=== PATIENT | male | born 1950 | race Caucasian/White ===

== ENCOUNTER → 2016-09-14 | Outpatient (CLI) | payer OTHER ==
[2016-09-14 13:30] LABS: BASO % 0.8 %; BASO ABS # 0.03 K/uL (0-0.2); COMPLETE YES; EOS % 10.6 %; HEMATOCRIT 34.4 % (42-52); IG% 0.3 %; LYMPH % 34.8 %; LYMPH ABS # 1.38 K/uL (1.2-3.4); MEAN CELL VOLUME 93.2 fL (80-100); MEAN CORPUSCULAR HEMOGLOBIN 32.2 pg (25-34); MEAN CORPUSCULAR HGB CONC 34.6 g/dl (32-36); MEAN PLATELET VOLUME 9.1 fL (7.4-10.4); MONO % 15.7 %; NEUT % 37.8 %; PLATELET COUNT 236 K/uL (130-400); RED BLOOD COUNT 3.69 M/uL (4.7-6.1); WHITE BLOOD COUNT 3.96 K/uL (4.8-10.8)
[2016-09-14 13:47] LABS: ALT/SGPT 28 U/L (12-78); BLOOD UREA NITROGEN 17 mg/dl (7-18); CALCIUM 8.8 mg/dl (8.5-10.1); CARBON DIOXIDE 24 mmol/L (21-32); CHLORIDE 101 mmol/L (98-107); CHOLESTEROL 180 mg/dl (0-200); GLUCOSE 89 mg/dl (70-99); SODIUM 133 mmol/L (136-145); TRIGLYCERIDES 67 mg/dl (0-150); VERY LOW DENSITY LIPOPROT CALC 13 mg/dl
[2016-09-14 13:50] LABS: ALKALINE PHOSPHATASE 64 U/L (45-117); AST/SGOT 28 U/L (15-37); CHOLESTEROL/HDL RATIO 1.7; FERRITIN 103.9 ng/ml (8.0-388.0); HDL CHOLESTEROL 108 mg/dl; LDL CHOLESTEROL CALCULATED 59 mg/dl; TOTAL IRON BINDING CAPACITY 326 mcg/dl (250-450)
[2016-09-15 15:06] LABS: ALBUMIN 4.3 G/DL (3.8-4.8); GAMMA GLOBULIN 1.4 G/DL (0.8-1.7); TOTAL PROTEIN 7.4 G/DL (6.2-8.3)
--- NOTE | 2016-10-13 12:32 | CODING QUERY MEDICAL NECESSITY ---
SUPPORTING DIAGNOSIS NEEDED A supporting diagnosis is required for the test/procedure performed on this patient in order for us to be reimbursed by the patient's insurance. Please provide a supporting diagnosis for the following test/procedure listed below next to the test name along with your signature. *If there is no additional diagnosis for this patient that would support the following test/procedure please document that below next to the test/procedure. Test(s)/Procedure(s) that require a supporting diagnosis: DOS 09/14 * Vitamin B12 DIAGNOSIS: * Iron DIAGNOSIS: * Lipids DIAGNOSIS: Provider Signature: Date: Thank you Fatimah Bashir Health Information Management Once completed, please kindly fax back to [phone] For questions please call [phone]
== END | disposition home or self-care (01) ==
LOC: C.LABPBG 07:52
PROVIDERS: ATTEND Internal Medicine
DX: J45.909 Unspecified asthma, uncomplicated (principal); D64.9 Anemia, unspecified; E78.5 Hyperlipidemia, unspecified

== ENCOUNTER → 2017-03-31 | Outpatient (CLI) | payer OTHER ==
[2017-03-31 12:52] LABS: BASO % 1.1 %; BASO ABS # 0.04 K/uL (0-0.2); COMPLETE YES; EOS % 17.9 %; IG% 0.3 %; LYMPH % 31.3 %; LYMPH ABS # 1.12 K/uL (1.2-3.4); MEAN CORPUSCULAR HEMOGLOBIN 31.5 pg (25-34); MEAN CORPUSCULAR HGB CONC 32.8 g/dl (32-36); MEAN PLATELET VOLUME 9.2 fL (7.4-10.4); MONO % 15.9 %; NEUT % 33.5 %; PLATELET COUNT 234 K/uL (130-400); RED BLOOD COUNT 3.75 M/uL (4.7-6.1); WHITE BLOOD COUNT 3.58 K/uL (4.8-10.8)
[2017-03-31 13:35] LABS: ALT/SGPT 33 U/L (12-78); BLOOD UREA NITROGEN 13 mg/dl (7-18); CALCIUM 9.1 mg/dl (8.5-10.1); CARBON DIOXIDE 25 mmol/L (21-32); CHLORIDE 104 mmol/L (98-107); CHOLESTEROL 176 mg/dl (0-200); GLUCOSE 88 mg/dl (70-99); SODIUM 135 mmol/L (136-145)
[2017-03-31 13:45] LABS: ALB/GLOB RATIO 0.9 (0.9-2); ALKALINE PHOSPHATASE 72 U/L (45-117); AST/SGOT 32 U/L (15-37); CHOLESTEROL/HDL RATIO 1.6; HDL CHOLESTEROL 108 mg/dl; LDL CHOLESTEROL CALCULATED 58 mg/dl; TRIGLYCERIDES 50 mg/dl (0-150); VERY LOW DENSITY LIPOPROT CALC 10 mg/dl
== END | disposition home or self-care (01) ==
LOC: C.LABPBG 07:32
PROVIDERS: ATTEND Internal Medicine
DX: Z12.5 Encounter for screening for malignant neoplasm of prostate (principal); Z11.59 Encounter for screening for other viral diseases; Z87.2 Personal history of diseases of the skin and subcutaneous tissue

== ENCOUNTER → 2017-09-29 | Outpatient (CLI) | payer OTHER ==
[~2017-09-29] MED LIST: ATOR-22 PO; LISI-725 PO; MRLP17X PO; NRV5 PO
--- NOTE | 2017-09-29 14:30 | DIAGNOSTIC IMAGING REPORT ---
PA CHEST RADIOGRAPH AND UPRIGHT AND SUPINE AP RADIOGRAPHS OF THE ABDOMEN CLINICAL HISTORY: Abdominal pain. COMPARISON STUDY: CT of the abdomen and pelvis August 25, 2013. FINDINGS: Lung volumes are normal. No consolidation is identified. There is no pneumothorax or pleural effusion. Apparent mild reticulonodular interstitial thickening is likely due to pulmonary vessels. Cardiac size is normal. Mediastinal contours are normal. Bowel gas pattern is normal. No urinary calculi are identified. Pelvic calcifications likely reflect phleboliths. IMPRESSION: 1. No free air or evidence of bowel obstruction. 2. No acute cardiopulmonary findings. Electronically signed by: Ko Chacon M.D. 09/29/2017 2:29 PM Dictated Date/Time: 09/29/2017 2:26 PM
[2017-09-29 14:59] LABS: BASO % 0.6 %; BASO ABS # 0.03 K/uL (0-0.2); EOS % 7.1 %; EOS ABS # 0.36 K/uL (0-0.5); HEMATOCRIT 31.1 % (42-52); HEMOGLOBIN 10.6 g/dL (14.0-18.0); IG# 0.01 K/uL (0.00-0.02); LYMPH % 20.1 %; LYMPH ABS # 1.02 K/uL (1.2-3.4); MEAN CELL VOLUME 95.7 fL (80-100); MEAN CORPUSCULAR HEMOGLOBIN 32.6 pg (25-34); MEAN CORPUSCULAR HGB CONC 34.1 g/dl (32-36); MEAN PLATELET VOLUME 8.7 fL (7.4-10.4); MONO % 10.8 %; MONO ABS # 0.55 K/uL (0.11-0.59); NEUT % 61.2 %; NEUT ABS # 3.11 K/uL (1.4-6.5); PLATELET COUNT 254 K/uL (130-400); RED CELL DISTRIBUTION WIDTH CV 12.7 % (11.5-14.5); RED CELL DISTRIBUTION WIDTH SD 44.6 fL (36.4-46.3); WHITE BLOOD COUNT 5.08 K/uL (4.8-10.8)
[2017-09-29 15:20] LABS: ALBUMIN 3.8 gm/dl (3.4-5.0); ALT/SGPT 73 U/L (12-78); AST/SGOT 61 U/L (15-37); BLOOD UREA NITROGEN 47 mg/dl (7-18); CALCIUM 9.5 mg/dl (8.5-10.1); CARBON DIOXIDE 18 mmol/L (21-32); CREATININE 2.42 mg/dl (0.60-1.40); GLUCOSE 91 mg/dl (70-99); LIPASE 1014 U/L (73-393); POTASSIUM 5.5 mmol/L (3.5-5.1); SODIUM 135 mmol/L (136-145)
[2017-09-29 15:24] LABS: ALKALINE PHOSPHATASE 348 U/L (45-117); TOTAL PROTEIN 8.4 gm/dl (6.4-8.2)
== END | disposition home or self-care (01) ==
LOC: C.RAD1850 14:05
PROVIDERS: ATTEND Internal Medicine
DX: R10.9 Unspecified abdominal pain (principal)

== ENCOUNTER → 2017-09-30 | Outpatient (CLI) | payer OTHER | END | disposition home or self-care (01) | LOC: C.LABSPEC 08:20 | PROVIDERS: ATTEND Internal Medicine | DX: R10.9 Unspecified abdominal pain (principal) ==

== ENCOUNTER 2017-10-01 23:33 | Inpatient (IN) | payer OTHER ==
[~2017-10-01] VITALS: Ht 175.3 cm; Wt 93.4 kg
[2017-10-02] MEDS ORDERED: LISI-725 PO (00:09)
[2017-10-02] MEDS ORDERED: ATOR-22 PO (00:10)
[2017-10-02 00:13] LABS: HEMATOCRIT 28.3 % (42-52); HEMOGLOBIN 9.7 g/dL (14.0-18.0); MEAN CELL VOLUME 95.6 fL (80-100); MEAN CORPUSCULAR HEMOGLOBIN 32.8 pg (25-34); MEAN CORPUSCULAR HGB CONC 34.3 g/dl (32-36); MEAN PLATELET VOLUME 8.5 fL (7.4-10.4); PLATELET COUNT 217 K/uL (130-400); RED CELL DISTRIBUTION WIDTH CV 12.9 % (11.5-14.5); WHITE BLOOD COUNT 5.67 K/uL (4.8-10.8)
[2017-10-02 00:31] LABS: ALBUMIN 3.3 gm/dl (3.4-5.0); CALCIUM 8.6 mg/dl (8.5-10.1); CREATININE 3.01 mg/dl (0.60-1.40); POTASSIUM 5.1 mmol/L (3.5-5.1)
[2017-10-02 00:34] LABS: TOTAL PROTEIN 7.6 gm/dl (6.4-8.2)
--- NOTE | 2017-10-02 00:39 | EMERGENCY ROOM VISIT NOTE ---
History Report prepared by Kinsey: Chucho Rosales Under the Supervision of: Dr. Corina Walter D.O. First contact with patient: 23:40 Chief Complaint: ABDOMINAL PAIN Stated Complaint: ABDOMINAL PAIN History of Present Illness The patient is a 67 year old male who presents to the Emergency Room with complaints of intermittent abdominal pain/bloating that began a month and a half ago. Patient describes the pain as "uncomfortable". Patient states that he is "99% pain free" right now. He has associated symptoms of bloating and nausea. He denies vomiting. Patient states that he sees Dr. Ty. He states that Dr. Ty believes he might have pancreatitis. He states that he had X- Rays, a stool sample, and urine test done during his visit with Dr. Ty. He adds that the lab test showed he had "elevated enzymes". Patient states that he stopped drinking alcohol 3 days ago which has slightly relieved his symptoms. He states that he used to drink "10 beers a day". Patient denies any alcohol withdrawal symptoms. Patient adds that Dr. Ty states he has a hernia. Patient denies any recent changes in weight. He denies any pain with eating. Patient states that he lives with his girlfriend. He states that he takes a blood pressure medication. 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 Source of History: patient Onset: Month and a half ago Position: abdomen Timing: intermittent Associated Symptoms: + nausea, No vomiting Note: Patient has bloating. Review of Systems See HPI for pertinent positives & negatives. A total of 10 systems reviewed and were otherwise negative. Past Medical & Surgical No pertinent past medical & surgical history. Family History FH: cancer FH: gallbladder disease FH: heart disease Hypertension Kidney disease Kidney stones Social History Smoking Status: Never Smoker Alcohol Use: heavy Marital Status: Housing Status: lives with significant other Occupation Status: retired Current/Historical Medications Scheduled Atorvastatin (Lipitor), 20 MG PO DAILY Lisinopril (Zestril), 20 MG PO DAILY Allergies Coded Allergies: No Known Allergies (Unverified , 10/02/17) Physical Exam Vital Signs Date Time Temp Pulse Resp B/P (MAP) Pulse Ox O2 Delivery O2 Flow Rate FiO2 10/02/17 03:05 71 12 98 10/02/17 03:00 142/100 10/02/17 02:00 149/90 10/02/17 01:58 63 97 10/02/17 01:38 70 15 98 Room Air 10/02/17 01:30 150/94 10/02/17 01:23 64 98 10/02/17 01:08 65 16 98 10/02/17 01:00 160/93 10/02/17 00:53 63 15 98 10/02/17 00:39 65 10/02/17 00:38 68 22 98 10/02/17 00:30 172/106 10/02/17 00:08 65 98 10/02/17 00:03 72 21 92 10/02/17 00:01 152/78 10/01/17 23:58 66 15 97 10/01/17 23:53 73 18 97 Room Air 10/01/17 23:50 154/88 10/01/17 23:37 36.7 77 18 145/99 98 Room Air Physical Exam HEENT: Head - normocephalic and atraumatic Pupils are equal, round, and reactive to light. Extraocular eye muscles are intact, and sclera are anicteric. Nose - moist nasal mucosa without discharge. Mouth - moist buccal mucosa. Oropharynx is nonerythematous and there is no tonsillar exudate or edema noted. Neck: Supple; no JVD, nuchal rigidity, cervical lymphadenopathy. Heart: Regular rate and rhythm. There is a normal S1 and S2 with no murmurs, clicks, or gallops appreciated. Lungs: Clear to auscultation bilaterally with no wheezes, rales, or rhonchi. Abdomen: Soft, completely nontender, mildly distended, with good bowel sounds. There are no palpable pulsatile masses or hepatosplenomegaly. There is no guarding, rigidity, or rebound noted. Extremities: No evidence of cyanosis, clubbing, or edema. There are easily palpable peripheral pulses. Skin: warm and dry with good turgor and no rashes. Medical Decision & Procedures ER Provider Diagnostic Interpretation: Radiology results as stated below per my review and the radiologist's interpretation: CT ABDOMEN & PELVIS Without Contrast: Impression. Lower thorax demonstrates multiple pulmonary nodules, the largest within the right lower lobe measuring up to 6-7 mm. Trace bilateral pleural effusions. Moderate stranding noted about both kidneys and ureters. No obstructing lesions identified. Findings may represent an inflammatory or infectious process and less likely passed ureteral calculus. Additional findings: Cirrhotic appearing liver. Thickening of the gallbladder wall with adjacent stranding, which may be related to underlying cirrhosis. Thickening of the adrenal glands. Noninflamed colonic diverticulosis. Appendix is unremarkable. Mild ascites. Pancreas is unremarkable. Evaluation for acute pancreatitis is limited secondary to ascites. Vascular calcifications. No acute osseous abnormality. Radiologist: Alexx Carlos MD US RUQ: Liver measures up to 14 cm. Coarsened echotexture suggesting cirrhosis. Small amount of sludge within the gallbladder. No gallstones. Moderate gallbladder wall thickening which may be secondary to cirrhosis. Negative sonographic Shea's sign. Evaluation for pericholecystic fluid is limited secondary to ascites within the upper abdomen. The right kidney is prominent at 13.2 cm. Question duplicated collecting system. Right-sided pleural effusion Radiologist: Alexx Carlos MD Laboratory Results 10/01/17 23:55 Red Blood Count 2.96, Mean Corpuscular Volume 95.6, Mean Corpuscular Hemoglobin 32.8, Mean Corpuscular Hemoglobin Concent 34.3, Mean Platelet Volume 8.5 10/01/17 23:55 Test 10/01/17 23:55 10/02/17 01:45 White Blood Count 5.67 K/uL (4.8-10.8) Red Blood Count 2.96 M/uL (4.7-6.1) Hemoglobin 9.7 g/dL (14.0-18.0) Hematocrit 28.3 % (42-52) Mean Corpuscular Volume 95.6 fL (80-100) Mean Corpuscular Hemoglobin 32.8 pg (25-34) Mean Corpuscular Hemoglobin Concent 34.3 g/dl (32-36) Platelet Count 217 K/uL (130-400) Mean Platelet Volume 8.5 fL (7.4-10.4) RDW Standard Deviation 45.0 fL (36.4-46.3) RDW Coefficient of Variation 12.9 % (11.5-14.5) Neutrophils % (Manual) 65.2 % Lymphocytes % (Manual) 15.7 % Monocytes % (Manual) 14.8 % Eosinophils % (Manual) 4.3 % Neutrophils # (Manual) 3.70 K/uL (1.4-6.5) Total Absolute Neutrophils 3.70 K/uL (1.4-6.5) Lymphocytes # (Manual) 0.89 K/uL (1.2-3.4) Total Absolute Lymphocytes 0.89 K/uL (1.2-3.4) Monocytes # (Manual) 0.84 K/uL (0.11-0.59) Eosinophils # (Manual) 0.24 K/uL (0-0.5) Anion Gap 7.0 mmol/L (3-11) Est Creatinine Clear Calc Drug Dose 27.5 ml/min Estimated GFR () 23.9 Estimated GFR (Non- 20.6 BUN/Creatinine Ratio 15.5 (10-20) Calcium Level 8.6 mg/dl (8.5-10.1) Total Bilirubin 0.5 mg/dl (0.2-1) Direct Bilirubin 0.2 mg/dl (0-0.2) Aspartate Amino Transf (AST/SGOT) 93 U/L (15-37) Alanine Aminotransferase (ALT/SGPT) 85 U/L (12-78) Alkaline Phosphatase 339 U/L (45-117) Total Protein 7.6 gm/dl (6.4-8.2) Albumin 3.3 gm/dl (3.4-5.0) Amylase Level 366 U/L (25-115) Lipase 1409 U/L (73-393) Urine Color YELLOW Urine Appearance CLEAR (CLEAR) Urine pH 5.0 (4.5-7.5) Urine Specific Bedias 1.015 (1.000-1.030) Urine Protein 2+ (NEG) Urine Glucose (UA) NEG (NEG) Urine Ketones NEG (NEG) Urine Occult Blood NEG (NEG) Urine Nitrite NEG (NEG) Urine Bilirubin NEG (NEG) Urine Urobilinogen NEG (NEG) Urine Leukocyte Esterase NEG (NEG) Urine WBC (Auto) 1-5 /hpf (0-5) Urine RBC (Auto) 0-4 /hpf (0-4) Urine Hyaline Casts (Auto) 5-10 /lpf (0-5) Urine Epithelial Cells (Auto) 10-20 /lpf (0-5) Urine Bacteria (Auto) NEG (NEG) Laboratory results per my review. Medications Administered Procedure Famotidine 20mg IV ED Course 2340: Past medical records reviewed. The patient was evaluated in room B2. A complete history and physical exam was performed. IV lock was established and labs were drawn as above. 2348: I reviewed the patient's labs from 09/29/2017. They showed: lipase = 1014, amylase = 293, and creatinine = 2.4. 0116: I reassessed the patient who is resting comfortably. I went over the patient's results. He states that he takes ibuprofen everyday for arthritis and maybe this is the cause of his renal failure. The patient went for CT scan of the abdomen to further evaluate the pancreas. Please see results as above. 0307: The patient was complaining of some epigastric discomfort and was given famotidine 20mg IV. The patient went for an ultrasound of the gallbladder as described above. 0310: Upon reevaluation, I discussed findings and results with him. He verbalized agreement of the treatment plan. I spoke with Dr. Ann of the [facility]. The patient will be evaluated for further management and care. Medical Decision The patient is a 67 year old male who presents to the ED with abdominal pain. Differential diagnosis includes pancreatitis, renal failure, pancreatic mass, alcohol abuse, and cholecystitis. Lab results show normal white blood count, hemoglobin = 9.7, creatinine = 3.0, lipase = 1409, amylase = 366, glucose = 101, AST = 93, ALT = 85, and alcohol phos = 339. Medication Reconcilliation Current Medication List: was personally reviewed by me Blood Pressure Screening Patient's blood pressure: Elevated blood pressure Addressed as an inpatient. Impression Primary Impression: Acute kidney injury Additional Impression: Cirrhosis of liver Scribe Attestation The scribe's documentation has been prepared under my direction and personally reviewed by me in its entirety. I confirm that the note above accurately reflects all work, treatment, procedures, and medical decision making performed by me. Departure Information Dispostion Being Evaluated By Hospitalist Referrals Segundo Feldman M.D. (PCP) Forms Call Back Authorization, HOME CARE DOCUMENTATION FORM, IMPORTANT VISIT INFORMATION Patient Instructions My [facility] Health Problem Qualifiers Additional Impression: Cirrhosis of liver Hepatic cirrhosis type: alcoholic cirrhosis Ascites presence: with ascites Qualified Codes: K70.31 - Alcoholic cirrhosis of liver with ascites
[2017-10-02] MEDS ORDERED: ACETAMINOPHEN 325 MG TAB PO PRN (03:00)
[2017-10-02] MEDS ORDERED: MAGNESIUM HYDROXIDE SUSP 30 ML UDC PO PRN (03:00)
[2017-10-02] MEDS ORDERED: ONDANSETRON INJ 2 MG/ML 2 ML VIAL IV PRN (03:00)
[2017-10-02] MEDS ORDERED: FAMOTIDINE 20MG/5ML IV PUSH IV STA (03:07)
[2017-10-02] MEDS ORDERED: POLYETHYLENE (MIRALAX) 17 GM PACK PO PRN (03:30)
--- NOTE | 2017-10-02 04:24 | History and Physical ---
History & Physical Date & Time of Service: Oct 02, 2017 at 03:54 Chief Complaint: Abdominal Pain Primary Care Physician: Segundo Feldman M.D. History of Present Illness Source: patient 67 y/o M Hx HTN, HPL, alcohol abuse. C/O abdominal, mid and epigastric pain which has been present intermittently for 1 mo. He had visited his primary MD on the . Labs including LFTs, CBC, BMP were obtained. He was called back 10/01 evening as multiple abnormalities were present, and directed to attend the hospital for further evaluation. Labs were redrawn in the ER and are notable for ARF, transaminitis, elevated lipase and anemia - confirming previous findings. A CT abdomen was obtained showing BL perinephric stranding, cirrhosis and multiple subcentimeter pulmonary nodules. The pt is relatively pain-free on admission. The pt does not have a known history of cirrhosis or kidney disease. He has not had fevers or dysuria. He denies vomiting or diarrhea, admits to occasional nausea. At the time of admission he has not had an alcoholic beverage for 3 days and denies any withdrawal symptoms. 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 - regularly drinks 10 lite beers daily Smoking Status: Never Smoker Marital Status: Occupational Status: retired Multi-Drug Resistant Organisms History of MDRO: No Allergies Coded Allergies: No Known Allergies (Unverified , 10/02/17) Home Medications Scheduled Atorvastatin (Lipitor), 20 MG PO DAILY Lisinopril (Zestril), 20 MG PO DAILY Review of Systems Constitutional: No fever, No chills, No sweats Eyes: No worsening of vision ENT: No hearing loss, No unusual epistaxis, No nasal symptoms Respiratory: No cough, No sputum, No wheezing Cardiovascular: No chest pain, No orthopnea, No PND Abdomen: + pain, + nausea, No vomiting, No diarrhea, No constipation Musculoskeletal: No joint pain Genitourinary - Male: No hematuria, No dysuria Neurologic: No memory loss, No paralysis, No weakness Psychiatric: No depression symptoms Endocrine: No fatigue Hematologic / Lymphatic: No abnormal bleeding/bruising Integumentary: No rash Physical Exam Vital Signs Date Time Temp Pulse Resp B/P (MAP) Pulse Ox O2 Delivery O2 Flow Rate FiO2 10/02/17 03:00 142/100 10/02/17 02:00 149/90 10/02/17 01:58 63 97 10/02/17 01:38 70 15 98 Room Air 10/02/17 01:30 150/94 10/02/17 01:23 64 98 10/02/17 01:08 65 16 98 10/02/17 01:00 160/93 10/02/17 00:53 63 15 98 10/02/17 00:39 65 10/02/17 00:38 68 22 98 10/02/17 00:30 172/106 10/02/17 00:08 65 98 10/02/17 00:03 72 21 92 10/02/17 00:01 152/78 10/01/17 23:58 66 15 97 10/01/17 23:53 73 18 97 Room Air 10/01/17 23:50 154/88 10/01/17 23:37 36.7 77 18 145/99 98 Room Air General Appearance: WD/WN, no apparent distress, + pertinent finding (Pleasant middle-aged male in no distress) Head: normocephalic Eyes: normal inspection ENT: normal ENT inspection, pharynx normal Neck: supple, no JVD Respiratory/Chest: chest non-tender, lungs clear, normal breath sounds Cardiovascular: regular rate, rhythm, no edema, no gallop Abdomen/GI: normal bowel sounds, non tender, + pertinent finding (Mild epigastric tenderness to palpation) Back: normal inspection, no CVA tenderness Extremities/Musculoskelatal: normal inspection, no calf tenderness 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, no motor/sensory deficits, alert Skin: normal color Diagnostics Laboratory Results Results Past 24 Hours Test 10/01/17 23:55 10/02/17 01:45 Range/Units White Blood Count 5.67 4.8-10.8 K/uL Red Blood Count 2.96 4.7-6.1 M/uL Hemoglobin 9.7 14.0-18.0 g/dL Hematocrit 28.3 42-52 % Mean Corpuscular Volume 95.6 80-100 fL Mean Corpuscular Hemoglobin 32.8 25-34 pg Mean Corpuscular Hemoglobin Concent 34.3 32-36 g/dl Platelet Count 217 130-400 K/uL Mean Platelet Volume 8.5 7.4-10.4 fL RDW Standard Deviation 45.0 36.4-46.3 fL RDW Coefficient of Variation 12.9 11.5-14.5 % Neutrophils % (Manual) 65.2 % Lymphocytes % (Manual) 15.7 % Monocytes % (Manual) 14.8 % Eosinophils % (Manual) 4.3 % Neutrophils # (Manual) 3.70 1.4-6.5 K/uL Total Absolute Neutrophils 3.70 1.4-6.5 K/uL Lymphocytes # (Manual) 0.89 1.2-3.4 K/uL Total Absolute Lymphocytes 0.89 1.2-3.4 K/uL Monocytes # (Manual) 0.84 0.11-0.59 K/uL Eosinophils # (Manual) 0.24 0-0.5 K/uL Sodium Level 139 136-145 mmol/L Potassium Level 5.1 3.5-5.1 mmol/L Chloride Level 112 98-107 mmol/L Carbon Dioxide Level 20 21-32 mmol/L Anion Gap 7.0 3-11 mmol/L Blood Urea Nitrogen 47 7-18 mg/dl Creatinine 3.01 0.60-1.40 mg/dl Est Creatinine Clear Calc Drug Dose 27.5 ml/min Estimated GFR () 23.9 Estimated GFR (Non- 20.6 BUN/Creatinine Ratio 15.5 10-20 Random Glucose 101 70-99 mg/dl Calcium Level 8.6 8.5-10.1 mg/dl Total Bilirubin 0.5 0.2-1 mg/dl Direct Bilirubin 0.2 0-0.2 mg/dl Aspartate Amino Transf (AST/SGOT) 93 15-37 U/L Alanine Aminotransferase (ALT/SGPT) 85 12-78 U/L Alkaline Phosphatase 339 45-117 U/L Total Protein 7.6 6.4-8.2 gm/dl Albumin 3.3 3.4-5.0 gm/dl Amylase Level 366 25-115 U/L Lipase 1409 73-393 U/L Urine Color YELLOW Urine Appearance CLEAR CLEAR Urine pH 5.0 4.5-7.5 Urine Specific Stewart 1.015 1.000-1.030 Urine Protein 2+ NEG Urine Glucose (UA) NEG NEG Urine Ketones NEG NEG Urine Occult Blood NEG NEG Urine Nitrite NEG NEG Urine Bilirubin NEG NEG Urine Urobilinogen NEG NEG Urine Leukocyte Esterase NEG NEG Urine WBC (Auto) 1-5 0-5 /hpf Urine RBC (Auto) 0-4 0-4 /hpf Urine Hyaline Casts (Auto) 5-10 0-5 /lpf Urine Epithelial Cells (Auto) 10-20 0-5 /lpf Urine Bacteria (Auto) NEG NEG Diagnostic Radiology CT abdomen: Multiple subcentimeter pulmonary nodules Cirrhosis - ascites BL perinephric stranding Thickened gallbladder Impression Assessment and Plan 67 y/o M Hx HTN, HPL, alcohol abuse. C/O abdominal, mid and epigastric pain which has been present intermittently for 1 mo. He had visited his primary MD on the . Labs including LFTs, CBC, BMP were obtained. He was called back 10/01 evening as multiple abnormalities were present, and directed to attend the hospital for further evaluation. Labs were redrawn in the ER and are notable for ARF, transaminitis, elevated lipase and anemia - confirming previous findings. A CT abdomen was obtained showing BL perinephric stranding, cirrhosis and multiple subcentimeter pulmonary nodules. The pt is relatively pain-free on admission. The pt does not have a known history of cirrhosis or kidney disease. He has not had fevers or dysuria. He denies vomiting or diarrhea, admits to occasional nausea. At the time of admission he has not had an alcoholic beverage for 3 days and denies any withdrawal symptoms. 1) Abdominal pain - differential would include PUD and pancreatitis. His pancreas is unremarkable on CT. There is mild lipase elevation. There is no tenderness to palpation of the RUQ to indicate gallbladder etiology. 2) Cirrhosis - some ascites is present - he does not have hyperbilirubinemia or thrombocytopenia. GI has been consulted and the pt has been cautioned regarding resuming alcohol intake. 3) ARF - renal function was normal 03/31. He does not exhibit hypotension, or display sequelae of advanced cirrhosis to indicate that this is hepatorenal. There is perinephric stranding on imaging without any evidence of infection. We have requested urine lytes and a nephrology consult. Aggressive hydration is provided and BMP will be repeated AM. 4) Anemia - denies any overt bleeding - fecal occult blood and iron studies are pending. PPi will be provided. It is noted that a degree of anemia was present 03/31. The anemia is notably normocytic and may be partially related to his renal function, however, in 03/31 his renal function was normal and anemia was apparent. Cirrhosis may also be a culprit, although his platelet count seems unaffected. 5) ETOH abuse - he drinks mostly lite bear and indicates he can forgo additional intake - we will provide Ativan if needed, daily thiamine and Folate. 6) Pulmonary nodules - multiple subcentimeter nodules on CT may ultimately need further evaluation. Full code - SCDs due to possible GI blood loss Level of Care Med/Surg Resuscitation Status FULL RESUSCITATION VTE Prophylaxis VTE Risk Assessment Done? Y/N: Yes Risk Level: Low Given or contraindicated: SCD's
[2017-10-02 04:36] VITALS: BP 169/104; PULSE 61; TEMP 36.6; O2SAT 99; Ht 175.3 cm; Wt 93.4 kg
[2017-10-02] MEDS ORDERED: SODIUM CHLORIDE 0.9% 1000ML 1,000 ML IV SCH (04:45)
[2017-10-02 05:06] VITALS: BP 159/91
[2017-10-02 06:43] VITALS: BP 154/92
[2017-10-02 06:58] VITALS: BP 169/97; PULSE 58; TEMP 36.8; O2SAT 97
--- NOTE | 2017-10-02 08:14 | DIAGNOSTIC IMAGING REPORT ---
CT OF THE ABDOMEN AND PELVIS WITHOUT CONTRAST CLINICAL HISTORY: Abdominal pain. Evaluate for pancreatitis. COMPARISON STUDY: CT of the abdomen and pelvis August 25, 2013 and abdominal series September 29, 2017. TECHNIQUE: Axial images of the abdomen and pelvis were obtained without IV contrast. Images were reviewed in the axial, sagittal, and coronal planes. A dose lowering technique was utilized adhering to the principles of ALARA. FINDINGS: Visualized portions of the lower chest demonstrate trace bilateral pleural effusions, right larger than left. There are numerous small pulmonary nodules which are new since CT of August 25, 2013. The largest is a 7 mm right lower lobe nodule. There may be mild pleural nodularity as well. Evaluation of the abdomen and pelvis is suboptimal on this unenhanced exam. There is slight nodularity of the liver surface. No hepatic lesions are identified although sensitivity is diminished on this unenhanced exam. Size of the spleen is normal. Unenhanced images of the adrenal glands and pancreas are unremarkable. There is moderate bilateral perinephric infiltration. There is no hydronephrosis. No ureteral calculi present. There is extensive vascular calcification. A small amount of ascites is noted. There is no bowel obstruction. No pathologically enlarged lymph nodes are present. There is colonic diverticulosis evidence for acute diverticulitis. The appendix is mildly dilated and contains hyperdense material. However, there is no definite periappendiceal infiltration. There are no suspicious osseous lesions. IMPRESSION: 1. Numerous small nodules within visualized portions of the lungs which are new since CT of August 25, 2013. While nonspecific, metastatic disease is within the differential and correlation with history of known malignancy is recommended. A follow-up chest CT could be obtained. Trace bilateral pleural effusions with possible pleural nodularity. Discussed with Dr. Linder at time of dictation. 2. Moderate bilateral perinephric infiltration, a nonspecific finding. Mild prominence of both collecting systems without melva hydronephrosis. No ureteral calculi. 3. Small amount of ascites. 4. Suspected cirrhosis. 5. Extensive atherosclerotic plaque. Electronically signed by: Ko Chacon M.D. 10/02/2017 8:13 AM Dictated Date/Time: 10/02/2017 7:46 AM
[2017-10-02] MEDS: PANTOprazole INJ 40 MG in SYRINGE 0 ML IV SCH ×2 (08:48→21:32)
[2017-10-02] MEDS ORDERED: FoLIC ACID INJ 1 MG in SYRINGE 9.8 ML IV SCH (09:00)
[2017-10-02] MEDS ORDERED: THIAMINE HCL INJ 100 MG in SYRINGE 9 ML IV SCH (09:00)
[2017-10-02] MEDS ORDERED: LISINOPRIL 20 MG TAB PO SCH (09:00)
[2017-10-02] MEDS ORDERED: ATORVASTATIN 20 MG TAB PO SCH (09:00)
--- NOTE | 2017-10-02 09:33 | DIAGNOSTIC IMAGING REPORT ---
ABDOMINAL ULTRASOUND, RIGHT UPPER QUADRANT HISTORY: Abdominal pain. Possible pancreatitis. COMPARISON: CT of the abdomen and pelvis performed earlier today. FINDINGS: Pancreas is obscured by overlying bowel gas. There is slight coarsening of hepatic echotexture. There is a small amount of perihepatic ascites. There is no biliary ductal dilatation. There is mild gallbladder wall thickening. No gallstones are identified. There may be sludge within the gallbladder. There is no right hydronephrosis. There is trace right perinephric fluid. There is mild right collecting system dilatation without melva hydronephrosis. A small right pleural effusion is noted. IMPRESSION: 1. No gallstones or biliary ductal dilatation. Possible small amount of sludge within the gallbladder. 2. Mild gallbladder wall thickening, a nonspecific finding. 3. Coarsening of hepatic echotexture which raises the possibility of cirrhosis. 4. Obscured pancreas due to overlying bowel gas. 5. Mild right collecting system dilatation without melva hydronephrosis. Electronically signed by: Ko Chacon M.D. 10/02/2017 9:32 AM Dictated Date/Time: 10/02/2017 9:30 AM
--- NOTE | 2017-10-02 09:47 | Family Medicine Progress Note ---
Progress Note Date of Service Oct 02, 2017. Subjective Spoke at length with Mr. Phillips while he sat up in his bed. As noted by night team, he reiterated a recent 2 month history of "gnawing" intermittent abdominal pain and loose brown stools that disturbed his sleep. Reports that he has no known history of abdominal issues including diverticulitis. He does report 2 episodes of dark stools after [place], but that has since resolved. He also reports use of Ibuprofen 2000mg /day for at least 5 years for his arthritis, denies tylenol use. Reports drinking 10 beers throughout the day every day for at least 20 years. Has not had a drink for 3 days. Today currently feeling bloated and uncomfortable in his abdomen, points to the mid epigastrum. Denies symptoms of alcohol withdrawal including tremor or cravings. Denies unintended weight loss, or food allergies. Denies emesis. Denies chest pain, SOB, headaches, syncope, swelling in lower ext or pain in lower ext. Denies smoking or illicit drugs. ROS See HPI for pertinent positives and negatives. Medications Current Inpatient Medications Medications (Trade) Dose Ordered Sig/Margarito Route Start Time Stop Time Status Last Admin Dose Admin Al Hydrox/Mg Hydrox/Simethicone (Maalox Max Susp) 15 ml Q4H PRN PO 10/02/17 03:00 11/01/17 02:59 Magnesium Hydroxide (Milk Of Magnesia Susp) 30 ml Q6H PRN PO 10/02/17 03:00 11/01/17 02:59 Polyethylene (Miralax Powder Packet) 17 gm DAILY PRN PO 10/02/17 03:30 11/01/17 03:29 Zolpidem Tartrate (Ambien Tab) 5 mg HSZ PRN PO 10/02/17 03:00 11/01/17 02:59 Ondansetron HCl (Zofran Inj) 4 mg Q6H PRN IV 10/02/17 03:00 11/01/17 02:59 Sodium Chloride 1,000 ml @ 125 mls/hr Q8H IV 10/02/17 04:45 10/02/17 20:44 10/02/17 05:08 125 MLS/HR Hydralazine HCl (HydrALAZINE INJ) 5 mg Q6H PRN IV. 10/02/17 04:00 11/01/17 03:59 Thiamine HCl 100 mg/Syringe 10 ml @ 2 mls/min QAM IV 10/02/17 09:00 11/01/17 08:59 10/02/17 08:48 2 MLS/MIN Folic Acid 1 mg/ Syringe 10 ml @ 5 mls/min QAM IV 10/02/17 09:00 11/01/17 08:59 10/02/17 08:48 5 MLS/MIN Pantoprazole Sodium 40 mg/ Syringe 10 ml @ 5 mls/min DAILY@ IV 10/02/17 09:00 10/05/17 21:01 10/02/17 08:48 5 MLS/MIN Objective Vital Signs Date Time Temp Pulse Resp B/P (MAP) Pulse Ox O2 Delivery O2 Flow Rate FiO2 10/02/17 06:58 36.8 58 16 169/97 (121) 97 Room Air 10/02/17 06:43 154/92 (112) 10/02/17 05:06 159/91 (113) 10/02/17 04:36 36.6 61 16 169/104 99 Room Air 10/02/17 04:01 141/90 10/02/17 03:55 63 98 10/02/17 03:50 67 18 97 Room Air 10/02/17 03:35 73 18 99 10/02/17 03:31 176/97 10/02/17 03:20 65 17 98 10/02/17 03:05 71 12 98 10/02/17 03:00 142/100 10/02/17 02:00 149/90 10/02/17 01:58 63 97 10/02/17 01:38 70 15 98 Room Air 10/02/17 01:30 150/94 10/02/17 01:23 64 98 10/02/17 01:08 65 16 98 10/02/17 01:00 160/93 10/02/17 00:53 63 15 98 10/02/17 00:39 65 10/02/17 00:38 68 22 98 10/02/17 00:30 172/106 10/02/17 00:08 65 98 10/02/17 00:03 72 21 92 10/02/17 00:01 152/78 10/01/17 23:58 66 15 97 10/01/17 23:53 73 18 97 Room Air 10/01/17 23:50 154/88 10/01/17 23:37 36.7 77 18 145/99 98 Room Air Physical Exam Notes: GENERAL: Awake, alert, well-appearing, in no distress HENT: Normocephalic, atraumatic. EYES: Normal conjunctiva. Sclera non-icteric. NECK: Supple. FROM. No JVD. RESPIRATORY: Clear to auscultation. CARDIAC: Regular rate, normal rhythm. Extremities warm and well perfused. Pulses equal. ABDOMEN: Soft, non-distended. No tenderness to palpation. No rebound or guarding. No masses. RECTAL: Deferred. LOWER EXTREMITIES: Calves are equal size bilaterally and non-tender. No edema. No discoloration. NEURO: Normal sensorium. No sensory or motor deficits noted. No tremor. SKIN: No rash or jaundice noted. Laboratory Results 10/01/17 23:55 Red Blood Count 2.96, Mean Corpuscular Volume 95.6, Mean Corpuscular Hemoglobin 32.8, Mean Corpuscular Hemoglobin Concent 34.3, Mean Platelet Volume 8.5 10/01/17 23:55 Test 10/01/17 23:55 10/02/17 01:45 10/02/17 05:57 10/02/17 07:40 White Blood Count 5.67 K/uL (4.8-10.8) Red Blood Count 2.96 M/uL (4.7-6.1) Hemoglobin 9.7 g/dL (14.0-18.0) Hematocrit 28.3 % (42-52) Mean Corpuscular Volume 95.6 fL (80-100) Mean Corpuscular Hemoglobin 32.8 pg (25-34) Mean Corpuscular Hemoglobin Concent 34.3 g/dl (32-36) Platelet Count 217 K/uL (130-400) Mean Platelet Volume 8.5 fL (7.4-10.4) RDW Standard Deviation 45.0 fL (36.4-46.3) RDW Coefficient of Variation 12.9 % (11.5-14.5) Neutrophils % (Manual) 65.2 % Lymphocytes % (Manual) 15.7 % Monocytes % (Manual) 14.8 % Eosinophils % (Manual) 4.3 % Neutrophils # (Manual) 3.70 K/uL (1.4-6.5) Total Absolute Neutrophils 3.70 K/uL (1.4-6.5) Lymphocytes # (Manual) 0.89 K/uL (1.2-3.4) Total Absolute Lymphocytes 0.89 K/uL (1.2-3.4) Monocytes # (Manual) 0.84 K/uL (0.11-0.59) Eosinophils # (Manual) 0.24 K/uL (0-0.5) Anion Gap 7.0 mmol/L (3-11) Est Creatinine Clear Calc Drug Dose 27.5 ml/min Estimated GFR () 23.9 Estimated GFR (Non- 20.6 BUN/Creatinine Ratio 15.5 (10-20) Calcium Level 8.6 mg/dl (8.5-10.1) Total Bilirubin 0.5 mg/dl (0.2-1) Direct Bilirubin 0.2 mg/dl (0-0.2) Aspartate Amino Transf (AST/SGOT) 93 U/L (15-37) Alanine Aminotransferase (ALT/SGPT) 85 U/L (12-78) Alkaline Phosphatase 339 U/L (45-117) Total Protein 7.6 gm/dl (6.4-8.2) Albumin 3.3 gm/dl (3.4-5.0) Amylase Level 366 U/L (25-115) Lipase 1409 U/L (73-393) Urine Color YELLOW Urine Appearance CLEAR (CLEAR) Urine pH 5.0 (4.5-7.5) Urine Specific [place] 1.015 (1.000-1.030) Urine Protein 2+ (NEG) Urine Glucose (UA) NEG (NEG) Urine Ketones NEG (NEG) Urine Occult Blood NEG (NEG) Urine Nitrite NEG (NEG) Urine Bilirubin NEG (NEG) Urine Urobilinogen NEG (NEG) Urine Leukocyte Esterase NEG (NEG) Urine WBC (Auto) 1-5 /hpf (0-5) Urine RBC (Auto) 0-4 /hpf (0-4) Urine Hyaline Casts (Auto) 5-10 /lpf (0-5) Urine Epithelial Cells (Auto) 10-20 /lpf (0-5) Urine Bacteria (Auto) NEG (NEG) Iron Level 38 mcg/dl (35-175) Total Iron Binding Capacity 250 mcg/dl (250-450) Vitamin B12 Level 517 pg/mL (211-911) Folate 6.76 ng/mL (>5.38) Urine Random Creatinine 166.0 mg/dl Assessment and Plan 67 yo M with h/o HTN, HLD, Etoh abuse. Sent to ED by PCP d/t abnormal labs including ARF, transaminitis, elev lipase and anemia with background 2 month h/ o intermittent "gnawing" abdominal pain. CT abdomen shows b/l perinephric stranding, cirrhosis, and multiple subcentimeter pulmonary nodules. Procedures ABDOMINAL ULTRASOUND, RIGHT UPPER QUADRANT shows a small amount of perihepatic ascites. Normal biliary. no right hydronephrosis. trace right perinephric fluid. There is mild right collecting system dilatation without melva hydronephrosis. A small right pleural effusion is noted. possibility of cirrhosis. CT OF THE ABDOMEN AND PELVIS WITHOUT CONTRAST shows: slight nodularity of the liver surface. No hepatic lesions are identified although sensitivity is diminished on this unenhanced exam. Size of the spleen is normal. Unenhanced images of the adrenal glands and pancreas are unremarkable. There is moderate bilateral perinephric infiltration. There is no hydronephrosis. No ureteral calculi present. There is colonic diverticulosis evidence for acute diverticulitis. CT OF THE CHEST WITHOUT IV CONTRAST shows innumerable small noncalcified nodules throughout the lungs concerning for metastatic disease. MRI ABDOMEN WITH OUT CONTRAST SHOWS: pending Abdominal pain - ?pancreatitis/cirrhosis/PUD? - reports 2 episodes of dark stool 2 months ago, since resolved. - Pancreas unremarkable on CT. - NPO excepts meds, chips and sips. - GI has been consulted, appreciate recs liquid diet OK rec contrasted CT with pancreatic protocol vs MRI to r/o pancreatic complications or masses/tumors Supportive care. Scope not necessary at this time Continue strict alcohol cessation ARF - renal function was normal as of 03/31. - perinephric stranding on imaging - Nephrology consulted, appreciate recs. IVF .45% saline + 75mEq HCO3 @ 150ml/hr. DC lisinopril, adding CCB. Avoid studies with contrast for at least 4 weeks. Avoid NSAIDs. Hepatorenal syndrome is lower on list of differential given clinical presentation. - aggressive hydration as above Anemia - normocytic - monitor H&H, follow ETOH abuse - on alcohol withdrawal protocol - last drink 3 days ago as of 10/02 - no seizures as of yet. Supplementing with vitamins in Banana bag. Pulmonary nodules - innumerable on chest CT as above. - concerning for metastasis. Ordered tumor markers CA 19-9, CA125, AFP, CEA, PSA. - given that contrast contraindicated in light of ARF, ordered MRI w/o contrast to look for possible tumor source. Pending. DVT ppx: SCDs d/t suspicion for GI blood loss Code FULL Dispo med/surg Continued [facility] stay due to: multiple IV medications needed Discharge planning: home Resident Tracking Resident Involvement: Resident Care Provided Care Provided: Adult Hospital Medicine
--- NOTE | 2017-10-02 10:50 | DIAGNOSTIC IMAGING REPORT ---
CT OF THE CHEST WITHOUT IV CONTRAST CLINICAL HISTORY: Pulmonary nodules. COMPARISON STUDY: No previous studies for comparison. CT DOSE: 537.90 mGy.cm TECHNIQUE: Axial images of the chest were obtained without IV contrast. Images were reviewed in the axial, sagittal, and coronal planes. IV contrast was not administered for this examination. A dose lowering technique was utilized adhering to the principles of ALARA. FINDINGS: There are innumerable small noncalcified nodules throughout the lungs. An index 8 mm right lower lobe nodule is noted on image 214. There is a 6 mm left upper lobe nodule shown image 105 that may have minimal cavitation. No noncalcified nodules were shown within the lower lungs on abdominal CT of August 25, 2013. Calcified granuloma within the lingula is noted. Small bilateral pleural effusions with possible pleural nodularity. No pneumothorax is present. The size the heart is normal. There is no pericardial effusion. There is extensive coronary artery calcification. Note is made of a mildly enlarged right lower paratracheal lymph node that measures 1.3 cm. There is no hilar or axillary lymphadenopathy. No suspicious osseous lesions are present. Visualized portions of the upper abdomen demonstrate slight nodularity of the liver contour. There is moderate bilateral perinephric infiltration. IMPRESSION: 1. Innumerable small pulmonary nodules. These are nonspecific however raise the possibility of metastatic disease. Correlation with history of malignancy is recommended. An atypical infectious process or granulomatous process could appear similar although is considered less likely. 2. Small bilateral pleural effusions. 3. Mildly enlarged right paratracheal lymph node. 4. Suspected cirrhosis. Small amount of perihepatic ascites. 5. Moderate bilateral perinephric infiltration. Electronically signed by: Ko Chacon M.D. 10/02/2017 10:49 AM Dictated Date/Time: 10/02/2017 10:38 AM
--- NOTE | 2017-10-02 10:52 | Gastrointestinal Consultation ---
Gastrointestinal Consultation Date of Consultation: Oct 02, 2017 History of Present Illness Patient is a 67 year old male whom I was consulted for covering with Dr. Chacko for suspected pancreatitis in the setting of clinical cirrhosis. He is a 67-year-old gentleman who is quite functional but notes that he has had a gnawing epigastric pain described as colicky and crampy in nature in his epigastrium that radiates to his back at least since [place]. The pain seems to be worsened at night impeding his sleep, there was nothing particularly worse about the pain yesterday but after seeing his PCP this week he had blood work obtained that was abnormal and prompting him to present to the ER. His pain is very mild in nature but it is located in the epigastrium and radiates to his back. He has really no nausea or vomiting associated with this. He has no diarrhea. Denies any weight loss. Noncontrasted CT scan revealed some scattered pulmonary nodules, the unenhanced pancreas appeared normal without inflammation, did have a very prominent right renal collecting system. Lipase as well as amylase were dramatically elevated as they were as an outpatient suggesting pancreatitis giving his history. He also appears to have some imaging changes that would be worrisome for cirrhosis, he denies any decompensating features including GI bleeding, ascites , or peripheral edema. He does drink on the order of 6-10 beers daily. His transaminases are also noted to be mildly elevated with a mildly elevated alkaline phosphatase, right upper quadrant ultrasound as well as CT scan does not show any evidence or concern of biliary ductal obstruction. He denies any bad abdominal pain right now and says he feels pretty well. He does have new onset acute renal failure the nephrology will see him for. Past Medical/Surgical History Medical Problems: (1) Acute kidney injury Status: Acute (2) Cirrhosis of liver Status: Acute (3) Pancreatitis Status: Acute Family History FH: cancer FH: gallbladder disease FH: heart disease Hypertension Kidney disease Kidney stones Social History Smoking Status: Never Smoker Alcohol Use: heavy Marital Status: Housing Status: lives with significant other Occupation Status: retired Allergies Coded Allergies: No Known Allergies (Unverified , 10/02/17) Current Medications Home Meds and Scripts Medications Dose Route/Sig Max Daily Dose Days Date Category Lipitor (Atorvastatin Calcium) 20 Mg Tab 20 Mg PO DAILY 10/02/17 Reported Zestril (Lisinopril) 20 Mg Tab 20 Mg PO DAILY 10/02/17 Reported Review of Systems Constitutional: No see HPI, No fever, No chills, No sweats, No weight loss, No weakness, No fatigue, No problem reported Eyes: No see HPI, No worsening of vision, No eye pain, No redness, No discharge , No diplopia, No problem reported ENT: No see HPI, No hearing loss, No unusual epistaxis, No nasal symptoms, No sore throat, No tinnitus, No dental problems, No trouble swallowing, No pain on swallowing, No problem reported Respiratory: No see HPI, No cough, No sputum, No wheezing, No shortness of breath, No dyspnea on exertion, No dyspnea at rest, No hemoptysis, No problem reported Abdomen: + see HPI Musculoskeletal: No see HPI, No joint pain, No muscle pain, No swelling, No calf pain, No problem reported Male : + see HPI Physical Exam Date Time Temp Pulse Resp B/P (MAP) Pulse Ox O2 Delivery O2 Flow Rate FiO2 10/02/17 06:58 36.8 58 16 169/97 (121) 97 Room Air 10/02/17 06:43 154/92 (112) 10/02/17 05:06 159/91 (113) 10/02/17 04:36 36.6 61 16 169/104 99 Room Air 10/02/17 04:01 141/90 10/02/17 03:55 63 98 10/02/17 03:50 67 18 97 Room Air 10/02/17 03:35 73 18 99 10/02/17 03:31 176/97 10/02/17 03:20 65 17 98 10/02/17 03:05 71 12 98 10/02/17 03:00 142/100 10/02/17 02:00 149/90 10/02/17 01:58 63 97 10/02/17 01:38 70 15 98 Room Air 10/02/17 01:30 150/94 10/02/17 01:23 64 98 10/02/17 01:08 65 16 98 10/02/17 01:00 160/93 10/02/17 00:53 63 15 98 10/02/17 00:39 65 10/02/17 00:38 68 22 98 10/02/17 00:30 172/106 10/02/17 00:08 65 98 10/02/17 00:03 72 21 92 10/02/17 00:01 152/78 10/01/17 23:58 66 15 97 10/01/17 23:53 73 18 97 Room Air 10/01/17 23:50 154/88 10/01/17 23:37 36.7 77 18 145/99 98 Room Air General Appearance: WD/WN, no apparent distress Eyes: normal inspection ENT: normal ENT inspection Neck: supple, no adenopathy Respiratory/Chest: chest non-tender, lungs clear, normal breath sounds Cardiovascular: regular rate, rhythm, no edema, no gallop, no JVD Abdomen: normal bowel sounds, non tender, soft Extremities: normal range of motion, non-tender, normal inspection Neurologic/Psych: nursing home administrator II-XII nml as tested Laboratory Results Last 24 Hours Test 10/01/17 23:55 10/02/17 01:45 10/02/17 05:57 10/02/17 07:40 White Blood Count 5.67 K/uL Red Blood Count 2.96 M/uL Hemoglobin 9.7 g/dL 9.3 g/dL Hematocrit 28.3 % Mean Corpuscular Volume 95.6 fL Mean Corpuscular Hemoglobin 32.8 pg Mean Corpuscular Hemoglobin Concent 34.3 g/dl Platelet Count 217 K/uL Mean Platelet Volume 8.5 fL RDW Standard Deviation 45.0 fL RDW Coefficient of Variation 12.9 % Neutrophils % (Manual) 65.2 % Lymphocytes % (Manual) 15.7 % Monocytes % (Manual) 14.8 % Eosinophils % (Manual) 4.3 % Neutrophils # (Manual) 3.70 K/uL Total Absolute Neutrophils 3.70 K/uL Lymphocytes # (Manual) 0.89 K/uL Total Absolute Lymphocytes 0.89 K/uL Monocytes # (Manual) 0.84 K/uL Eosinophils # (Manual) 0.24 K/uL Sodium Level 139 mmol/L Potassium Level 5.1 mmol/L Chloride Level 112 mmol/L Carbon Dioxide Level 20 mmol/L Anion Gap 7.0 mmol/L Blood Urea Nitrogen 47 mg/dl Creatinine 3.01 mg/dl Est Creatinine Clear Calc Drug Dose 27.5 ml/min Estimated GFR () 23.9 Estimated GFR (Non- 20.6 BUN/Creatinine Ratio 15.5 Random Glucose 101 mg/dl Calcium Level 8.6 mg/dl Total Bilirubin 0.5 mg/dl Direct Bilirubin 0.2 mg/dl Aspartate Amino Transf (AST/SGOT) 93 U/L Alanine Aminotransferase (ALT/SGPT) 85 U/L Alkaline Phosphatase 339 U/L Total Protein 7.6 gm/dl Albumin 3.3 gm/dl Amylase Level 366 U/L Lipase 1409 U/L Urine Color YELLOW Urine Appearance CLEAR Urine pH 5.0 Urine Specific [place] 1.015 Urine Protein 2+ Urine Glucose (UA) NEG Urine Ketones NEG Urine Occult Blood NEG Urine Nitrite NEG Urine Bilirubin NEG Urine Urobilinogen NEG Urine Leukocyte Esterase NEG Urine WBC (Auto) 1-5 /hpf Urine RBC (Auto) 0-4 /hpf Urine Hyaline Casts (Auto) 5-10 /lpf Urine Epithelial Cells (Auto) 10-20 /lpf Urine Bacteria (Auto) NEG Iron Level 38 mcg/dl Total Iron Binding Capacity 250 mcg/dl Vitamin B12 Level 517 pg/mL Folate 6.76 ng/mL Urine Osmolality 416 mOms/kg Urine Random Creatinine 166.0 mg/dl Impression Patient is a 67 year old male presenting with pancreatitis potentially complicated by acute renal failure, in the setting of alcohol abuse and possible early non-decompensated cirrhosis. Plan Clinically he appears well, this may be pancreatitis that presented in July with resultant renal dysfunction that has lingered. He does not have any gross abnormalities of his pancreas including pancreatic fluid collections or necrosis on the unenhanced CT scan, but those things could be missed given the lack of contrast. He does not appear to have any obvious biliary etiologies or complications of this pancreatitis and its likely alcohol induced. Fortunately his pain is minimal at this time. Recommendation 1. N.p.o. until seen by nephrology, okay with a liquid diet given his very mild pain once evaluated. I would ask them to manage his fluids given his acute renal failure but should have likely aggressive volume resuscitation. 2. Follow his kidney function but prior to discharge should have a good quality contrasted CT scan with pancreatic protocol versus MRI to rule out both pancreatic complications as well as masses or tumors that could be complicating his presentation. 3. Continue supportive care but at this time no role or reason for endoscopic intervention. 4. Spent a great deal of time today discussing his possible alcohol cirrhosis and the need for strict alcohol cessation. 5. Dr. Chacko and his team will return tomorrow for further recommendations.
[2017-10-02 10:53] LABS: CALCIUM 8.8 mg/dl (8.5-10.1); CREATININE 2.83 mg/dl (0.60-1.40); POTASSIUM 5.4 mmol/L (3.5-5.1)
[2017-10-02] MEDS ORDERED: LORAZEPAM 1 MG TAB PO PRN ×2 (12:30)
[2017-10-02] MEDS ORDERED: AMLODIPINE BESYLATE 5 MG TAB PO ONE (12:30)
--- NOTE | 2017-10-02 12:32 | Nephrology Consultation ---
Nephrology Consultation Date & Providers Date of Consultation: Oct 02, 2017. Primary Care Provider: Segundo Feldman M.D. Referring Provider: Reason for Consultation CHAD History of Present Illness Mr. Watson Phillips is a 67 year-old male who was seen and evaluated this afternoon for evaluation of acute kidney injury. 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 His son is at the bedside. The plan of care was discussed with Dr. Dunbar. Medical records including those from the patient's PCP were reviewed in detail. Baseline creatinine was documented at 1.1 mg/dL in March 2017. The patient is non-oliguric. Watson was admitted to [facility] yesterday with pancreatitis. Watson presented to the outpatient acute care clinic with gnawing abdominal pain radiating to his back. He has not had similar symptoms in the past. Symptoms are improving with bowel rest and supportive care. He denies fevers or chills. He consumes several beers every day but his last alcoholic drink was 3 days ago[address] contrast [address] scan wasreviewed. Kidneys are normal in appearance. Innumerable small pulmonary nodules are noted as well as an enlarged right paratracheal lymph node. Liver is cirrhotic appearing. Watson uses NSAIDS regularly for osteoarthritis. He describes chronic pain in the small joints of his hands and in his knees. He has been taking several tablets of ibuprofen daily on a regular basis. He denies any urinary complaints or concerns. Past Medical/Surgical History Medical: -- Hypertension -- Hyperlipidemia -- Alcohol abuse -- History of iron deficiency anemia -- Osteoarthritis Surgical: Carpal tunnel, hernia repair Allergies Coded Allergies: No Known Allergies (Unverified , 10/02/17) Inpatient Medications Current Inpatient Medications Medications (Trade) Dose Ordered Sig/Margarito Route Start Time Stop Time Status Last Admin Dose Admin Al Hydrox/Mg Hydrox/Simethicone (Maalox Max Susp) 15 ml Q4H PRN PO 10/02/17 03:00 11/01/17 02:59 Magnesium Hydroxide (Milk Of Magnesia Susp) 30 ml Q6H PRN PO 10/02/17 03:00 11/01/17 02:59 Polyethylene (Miralax Powder Packet) 17 gm DAILY PRN PO 10/02/17 03:30 11/01/17 03:29 Zolpidem Tartrate (Ambien Tab) 5 mg HSZ PRN PO 10/02/17 03:00 11/01/17 02:59 Ondansetron HCl (Zofran Inj) 4 mg Q6H PRN IV 10/02/17 03:00 11/01/17 02:59 Hydralazine HCl (HydrALAZINE INJ) 5 mg Q6H PRN IV. 10/02/17 04:00 11/01/17 03:59 Thiamine HCl 100 mg/Syringe 10 ml @ 2 mls/min QAM IV 10/02/17 09:00 11/01/17 08:59 10/02/17 08:48 2 MLS/MIN Folic Acid 1 mg/ Syringe 10 ml @ 5 mls/min QAM IV 10/02/17 09:00 11/01/17 08:59 10/02/17 08:48 5 MLS/MIN Pantoprazole Sodium 40 mg/ Syringe 10 ml @ 5 mls/min DAILY@ IV 10/02/17 09:00 10/05/17 21:01 10/02/17 08:48 5 MLS/MIN Sodium Bicarbonate 75 meq/Sodium Chloride 1,075 ml @ 150 mls/hr Q7H10M IV 10/02/17 11:30 11/01/17 11:29 UNV Family History FH: cancer FH: gallbladder disease FH: heart disease Hypertension Kidney disease Kidney stones Social History Smoking Status: Never Smoker Marital Status: Occupation: retired Review of Systems A complete review of systems was performed. Pertinent positives are noted above. All other systems are negative. Physical Exam Date Time Temp Pulse Resp B/P (MAP) Pulse Ox O2 Delivery O2 Flow Rate FiO2 10/02/17 06:58 36.8 58 16 169/97 (121) 97 Room Air 10/02/17 06:43 154/92 (112) 10/02/17 05:06 159/91 (113) 10/02/17 04:36 36.6 61 16 169/104 99 Room Air 10/02/17 04:01 141/90 10/02/17 03:55 63 98 10/02/17 03:50 67 18 97 Room Air 10/02/17 03:35 73 18 99 10/02/17 03:31 176/97 10/02/17 03:20 65 17 98 10/02/17 03:05 71 12 98 10/02/17 03:00 142/100 10/02/17 02:00 149/90 10/02/17 01:58 63 97 10/02/17 01:38 70 15 98 Room Air 10/02/17 01:30 150/94 10/02/17 01:23 64 98 10/02/17 01:08 65 16 98 10/02/17 01:00 160/93 10/02/17 00:53 63 15 98 10/02/17 00:39 65 10/02/17 00:38 68 22 98 10/02/17 00:30 172/106 10/02/17 00:08 65 98 10/02/17 00:03 72 21 92 10/02/17 00:01 152/78 10/01/17 23:58 66 15 97 10/01/17 23:53 73 18 97 Room Air 10/01/17 23:50 154/88 10/01/17 23:37 36.7 77 18 145/99 98 Room Air General Appearance: WD/WN, no apparent distress Head: normocephalic, atraumatic Eyes: normal inspection, sclerae normal ENT: normal ENT inspection, pharynx normal Neck: supple, no JVD Respiratory/Chest: lungs clear, no respiratory distress Cardiovascular: regular rate, rhythm, no gallop, no murmur Abdomen/GI: soft, + tenderness, + pertinent finding (no guarding or rebound) Back: normal inspection, no CVA tenderness Neurologic/Psych: alert, normal mood/affect Skin: normal color Laboratory Results Last 24 Hours Test 10/01/17 23:55 10/02/17 01:45 10/02/17 05:57 10/02/17 07:40 White Blood Count 5.67 K/uL Red Blood Count 2.96 M/uL Hemoglobin 9.7 g/dL 9.3 g/dL Hematocrit 28.3 % Mean Corpuscular Volume 95.6 fL Mean Corpuscular Hemoglobin 32.8 pg Mean Corpuscular Hemoglobin Concent 34.3 g/dl Platelet Count 217 K/uL Mean Platelet Volume 8.5 fL RDW Standard Deviation 45.0 fL RDW Coefficient of Variation 12.9 % Neutrophils % (Manual) 65.2 % Lymphocytes % (Manual) 15.7 % Monocytes % (Manual) 14.8 % Eosinophils % (Manual) 4.3 % Neutrophils # (Manual) 3.70 K/uL Total Absolute Neutrophils 3.70 K/uL Lymphocytes # (Manual) 0.89 K/uL Total Absolute Lymphocytes 0.89 K/uL Monocytes # (Manual) 0.84 K/uL Eosinophils # (Manual) 0.24 K/uL Sodium Level 139 mmol/L Potassium Level 5.1 mmol/L Chloride Level 112 mmol/L Carbon Dioxide Level 20 mmol/L Anion Gap 7.0 mmol/L Blood Urea Nitrogen 47 mg/dl Creatinine 3.01 mg/dl Est Creatinine Clear Calc Drug Dose 27.5 ml/min Estimated GFR () 23.9 Estimated GFR (Non- 20.6 BUN/Creatinine Ratio 15.5 Random Glucose 101 mg/dl Calcium Level 8.6 mg/dl Total Bilirubin 0.5 mg/dl Direct Bilirubin 0.2 mg/dl Aspartate Amino Transf (AST/SGOT) 93 U/L Alanine Aminotransferase (ALT/SGPT) 85 U/L Alkaline Phosphatase 339 U/L Total Protein 7.6 gm/dl Albumin 3.3 gm/dl Amylase Level 366 U/L Lipase 1409 U/L Urine Color YELLOW Urine Appearance CLEAR Urine pH 5.0 Urine Specific Goodell 1.015 Urine Protein 2+ Urine Glucose (UA) NEG Urine Ketones NEG Urine Occult Blood NEG Urine Nitrite NEG Urine Bilirubin NEG Urine Urobilinogen NEG Urine Leukocyte Esterase NEG Urine WBC (Auto) 1-5 /hpf Urine RBC (Auto) 0-4 /hpf Urine Hyaline Casts (Auto) 5-10 /lpf Urine Epithelial Cells (Auto) 10-20 /lpf Urine Bacteria (Auto) NEG Iron Level 38 mcg/dl Total Iron Binding Capacity 250 mcg/dl Vitamin B12 Level 517 pg/mL Folate 6.76 ng/mL Urine Osmolality 416 mOms/kg Urine Random Creatinine 166.0 mg/dl Test 10/02/17 10:15 10/02/17 11:40 Sodium Level 140 mmol/L Potassium Level 5.4 mmol/L Chloride Level 114 mmol/L Carbon Dioxide Level 18 mmol/L Anion Gap 8.0 mmol/L Blood Urea Nitrogen 44 mg/dl Creatinine 2.83 mg/dl Est Creatinine Clear Calc Drug Dose 29.0 ml/min Estimated GFR () 25.7 Estimated GFR (Non- 22.2 BUN/Creatinine Ratio 15.4 Random Glucose 93 mg/dl Calcium Level 8.8 mg/dl Prostate Specific Antigen 0.832 ng/ml Impression (1) Acute kidney injury (2) Hypertension (3) Pancreatitis (4) Cirrhosis of liver (5) Anemia Mr. Phillips is a 67-year-old male with hypertension, hyperlipidemia, osteoarthritis, history of iron deficiency anemia and chronic alcohol abuse. He was admitted with abdominal pain attributed to pancreatitis as well as acute kidney injury. Laboratory studies are also notable for anemia. Watson has a mild anemia and NAGMA associated with CHAD. He is non-oliguric. CHAD is consistent with prerenal azotemia and multifactorial ATN in the setting of TAWNY and NSAID use. Volume status is appropriate. BP is slightly elevated. Lisinopril has been held. CT documented normal appearing kidneys. UA is bland with acellular microscopy. Evaluation is concerning for multiple pulmonary nodules and enlarged lymph nodes. Additionally, there is a cirrhotic appearance to the liver. Recommendations CHAD: -- 0.45% saline + 75 mEq HCO3 @ 150 ml/hr -- Document I/O's -- Maintain positive fluid balance -- Repeat metabolic profile this afternoon -- Hold TAWNY and avoid NSAIDS -- Medications are currently appropriate for renal function Hypertension: -- Consider a long acting CCB as alternative to lisinopril -- OK to allow some permissive HTN during CHAD Pancreatitis: -- GI consult reviewed -- Diet per primary service -- Electrolytes monitored including calcium and replaced as needed Acute and chronic liver disease: -- Clinical presentation less consistent with HRS Pulmonary nodules: -- Discussed with Dr. Dunbar -- Avoid imaging with contrast at this time pending resolution of CHAD
[2017-10-02] MEDS: SODIUM BICARBONATE 8.4% INJ 75 MEQ in SODIUM CHLORIDE 0.45% 1000ML 1,000 ML IV SCH (13:13)
[2017-10-02 15:23] LABS: CALCIUM 8.8 mg/dl (8.5-10.1); CREATININE 2.87 mg/dl (0.60-1.40); POTASSIUM 5.3 mmol/L (3.5-5.1)
--- NOTE | 2017-10-02 15:26 | DIAGNOSTIC IMAGING REPORT ---
MRI OF THE ABDOMEN WITHOUT CONTRAST CLINICAL HISTORY: Numerous pulmonary nodules which may reflect metastatic disease. Evaluate for primary tumor. TECHNIQUE: Utilizing a 1.5 Surekha magnet and dedicated coil, multiplanar, multi echo imaging of the abdomen was performed without intravenous contrast due to patient's relative renal insufficiency. COMPARISON STUDY: CT of the abdomen and pelvis and right upper quadrant ultrasound performed earlier today. FINDINGS: This exam is compromised by lack of postcontrast imaging. Small bilateral pleural effusions are noted. There is a small amount of perihepatic ascites. Gallbladder wall thickening is noted. There is moderate bilateral perinephric infiltration. There is mild bilateral collecting system dilatation, slightly greater on the left. Multifocal scarring of the left kidney is noted. There are several T2 hyperintense left renal lesions which are suboptimally assessed on this unenhanced exam but likely reflect cysts. A small amount of pelvic ascites is noted. There is moderate bilateral perinephric infiltration/fluid. No hepatic, adrenal or pancreatic lesions are identified on this examination. There is no biliary or pancreatic ductal dilatation. No abdominal lymphadenopathy is noted. IMPRESSION: 1. Sensitivity for detection of primary malignancy diminished given the lack of postcontrast imaging. However, no definitive primary malignancy within the abdomen. 2. 3.2 cm focus of suspected marrow replacement within the T12 vertebral body. This likely corresponds to a subtle sclerotic focus by CT. This is worrisome for a neoplastic process such as metastatic disease or lymphoma. Metastatic prostate carcinoma is one consideration. 3. Small bilateral pleural effusions and a small amount of abdominal and pelvic ascites. 4. Moderate bilateral perinephric infiltration/fluid. 5. Mild gallbladder wall thickening. 6. No biliary or pancreatic ductal dilatation. Electronically signed by: Ko Chacon M.D. 10/02/2017 3:25 PM Dictated Date/Time: 10/02/2017 2:30 PM
[2017-10-02 15:30] VITALS: BP 164/86; PULSE 64; TEMP 37; O2SAT 96
[2017-10-02] MEDS: MULTI-VITAMIN INFUSION INJ 10 ML, THIAMINE HCL INJ 100 MG, FoLIC ACID INJ 1 MG in SODIU... IV SCH (16:12)
[2017-10-02 17:42] VITALS: O2SAT 96
[2017-10-02] MEDS: ALUMINUM/MAGNESIUM/SIMETH (MAALOX MAX) 30 ML UDC PO PRN (18:44)
[2017-10-02] MEDS: ZOLPIDEM TARTRATE 5 MG TAB PO PRN ×2 (20:11→22:22)
[2017-10-02] MEDS ORDERED: NURSING VERBAL MED ORDER ONE (21:45)
--- NOTE | 2017-10-02 22:44 | DIAGNOSTIC IMAGING REPORT ---
RENAL ULTRASOUND HISTORY: Acute kidney injury. COMPARISON: Abdominal MRI 10/02/2017. Abdominal ultrasound 10/02/2017. FINDINGS: Right kidney: 14.1 cm. No hydronephrosis. Normal corticomedullary differentiation and cortical thickness. Left kidney: 12.8 cm. No hydronephrosis. Normal corticomedullary differentiation and cortical thickness. There are 2 small cysts with the largest measuring 1.3 cm. Bladder: No bladder wall thickening. IMPRESSION: No hydronephrosis. Electronically signed by: Johan Stokes M.D. 10/02/2017 10:43 PM Dictated Date/Time: 10/02/2017 10:41 PM
[2017-10-03 00:01] VITALS: BP 165/94; PULSE 61; TEMP 37.1; O2SAT 95
[2017-10-03] MEDS: HydrALAZINE HCL 20 MG/ML VIAL IV. PRN (00:13)
[2017-10-03] MEDS: SODIUM BICARBONATE 8.4% INJ 75 MEQ in SODIUM CHLORIDE 0.45% 1000ML 1,000 ML IV SCH ×3 (01:21→14:34)
[2017-10-03 01:23] VITALS: BP 158/88
[2017-10-03 04:16] VITALS: BP 150/73; PULSE 60; TEMP 36.8; O2SAT 95
[2017-10-03 07:23] LABS: HEMATOCRIT 27.1 % (42-52); HEMOGLOBIN 8.9 g/dL (14.0-18.0); MEAN CELL VOLUME 97.5 fL (80-100); MEAN CORPUSCULAR HGB CONC 32.8 g/dl (32-36); MEAN PLATELET VOLUME 8.7 fL (7.4-10.4); PLATELET COUNT 209 K/uL (130-400); RED CELL DISTRIBUTION WIDTH CV 12.7 % (11.5-14.5); RED CELL DISTRIBUTION WIDTH SD 45.4 fL (36.4-46.3); WHITE BLOOD COUNT 5.08 K/uL (4.8-10.8)
[2017-10-03 07:50] LABS: BASO % 0.4 %; BASO ABS # 0.02 K/uL (0-0.2); EOS % 8.9 %; EOS ABS # 0.45 K/uL (0-0.5); IG# 0.01 K/uL (0.00-0.02); LYMPH % 17.5 %; LYMPH ABS # 0.89 K/uL (1.2-3.4); MONO % 11.8 %; NEUT % 61.2 %; NEUT ABS # 3.11 K/uL (1.4-6.5)
[2017-10-03] MEDS: AMLODIPINE BESYLATE 5 MG TAB PO SCH (07:52)
[2017-10-03] MEDS: PANTOprazole INJ 40 MG in SYRINGE 0 ML IV SCH ×2 (07:52→20:58)
[2017-10-03 07:57] LABS: ALBUMIN 2.7 gm/dl (3.4-5.0); CALCIUM 8.5 mg/dl (8.5-10.1); CREATININE 2.77 mg/dl (0.60-1.40); PHOSPHORUS 4.3 mg/dl (2.5-4.9); POTASSIUM 5.1 mmol/L (3.5-5.1)
--- NOTE | 2017-10-03 09:16 | Gastroenterology Progress Note ---
Progress Note Date of Service: Oct 03, 2017 Subjective Pt evaluation today including: conversation w/ patient, physical exam, lab review, review of studies Patient is a 67 yo male with abdominal pain and questionable pancreatitis. Imaging studies, though limited by lack of contrast, have indicated an unremarkable pancreas. Lipase was elevated >1000 on 10/02. The patient's LFT have been minimally elevated. Imaging has suggested that the only GI abnormality noted is a thickened gallbladder wall. An MRI was performed yesterday that suggested the possibility of bone mets. A CT of the chest suggested innumerable lung abnormalities concerning for mets as well. The patient is anemic. He reports it has been this way for nearly 10 years. He report that his prostate has been evaluated recently and was unremarkable. He reports a colonoscopy 2 years ago that he reports was unremarkable. Review of Systems Constitutional: No fever, No chills Eyes: No eye pain Respiratory: No cough, No shortness of breath Cardiac: No chest pain Abdomen: No pain, No nausea, No vomiting, No diarrhea Musculoskeletal: No joint pain Neuro: No problem reported Psych: No problem reported Heme: No problem reported Endo: No problem reported Skin: No problem reported Medications Current Inpatient Medications Medications (Trade) Dose Ordered Sig/Margarito Route Start Time Stop Time Status Last Admin Dose Admin Al Hydrox/Mg Hydrox/Simethicone (Maalox Max Susp) 15 ml Q4H PRN PO 10/02/17 03:00 11/01/17 02:59 10/02/17 18:44 15 ML Magnesium Hydroxide (Milk Of Magnesia Susp) 30 ml Q6H PRN PO 10/02/17 03:00 11/01/17 02:59 Polyethylene (Miralax Powder Packet) 17 gm DAILY PRN PO 10/02/17 03:30 11/01/17 03:29 Zolpidem Tartrate (Ambien Tab) 5 mg HSZ PRN PO 10/02/17 03:00 11/01/17 02:59 10/02/17 22:22 5 MG Ondansetron HCl (Zofran Inj) 4 mg Q6H PRN IV 10/02/17 03:00 11/01/17 02:59 Hydralazine HCl (HydrALAZINE INJ) 5 mg Q6H PRN IV. 10/02/17 04:00 11/01/17 03:59 10/03/17 00:13 5 MG Pantoprazole Sodium 40 mg/ Syringe 10 ml @ 5 mls/min DAILY@ IV 10/02/17 09:00 10/05/17 21:01 10/03/17 07:52 5 MLS/MIN Sodium Bicarbonate 75 meq/Sodium Chloride 1,075 ml @ 150 mls/hr Q7H10M IV 10/02/17 13:00 11/01/17 12:59 10/03/17 07:51 150 MLS/HR Amlodipine Besylate (Norvasc Tab) 5 mg QAM PO 10/03/17 09:00 11/02/17 08:59 10/03/17 07:52 5 MG Multivitamins 10 ml/Thiamine HCl 100 mg/Folic Acid 1 mg/Sodium Chloride 1,011.2 ml @ 500 mls/ hr Q24H IV 10/02/17 16:00 10/04/17 18:02 10/02/17 16:12 500 MLS/HR Lorazepam (Ativan Tab) 1 mg ONE PRN PO 10/02/17 12:30 Objective Vital Signs Date Time Temp Pulse Resp B/P (MAP) Pulse Ox O2 Delivery O2 Flow Rate FiO2 10/03/17 08:01 Room Air 10/03/17 04:16 36.8 60 14 150/73 (98) 95 Room Air 10/03/17 01:23 158/88 (111) 10/03/17 00:01 37.1 61 14 165/94 (117) 95 Room Air 10/02/17 23:55 Room Air 10/02/17 17:42 96 Room Air 10/02/17 15:30 37.0 64 18 164/86 (112) 96 Room Air Physical Exam General Appearance: WD/WN, no apparent distress Eyes: normal inspection, PERRL ENT: hearing grossly normal Respiratory/Chest: lungs clear, normal breath sounds Cardiovascular: regular rate, rhythm Abdomen: normal bowel sounds, non tender, soft Extremities: non-tender Neurologic/Psych: alert, oriented x 3 Skin: normal color Laboratory Results Last 24 Hours Test 10/02/17 10:15 10/02/17 14:34 10/03/17 07:01 10/03/17 07:49 Sodium Level 140 mmol/L 138 mmol/L 142 mmol/L Potassium Level 5.4 mmol/L 5.3 mmol/L 5.1 mmol/L Chloride Level 114 mmol/L 111 mmol/L 114 mmol/L Carbon Dioxide Level 18 mmol/L 18 mmol/L 18 mmol/L Anion Gap 8.0 mmol/L 9.0 mmol/L 11.0 mmol/L Blood Urea Nitrogen 44 mg/dl 44 mg/dl 40 mg/dl Creatinine 2.83 mg/dl 2.87 mg/dl 2.77 mg/dl Est Creatinine Clear Calc Drug Dose 29.0 ml/min 28.6 ml/min 29.6 ml/min Estimated GFR () 25.7 25.3 26.4 Estimated GFR (Non- 22.2 21.8 22.8 BUN/Creatinine Ratio 15.4 15.4 14.4 Random Glucose 93 mg/dl 90 mg/dl 83 mg/dl Calcium Level 8.8 mg/dl 8.8 mg/dl 8.5 mg/dl Prostate Specific Antigen 0.832 ng/ml Carcinoembryonic Antigen 5.6 ng/ml White Blood Count 5.08 K/uL Red Blood Count 2.78 M/uL Hemoglobin 8.9 g/dL Hematocrit 27.1 % Mean Corpuscular Volume 97.5 fL Mean Corpuscular Hemoglobin 32.0 pg Mean Corpuscular Hemoglobin Concent 32.8 g/dl Platelet Count 209 K/uL Mean Platelet Volume 8.7 fL Neutrophils (%) (Auto) 61.2 % Lymphocytes (%) (Auto) 17.5 % Monocytes (%) (Auto) 11.8 % Eosinophils (%) (Auto) 8.9 % Basophils (%) (Auto) 0.4 % Neutrophils # (Auto) 3.11 K/uL Lymphocytes # (Auto) 0.89 K/uL Monocytes # (Auto) 0.60 K/uL Eosinophils # (Auto) 0.45 K/uL Basophils # (Auto) 0.02 K/uL RDW Standard Deviation 45.4 fL RDW Coefficient of Variation 12.7 % Immature Granulocyte % (Auto) 0.2 % Immature Granulocyte # (Auto) 0.01 K/uL Red Blood Cell Morphology Unremarkable Phosphorus Level 4.3 mg/dl Magnesium Level 2.5 mg/dl Albumin 2.7 gm/dl Stool Occult Blood NEGATIVE Assessment and Plan Patient is a 67 yo male with abdominal pain and possible pancreatitis. Imaging studies of the pancreas have been unremarkable. He has no remaining pain in the RUQ. 1) Given persistence of gallbladder thickening on imaging studies, can order HIDA scan for further evaluation. 2) If HIDA is unremarkable, can advance diet to liquids as he is pain-free. 3) Further work-up and evaluation of possible lung & bone mets to be addressed per primary team. Thank you for allowing us to participate in the care of this patient. If you should have any further questions or concerns, do not hesitate to contact us. Agree with EVAN Mcdonnell as above Abd: Soft, NT, ND, +BS HIDA scan for further evaluation Continue supportive care
--- NOTE | 2017-10-03 10:26 | Nephrology Progress Note ---
Nephrology Progress Note Date of Service Oct 03, 2017. Chief Complaint CHAD Subjective No acute events overnight. Watson was seen and evaluated with his girlfriend and daughter at the bedside. Abdominal pain improving. No fevers or chills. No urinary complaints. Remains NPO. HIDA scheduled. No diarrhea. Efe hopes that he can advance his diet soon. No signs of symptoms of ETOH withdrawal. >4 days since last drink Review of Systems A complete review of systems was performed. Pertinent positives are noted above. All other systems are negative. Vital Signs Last 8 Hrs Date Time Temp Pulse Resp B/P (MAP) Pulse Ox O2 Delivery O2 Flow Rate FiO2 10/03/17 08:01 Room Air 10/03/17 04:16 36.8 60 14 150/73 (98) 95 Room Air Last Recorded Weight Weight (Kilograms): 93.400 Physical Exam General Appearance: WD/WN, no apparent distress Head: normocephalic, atraumatic Eyes: normal inspection, sclerae normal ENT: normal ENT inspection, pharynx normal Neck: supple, no JVD Respiratory/Chest: lungs clear, no respiratory distress, no accessory muscle use Cardiovascular: regular rate, rhythm, no gallop, no murmur Abdomen/GI: soft, + tenderness (mild) Extremities/Musculoskelatal: normal inspection, no pedal edema Neurologic/Psych: alert, normal mood/affect Family History FH: cancer FH: gallbladder disease FH: heart disease Hypertension Kidney disease Kidney stones Social History Smoking Status: Never smoker Marital Status: Occupation: retired Laboratory Results Past 24 Hours 10/03/17 07:01 Red Blood Count 2.78, Mean Corpuscular Volume 97.5, Mean Corpuscular Hemoglobin 32.0, Mean Corpuscular Hemoglobin Concent 32.8, Mean Platelet Volume 8.7, Neutrophils (%) (Auto) 61.2, Lymphocytes (%) (Auto) 17.5, Monocytes (%) (Auto) 11.8, Eosinophils (%) (Auto) 8.9, Basophils (%) (Auto) 0.4, Neutrophils # (Auto ) 3.11, Lymphocytes # (Auto) 0.89, Monocytes # (Auto) 0.60, Eosinophils # (Auto ) 0.45, Basophils # (Auto) 0.02 10/02/17 14:34 10/03/17 07:01 Test 10/02/17 14:34 10/03/17 07:01 10/03/17 07:49 Anion Gap 9.0 mmol/L (3-11) 11.0 mmol/L (3-11) Est Creatinine Clear Calc Drug Dose 28.6 ml/min 29.6 ml/min Estimated GFR () 25.3 26.4 Estimated GFR (Non- 21.8 22.8 BUN/Creatinine Ratio 15.4 (10-20) 14.4 (10-20) Calcium Level 8.8 mg/dl (8.5-10.1) 8.5 mg/dl (8.5-10.1) Carcinoembryonic Antigen 5.6 ng/ml (0-2.5) White Blood Count 5.08 K/uL (4.8-10.8) Red Blood Count 2.78 M/uL (4.7-6.1) Hemoglobin 8.9 g/dL (14.0-18.0) Hematocrit 27.1 % (42-52) Mean Corpuscular Volume 97.5 fL (80-100) Mean Corpuscular Hemoglobin 32.0 pg (25-34) Mean Corpuscular Hemoglobin Concent 32.8 g/dl (32-36) Platelet Count 209 K/uL (130-400) Mean Platelet Volume 8.7 fL (7.4-10.4) Neutrophils (%) (Auto) 61.2 % Lymphocytes (%) (Auto) 17.5 % Monocytes (%) (Auto) 11.8 % Eosinophils (%) (Auto) 8.9 % Basophils (%) (Auto) 0.4 % Neutrophils # (Auto) 3.11 K/uL (1.4-6.5) Lymphocytes # (Auto) 0.89 K/uL (1.2-3.4) Monocytes # (Auto) 0.60 K/uL (0.11-0.59) Eosinophils # (Auto) 0.45 K/uL (0-0.5) Basophils # (Auto) 0.02 K/uL (0-0.2) RDW Standard Deviation 45.4 fL (36.4-46.3) RDW Coefficient of Variation 12.7 % (11.5-14.5) Immature Granulocyte % (Auto) 0.2 % Immature Granulocyte # (Auto) 0.01 K/uL (0.00-0.02) Red Blood Cell Morphology Unremarkable Phosphorus Level 4.3 mg/dl (2.5-4.9) Magnesium Level 2.5 mg/dl (1.8-2.4) Albumin 2.7 gm/dl (3.4-5.0) Stool Occult Blood NEGATIVE (NEGATIVE) Allergies Coded Allergies: No Known Allergies (Unverified , 10/02/17) Medications Current Inpatient Medications Medications (Trade) Dose Ordered Sig/Margarito Route Start Time Stop Time Status Last Admin Dose Admin Al Hydrox/Mg Hydrox/Simethicone (Maalox Max Susp) 15 ml Q4H PRN PO 10/02/17 03:00 11/01/17 02:59 10/02/17 18:44 15 ML Magnesium Hydroxide (Milk Of Magnesia Susp) 30 ml Q6H PRN PO 10/02/17 03:00 11/01/17 02:59 Polyethylene (Miralax Powder Packet) 17 gm DAILY PRN PO 10/02/17 03:30 11/01/17 03:29 Zolpidem Tartrate (Ambien Tab) 5 mg HSZ PRN PO 10/02/17 03:00 11/01/17 02:59 10/02/17 22:22 5 MG Ondansetron HCl (Zofran Inj) 4 mg Q6H PRN IV 10/02/17 03:00 11/01/17 02:59 Hydralazine HCl (HydrALAZINE INJ) 5 mg Q6H PRN IV. 10/02/17 04:00 11/01/17 03:59 10/03/17 00:13 5 MG Pantoprazole Sodium 40 mg/ Syringe 10 ml @ 5 mls/min DAILY@ IV 10/02/17 09:00 10/05/17 21:01 10/03/17 07:52 5 MLS/MIN Sodium Bicarbonate 75 meq/Sodium Chloride 1,075 ml @ 150 mls/hr Q7H10M IV 10/02/17 13:00 11/01/17 12:59 10/03/17 07:51 150 MLS/HR Amlodipine Besylate (Norvasc Tab) 5 mg QAM PO 10/03/17 09:00 11/02/17 08:59 10/03/17 07:52 5 MG Multivitamins 10 ml/Thiamine HCl 100 mg/Folic Acid 1 mg/Sodium Chloride 1,011.2 ml @ 500 mls/ hr Q24H IV 10/02/17 16:00 10/04/17 18:02 10/02/17 16:12 500 MLS/HR Lorazepam (Ativan Tab) 1 mg ONE PRN PO 10/02/17 12:30 Impression (1) Acute kidney injury (2) Hypertension (3) Pancreatitis (4) Cirrhosis of liver (5) Anemia Mr. Phillips is a 67-year-old male with hypertension, hyperlipidemia, osteoarthritis, history of iron deficiency anemia and chronic alcohol abuse. He was admitted withpancreatitis as well as acute kidney injury. Laboratory studies are also notable for anemia. Watson has a mild anemia and NAGMA associated with CHAD. He is non-oliguric. CHAD is consistent with prerenal azotemia and multifactorial ATN in the setting of TAWNY and NSAID use. Volume status is appropriate. BP is slightly elevated. Lisinopril has been held. CT documented normal appearing kidneys. UA is bland with acellular microscopy. Evaluation is concerning for multiple pulmonary nodules and enlarged lymph nodes. Additionally, there is a cirrhotic appearance to the liver. Abdominal MRI was reviewed this morning. Small lesion on spine noted - nonspecific. PSA was normal. Recommendations CHAD: -- 0.45% saline + 75 mEq HCO3 @ 150 ml/hr -- Document I/O's -- Maintain positive fluid balance -- Repeat metabolic profile this afternoon -- Hold TAWNY and avoid NSAIDS -- Medications are currently appropriate for renal function Hypertension: -- Increase amlodipine to 10 mg daily -- OK to allow some permissive HTN during CHAD Pancreatitis: -- GI consult following --- HIDA scheduled -- Diet per primary service -- Electrolytes monitored including calcium and replaced as needed Acute and chronic liver disease: -- Clinical presentation not consistent with HRS
--- NOTE | 2017-10-03 12:02 | Hospitalist Progress Note ---
Hospitalist Progress Note Date of Service Oct 03, 2017. Subjective Pt evaluation today including: conversation w/ patient, conversation w/ family , physical exam, lab review, review of studies, review of inpatient medication list Voiding: no voiding problems Patient sitting in bedside chair. Abdominal discomfort resolved. Currently NPO for HIDA scan today- if unremarkable/pain-free advance to liquid diet as per GI. Discussed pulmonary nodules/t12 lesion. All questions/concerns, and how proceeding forward answered. No s/s of alcohol withdrawal. Per family, patient's daily alcohol intake has significantly decreased since around Kamila time due to abdominal pain. Drinks roughly 10 beers per day. Patient denies any fever, chills, sweats, lightheadedness, dizziness, vision changes, CP, palpitations, edema, SOB, wheezing, cough, abdominal pain, nausea, vomiting, diarrhea, urinary symptoms, melena, numbness/tingling, weakness, muscle/joint pain, anxiety/depression, active bleeding, or new skin discoloration/changes. Medications Current Inpatient Medications Medications (Trade) Dose Ordered Sig/Margarito Route Start Time Stop Time Status Last Admin Dose Admin Al Hydrox/Mg Hydrox/Simethicone (Maalox Max Susp) 15 ml Q4H PRN PO 10/02/17 03:00 11/01/17 02:59 10/02/17 18:44 15 ML Magnesium Hydroxide (Milk Of Magnesia Susp) 30 ml Q6H PRN PO 10/02/17 03:00 11/01/17 02:59 Polyethylene (Miralax Powder Packet) 17 gm DAILY PRN PO 10/02/17 03:30 11/01/17 03:29 Zolpidem Tartrate (Ambien Tab) 5 mg HSZ PRN PO 10/02/17 03:00 11/01/17 02:59 10/02/17 22:22 5 MG Ondansetron HCl (Zofran Inj) 4 mg Q6H PRN IV 10/02/17 03:00 11/01/17 02:59 Hydralazine HCl (HydrALAZINE INJ) 5 mg Q6H PRN IV. 10/02/17 04:00 11/01/17 03:59 10/03/17 00:13 5 MG Pantoprazole Sodium 40 mg/ Syringe 10 ml @ 5 mls/min DAILY@ IV 10/02/17 09:00 10/05/17 21:01 10/03/17 07:52 5 MLS/MIN Sodium Bicarbonate 75 meq/Sodium Chloride 1,075 ml @ 150 mls/hr Q7H10M IV 10/02/17 13:00 11/01/17 12:59 10/03/17 07:51 150 MLS/HR Amlodipine Besylate (Norvasc Tab) 5 mg QAM PO 10/03/17 09:00 11/02/17 08:59 10/03/17 07:52 5 MG Multivitamins 10 ml/Thiamine HCl 100 mg/Folic Acid 1 mg/Sodium Chloride 1,011.2 ml @ 500 mls/ hr Q24H IV 10/02/17 16:00 10/04/17 18:02 10/02/17 16:12 500 MLS/HR Lorazepam (Ativan Tab) 1 mg ONE PRN PO 10/02/17 12:30 Objective Vital Signs Date Time Temp Pulse Resp B/P (MAP) Pulse Ox O2 Delivery O2 Flow Rate FiO2 10/03/17 08:01 Room Air 10/03/17 04:16 36.8 60 14 150/73 (98) 95 Room Air 10/03/17 01:23 158/88 (111) 10/03/17 00:01 37.1 61 14 165/94 (117) 95 Room Air 10/02/17 23:55 Room Air 10/02/17 17:42 96 Room Air 10/02/17 15:30 37.0 64 18 164/86 (112) 96 Room Air Physical Exam General Appearance: no apparent distress, + obese Eyes: normal inspection, PERRL ENT: hearing grossly normal Neck: supple Respiratory/Chest: lungs clear, no respiratory distress, no accessory muscle use Cardiovascular: regular rate, rhythm Abdomen: normal bowel sounds, non tender, soft Extremities: no pedal edema, no calf tenderness Neurologic/Psychiatric: alert, normal mood/affect, oriented x 3 Skin: normal color, warm/dry, no rash Laboratory Results Last 24 Hours Test 10/02/17 14:34 10/03/17 07:01 10/03/17 07:49 Sodium Level 138 mmol/L 142 mmol/L Potassium Level 5.3 mmol/L 5.1 mmol/L Chloride Level 111 mmol/L 114 mmol/L Carbon Dioxide Level 18 mmol/L 18 mmol/L Anion Gap 9.0 mmol/L 11.0 mmol/L Blood Urea Nitrogen 44 mg/dl 40 mg/dl Creatinine 2.87 mg/dl 2.77 mg/dl Est Creatinine Clear Calc Drug Dose 28.6 ml/min 29.6 ml/min Estimated GFR () 25.3 26.4 Estimated GFR (Non- 21.8 22.8 BUN/Creatinine Ratio 15.4 14.4 Random Glucose 90 mg/dl 83 mg/dl Calcium Level 8.8 mg/dl 8.5 mg/dl Carcinoembryonic Antigen 5.6 ng/ml White Blood Count 5.08 K/uL Red Blood Count 2.78 M/uL Hemoglobin 8.9 g/dL Hematocrit 27.1 % Mean Corpuscular Volume 97.5 fL Mean Corpuscular Hemoglobin 32.0 pg Mean Corpuscular Hemoglobin Concent 32.8 g/dl Platelet Count 209 K/uL Mean Platelet Volume 8.7 fL Neutrophils (%) (Auto) 61.2 % Lymphocytes (%) (Auto) 17.5 % Monocytes (%) (Auto) 11.8 % Eosinophils (%) (Auto) 8.9 % Basophils (%) (Auto) 0.4 % Neutrophils # (Auto) 3.11 K/uL Lymphocytes # (Auto) 0.89 K/uL Monocytes # (Auto) 0.60 K/uL Eosinophils # (Auto) 0.45 K/uL Basophils # (Auto) 0.02 K/uL RDW Standard Deviation 45.4 fL RDW Coefficient of Variation 12.7 % Immature Granulocyte % (Auto) 0.2 % Immature Granulocyte # (Auto) 0.01 K/uL Red Blood Cell Morphology Unremarkable Phosphorus Level 4.3 mg/dl Magnesium Level 2.5 mg/dl Albumin 2.7 gm/dl Stool Occult Blood NEGATIVE Assessment and Plan 67 y/o M Hx HTN, HPL, alcohol abuse. C/O abdominal, mid and epigastric pain which has been present intermittently for 1 mo. He had visited his primary MD on the . Labs including LFTs, CBC, BMP were obtained. He was called back 10/01 evening as multiple abnormalities were present, and directed to attend the hospital for further evaluation. Labs were redrawn in the ER and are notable for ARF, transaminitis, elevated lipase and anemia - confirming previous findings. A CT abdomen was obtained showing BL perinephric stranding, cirrhosis and multiple subcentimeter pulmonary nodules. The pt is relatively pain-free on admission. The pt does not have a known history of cirrhosis or kidney disease. He has not had fevers or dysuria. He denies vomiting or diarrhea, admits to occasional nausea. At the time of admission he has not had an alcoholic beverage for 3 days and denies any withdrawal symptoms. 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 2.77 today Chronic anemia- baseline hgb 11.0- STABLE: - Fecal occult blood negative - b12/folate, iron study- WNL - Follow H&H HTN: - Lisinopril stopped due to CHAD - Started Norvasc 5 mg daily - IV Hydralazine PRN HLD: Lipitor held due to NPO ETOH abuse, no s/s of withdrawal- last drink on 09/28, cirrhosis on imaging: - IV Ativan PRN - IV Thiamine 100 mg + IV Folate 1 gm x1 dose - IV Banana bag daily - Counselling on alcohol cessation - GI following Pulmonary nodules, 3.2 focal lesion on T12 vertebrae: - PSA 0.832; CEA 0.56 - CA 19-9, CA125, AFP pending GI prophylaxis: Protonix IV BID DVT prophylaxis: TEDs/SCDs, ambulation Code status: LEVEL I, FULL Dispo: Discharge to home once medically stable
[2017-10-03] MEDS: MULTI-VITAMIN INFUSION INJ 10 ML, THIAMINE HCL INJ 100 MG, FoLIC ACID INJ 1 MG in SODIU... IV SCH (15:39)
[2017-10-03 15:45] VITALS: BP 165/86; PULSE 58; TEMP 37.1; O2SAT 98
[2017-10-03 16:16] LABS: ALBUMIN 2.9 gm/dl (3.4-5.0); CALCIUM 8.8 mg/dl (8.5-10.1); CREATININE 2.75 mg/dl (0.60-1.40); POTASSIUM 5.1 mmol/L (3.5-5.1)
[2017-10-03 16:19] LABS: TOTAL PROTEIN 6.7 gm/dl (6.4-8.2)
[2017-10-03 22:50] VITALS: BP 132/68; PULSE 63; TEMP 36.8; O2SAT 95
[2017-10-03] MEDS: ZOLPIDEM TARTRATE 5 MG TAB PO PRN (23:17)
[2017-10-03] MEDS: D5W AND 1/2NSS 1,000 ML IV SCH (23:17)
[2017-10-04] VITALS (7 sets, daily range): BP systolic 145–191; BP diastolic 86–97; PULSE 60–71; TEMP 36.7–36.9; O2SAT 96–99
[2017-10-04] MEDS: D5W AND 1/2NSS 1,000 ML IV SCH ×2 (08:30→18:23)
[2017-10-04 08:31] LABS: HEMATOCRIT 25.6 % (42-52); HEMOGLOBIN 8.7 g/dL (14.0-18.0); MEAN CELL VOLUME 95.9 fL (80-100); MEAN CORPUSCULAR HEMOGLOBIN 32.6 pg (25-34); MEAN PLATELET VOLUME 8.5 fL (7.4-10.4); PLATELET COUNT 204 K/uL (130-400); RED CELL DISTRIBUTION WIDTH CV 12.8 % (11.5-14.5); RED CELL DISTRIBUTION WIDTH SD 44.6 fL (36.4-46.3); WHITE BLOOD COUNT 5.28 K/uL (4.8-10.8)
[2017-10-04 08:57] LABS: ALBUMIN 2.7 gm/dl (3.4-5.0); CALCIUM 8.4 mg/dl (8.5-10.1); CREATININE 2.72 mg/dl (0.60-1.40); POTASSIUM 4.7 mmol/L (3.5-5.1)
[2017-10-04] MEDS ORDERED: SINCALIDE INJ 1.9 MCG in SODIUM CHLORIDE 0.9% 100ML 100 ML IV SCH (09:00)
[2017-10-04 09:01] LABS: PHOSPHORUS 3.7 mg/dl (2.5-4.9)
--- NOTE | 2017-10-04 10:27 | DIAGNOSTIC IMAGING REPORT ---
NUCLEAR MEDICINE HEPATOBILIARY SCAN WITH EJECTION FRACTION ANALYSIS CLINICAL HISTORY: Gallbladder wall thickening COMPARISON STUDY: Gallbladder ultrasound dated 10/02/2017 FINDINGS: The patient was injected with 5.5 mCi of technetium 99m Choletec. Anterior imaging was performed. The gallbladder was first visualized on the 5 minute image. At 1 hour, the patient was administered 1.9 mcg of sincalide utilizing a 30 minute infusion. The gallbladder ejection fraction was normal measuring 97%. There was normal passage of activity into small bowel. The patient did describe abdominal discomfort during the sincalide infusion IMPRESSION: 1. No evidence of cystic duct obstruction 2. Normal gallbladder ejection fraction of 97% 3. The patient did describe abdominal discomfort during the sincalide infusion Electronically signed by: Galindo Bush M.D. 10/04/2017 10:25 AM Dictated Date/Time: 10/04/2017 10:23 AM
[2017-10-04] MEDS: PANTOprazole INJ 40 MG in SYRINGE 0 ML IV SCH ×2 (10:51→21:31)
[2017-10-04] MEDS: AMLODIPINE BESYLATE 5 MG TAB PO SCH (10:52)
--- NOTE | 2017-10-04 11:41 | Nephrology Progress Note ---
Nephrology Progress Note Date of Service Oct 04, 2017. Chief Complaint CHAD Subjective No acute events overnight. No complaints this morning. Watson reports continued improvement in abdominal pain. He denies nausea. No fevers or chills. Review of Systems A complete review of systems was performed. Pertinent positives are noted above. All other systems are negative. Vital Signs Last 8 Hrs Date Time Temp Pulse Resp B/P (MAP) Pulse Ox O2 Delivery O2 Flow Rate FiO2 10/04/17 10:52 61 191/97 (128) 99 Room Air 10/04/17 08:04 36.7 63 18 154/92 (112) 96 Room Air 10/04/17 08:00 Room Air Last Recorded Weight Weight (Kilograms): 93.400 Physical Exam General Appearance: WD/WN, no apparent distress Head: normocephalic, atraumatic Eyes: normal inspection, sclerae normal ENT: normal ENT inspection, pharynx normal Neck: supple, no JVD Respiratory/Chest: lungs clear, no respiratory distress, no accessory muscle use Cardiovascular: regular rate, rhythm, no gallop Abdomen/GI: non tender, soft Extremities/Musculoskelatal: normal inspection, no pedal edema Neurologic/Psych: alert, normal mood/affect Family History FH: cancer FH: gallbladder disease FH: heart disease Hypertension Kidney disease Kidney stones Social History Smoking Status: Never smoker Marital Status: Occupation: retired Laboratory Results Past 24 Hours 10/04/17 08:10 10/03/17 15:40 10/04/17 08:10 Test 10/03/17 15:40 10/04/17 08:10 Anion Gap 10.0 mmol/L (3-11) 8.0 mmol/L (3-11) Est Creatinine Clear Calc Drug Dose 29.8 ml/min 30.2 ml/min Estimated GFR () 26.6 27.0 Estimated GFR (Non- 23.0 23.3 BUN/Creatinine Ratio 15.1 (10-20) 13.5 (10-20) Calcium Level 8.8 mg/dl (8.5-10.1) 8.4 mg/dl (8.5-10.1) Total Bilirubin 0.8 mg/dl (0.2-1) Aspartate Amino Transf (AST/SGOT) 41 U/L (15-37) Alanine Aminotransferase (ALT/SGPT) 52 U/L (12-78) Alkaline Phosphatase 265 U/L (45-117) Total Protein 6.7 gm/dl (6.4-8.2) Albumin 2.9 gm/dl (3.4-5.0) 2.7 gm/dl (3.4-5.0) Globulin 3.8 gm/dl (2.5-4.0) Albumin/Globulin Ratio 0.8 (0.9-2) Lipase 581 U/L (73-393) Red Blood Count 2.67 M/uL (4.7-6.1) Mean Corpuscular Volume 95.9 fL (80-100) Mean Corpuscular Hemoglobin 32.6 pg (25-34) Mean Corpuscular Hemoglobin Concent 34.0 g/dl (32-36) RDW Standard Deviation 44.6 fL (36.4-46.3) RDW Coefficient of Variation 12.8 % (11.5-14.5) Mean Platelet Volume 8.5 fL (7.4-10.4) Phosphorus Level 3.7 mg/dl (2.5-4.9) Allergies Coded Allergies: No Known Allergies (Unverified , 10/02/17) Medications Current Inpatient Medications Medications (Trade) Dose Ordered Sig/Margarito Route Start Time Stop Time Status Last Admin Dose Admin Al Hydrox/Mg Hydrox/Simethicone (Maalox Max Susp) 15 ml Q4H PRN PO 10/02/17 03:00 11/01/17 02:59 10/02/17 18:44 15 ML Magnesium Hydroxide (Milk Of Magnesia Susp) 30 ml Q6H PRN PO 10/02/17 03:00 11/01/17 02:59 Polyethylene (Miralax Powder Packet) 17 gm DAILY PRN PO 10/02/17 03:30 11/01/17 03:29 Zolpidem Tartrate (Ambien Tab) 5 mg HSZ PRN PO 10/02/17 03:00 11/01/17 02:59 10/03/17 23:17 5 MG Ondansetron HCl (Zofran Inj) 4 mg Q6H PRN IV 10/02/17 03:00 11/01/17 02:59 Hydralazine HCl (HydrALAZINE INJ) 5 mg Q6H PRN IV. 10/02/17 04:00 11/01/17 03:59 10/03/17 00:13 5 MG Pantoprazole Sodium 40 mg/ Syringe 10 ml @ 5 mls/min DAILY@ IV 10/02/17 09:00 10/05/17 21:01 10/04/17 10:51 5 MLS/MIN Amlodipine Besylate (Norvasc Tab) 5 mg QAM PO 10/03/17 09:00 11/02/17 08:59 10/04/17 10:52 5 MG Multivitamins 10 ml/Thiamine HCl 100 mg/Folic Acid 1 mg/Sodium Chloride 1,011.2 ml @ 500 mls/ hr Q24H IV 10/02/17 16:00 10/04/17 18:02 10/03/17 15:39 500 MLS/HR Lorazepam (Ativan Tab) 1 mg ONE PRN PO 10/02/17 12:30 Dextrose/Sodium Chloride 1,000 ml @ 100 mls/hr Q10H IV 10/03/17 22:30 11/02/17 22:29 10/04/17 08:30 100 MLS/HR Sincalide 1.9 mcg/ Sodium Chloride 101.9 ml @ 200 mls/hr TODAY@0900 IV 10/04/17 09:00 10/04/17 12:00 Impression (1) Acute kidney injury (2) Hypertension (3) Pancreatitis (4) Cirrhosis of liver (5) Anemia Mr. Phillips is a 67-year-old male with hypertension, hyperlipidemia, osteoarthritis, history of iron deficiency anemia and chronic alcohol abuse. He was admitted with pancreatitis as well as acute kidney injury. Laboratory studies are also notable for anemia. Watson has a mild anemia and NAGMA associated with CHAD. He is non-oliguric. CHAD is consistent with prerenal azotemia and multifactorial ATN in the setting of TAWNY and NSAID use. Volume status is appropriate. BP is slightly elevated. Lisinopril has been held. CT documented normal appearing kidneys. UA is bland with acellular microscopy. Evaluation is concerning for multiple pulmonary nodules and enlarged lymph nodes. Additionally, there is a cirrhotic appearance to the liver. Abdominal MRI was reviewed. Small lesion on spine noted - nonspecific. PSA was normal. Recommendations CHAD: -- 0.45% saline + D5 @ 100 ml/hr -- Document I/O's -- Maintain positive fluid balance -- Repeat metabolic profile daily -- Hold TAWNY and avoid NSAIDS -- Medications are currently appropriate for renal function Hypertension: -- Increase amlodipine to 10 mg daily -- OK to allow some permissive HTN during CHAD Pancreatitis: -- GI consult following --- HIDA results pending -- Diet per primary service -- Electrolytes monitored including calcium and replaced as needed Acute and chronic liver disease: -- Clinical presentation not consistent with HRS
[2017-10-04] MEDS: HydrALAZINE HCL 20 MG/ML VIAL IV. PRN (12:15)
--- NOTE | 2017-10-04 12:33 | Hospitalist Progress Note ---
Hospitalist Progress Note Date of Service Oct 04, 2017. Subjective Pt evaluation today including: conversation w/ patient, conversation w/ family , physical exam, lab review, review of studies, conversation w/ strategy planning consultant (Dr. Chacko), review of inpatient medication list Voiding: no voiding problems Patient resting in bed. Just came back from HIDA scan. Tolerated well. No pain. NPO pending HIDA scan. Unremarkable, GI OK w/ advancing as tolerated Patient denies any fever, chills, sweats, lightheadedness, dizziness, vision changes, CP, palpitations, edema, SOB, wheezing, cough, abdominal pain, nausea, vomiting, diarrhea, urinary symptoms, melena, numbness/tingling, weakness, muscle/joint pain, anxiety/depression, active bleeding, or new skin discoloration/changes. Medications Current Inpatient Medications Medications (Trade) Dose Ordered Sig/Margarito Route Start Time Stop Time Status Last Admin Dose Admin Al Hydrox/Mg Hydrox/Simethicone (Maalox Max Susp) 15 ml Q4H PRN PO 10/02/17 03:00 11/01/17 02:59 10/02/17 18:44 15 ML Magnesium Hydroxide (Milk Of Magnesia Susp) 30 ml Q6H PRN PO 10/02/17 03:00 11/01/17 02:59 Polyethylene (Miralax Powder Packet) 17 gm DAILY PRN PO 10/02/17 03:30 11/01/17 03:29 Zolpidem Tartrate (Ambien Tab) 5 mg HSZ PRN PO 10/02/17 03:00 11/01/17 02:59 10/03/17 23:17 5 MG Ondansetron HCl (Zofran Inj) 4 mg Q6H PRN IV 10/02/17 03:00 11/01/17 02:59 Hydralazine HCl (HydrALAZINE INJ) 5 mg Q6H PRN IV. 10/02/17 04:00 11/01/17 03:59 10/03/17 00:13 5 MG Pantoprazole Sodium 40 mg/ Syringe 10 ml @ 5 mls/min DAILY@ IV 10/02/17 09:00 10/05/17 21:01 10/04/17 10:51 5 MLS/MIN Amlodipine Besylate (Norvasc Tab) 5 mg QAM PO 10/03/17 09:00 11/02/17 08:59 10/04/17 10:52 5 MG Multivitamins 10 ml/Thiamine HCl 100 mg/Folic Acid 1 mg/Sodium Chloride 1,011.2 ml @ 500 mls/ hr Q24H IV 10/02/17 16:00 10/04/17 18:02 10/03/17 15:39 500 MLS/HR Lorazepam (Ativan Tab) 1 mg ONE PRN PO 10/02/17 12:30 Dextrose/Sodium Chloride 1,000 ml @ 100 mls/hr Q10H IV 10/03/17 22:30 11/02/17 22:29 10/04/17 08:30 100 MLS/HR Objective Vital Signs Date Time Temp Pulse Resp B/P (MAP) Pulse Ox O2 Delivery O2 Flow Rate FiO2 10/04/17 11:59 60 160/90 (113) 10/04/17 10:52 61 191/97 (128) 99 Room Air 10/04/17 08:04 36.7 63 18 154/92 (112) 96 Room Air 10/04/17 08:00 Room Air 10/03/17 23:15 Room Air 10/03/17 22:50 36.8 63 16 132/68 (89) 95 Room Air 10/03/17 15:45 37.1 58 20 165/86 (112) 98 Room Air 10/03/17 15:26 Room Air Physical Exam General Appearance: no apparent distress, + obese Eyes: normal inspection, PERRL ENT: hearing grossly normal Neck: supple Respiratory/Chest: lungs clear, no respiratory distress, no accessory muscle use Cardiovascular: regular rate, rhythm Abdomen: normal bowel sounds, non tender, soft Extremities: no pedal edema, no calf tenderness Neurologic/Psychiatric: alert, normal mood/affect, oriented x 3 Skin: normal color, warm/dry, no rash Laboratory Results Last 24 Hours Test 10/03/17 15:40 10/04/17 08:10 Sodium Level 143 mmol/L 141 mmol/L Potassium Level 5.1 mmol/L 4.7 mmol/L Chloride Level 112 mmol/L 112 mmol/L Carbon Dioxide Level 21 mmol/L 21 mmol/L Anion Gap 10.0 mmol/L 8.0 mmol/L Blood Urea Nitrogen 41 mg/dl 37 mg/dl Creatinine 2.75 mg/dl 2.72 mg/dl Est Creatinine Clear Calc Drug Dose 29.8 ml/min 30.2 ml/min Estimated GFR () 26.6 27.0 Estimated GFR (Non- 23.0 23.3 BUN/Creatinine Ratio 15.1 13.5 Random Glucose 83 mg/dl 113 mg/dl Calcium Level 8.8 mg/dl 8.4 mg/dl Total Bilirubin 0.8 mg/dl Aspartate Amino Transf (AST/SGOT) 41 U/L Alanine Aminotransferase (ALT/SGPT) 52 U/L Alkaline Phosphatase 265 U/L Total Protein 6.7 gm/dl Albumin 2.9 gm/dl 2.7 gm/dl Globulin 3.8 gm/dl Albumin/Globulin Ratio 0.8 Lipase 581 U/L White Blood Count 5.28 K/uL Red Blood Count 2.67 M/uL Hemoglobin 8.7 g/dL Hematocrit 25.6 % Mean Corpuscular Volume 95.9 fL Mean Corpuscular Hemoglobin 32.6 pg Mean Corpuscular Hemoglobin Concent 34.0 g/dl RDW Standard Deviation 44.6 fL RDW Coefficient of Variation 12.8 % Platelet Count 204 K/uL Mean Platelet Volume 8.5 fL Phosphorus Level 3.7 mg/dl Assessment and Plan 67 y/o M Hx HTN, HPL, alcohol abuse. C/O abdominal, mid and epigastric pain which has been present intermittently for 1 mo. He had visited his primary MD on the . Labs including LFTs, CBC, BMP were obtained. He was called back 10/01 evening as multiple abnormalities were present, and directed to attend the hospital for further evaluation. Labs were redrawn in the ER and are notable for ARF, transaminitis, elevated lipase and anemia - confirming previous findings. A CT abdomen was obtained showing BL perinephric stranding, cirrhosis and multiple subcentimeter pulmonary nodules. The pt is relatively pain-free on admission. The pt does not have a known history of cirrhosis or kidney disease. He has not had fevers or dysuria. He denies vomiting or diarrhea, admits to occasional nausea. At the time of admission he has not had an alcoholic beverage for 3 days and denies any withdrawal symptoms. Abdominal pain, ?pancreatitis: - Admitted to med/surg - IVF - Pancreas unremarkable on CT/MRI of abdomen - HIDA scan- unremarkable, EF 97% - NPO- spoke w/ Dr. 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: - Nephrology consulted, appreciate recommendations - IVF .45% saline + 75mEq HCO3 @ 150ml/hr- changed to d5w + 1/2 NSS @ 100 ml/hr per nephrology - Avoid nephrotoxic agents and renally does medications as appropriate - Follow PRP- lead pressman 2.72 today from 2.75 yesterday Chronic anemia- baseline hgb 11.0- STABLE: - Fecal occult blood negative - b12/folate, iron study- WNL - Follow H&H HTN: - Lisinopril stopped due to CHAD - Started Norvasc 5 mg daily- increase to 10 mg daily - IV Hydralazine PRN HLD: Lipitor held due to NPO ETOH abuse, no s/s of withdrawal- last drink on 09/28, cirrhosis on imaging: - IV Ativan PRN - IV Thiamine 100 mg + IV Folate 1 gm x1 dose - IV Banana bag daily x3 - Counselling on alcohol cessation - GI following Pulmonary nodules, 3.2 focal lesion on T12 vertebrae: - PSA 0.832; CEA 0.56 - CA 19-9, CA125, AFP pending - Continue workup outpatient GI prophylaxis: Protonix IV BID DVT prophylaxis: TEDs/SCDs, ambulation Code status: LEVEL I, FULL Dispo: Discharge to home once medically stable
--- NOTE | 2017-10-04 13:13 | GASTROENTEROLOGY PROGRESS NOTE ---
DATE: 10/04/2017 AGE: 67 SEX: Male. RACE: . SUBJECTIVE: I had the pleasure of seeing Watson Phillips at his bedside today. He denied any abdominal pain, fevers, chills, nausea, vomiting, hematemesis, melena or hematochezia. He states that he was hungry and was asking to eat. He denies any further complaints. His review of systems was negative for the above noted symptoms. It was also negative for headaches, blurred vision, loss of consciousness, chest pain, palpitations, shortness of breath, cough, dysuria, hematuria, arthralgias, myalgias, numbness or tingling in his extremities, skin rash or weight loss. PHYSICAL EXAMINATION: Today includes: VITAL SIGNS: Temp 36.7, pulse 60, respirations 18, blood pressure 160/90, pulse ox 99% on room air. GENERAL: He is awake, cooperative. No acute distress. CHEST: Clear to auscultation bilaterally. CARDIOVASCULAR SYSTEM: Regular rate and rhythm. ABDOMEN: Soft, nontender, nondistended. Positive bowel sounds. EXTREMITIES: No clubbing, cyanosis, or edema. LABORATORY STUDIES: Hemoglobin 8.7, hematocrit 25.6. His HIDA scan today was normal for a gallbladder ejection fraction and showed no evidence of cystic duct obstruction. IMPRESSION: A 67-year-old male who presented with abdominal pain and possible pancreatitis and has an MRI consistent with lung nodules and bony metastasis of unknown etiology. PLAN: HIDA scan was negative today. I would recommend advancing his diet as tolerated. I would continue supportive care and would recommend proceeding with a workup as per the primary team. Once again, thanks for allowing me to participate in the care of this patient. If you have any further questions, please do not hesitate in contacting me.
[2017-10-04] MEDS: MULTI-VITAMIN INFUSION INJ 10 ML, THIAMINE HCL INJ 100 MG, FoLIC ACID INJ 1 MG in SODIU... IV SCH (16:00)
[2017-10-04] MEDS: ALUMINUM/MAGNESIUM/SIMETH (MAALOX MAX) 30 ML UDC PO PRN ×2 (18:25→23:33)
[2017-10-04] MEDS: ZOLPIDEM TARTRATE 5 MG TAB PO PRN (23:33)
[2017-10-05] VITALS (7 sets, daily range): BP systolic 124–176; BP diastolic 74–98; PULSE 60–70; TEMP 36.8–37.2; O2SAT 94–97
[2017-10-05] MEDS: D5W AND 1/2NSS 1,000 ML IV SCH (00:02)
[2017-10-05 08:52] LABS: HEMATOCRIT 28.8 % (42-52); HEMOGLOBIN 9.5 g/dL (14.0-18.0); MEAN PLATELET VOLUME 8.3 fL (7.4-10.4); PLATELET COUNT 183 K/uL (130-400); RED CELL DISTRIBUTION WIDTH CV 12.7 % (11.5-14.5); RED CELL DISTRIBUTION WIDTH SD 45.2 fL (36.4-46.3); WHITE BLOOD COUNT 5.43 K/uL (4.8-10.8)
[2017-10-05] MEDS: PANTOprazole INJ 40 MG in SYRINGE 0 ML IV SCH ×2 (09:11→21:13)
[2017-10-05] MEDS: AMLODIPINE BESYLATE 5 MG TAB PO SCH (09:11)
[2017-10-05 09:12] LABS: ALBUMIN 3.1 gm/dl (3.4-5.0); CALCIUM 8.3 mg/dl (8.5-10.1); CREATININE 3.04 mg/dl (0.60-1.40); PHOSPHORUS 3.6 mg/dl (2.5-4.9); POTASSIUM 4.5 mmol/L (3.5-5.1)
--- NOTE | 2017-10-05 10:35 | Nephrology Progress Note ---
Nephrology Progress Note Date of Service Oct 05, 2017. Chief Complaint CHAD Subjective No acute events overnight. Watson reports some abdominal bloating and constipation. Two large loose stool yesterday. Abdominal pain improving. No blood in stool. No fevers or chills. No urinary complaints. Appetite is good. Watson is asking to be discharged home. Review of Systems A complete review of systems was performed. Pertinent positives are noted above. All other systems are negative. Vital Signs Last 8 Hrs Date Time Temp Pulse Resp B/P (MAP) Pulse Ox O2 Delivery O2 Flow Rate FiO2 10/05/17 08:02 97 Room Air 10/05/17 07:43 36.8 66 14 176/98 (124) 97 Room Air Last Recorded Weight Weight (Kilograms): 93.400 Physical Exam General Appearance: WD/WN, no apparent distress Head: normocephalic, atraumatic Eyes: normal inspection, sclerae normal ENT: normal ENT inspection, pharynx normal Neck: supple, no JVD Respiratory/Chest: lungs clear, no respiratory distress, no accessory muscle use Cardiovascular: regular rate, rhythm, no murmur Abdomen/GI: non tender, soft Extremities/Musculoskelatal: normal inspection, no pedal edema Neurologic/Psych: alert, normal mood/affect Family History FH: cancer FH: gallbladder disease FH: heart disease Hypertension Kidney disease Kidney stones Social History Smoking Status: Never smoker Marital Status: Occupation: retired Laboratory Results Past 24 Hours 10/05/17 08:41 10/05/17 08:41 Test 10/05/17 08:41 Red Blood Count 2.97 M/uL (4.7-6.1) Mean Corpuscular Volume 97.0 fL (80-100) Mean Corpuscular Hemoglobin 32.0 pg (25-34) Mean Corpuscular Hemoglobin Concent 33.0 g/dl (32-36) RDW Standard Deviation 45.2 fL (36.4-46.3) RDW Coefficient of Variation 12.7 % (11.5-14.5) Mean Platelet Volume 8.3 fL (7.4-10.4) Anion Gap 7.0 mmol/L (3-11) Est Creatinine Clear Calc Drug Dose 27.0 ml/min Estimated GFR () 23.6 Estimated GFR (Non- 20.4 BUN/Creatinine Ratio 11.5 (10-20) Calcium Level 8.3 mg/dl (8.5-10.1) Phosphorus Level 3.6 mg/dl (2.5-4.9) Albumin 3.1 gm/dl (3.4-5.0) Allergies Coded Allergies: No Known Allergies (Unverified , 10/02/17) Medications Current Inpatient Medications Medications (Trade) Dose Ordered Sig/Margarito Route Start Time Stop Time Status Last Admin Dose Admin Al Hydrox/Mg Hydrox/Simethicone (Maalox Max Susp) 15 ml Q4H PRN PO 10/02/17 03:00 11/01/17 02:59 10/04/17 23:33 15 ML Magnesium Hydroxide (Milk Of Magnesia Susp) 30 ml Q6H PRN PO 10/02/17 03:00 11/01/17 02:59 Polyethylene (Miralax Powder Packet) 17 gm DAILY PRN PO 10/02/17 03:30 11/01/17 03:29 10/05/17 09:21 17 GM Zolpidem Tartrate (Ambien Tab) 5 mg HSZ PRN PO 10/02/17 03:00 11/01/17 02:59 10/04/17 23:33 5 MG Ondansetron HCl (Zofran Inj) 4 mg Q6H PRN IV 10/02/17 03:00 11/01/17 02:59 Hydralazine HCl (HydrALAZINE INJ) 5 mg Q6H PRN IV. 10/02/17 04:00 11/01/17 03:59 10/04/17 12:15 5 MG Pantoprazole Sodium 40 mg/ Syringe 10 ml @ 5 mls/min DAILY@ IV 10/02/17 09:00 10/05/17 21:01 10/05/17 09:11 5 MLS/MIN Lorazepam (Ativan Tab) 1 mg ONE PRN PO 10/02/17 12:30 Dextrose/Sodium Chloride 1,000 ml @ 100 mls/hr Q10H IV 10/03/17 22:30 11/02/17 22:29 10/05/17 00:02 100 MLS/HR Amlodipine Besylate (Norvasc Tab) 10 mg QAM PO 10/05/17 09:00 11/02/17 08:59 10/05/17 09:11 10 MG Impression (1) Acute kidney injury (2) Hypertension (3) Pancreatitis (4) Cirrhosis of liver (5) Anemia Mr. Phillips is a 67-year-old male with hypertension, hyperlipidemia, osteoarthritis, history of iron deficiency anemia and chronic alcohol abuse. He was admitted with pancreatitis as well as acute kidney injury. C CHAD is consistent with prerenal azotemia and multifactorial ATN in the setting of TAWNY and NSAID use. Creatinine had shown improvement but unfortunately, creatinine chiki in the past 24 hours. Volume status is appropriate. BP is slightly elevated. Lisinopril has been held. No significant changes in the past 24 hours aside from stopping IVF, CT documented normal appearing kidneys. UA is bland with acellular microscopy. Evaluation is concerning for multiple pulmonary nodules and enlarged lymph nodes. Additionally, there is a cirrhotic appearance to the liver. Abdominal MRI was reviewed. Small lesion on spine noted - nonspecific. PSA was normal. Recommendations CHAD: -- Hold IVF -- Encourage oral hydration -- Document I/O's -- Maintain positive fluid balance -- Repeat metabolic profile this afternoon -- Hold TAWNY and avoid NSAIDS -- Medications are currently appropriate for renal function Hypertension: -- Continue amlodipine to 10 mg daily Pancreatitis: -- GI consult following --- TERESA reviewed this morning -- Diet per primary service Acute and chronic liver disease: -- Outpatient follow up
--- NOTE | 2017-10-05 13:04 | Hospitalist Progress Note ---
Hospitalist Progress Note Date of Service Oct 05, 2017. Subjective Pt evaluation today including: conversation w/ patient, physical exam, lab review, review of inpatient medication list Voiding: no voiding problems Patient ambulating around room. Feeling well. +abdominal bloating- feels he needs to have a BM. Had 2 BMs yesterday. Eating and drinking OK. Patient denies any fever, chills, sweats, lightheadedness, dizziness, vision changes, CP, palpitations, edema, SOB, wheezing, cough, nausea, vomiting, diarrhea, urinary symptoms, melena, numbness/tingling, weakness, muscle/joint pain, anxiety/depression, active bleeding, or new skin discoloration/changes. Medications Current Inpatient Medications Medications (Trade) Dose Ordered Sig/Margarito Route Start Time Stop Time Status Last Admin Dose Admin Al Hydrox/Mg Hydrox/Simethicone (Maalox Max Susp) 15 ml Q4H PRN PO 10/02/17 03:00 11/01/17 02:59 10/04/17 23:33 15 ML Magnesium Hydroxide (Milk Of Magnesia Susp) 30 ml Q6H PRN PO 10/02/17 03:00 11/01/17 02:59 Polyethylene (Miralax Powder Packet) 17 gm DAILY PRN PO 10/02/17 03:30 11/01/17 03:29 10/05/17 09:21 17 GM Zolpidem Tartrate (Ambien Tab) 5 mg HSZ PRN PO 10/02/17 03:00 11/01/17 02:59 10/04/17 23:33 5 MG Ondansetron HCl (Zofran Inj) 4 mg Q6H PRN IV 10/02/17 03:00 11/01/17 02:59 Hydralazine HCl (HydrALAZINE INJ) 5 mg Q6H PRN IV. 10/02/17 04:00 11/01/17 03:59 10/04/17 12:15 5 MG Pantoprazole Sodium 40 mg/ Syringe 10 ml @ 5 mls/min DAILY@ IV 10/02/17 09:00 10/05/17 21:01 10/05/17 09:11 5 MLS/MIN Lorazepam (Ativan Tab) 1 mg ONE PRN PO 10/02/17 12:30 Dextrose/Sodium Chloride 1,000 ml @ 100 mls/hr Q10H IV 10/03/17 22:30 11/02/17 22:29 10/05/17 00:02 100 MLS/HR Amlodipine Besylate (Norvasc Tab) 10 mg QAM PO 10/05/17 09:00 11/02/17 08:59 10/05/17 09:11 10 MG Objective Vital Signs Date Time Temp Pulse Resp B/P (MAP) Pulse Ox O2 Delivery O2 Flow Rate FiO2 10/05/17 08:02 97 Room Air 10/05/17 08:00 Room Air 10/05/17 07:43 36.8 66 14 176/98 (124) 97 Room Air 10/04/17 23:30 71 14 145/86 (105) 10/04/17 23:30 97 Room Air 10/04/17 22:45 36.9 67 16 161/91 (114) 97 Room Air 10/04/17 16:00 Room Air 10/04/17 15:26 36.8 67 18 152/88 (109) 97 Room Air 10/04/17 13:33 61 147/88 (107) Physical Exam General Appearance: no apparent distress, + obese Eyes: normal inspection, PERRL ENT: hearing grossly normal Neck: supple Respiratory/Chest: lungs clear, no respiratory distress, no accessory muscle use Cardiovascular: regular rate, rhythm Abdomen: normal bowel sounds, non tender, soft Extremities: no pedal edema, no calf tenderness Neurologic/Psychiatric: alert, normal mood/affect, oriented x 3 Skin: normal color, warm/dry, no rash Laboratory Results Last 24 Hours Test 10/05/17 08:41 White Blood Count 5.43 K/uL Red Blood Count 2.97 M/uL Hemoglobin 9.5 g/dL Hematocrit 28.8 % Mean Corpuscular Volume 97.0 fL Mean Corpuscular Hemoglobin 32.0 pg Mean Corpuscular Hemoglobin Concent 33.0 g/dl RDW Standard Deviation 45.2 fL RDW Coefficient of Variation 12.7 % Platelet Count 183 K/uL Mean Platelet Volume 8.3 fL Sodium Level 141 mmol/L Potassium Level 4.5 mmol/L Chloride Level 111 mmol/L Carbon Dioxide Level 22 mmol/L Anion Gap 7.0 mmol/L Blood Urea Nitrogen 35 mg/dl Creatinine 3.04 mg/dl Est Creatinine Clear Calc Drug Dose 27.0 ml/min Estimated GFR () 23.6 Estimated GFR (Non- 20.4 BUN/Creatinine Ratio 11.5 Random Glucose 112 mg/dl Calcium Level 8.3 mg/dl Phosphorus Level 3.6 mg/dl Albumin 3.1 gm/dl Assessment and Plan 67 y/o M Hx HTN, HPL, alcohol abuse. C/O abdominal, mid and epigastric pain which has been present intermittently for 1 mo. He had visited his primary MD on the . Labs including LFTs, CBC, BMP were obtained. He was called back 10/01 evening as multiple abnormalities were present, and directed to attend the hospital for further evaluation. Labs were redrawn in the ER and are notable for ARF, transaminitis, elevated lipase and anemia - confirming previous findings. A CT abdomen was obtained showing BL perinephric stranding, cirrhosis and multiple subcentimeter pulmonary nodules. The pt is relatively pain-free on admission. The pt does not have a known history of cirrhosis or kidney disease. He has not had fevers or dysuria. He denies vomiting or diarrhea, admits to occasional nausea. At the time of admission he has not had an alcoholic beverage for 3 days and denies any withdrawal symptoms. Abdominal pain, ?pancreatitis: - Admitted to med/surg - IVF- tolerating diet, discontinued - Pancreas unremarkable on CT/MRI of abdomen - HIDA scan- unremarkable, EF 97% - NPO- spoke w/ Dr. 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: - Nephrology consulted, appreciate recommendations - IVF .45% saline + 75mEq HCO3 @ 150ml/hr- changed to d5w + 1/2 NSS @ 100 ml/hr per nephrology- discontinued - Avoid nephrotoxic agents and renally does medications as appropriate - Follow PRP- voting machine repairer 3.04 today from 2.72 yesterday Chronic anemia- baseline hgb 11.0- STABLE: - Fecal occult blood negative - b12/folate, iron study- WNL - Follow H&H HTN: - Lisinopril stopped due to CHAD - Norvasc 10 mg daily - IV Hydralazine PRN HLD: Lipitor held due to NPO- resume at discharge ETOH abuse, no s/s of withdrawal- last drink on 09/28, cirrhosis on imaging: - IV Ativan PRN - IV Thiamine 100 mg + IV Folate 1 gm x1 dose - IV Banana bag daily x3 - Counselling on alcohol cessation - GI following Pulmonary nodules, 3.2 focal lesion on T12 vertebrae: - PSA 0.832; CEA 0.56 - CA 19-9, CA125, AFP pending - Continue workup outpatient- Dr. Menezes will be setting up outpatient appointment GI prophylaxis: Protonix IV BID DVT prophylaxis: TEDs/SCDs, ambulation Code status: LEVEL I, FULL Dispo: Discharge to home once medically stable- hopefully tomorrow
[2017-10-05] MEDS ORDERED: BISACODYL 10 MG SUPP PR SCH (13:15)
[2017-10-05 16:29] LABS: CALCIUM 8.6 mg/dl (8.5-10.1); CREATININE 3.02 mg/dl (0.60-1.40); POTASSIUM 4.6 mmol/L (3.5-5.1)
[2017-10-05] MEDS: HydrALAZINE HCL 20 MG/ML VIAL IV. PRN (16:46)
[2017-10-05] MEDS: ZOLPIDEM TARTRATE 5 MG TAB PO PRN (23:54)
[2017-10-06 06:54] LABS: HEMOGLOBIN 8.9 g/dL (14.0-18.0); MEAN CELL VOLUME 94.9 fL (80-100); MEAN CORPUSCULAR HEMOGLOBIN 32.5 pg (25-34); MEAN CORPUSCULAR HGB CONC 34.2 g/dl (32-36); MEAN PLATELET VOLUME 8.6 fL (7.4-10.4); PLATELET COUNT 173 K/uL (130-400); RED CELL DISTRIBUTION WIDTH CV 12.8 % (11.5-14.5); RED CELL DISTRIBUTION WIDTH SD 44.1 fL (36.4-46.3); WHITE BLOOD COUNT 5.96 K/uL (4.8-10.8)
[2017-10-06 07:03] VITALS: BP 162/95; PULSE 85; TEMP 36.8; O2SAT 96
[2017-10-06 07:35] LABS: ALBUMIN 2.8 gm/dl (3.4-5.0); CALCIUM 8.4 mg/dl (8.5-10.1); CREATININE 3.02 mg/dl (0.60-1.40); POTASSIUM 4.8 mmol/L (3.5-5.1)
[2017-10-06 07:40] LABS: PHOSPHORUS 4.6 mg/dl (2.5-4.9)
[2017-10-06 08:55] VITALS: BP 158/55; PULSE 81
[2017-10-06] MEDS: AMLODIPINE BESYLATE 5 MG TAB PO SCH (08:56)
[2017-10-06] MEDS ORDERED: MRLP17X PO (09:48)
[2017-10-06] MEDS ORDERED: NRV5 PO (09:48)
--- NOTE | 2017-10-06 09:57 | Discharge Instructions ---
Discharge Instructions Date of Service Oct 06, 2017. Admission Reason for Admission: Pancreatitis Discharge Discharge Diagnosis / Problem: Alcoholic pancreatitis, Acute renal failure Discharge Goals Goal(s): Improve function, Improve disease control, Diagnostic testing (lab work for kidneys), Specific goals (follow up with Dr. Menezes for pulmonary nodules) Activity Recommendations Activity Limitations: resume your previous activity . Instructions / Follow-Up Instructions / Follow-Up Medications: - NORVASC: blood pressure medication that will replace lisinopril which was stopped due to renal failure - MIRALAX: can purchase over the counter, use as needed for constipation Acute pancreatitis: due to alcohol use, symptoms have resolved, continue to advance diet as tolerated, no dietary restrictions extensive testing of gall bladder failed to show any signs of gall stones no evidence of pancreatic cancer on MRI Acute renal failure, acute tubular necrosis: due to overuse of Ibuprofen Cr is 3.02, still high but stable continue to stay well hydrated follow up for labs on Tuesday 10/[address] Feldman, results will go to Dr. Vargas you will see Dr. Vargas (nephrology) later next week DO NOT take any further NSAIDs (ibuprofen, aleve, mobic etc) holding lisinopril going forward, you may be able to resume in the future but not without being instructed by physician Alcohol abuse with early signs of cirrhosis you need to abstain from alcohol completely to prevent any further damage to your liver also, further drinking could flare up pancreas again causing recurrent pancreatitis you can use Tylenol for pain (sine you cannot use NSAIDs) but would not exceed 2000mg in a day Pulmonary nodules and lesion on thoracic spine unclear what this represents, would need tissue biopsy for diagnosis follow up with Dr. Menezes, thoracic surgery, to plan for biopsy FOLLOW UP - Dr. Feldman on Tuesday 10/10 - Dr. Vargas, later next week - Dr. Menezes in 1-2 weeks to plan for biopsy/surgery Current Hospital Diet Patient's current hospital diet: Low Fiber Diet Discharge Diet Recommended Diet: Renal Diet Pending Studies Studies pending at discharge: no Medical Emergencies . Who to Call and When: Medical Emergencies: If at any time you feel your situation is an emergency, please call 911 immediately. . Non-Emergent Contact Non-Emergency issues call your: Primary Care Provider Call Non-Emergent contact if: you have any medication questions . . "Provider Documentation" section prepared by Andre Rankin. . VTE Core Measure Inpt VTE Proph given/why not?: SCD's [place] Drug Monitoring Program Search Results: no issues identified
--- NOTE | 2017-10-06 10:08 | Nephrology Progress Note ---
Nephrology Progress Note Date of Service Oct 06, 2017. Chief Complaint CHAD Subjective No acute events overnight. No complaints this morning. Watson feels well. He is very insistent that he is ready for discharge. Abdominal symptoms have resolved. He was able to move his bowels yesterday. He denies diarrhea. He denies abdominal pain. No fevers or chills. Appetite is good. He is voiding urine without difficulty. Review of Systems A complete review of systems was performed. Pertinent positives are noted above. All other systems are negative. Vital Signs Last 8 Hrs Date Time Temp Pulse Resp B/P (MAP) Pulse Ox O2 Delivery O2 Flow Rate FiO2 10/06/17 08:55 81 158/55 (89) 10/06/17 07:40 Room Air 10/06/17 07:03 36.8 85 16 162/95 (117) 96 Room Air Last Recorded Weight Weight (Kilograms): 93.400 Physical Exam General Appearance: WD/WN, no apparent distress Head: normocephalic, atraumatic Eyes: normal inspection, sclerae normal ENT: normal ENT inspection, pharynx normal Neck: supple, no JVD Respiratory/Chest: lungs clear, normal breath sounds, no respiratory distress, no accessory muscle use Cardiovascular: regular rate, rhythm, no gallop, no murmur Back: no CVA tenderness Abdomen/GI: non tender, soft Extremities/Musculoskelatal: normal inspection, no pedal edema Neurologic/Psych: alert, normal mood/affect Family History FH: cancer FH: gallbladder disease FH: heart disease Hypertension Kidney disease Kidney stones Social History Smoking Status: Never smoker Marital Status: Occupation: retired Laboratory Results Past 24 Hours 10/06/17 06:39 10/05/17 15:54 10/06/17 06:39 Test 10/05/17 15:54 10/06/17 06:39 Anion Gap 6.0 mmol/L (3-11) 7.0 mmol/L (3-11) Est Creatinine Clear Calc Drug Dose 27.2 ml/min 27.2 ml/min Estimated GFR () 23.8 23.8 Estimated GFR (Non- 20.5 20.5 BUN/Creatinine Ratio 11.4 (10-20) 11.5 (10-20) Calcium Level 8.6 mg/dl (8.5-10.1) 8.4 mg/dl (8.5-10.1) Red Blood Count 2.74 M/uL (4.7-6.1) Mean Corpuscular Volume 94.9 fL (80-100) Mean Corpuscular Hemoglobin 32.5 pg (25-34) Mean Corpuscular Hemoglobin Concent 34.2 g/dl (32-36) RDW Standard Deviation 44.1 fL (36.4-46.3) RDW Coefficient of Variation 12.8 % (11.5-14.5) Mean Platelet Volume 8.6 fL (7.4-10.4) Phosphorus Level 4.6 mg/dl (2.5-4.9) Albumin 2.8 gm/dl (3.4-5.0) Allergies Coded Allergies: No Known Allergies (Unverified , 10/02/17) Medications Current Inpatient Medications Medications (Trade) Dose Ordered Sig/Margarito Route Start Time Stop Time Status Last Admin Dose Admin Al Hydrox/Mg Hydrox/Simethicone (Maalox Max Susp) 15 ml Q4H PRN PO 10/02/17 03:00 11/01/17 02:59 10/04/17 23:33 15 ML Magnesium Hydroxide (Milk Of Magnesia Susp) 30 ml Q6H PRN PO 10/02/17 03:00 11/01/17 02:59 Polyethylene (Miralax Powder Packet) 17 gm DAILY PRN PO 10/02/17 03:30 11/01/17 03:29 10/05/17 09:21 17 GM Zolpidem Tartrate (Ambien Tab) 5 mg HSZ PRN PO 10/02/17 03:00 11/01/17 02:59 10/05/17 23:54 5 MG Ondansetron HCl (Zofran Inj) 4 mg Q6H PRN IV 10/02/17 03:00 11/01/17 02:59 Hydralazine HCl (HydrALAZINE INJ) 5 mg Q6H PRN IV. 10/02/17 04:00 11/01/17 03:59 10/05/17 16:46 5 MG Lorazepam (Ativan Tab) 1 mg ONE PRN PO 10/02/17 12:30 Amlodipine Besylate (Norvasc Tab) 10 mg QAM PO 10/05/17 09:00 11/02/17 08:59 10/06/17 08:56 10 MG Bisacodyl (Dulcolax Supp) [address] 10/05/17 13:15 11/04/17 13:14 10/05/17 14:23 10 MG Impression (1) Acute kidney injury (2) Hypertension (3) Pancreatitis (4) Cirrhosis of liver (5) Anemia Mr. Phillips is a 67-year-old male with hypertension, hyperlipidemia, osteoarthritis, history of iron deficiency anemia and chronic alcohol abuse. He was admitted with pancreatitis as well as acute kidney injury. CHAD is consistent with multifactorial ATN in the setting of TAWNY and NSAID use. Creatinine is stable. Watson is aware of the precarious nature of his renal dysfunction. We reviewed in detail the importance of appropriate hydration, avoiding alcohol, avoiding NSAIDS and close follow up. CT documented normal appearing kidneys. UA is bland with acellular microscopy. Evaluation is concerning for multiple pulmonary nodules and enlarged lymph nodes. Additionally, there is a cirrhotic appearance to the liver. Abdominal MRI was reviewed. Small lesion on spine noted - nonspecific. PSA was normal. Recommendations CHAD: -- Repeat metabolic profile on Tuesday -- Follow up in the nephrology clinic to be arranged within 1-2 weeks of discharge -- Hold TAWNY and avoid NSAIDS -- Medications are currently appropriate for renal function Hypertension: -- Continue amlodipine to 10 mg daily Pancreatitis: -- Clinically improved Acute and chronic liver disease: -- Outpatient follow up
[2017-10-06 10:18] VITALS: BP 158/55; PULSE 81; TEMP 36.8; O2SAT 96
--- NOTE | 2017-10-06 10:25 | Discharge Summary ---
Discharge Summary Date of Service Oct 06, 2017. Discharge Summary Admission Date: Oct 02, 2017 at 03:05 Discharge Date: Oct 06, 2017 Principal Diagnosis: Acute pancreatitis Problems/Secondary Diagnoses: CHAD secondary to ATN in setting of ACEi/NSAID elevated LFTs Chronic anemia HTN HLD ETOH abuse cirrhosis Pulmonary nodules 3.2 focal lesion on T12 vertebrae Constipation Procedures: CT OF THE ABDOMEN AND PELVIS WITHOUT CONTRAST CLINICAL HISTORY: Abdominal pain. Evaluate for pancreatitis. COMPARISON STUDY: CT of the abdomen and pelvis August 25, 2013 and abdominal series September 29, 2017. TECHNIQUE: Axial images of the abdomen and pelvis were obtained without IV contrast. Images were reviewed in the axial, sagittal, and coronal planes. A dose lowering technique was utilized adhering to the principles of ALARA. FINDINGS: Visualized portions of the lower chest demonstrate trace bilateral pleural effusions, right larger than left. There are numerous small pulmonary nodules which are new since CT of August 25, 2013. The largest is a 7 mm right lower lobe nodule. There may be mild pleural nodularity as well. Evaluation of the abdomen and pelvis is suboptimal on this unenhanced exam. There is slight nodularity of the liver surface. No hepatic lesions are identified although sensitivity is diminished on this unenhanced exam. Size of the spleen is normal. Unenhanced images of the adrenal glands and pancreas are unremarkable. There is moderate bilateral perinephric infiltration. There is no hydronephrosis. No ureteral calculi present. There is extensive vascular calcification. A small amount of ascites is noted. There is no bowel obstruction. No pathologically enlarged lymph nodes are present. There is colonic diverticulosis evidence for acute diverticulitis. The appendix is mildly dilated and contains hyperdense material. However, there is no definite periappendiceal infiltration. There are no suspicious osseous lesions. IMPRESSION: 1. Numerous small nodules within visualized portions of the lungs which are new since CT of August 25, 2013. While nonspecific, metastatic disease is within the differential and correlation with history of known malignancy is recommended. A follow-up chest CT could be obtained. Trace bilateral pleural effusions with possible pleural nodularity. Discussed with Dr. Linder at time of dictation. 2. Moderate bilateral perinephric infiltration, a nonspecific finding. Mild prominence of both collecting systems without melva hydronephrosis. No ureteral calculi. 3. Small amount of ascites. 4. Suspected cirrhosis. 5. Extensive atherosclerotic plaque. Electronically signed by: Ko Chacon M.D. 10/02/2017 8:13 AM Dictated Date/Time: 10/02/2017 7:46 AM The status of this report is Signed. Draft = Not yet reviewed or approved by Radiologist. Signed = Reviewed and approved by Radiologist. ABDOMINAL ULTRASOUND, RIGHT UPPER QUADRANT HISTORY: Abdominal pain. Possible pancreatitis. COMPARISON: CT of the abdomen and pelvis performed earlier today. FINDINGS: Pancreas is obscured by overlying bowel gas. There is slight coarsening of hepatic echotexture. There is a small amount of perihepatic ascites. There is no biliary ductal dilatation. There is mild gallbladder wall thickening. No gallstones are identified. There may be sludge within the gallbladder. There is no right hydronephrosis. There is trace right perinephric fluid. There is mild right collecting system dilatation without melva hydronephrosis. A small right pleural effusion is noted. IMPRESSION: 1. No gallstones or biliary ductal dilatation. Possible small amount of sludge within the gallbladder. 2. Mild gallbladder wall thickening, a nonspecific finding. 3. Coarsening of hepatic echotexture which raises the possibility of cirrhosis. 4. Obscured pancreas due to overlying bowel gas. 5. Mild right collecting system dilatation without melva hydronephrosis. Electronically signed by: Ko Chacon M.D. 10/02/2017 9:32 AM Dictated Date/Time: 10/02/2017 9:30 AM The status of this report is Signed. Draft = Not yet reviewed or approved by Radiologist. Signed = Reviewed and approved by Radiologist. CT OF THE CHEST WITHOUT IV CONTRAST CLINICAL HISTORY: Pulmonary nodules. COMPARISON STUDY: No previous studies for comparison. CT DOSE: 537.90 mGy.cm TECHNIQUE: Axial images of the chest were obtained without IV contrast. Images were reviewed in the axial, sagittal, and coronal planes. IV contrast was not administered for this examination. A dose lowering technique was utilized adhering to the principles of ALARA. FINDINGS: There are innumerable small noncalcified nodules throughout the lungs. An index 8 mm right lower lobe nodule is noted on image 214. There is a 6 mm left upper lobe nodule shown image 105 that may have minimal cavitation. No noncalcified nodules were shown within the lower lungs on abdominal CT of August 25, 2013. Calcified granuloma within the lingula is noted. Small bilateral pleural effusions with possible pleural nodularity. No pneumothorax is present. The size the heart is normal. There is no pericardial effusion. There is extensive coronary artery calcification. Note is made of a mildly enlarged right lower paratracheal lymph node that measures 1.3 cm. There is no hilar or axillary lymphadenopathy. No suspicious osseous lesions are present. Visualized portions of the upper abdomen demonstrate slight nodularity of the liver contour. There is moderate bilateral perinephric infiltration. IMPRESSION: 1. Innumerable small pulmonary nodules. These are nonspecific however raise the possibility of metastatic disease. Correlation with history of malignancy is recommended. An atypical infectious process or granulomatous process could appear similar although is considered less likely. 2. Small bilateral pleural effusions. 3. Mildly enlarged right paratracheal lymph node. 4. Suspected cirrhosis. Small amount of perihepatic ascites. 5. Moderate bilateral perinephric infiltration. Electronically signed by: Ko Chacon M.D. 10/02/2017 10:49 AM Dictated Date/Time: 10/02/2017 10:38 AM The status of this report is Signed. Draft = Not yet reviewed or approved by Radiologist. Signed = Reviewed and approved by Radiologist. RENAL ULTRASOUND HISTORY: Acute kidney injury. COMPARISON: Abdominal MRI 10/02/2017. Abdominal ultrasound 10/02/2017. FINDINGS: Right kidney: 14.1 cm. No hydronephrosis. Normal corticomedullary differentiation and cortical thickness. Left kidney: 12.8 cm. No hydronephrosis. Normal corticomedullary differentiation and cortical thickness. There are 2 small cysts with the largest measuring 1.3 cm. Bladder: No bladder wall thickening. IMPRESSION: No hydronephrosis. Electronically signed by: Johan Stokes M.D. 10/02/2017 10:43 PM Dictated Date/Time: 10/02/2017 10:41 PM The status of this report is Signed. Draft = Not yet reviewed or approved by Radiologist. Signed = Reviewed and approved by Radiologist. MRI OF THE ABDOMEN WITHOUT CONTRAST CLINICAL HISTORY: Numerous pulmonary nodules which may reflect metastatic disease. Evaluate for primary tumor. TECHNIQUE: Utilizing a 1.5 Surekha magnet and dedicated coil, multiplanar, multi echo imaging of the abdomen was performed without intravenous contrast due to patient's relative renal insufficiency. COMPARISON STUDY: CT of the abdomen and pelvis and right upper quadrant ultrasound performed earlier today. FINDINGS: This exam is compromised by lack of postcontrast imaging. Small bilateral pleural effusions are noted. There is a small amount of perihepatic ascites. Gallbladder wall thickening is noted. There is moderate bilateral perinephric infiltration. There is mild bilateral collecting system dilatation, slightly greater on the left. Multifocal scarring of the left kidney is noted. There are several T2 hyperintense left renal lesions which are suboptimally assessed on this unenhanced exam but likely reflect cysts. A small amount of pelvic ascites is noted. There is moderate bilateral perinephric infiltration/fluid. No hepatic, adrenal or pancreatic lesions are identified on this examination. There is no biliary or pancreatic ductal dilatation. No abdominal lymphadenopathy is noted. IMPRESSION: 1. Sensitivity for detection of primary malignancy diminished given the lack of postcontrast imaging. However, no definitive primary malignancy within the abdomen. 2. 3.2 cm focus of suspected marrow replacement within the T12 vertebral body. This likely corresponds to a subtle sclerotic focus by CT. This is worrisome for a neoplastic process such as metastatic disease or lymphoma. Metastatic prostate carcinoma is one consideration. 3. Small bilateral pleural effusions and a small amount of abdominal and pelvic ascites. 4. Moderate bilateral perinephric infiltration/fluid. 5. Mild gallbladder wall thickening. 6. No biliary or pancreatic ductal dilatation. Electronically signed by: Ko Chacon M.D. 10/02/2017 3:25 PM Dictated Date/Time: 10/02/2017 2:30 PM The status of this report is Signed. Draft = Not yet reviewed or approved by Radiologist. Signed = Reviewed and approved by Radiologist NUCLEAR MEDICINE HEPATOBILIARY SCAN WITH EJECTION FRACTION ANALYSIS CLINICAL HISTORY: Gallbladder wall thickening COMPARISON STUDY: Gallbladder ultrasound dated 10/02/2017 FINDINGS: The patient was injected with 5.5 mCi of technetium 99m Choletec. Anterior imaging was performed. The gallbladder was first visualized on the 5 minute image. At 1 hour, the patient was administered 1.9 mcg of sincalide utilizing a 30 minute infusion. The gallbladder ejection fraction was normal measuring 97%. There was normal passage of activity into small bowel. The patient did describe abdominal discomfort during the sincalide infusion IMPRESSION: 1. No evidence of cystic duct obstruction 2. Normal gallbladder ejection fraction of 97% 3. The patient did describe abdominal discomfort during the sincalide infusion Electronically signed by: Galindo Bush M.D. 10/04/2017 10:25 AM Dictated Date/Time: 10/04/2017 10:23 AM The status of this report is Signed. Draft = Not yet reviewed or approved by Radiologist. Signed = Reviewed and approved by Radiologist. Consultations: Nephrology- Dr. Vargas GI- Dr. Chacko/Dr. Bowman Medication Reconciliation New Medications: Amlodipine Besylate (Amlodipine Besylate) 5 Mg Tab 10 MG PO QAM, #60 TAB 3 Refills Polyethylene (Miralax) 17 Gm Pow 17 GM PO DAILY PRN for Constipation, #1 BTL 0 Refills Discontinued Medications: Atorvastatin (Lipitor) 20 Mg Tab 20 MG PO DAILY, TAB Lisinopril (Zestril) 20 Mg Tab 20 MG PO DAILY, TAB Discharge Exam Review of Systems: Constitutional: No fever, No chills, No sweats, No weakness, No fatigue Eyes: No worsening of vision ENT: No hearing loss Respiratory: No cough, No shortness of breath, No hemoptysis Cardiovascular: No chest pain, No edema, No palpitations Abdomen: No pain, No nausea, No vomiting, No diarrhea, No constipation Musculoskeletal: No joint pain, No muscle pain, No swelling, No calf pain Genitourinary - Male: No hematuria, No dysuria Neurologic: No memory loss, No weakness, No numbness/tingling Psychiatric: No depression symptoms, No anxiety Endocrine: No fatigue Hematologic / Lymphatic: No abnormal bleeding/bruising Integumentary: No rash, No itch, No new/changing skin lesions Physical Exam: General Appearance: no apparent distress Eyes: normal inspection, PERRL ENT: hearing grossly normal Neck: supple Respiratory/Chest: lungs clear, no respiratory distress, no accessory muscle use Cardiovascular: regular rate, rhythm Abdomen / GI: normal bowel sounds, non tender, soft Extremities: no calf tenderness, no pedal edema Neurologic/Psychiatric: alert, normal mood/affect, oriented x 3 Skin: normal color, warm/dry, no rash Hospital Course 67 y/o M Hx HTN, HPL, alcohol abuse. C/O abdominal, mid and epigastric pain which has been present intermittently for 1 mo. He had visited his primary MD on the . Labs including LFTs, CBC, BMP were obtained. He was called back 10/01 evening as multiple abnormalities were present, and directed to attend the hospital for further evaluation. Labs were redrawn in the ER and are notable for ARF, transaminitis, elevated lipase and anemia - confirming previous findings. A CT abdomen was obtained showing BL perinephric stranding, cirrhosis and multiple subcentimeter pulmonary nodules. The pt is relatively pain-free on admission. The pt does not have a known history of cirrhosis or kidney disease. He has not had fevers or dysuria. He denies vomiting or diarrhea, admits to occasional nausea. At the time of admission he has not had an alcoholic beverage for 3 days and denies any withdrawal symptoms. Abdominal pain, ?pancreatitis: - Admitted to med/surg - IVF- tolerating diet, discontinued - Pancreas unremarkable on CT/MRI of abdomen - HIDA scan- unremarkable, EF 97% - Advanced diet as tolerated- tolerating well - Follow Lipase and LFTs- trending down - GI consulted, appreciate recommendations CHAD secondary to ATN in setting of ACEi/NSAID- baseline manager ccu 1.2: - Nephrology consulted, appreciate recommendations - IVF .45% saline + 75mEq HCO3 @ 150ml/hr- changed to d5w + 1/2 NSS @ 100 ml/hr per nephrology- discontinued - Avoid nephrotoxic agents and renally does medications as appropriate- NO NSAIDS/Lisinopril at discharge - Follow PRP- manager ccu 3.02 today - f/u labs on 10/10 and f/u with Dr. Vargas within 1 week Chronic anemia- baseline hgb 11.0- STABLE: - Fecal occult blood negative - b12/folate, iron study- WNL - Follow H&H HTN: - Lisinopril stopped due to CHAD - Norvasc 10 mg daily - IV Hydralazine PRN HLD: Lipitor held due to NPO/elevated LFTs ETOH abuse, no s/s of withdrawal- last drink on 09/28, cirrhosis on imaging: - IV Ativan PRN - IV Thiamine 100 mg + IV Folate 1 gm x1 dose - IV Banana bag daily x3 - Counselling on alcohol cessation - GI following Pulmonary nodules, 3.2 focal lesion on T12 vertebrae: - PSA 0.832; CEA 0.56 - CA 19-9, CA125, AFP pending - Continue workup outpatient- Dr. Menezes f/u outpatient GI prophylaxis: Protonix IV BID DVT prophylaxis: TEDs/SCDs, ambulation Code status: LEVEL I, FULL Dispo: Discharge to home Total Time Spent: Greater than 30 minutes This includes examination of the patient, discharge planning, medication reconciliation, and communication with other providers. Discharge Instructions Please refer to the electronic Patient Visit Report (Discharge Instructions) for additional information. Follow-Up Follow-up with Dr. Feldman on Tuesday 10/10 Follow-up with Dr. Vargas within 1 week Follow-up with Dr. Menezes within 1-2 weeks Please follow-up/keep all of your subspecialty appointments Additional Copies To Segundo Feldman M.D.
== END 2017-10-06 11:42 | disposition home or self-care (01) | DRG 438 ==
LOC: C.EDB 23:35 → C.MSW 10-02 03:05 → ENRESERV 10-02 03:25
PROVIDERS: ADMIT Internal Medicine; ATTEND Internal Medicine
DX: K85.90 Acute pancreatitis without necrosis or infection, unspecified (principal); N17.0 Acute kidney failure with tubular necrosis; K74.60 Unspecified cirrhosis of liver; I10 Essential (primary) hypertension; E78.5 Hyperlipidemia, unspecified; D50.9 Iron deficiency anemia, unspecified; F10.10 Alcohol abuse, uncomplicated; R91.8 Other nonspecific abnormal finding of lung field; K59.00 Constipation, unspecified; Z79.899 Other long term (current) drug therapy

== ENCOUNTER 2017-10-10 18:55 | Inpatient (IN) | payer OTHER ==
[~2017-10-10] VITALS: Ht 175.3 cm; Wt 92.8 kg
[~2017-10-10 18:55] MED LIST changes: -ALBU18002 INH; -AMLO-110 PO; -POLY335019 PO
--- NOTE | 2017-10-10 21:03 | EMERGENCY ROOM VISIT NOTE ---
History Report prepared by Kinsey: Lisa Gold Under the Supervision of: Dr. Elijah Kelly M.D. First contact with patient: 20:38 Chief Complaint: RESPIRATORY PROBLEMS Stated Complaint: CANT BREATHE,RETAINING FLUID History of Present Illness The patient is a 67 year old male who presents to the Emergency Room with complaints of persistent shortness of breath that worsened one day ago. He reports that his symptom worsens with exertion. He was admitted on 10/02/17- for pancreatitis with associated renal failure. The patient reports a history of heavy drinking, noting that he used to drink about a case of beer per day but has stopped doing so after his admission for pancreatitis. He reports that when he left the hospital, he had gained 15 pounds and his abdomen felt swollen. The patient came to the Emergency Department again on 10/07/17 for the abdominal swelling and weight gain and was treated with dose of Lasix and discharged with outpatient follow up. Today he is feeling short of breath, congested, and has been experiencing chills. At around 1200 today, the patient had blood work done and the laboratory results showed elevated LFT's. He notes that 4 months ago, all of his laboratory results were normal. The patient reports a history of hypertension. He denies taking any blood thinners. Source of History: patient Onset: one day ago Position: other (global) Quality: other (shortness of breath) Timing: other (persistent) Modifying Factors (Worsening): exertion Associated Symptoms: + chills Note: Associated symptoms include: congestion. Review of Systems See HPI for pertinent positives and negatives. A total of ten systems were reviewed and were otherwise negative. Family History FH: cancer FH: gallbladder disease FH: heart disease Hypertension Kidney disease Kidney stones Social History Smoking Status: Never Smoker Alcohol Use: heavy Marital Status: Housing Status: lives with significant other Occupation Status: retired Current/Historical Medications Scheduled Amlodipine (Norvasc), 10 MG PO DAILY Scheduled PRN Albuterol Sulfate (Proair Respiclick), 2 PUFFS INH Q4H PRN for SOB/Wheezing Polyethylene Glycol 3350 (Miralax), 17 GM PO DAILY PRN for Constipation Allergies Coded Allergies: No Known Allergies (Unverified , 10/07/17) Physical Exam Vital Signs Date Time Temp Pulse Resp B/P (MAP) Pulse Ox O2 Delivery O2 Flow Rate FiO2 226/18 23:58 90 20 141/88 94 Room Air 10/10/17 23:15 86 16 174/99 95 10/10/17 21:24 92 10/10/17 21:03 85 16 163/95 94 Room Air 10/10/17 21:03 95 Room Air 10/10/17 20:52 98 Room Air 10/10/17 19:03 36.8 117 20 146/93 94 Room Air Physical Exam GENERAL: Awake, alert, fatigued-appearing, in no acute distress HENT: Normocephalic, atraumatic. Oropharynx with dry mucous membranes and otherwise unremarkable. EYES: Normal conjunctiva. Sclera non-icteric. NECK: Supple. No nuchal rigidity. FROM. No JVD. RESPIRATORY: Diminished breath sounds at bases, otherwise clear. CARDIAC: Regular rate, normal rhythm. Extremities warm and well perfused. Pulses equal. ABDOMEN: Obese abdomen. Not significantly distended. No tenderness to palpation. No rebound or guarding. No masses. RECTAL: Deferred. MUSCULOSKELETAL: Chest examination reveals no tenderness. The back is symmetrical on inspection without obvious abnormality. There is no CVA tenderness to palpation. No joint edema. LOWER EXTREMITIES: 1+ bilateral extremity edema. No discoloration. NEURO: Normal sensorium. No sensory or motor deficits noted. SKIN: No rash or jaundice noted. Medical Decision & Procedures ER Provider Diagnostic Interpretation: Radiology results as stated below per my review and radiologist interpretation: CHEST ONE VIEW PORTABLE HISTORY: Generalized abdominal pain. COMPARISON: Chest and abdominal series 10/07/2017. Chest CT 10/02/2017. FINDINGS: The heart is normal in size. Small bilateral pleural effusions and scattered subcentimeter pulmonary nodules are again noted. No new focal lung consolidations. No pneumothorax. No evidence for pulmonary edema. IMPRESSION: No change in the small bilateral pleural effusions and scattered subcentimeter pulmonary nodules. Electronically signed by: Johan Stokes M.D. 10/10/2017 9:49 PM Dictated Date/Time: 10/10/2017 9:47 PM Laboratory Results 10/10/17 20:47 Red Blood Count 2.95, Mean Corpuscular Volume 93.9, Mean Corpuscular Hemoglobin 31.9, Mean Corpuscular Hemoglobin Concent 33.9, Mean Platelet Volume 8.7, Neutrophils (%) (Auto) 66.6, Lymphocytes (%) (Auto) 12.0, Monocytes (%) (Auto) 13.2, Eosinophils (%) (Auto) 7.7, Basophils (%) (Auto) 0.3, Neutrophils # (Auto ) 3.99, Lymphocytes # (Auto) 0.72, Monocytes # (Auto) 0.79, Eosinophils # (Auto ) 0.46, Basophils # (Auto) 0.02 10/10/17 20:47 Test 10/10/17 20:06 10/10/17 20:47 10/10/17 21:19 Urine Color DK YELLOW Urine Appearance CLEAR (CLEAR) Urine pH 5.0 (4.5-7.5) Urine Specific [place] 1.018 (1.000-1.030) Urine Protein 1+ (NEG) Urine Glucose (UA) NEG (NEG) Urine Ketones TRACE (NEG) Urine Occult Blood 2+ (NEG) Urine Nitrite NEG (NEG) Urine Bilirubin NEG (NEG) Urine Urobilinogen NEG (NEG) Urine Leukocyte Esterase NEG (NEG) Urine WBC (Auto) 1-5 /hpf (0-5) Urine RBC (Auto) 5-10 /hpf (0-4) Urine Hyaline Casts (Auto) 1-5 /lpf (0-5) Urine Epithelial Cells (Auto) 5-10 /lpf (0-5) Urine Bacteria (Auto) NEG (NEG) White Blood Count 5.99 K/uL (4.8-10.8) Red Blood Count 2.95 M/uL (4.7-6.1) Hemoglobin 9.4 g/dL (14.0-18.0) Hematocrit 27.7 % (42-52) Mean Corpuscular Volume 93.9 fL (80-100) Mean Corpuscular Hemoglobin 31.9 pg (25-34) Mean Corpuscular Hemoglobin Concent 33.9 g/dl (32-36) Platelet Count 242 K/uL (130-400) Mean Platelet Volume 8.7 fL (7.4-10.4) Neutrophils (%) (Auto) 66.6 % Lymphocytes (%) (Auto) 12.0 % Monocytes (%) (Auto) 13.2 % Eosinophils (%) (Auto) 7.7 % Basophils (%) (Auto) 0.3 % Neutrophils # (Auto) 3.99 K/uL (1.4-6.5) Lymphocytes # (Auto) 0.72 K/uL (1.2-3.4) Monocytes # (Auto) 0.79 K/uL (0.11-0.59) Eosinophils # (Auto) 0.46 K/uL (0-0.5) Basophils # (Auto) 0.02 K/uL (0-0.2) RDW Standard Deviation 43.0 fL (36.4-46.3) RDW Coefficient of Variation 12.5 % (11.5-14.5) Immature Granulocyte % (Auto) 0.2 % Immature Granulocyte # (Auto) 0.01 K/uL (0.00-0.02) Anisocytosis PRESENT Prothrombin Time 10.2 SECONDS (9.0-12.0) Prothromb Time International Ratio 1.0 (0.9-1.1) Anion Gap 10.0 mmol/L (3-11) Est Creatinine Clear Calc Drug Dose 24.7 ml/min Estimated GFR () 20.4 Estimated GFR (Non- 17.6 BUN/Creatinine Ratio 11.9 (10-20) Calcium Level 8.8 mg/dl (8.5-10.1) Phosphorus Level 4.2 mg/dl (2.5-4.9) Magnesium Level 2.4 mg/dl (1.8-2.4) Total Bilirubin 1.4 mg/dl (0.2-1) Direct Bilirubin 0.7 mg/dl (0-0.2) Aspartate Amino Transf (AST/SGOT) 99 U/L (15-37) Alanine Aminotransferase (ALT/SGPT) 116 U/L (12-78) Alkaline Phosphatase 495 U/L (45-117) Troponin I < 0.015 ng/ml (0-0.045) Pro-B-Type Natriuretic Peptide 606 pg/ml (0-900) Total Protein 7.8 gm/dl (6.4-8.2) Albumin 3.3 gm/dl (3.4-5.0) Lipase 550 U/L (73-393) Venous Blood pH 7.42 (7.36-7.41) Venous Blood Partial Pressure CO2 33 mmHg (38.0-50.0) Venous Blood Partial Pressure O2 52 mmHg Venous Blood HCO3 21 mmol/L Venous Blood Oxygen Saturation 84.1 % Venous Blood Base Excess -3.0 mEq/L Laboratory results reviewed by me ECG Per My Interpretation Indication: SOB/dyspnea Rate (beats per minute): 81 Rhythm: sinus rhythm Findings: 1st degree AV block, no acute ischemic change, other (left anterior fasicular block) Comparison ECG Date: similar to 10/07/17 ED Course 2042: The patient was evaluated in room B5. A complete history and physical exam was performed. 2226: Discussed the patient's case with Dr. Ann's ([facility]) resident Dr. Goodwin. 2240: Dr. Davidson Ann [facility] was notified of the patient's case. He will evaluate the patient for further treatment. 2250: I reevaluated the patient and updated him on test findings. He verbalized complete understanding. I discussed the treatment plan and he verbalized complete agreement. Medical Decision I reviewed the patient's past medical history, medications, and the nursing notes as described above. The patient's presentation and history were concerning for cirrhosis, CHF, acute on chronic renal failure, pneumonia, bronchitis, ACS, PE, among others. The patient is a 67-year-old gentleman with a past medical history of prior alcohol abuse, cirrhosis, recent admission for pancreatitis with associated renal failure related to ATN now presents emergency Department for a second time after being seen in the ED 3 days [facility]PORATE SPECIALIST for similar symptoms of dyspnea on exertion and persistent lower extremity edema and abdominal distention per hpi. The patient was seen by his PCP earlier today who was waiting to start him on torsemide for diuresis however his outpatient labs demonstrated a slight worsening of his creatinine to 3.4 as well as slight worsening of his LFTs and was thus referred to the ED for evaluation. Labs this evening or consistent with the patient's earlier lab tests. Although, while bicarb similar at 20, VBG does not demonstrate acidemia. Chest x-ray demonstrates stable small bilateral pleural effusions which are additionally confirmed on bedside ultrasound. Otherwise a bedside ultrasound demonstrated a small amount of ascites with largest pocket measuring 2 cm in depth. Given no infectious symptoms at this time or concerns for SBP will defer paracentesis given no appreciable safe pocket. While the patient does appear fluid overloaded in the setting of his recent admission for pancreatitis, is reasonable that the patient will require further diuresis. However, given the patient's recent ED visit with dose of Lasix with discharge and now worsening renal function will defer further diuresis to admitting team and likely nephrology consultation given the risk of nephrotoxicity. Case was discussed with SHEILA Castillo hospitalist, who will admit the patient for further management. Medication Reconcilliation Current Medication List: was personally reviewed by me Blood Pressure Screening Patient's blood pressure: Elevated blood pressure Blood pressure disposition: Elevated BP felt to be situational Consults Time Called: 2226 Consulting Physician: Dr. Ann's ([facility]) resident Dr. Goodwin Returned Call: 2226 Discussed the patient's case with Dr. Ann's ([facility]) resident Dr. Goodwin. Additional Consults: Time Called: 2240 Consulted Physician: SHEILA Adler Returned Call: 2240 Additional Comments: SHEILA Adler was notified of the patient's case. He will evaluate the patient for further treatment. Impression Primary Impression: Acute on chronic renal failure Additional Impressions: Pleural effusion Ascites Scribe Attestation The scribe's documentation has been prepared under my direction and personally reviewed by me in its entirety. I confirm that the note above accurately reflects all work, treatment, procedures, and medical decision making performed by me. Departure Information Dispostion Being Evaluated By Hospitalist Segundo Matta M.D. (PCP) Forms HOME CARE DOCUMENTATION FORM, IMPORTANT VISIT INFORMATION, WORK / SCHOOL INSTRUCTIONS Patient Instructions My [facility] Problem Qualifiers
[2017-10-10 21:04] LABS: HEMATOCRIT 27.7 % (42-52); HEMOGLOBIN 9.4 g/dL (14.0-18.0); MEAN CELL VOLUME 93.9 fL (80-100); MEAN CORPUSCULAR HEMOGLOBIN 31.9 pg (25-34); MEAN CORPUSCULAR HGB CONC 33.9 g/dl (32-36); MEAN PLATELET VOLUME 8.7 fL (7.4-10.4); PLATELET COUNT 242 K/uL (130-400); RED CELL DISTRIBUTION WIDTH CV 12.5 % (11.5-14.5); WHITE BLOOD COUNT 5.99 K/uL (4.8-10.8)
[2017-10-10] MEDS ORDERED: AMLO-110 PO (21:08)
[2017-10-10] MEDS ORDERED: POLY335019 PO (21:09)
[2017-10-10] MEDS ORDERED: ALBU18002 INH (21:11)
[2017-10-10 21:19] LABS: ALBUMIN 3.3 gm/dl (3.4-5.0); ALT/SGPT 116 U/L (12-78); BLOOD UREA NITROGEN 41 mg/dl (7-18); CALCIUM 8.8 mg/dl (8.5-10.1); CARBON DIOXIDE 20 mmol/L (21-32); CREATININE 3.43 mg/dl (0.60-1.40); GLUCOSE 103 mg/dl (70-99); LIPASE 550 U/L (73-393); POTASSIUM 4.8 mmol/L (3.5-5.1); SODIUM 136 mmol/L (136-145)
[2017-10-10 21:22] LABS: ALKALINE PHOSPHATASE 495 U/L (45-117); AST/SGOT 99 U/L (15-37); PHOSPHORUS 4.2 mg/dl (2.5-4.9); TOTAL PROTEIN 7.8 gm/dl (6.4-8.2)
[2017-10-10 21:31] LABS: BASO % 0.3 %; BASO ABS # 0.02 K/uL (0-0.2); EOS % 7.7 %; EOS ABS # 0.46 K/uL (0-0.5); IG# 0.01 K/uL (0.00-0.02); LYMPH ABS # 0.72 K/uL (1.2-3.4); MONO % 13.2 %; MONO ABS # 0.79 K/uL (0.11-0.59); NEUT % 66.6 %; NEUT ABS # 3.99 K/uL (1.4-6.5)
--- NOTE | 2017-10-10 21:50 | DIAGNOSTIC IMAGING REPORT ---
CHEST ONE VIEW PORTABLE HISTORY: Generalized abdominal pain. COMPARISON: Chest and abdominal series 10/07/2017. Chest CT 10/02/2017. FINDINGS: The heart is normal in size. Small bilateral pleural effusions and scattered subcentimeter pulmonary nodules are again noted. No new focal lung consolidations. No pneumothorax. No evidence for pulmonary edema. IMPRESSION: No change in the small bilateral pleural effusions and scattered subcentimeter pulmonary nodules. Electronically signed by: Johan Stokes M.D. 10/10/2017 9:49 PM Dictated Date/Time: 10/10/2017 9:47 PM
[2017-10-10] MEDS ORDERED: NON-FORMULARY MEDICATION (Albuterol Sulfate (Proair Respiclick) 2 PUFFS) INH PRN (23:30)
--- NOTE | 2017-10-10 23:57 | History and Physical ---
History & Physical Date & Time of Service: Oct 10, 2017 at 23:12 Chief Complaint: Cant Breathe,Retaining Fluid Primary Care Physician: Segundo Feldman M.D. History of Present Illness Source: patient 67 y/o M Hx ETOH cirrhosis, CKD III-IV, HTN, HPL, chronic anemia, pulmonary nodules. Presented to the ER 10/02 from his primary MDs office due to abnormal labs. He had been c/o abdominal pain at the time. Transaminitis and ARF were diagnosed leading to a diagnosis of cirrhosis while in the hospital. He was treated primarily with IVF as his ARF was thought to be due to ATN, NSAID and TAWNY use. His renal function did not improve despite hydration and he was subsequently DCd with a creatinine of approximately 3.0. He states that he had gained 15lbs during his hospital stay and in the week after. The pt presented to the ER 10/07 c/o exertional dyspnea and weight gain. No acute abnormalities were found on labs or imaging. He was provided a dose of IV Lasix and DCd from the ER. He returns to the ER today c/o worsening weight gain, worsening LE edema and exertional dyspnea. He is unable to lye flat and states that he felt very anxious the prior evening as he was markedly dyspneic when trying to sleep. Initial imaging shows stable, small pleural effusions. Initial labs are notable for worsening renal function as his creatinine has increased form 3 to 3.4 since receiving a single dose of Lasix. Past Medical/Surgical History 1) CHAD - possibly secondary to ATN in setting of TAWNY/NSAID use - etiology is not confirmed - renal impairment persists 2) Chronic anemia 3) HTN 4) HLD 5) ETOH abuse - quit 09/01 6) ETOH cirrhosis 7) Multiple pulmonary nodules - etiology not yet determined 8) 3.2 focal lesion on T12 vertebrae - etiology not yet determined 9) Chronic lipase and LFT elevations Family History FH: cancer FH: gallbladder disease FH: heart disease Hypertension Kidney disease Kidney stones Social History The pt quit smoking 1 moth ago and denies any withdrawal symptoms Smoking Status: Never Smoker Marital Status: Occupational Status: retired Multi-Drug Resistant Organisms History of MDRO: No Allergies Coded Allergies: No Known Allergies (Unverified , 10/07/17) Home Medications Scheduled Amlodipine (Norvasc), 10 MG PO DAILY Scheduled PRN Albuterol Sulfate (Proair Respiclick), 2 PUFFS INH Q4H PRN for SOB/Wheezing Polyethylene Glycol 3350 (Miralax), 17 GM PO DAILY PRN for Constipation Review of Systems Constitutional: No fever, No chills, No sweats Eyes: No worsening of vision ENT: No hearing loss, No unusual epistaxis, No nasal symptoms Respiratory: + shortness of breath, + dyspnea on exertion, + dyspnea at rest, No cough, No sputum, No wheezing Cardiovascular: + orthopnea, + PND, + edema, No chest pain Abdomen: + constipation, + problem reported (distention), No pain, No nausea, No vomiting Genitourinary - Male: No hematuria, No dysuria Neurologic: No memory loss, No paralysis, No weakness Psychiatric: No depression symptoms Endocrine: No fatigue Hematologic / Lymphatic: No abnormal bleeding/bruising Integumentary: No rash Allergic / Immunologic: No environmental allergies Physical Exam Vital Signs Date Time Temp Pulse Resp B/P (MAP) Pulse Ox O2 Delivery O2 Flow Rate FiO2 10/10/17 21:24 92 10/10/17 21:03 85 16 163/95 94 Room Air 10/10/17 21:03 95 Room Air 10/10/17 20:52 98 Room Air 10/10/17 19:03 36.8 117 20 146/93 94 Room Air General Appearance: WD/WN, no apparent distress Head: normocephalic Eyes: normal inspection ENT: normal ENT inspection, pharynx normal Neck: supple, + JVD Respiratory/Chest: chest non-tender, + pertinent finding (No air entry at the bases BL) Cardiovascular: regular rate, rhythm, no edema, no gallop Abdomen/GI: normal bowel sounds, non tender, + distended Back: normal inspection, no CVA tenderness Extremities/Musculoskelatal: + pedal edema Neurologic/Psych: station tender II-XII nml as tested, no motor/sensory deficits, alert, oriented x 3 Skin: normal color Diagnostics Laboratory Results Results Past 24 Hours Test 10/10/17 20:06 10/10/17 20:47 10/10/17 21:19 Range/Units Urine Color DK YELLOW Urine Appearance CLEAR CLEAR Urine pH 5.0 4.5-7.5 Urine Specific [place] 1.018 1.000-1.030 Urine Protein 1+ NEG Urine Glucose (UA) NEG NEG Urine Ketones TRACE NEG Urine Occult Blood 2+ NEG Urine Nitrite NEG NEG Urine Bilirubin NEG NEG Urine Urobilinogen NEG NEG Urine Leukocyte Esterase NEG NEG Urine WBC (Auto) 1-5 0-5 /hpf Urine RBC (Auto) 5-10 0-4 /hpf Urine Hyaline Casts (Auto) 1-5 0-5 /lpf Urine Epithelial Cells (Auto) 5-10 0-5 /lpf Urine Bacteria (Auto) NEG NEG White Blood Count 5.99 4.8-10.8 K/uL Red Blood Count 2.95 4.7-6.1 M/uL Hemoglobin 9.4 14.0-18.0 g/dL Hematocrit 27.7 42-52 % Mean Corpuscular Volume 93.9 80-100 fL Mean Corpuscular Hemoglobin 31.9 25-34 pg Mean Corpuscular Hemoglobin Concent 33.9 32-36 g/dl Platelet Count 242 130-400 K/uL Mean Platelet Volume 8.7 7.4-10.4 fL Neutrophils (%) (Auto) 66.6 % Lymphocytes (%) (Auto) 12.0 % Monocytes (%) (Auto) 13.2 % Eosinophils (%) (Auto) 7.7 % Basophils (%) (Auto) 0.3 % Neutrophils # (Auto) 3.99 1.4-6.5 K/uL Lymphocytes # (Auto) 0.72 1.2-3.4 K/uL Monocytes # (Auto) 0.79 0.11-0.59 K/uL Eosinophils # (Auto) 0.46 0-0.5 K/uL Basophils # (Auto) 0.02 0-0.2 K/uL RDW Standard Deviation 43.0 36.4-46.3 fL RDW Coefficient of Variation 12.5 11.5-14.5 % Immature Granulocyte % (Auto) 0.2 % Immature Granulocyte # (Auto) 0.01 0.00-0.02 K/uL Anisocytosis PRESENT Prothrombin Time 10.2 9.0-12.0 SECONDS Prothromb Time International Ratio 1.0 0.9-1.1 Sodium Level 136 136-145 mmol/L Potassium Level 4.8 3.5-5.1 mmol/L Chloride Level 106 98-107 mmol/L Carbon Dioxide Level 20 21-32 mmol/L Anion Gap 10.0 3-11 mmol/L Blood Urea Nitrogen 41 7-18 mg/dl Creatinine 3.43 0.60-1.40 mg/dl Est Creatinine Clear Calc Drug Dose 24.7 ml/min Estimated GFR () 20.4 Estimated GFR (Non- 17.6 BUN/Creatinine Ratio 11.9 10-20 Random Glucose 103 70-99 mg/dl Calcium Level 8.8 8.5-10.1 mg/dl Phosphorus Level 4.2 2.5-4.9 mg/dl Magnesium Level 2.4 1.8-2.4 mg/dl Total Bilirubin 1.4 0.2-1 mg/dl Direct Bilirubin 0.7 0-0.2 mg/dl Aspartate Amino Transf (AST/SGOT) 99 15-37 U/L Alanine Aminotransferase (ALT/SGPT) 116 12-78 U/L Alkaline Phosphatase 495 45-117 U/L Troponin I < 0.015 0-0.045 ng/ml Pro-B-Type Natriuretic Peptide 606 0-900 pg/ml Total Protein 7.8 6.4-8.2 gm/dl Albumin 3.3 3.4-5.0 gm/dl Lipase 550 73-393 U/L Venous Blood pH 7.42 7.36-7.41 Venous Blood Partial Pressure CO2 33 38.0-50.0 mmHg Venous Blood Partial Pressure O2 52 mmHg Venous Blood HCO3 21 mmol/L Venous Blood Oxygen Saturation 84.1 % Venous Blood Base Excess -3.0 mEq/L Diagnostic Radiology CXR: No change in the small bilateral pleural effusions and scattered subcentimeter pulmonary nodules. Impression Assessment and Plan 67 y/o M HTN, HPL, anemia, pulmonary nodules - recent Dx of ETOH cirrhosis, CKD III-IV during hospitalization 10/02-. ARF was thought to be due to ATN, NSAID and TAWNY use and was initially treated with IVF. Renal function did not improve despite hydration and he was subsequently DCd with a creatinine of approximately 3.0. He states that he had gained 15lbs during his hospital stay and in the week after. Presented to the ER 10/07 c/o exertional dyspnea and weight gain. No acute abnormalities were found on labs or imaging. He was provided a dose of IV Lasix and DCd from the ER. He returns to the ER today c/ o worsening weight gain, worsening LE edema and exertional dyspnea. Initial imaging shows stable, small pleural effusions. Initial labs are notable for worsening renal function as his creatinine has increased form 3 to 3.4 since receiving Lasix. 1) Volume overload and dyspnea - following discussion with nephrology, we will initiate additional diuresis. We will employ Torsemide followig a dose of IV Lasix and trend the pt's creatinine overnight. It may be, if his renal function worsens despite an increased need for diuresis, dialysis will need to commence. 2) CKD - etiology unclear - as above, function appears to be worsening - a nephrology consult is obtained - UA, urine Na, urine creat will be repeated. 3) HTN - cont Norvasc with parameters 4) Anemia - related to cirrhosis and possibly CKD - Hb is stable. 5) HPL - not currently treated due to cirrhosis. 6) Pulmonary nodules - the pt is due for a thoracic surgery appt Tuesday. Full code - Heparin prophylaxis Total time for this admit including review of labs, meds, imaging, records, discussion with pt, nephrology, ER attending - 40 min Level of Care Med/Surg Resuscitation Status FULL RESUSCITATION VTE Prophylaxis Given or contraindicated: Unfractionated heparin SQ
[2017-10-11] MEDS ORDERED: ONDANSETRON INJ 2 MG/ML 2 ML VIAL IV PRN
[2017-10-11 01:52] VITALS: BP 175/95; PULSE 108; TEMP 36.8; O2SAT 95
[2017-10-11 02:00] VITALS: BMI 31.1
[2017-10-11] MEDS ORDERED: FUROSEMIDE INJ 40 MG in SYRINGE 0 ML IV ONE (02:15)
[2017-10-11] MEDS ORDERED: ALBUTEROL HFA 8 GM INHALER INH PRN (02:15)
[2017-10-11] MEDS: HEPARIN SOD 5000 UNIT/0.5 ML CARP SQ SCH ×3 (06:11→21:43)
[2017-10-11 06:16] VITALS: BP 154/97; PULSE 60
[2017-10-11 07:56] LABS: HEMATOCRIT 25.6 % (42-52); HEMOGLOBIN 8.9 g/dL (14.0-18.0); MEAN CELL VOLUME 93.8 fL (80-100); MEAN CORPUSCULAR HEMOGLOBIN 32.6 pg (25-34); MEAN CORPUSCULAR HGB CONC 34.8 g/dl (32-36); PLATELET COUNT 248 K/uL (130-400); RED CELL DISTRIBUTION WIDTH CV 12.7 % (11.5-14.5); RED CELL DISTRIBUTION WIDTH SD 43.1 fL (36.4-46.3); WHITE BLOOD COUNT 6.55 K/uL (4.8-10.8)
[2017-10-11 08:00] VITALS: BP 172/85; PULSE 84; TEMP 36.8; O2SAT 93
[2017-10-11] MEDS ORDERED: TORSEMIDE 20 MG TAB PO SCH (08:00)
[2017-10-11 08:28] LABS: CALCIUM 8.6 mg/dl (8.5-10.1); CREATININE 3.5 mg/dl (0.60-1.40); POTASSIUM 4.7 mmol/L (3.5-5.1)
[2017-10-11 09:04] LABS: ALBUMIN 3.1 gm/dl (3.4-5.0); TOTAL PROTEIN 7.2 gm/dl (6.4-8.2)
[2017-10-11] MEDS: AMLODIPINE BESYLATE 5 MG TAB PO SCH (09:09)
--- NOTE | 2017-10-11 09:40 | Nephrology Consultation ---
Nephrology Consultation Date & Providers Date of Consultation: Oct 11, 2017. Primary Care Provider: Segundo Feldman M.D. Referring Provider: Reason for Consultation CHAD History of Present Illness Mr. Phillips is a 67 year old white male who is seen at the request of Dr. Ann for evaluation of CHAD. Medical records in the EMR were reviewed this morning and are summarized as follows: Mr. Phillips has previously enjoyed good health. His PCP is Dr. Feldman. His medical history is significant for HTN, hyperlipidemia, iron deficiency anemia, osteoarthritis and alcohol abuse. He has no previous history of kidney disease. His baseline creatinine had been 1.1 in 03/31. Mr. Phillips was hospitalized 10/02 - 10/06 for evaluation and management of acute pancreatitis. HIDA scan revealed 97% emptying. No obstruction. Abdominal CT revealed a cirrhotic liver and abdominal lymph node enlargment. Multiple pulmonary nodules were also noted. Abdominal MRI revealed bone marrow replacement at T12 concerning for metastatic disease, possibly prostate. Mr. Phillips presented w/ CHAD. His creatinine was 3.0. Evaluation revealed a bland urine sediment. Renal US was negative for obstruction. FeNa was 0.4%. It was noted that Mr. Phillips had been on Lisinopril for blood pressure management and had been taking Ibuprofen for management of arthritis. These medications were held and patient was aggressively hydrated. On 10/06/17 Mr. Phillips was net 8 L positive but lipase & liver function studies were improved. Kidney function was stable. He was tolerating a regular diet and alcohol abstinence was stressed. Mr. Phillips was discharged to home with outpatient follow up appointments. Since discharge from the hospital Mr. Phillips indicates that he has experienced progressive abdominal distention and progressive LE swelling. He notes that his weight has increased 16 lbs. He developed exertional dyspnea and orthopnea last night and then presented to the ED for evaluation. In the ED he received Furosemide 40 mg IV x 1. He diuresed 500 cc and feels subjectively improved. He is now able to lie flat without dyspnea. He has taken off his oxygen and reports that he is now breathing comfortably on room air. Serum creatinine has risen further to 3.5. Past Medical/Surgical History Medical: -- Hypertension -- Hyperlipidemia -- Alcohol abuse -- History of iron deficiency anemia -- Osteoarthritis Surgical: -- Carpal tunnel -- Hernia repair Allergies Coded Allergies: No Known Allergies (Unverified , 10/07/17) Inpatient Medications Current Inpatient Medications Medications (Trade) Dose Ordered Sig/Margarito Route Start Time Stop Time Status Last Admin Dose Admin Amlodipine Besylate (Norvasc Tab) 10 mg DAILY PO 10/11/17 08:00 11/10/17 08:59 10/11/17 09:09 10 MG Polyethylene (Miralax Powder Packet) 17 gm DAILY PRN PO 10/10/17 23:30 11/09/17 23:29 Torsemide (Demadex Tab) 20 mg QAM PO 10/11/17 08:00 11/10/17 08:59 Future Hold Heparin Sodium (Porcine) (Heparin Sq 5000 Unit/0.5ml) 5,000 unit Q8H SQ 10/11/17 06:00 11/10/17 05:59 10/11/17 06:11 5,000 UNIT Zolpidem Tartrate (Ambien Tab) 5 mg HSZ PRN PO 10/11/17 00:00 11/10/17 00:00 Ondansetron HCl (Zofran Inj) 4 mg Q6H PRN IV 10/11/17 00:00 11/10/17 00:00 Albuterol (Ventolin Hfa Inhaler) 2 puffs Q4H PRN INH 10/11/17 02:15 11/10/17 02:14 Family History FH: cancer FH: gallbladder disease FH: heart disease Hypertension Kidney disease Kidney stones Father had ESRD requiring HD related to "heart failure" Social History Smoking Status: Never Smoker Marital Status: Occupation: retired . Two children in good health. 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 Never a smoker. History of heavy alcohol abuse (stopped following recent hospitalization 10/02) Review of Systems Constitutional: No fever Respiratory: + dyspnea on exertion, No cough, No sputum Cardiovascular: No chest pain Abdomen: No pain, No nausea, No vomiting A complete review of systems was performed. Pertinent positives are noted above. All other systems are negative. Physical Exam Date Time Temp Pulse Resp B/P (MAP) Pulse Ox O2 Delivery O2 Flow Rate FiO2 10/11/17 08:00 36.8 84 22 172/85 (114) 93 Room Air 10/11/17 06:16 60 154/97 (116) 10/11/17 02:00 Nasal Cannula 2.0 10/11/17 01:52 36.8 108 20 175/95 (121) 95 Room Air 10/11/17 01:34 Nasal Cannula 2.0 10/11/17 01:18 88 20 163/97 94 Room Air 10/10/17 23:58 90 20 141/88 94 Room Air 10/10/17 23:15 86 16 174/99 95 10/10/17 21:24 92 10/10/17 21:03 85 16 163/95 94 Room Air 10/10/17 21:03 95 Room Air 10/10/17 20:52 98 Room Air 10/10/17 19:03 36.8 117 20 146/93 94 Room Air General Appearance: no apparent distress Head: normocephalic, atraumatic Eyes: PERRL, EOMI Neck: supple, no adenopathy, no JVD Respiratory/Chest: lungs clear, no respiratory distress Cardiovascular: no murmur, + tachycardia Abdomen/GI: normal bowel sounds, non tender, soft, + distended Extremities/Musculoskelatal: no calf tenderness, no pedal edema Neurologic/Psych: alert, oriented x 3 Skin: warm/dry Laboratory Results CXR 10/10/17: No pulmonary edema. Small bilateral pleural effusion Last 24 Hours Test 10/10/17 20:06 10/10/17 20:47 10/10/17 21:19 10/11/17 07:28 Urine Color DK YELLOW Urine Appearance CLEAR Urine pH 5.0 Urine Specific [place] 1.018 Urine Protein 1+ Urine Glucose (UA) NEG Urine Ketones TRACE Urine Occult Blood 2+ Urine Nitrite NEG Urine Bilirubin NEG Urine Urobilinogen NEG Urine Leukocyte Esterase NEG Urine WBC (Auto) 1-5 /hpf Urine RBC (Auto) 5-10 /hpf Urine Hyaline Casts (Auto) 1-5 /lpf Urine Epithelial Cells (Auto) 5-10 /lpf Urine Bacteria (Auto) NEG White Blood Count 5.99 K/uL 6.55 K/uL Red Blood Count 2.95 M/uL 2.73 M/uL Hemoglobin 9.4 g/dL 8.9 g/dL Hematocrit 27.7 % 25.6 % Mean Corpuscular Volume 93.9 fL 93.8 fL Mean Corpuscular Hemoglobin 31.9 pg 32.6 pg Mean Corpuscular Hemoglobin Concent 33.9 g/dl 34.8 g/dl Platelet Count 242 K/uL 248 K/uL Mean Platelet Volume 8.7 fL 9.0 fL Neutrophils (%) (Auto) 66.6 % Lymphocytes (%) (Auto) 12.0 % Monocytes (%) (Auto) 13.2 % Eosinophils (%) (Auto) 7.7 % Basophils (%) (Auto) 0.3 % Neutrophils # (Auto) 3.99 K/uL Lymphocytes # (Auto) 0.72 K/uL Monocytes # (Auto) 0.79 K/uL Eosinophils # (Auto) 0.46 K/uL Basophils # (Auto) 0.02 K/uL RDW Standard Deviation 43.0 fL 43.1 fL RDW Coefficient of Variation 12.5 % 12.7 % Immature Granulocyte % (Auto) 0.2 % Immature Granulocyte # (Auto) 0.01 K/uL Anisocytosis PRESENT Prothrombin Time 10.2 SECONDS Prothromb Time International Ratio 1.0 Sodium Level 136 mmol/L 136 mmol/L Potassium Level 4.8 mmol/L 4.7 mmol/L Chloride Level 106 mmol/L 107 mmol/L Carbon Dioxide Level 20 mmol/L 20 mmol/L Anion Gap 10.0 mmol/L 10.0 mmol/L Blood Urea Nitrogen 41 mg/dl 44 mg/dl Creatinine 3.43 mg/dl 3.50 mg/dl Est Creatinine Clear Calc Drug Dose 24.7 ml/min 23.7 ml/min Estimated GFR () 20.4 19.9 Estimated GFR (Non- 17.6 17.2 BUN/Creatinine Ratio 11.9 12.6 Random Glucose 103 mg/dl 95 mg/dl Calcium Level 8.8 mg/dl 8.6 mg/dl Phosphorus Level 4.2 mg/dl Magnesium Level 2.4 mg/dl 2.5 mg/dl Total Bilirubin 1.4 mg/dl 1.4 mg/dl Direct Bilirubin 0.7 mg/dl 0.6 mg/dl Aspartate Amino Transf (AST/SGOT) 99 U/L 74 U/L Alanine Aminotransferase (ALT/SGPT) 116 U/L 98 U/L Alkaline Phosphatase 495 U/L 452 U/L Troponin I < 0.015 ng/ml Pro-B-Type Natriuretic Peptide 606 pg/ml Total Protein 7.8 gm/dl 7.2 gm/dl Albumin 3.3 gm/dl 3.1 gm/dl Lipase 550 U/L 416 U/L Venous Blood pH 7.42 Venous Blood Partial Pressure CO2 33 mmHg Venous Blood Partial Pressure O2 52 mmHg Venous Blood HCO3 21 mmol/L Venous Blood Oxygen Saturation 84.1 % Venous Blood Base Excess -3.0 mEq/L Impression (1) Cirrhosis (2) Lung nodules (3) Lesion of vertebra (4) Acute kidney injury (5) Hypertension Recommendations ACUTE KIDNEY INJURY: -- CHAD is continuation from recent hospitalization earlier this month -- Urinalysis w/ protein and blood. Microscopy reveals only 5 - 10 rbc / hpf. Need UPCR. Will order -- Renal US from last admission reviewed. No obstruction or mass -- Clinically suspect ATN. Continue to hold Lisinopril and Ibuprofen. Recommend holding IVF. Patient is 16 lbs above his "dry weight". Expect that he will begin to diurese on his own -- Monitor serial PRP HYPERTENSION: -- Hold Lisinopril -- Continue po Amlodipine -- Use IV Hydralazine PRN SBP > 180 mm HG GI: -- LFT & lipase are trending down. Continue supportive care and monitor OTHER: -- PSA last hospitalization was < 4 -- Consider biopsy of T 12 lesion and pulmonary evaluation of lung nodules
[2017-10-11 10:19] VITALS: O2SAT 93
[2017-10-11 15:40] VITALS: BP 157/90; PULSE 93; TEMP 37; O2SAT 95
[2017-10-11] MEDS ORDERED: DOCUSATE SODIUM/SENNA 50/8.6MG TAB PO ONE (17:30)
[2017-10-11] MEDS: DOCUSATE SODIUM/SENNA 50/8.6MG TAB PO SCH (17:47)
[2017-10-11] MEDS: LORAZEPAM 0.5 MG TAB PO PRN (21:46)
[2017-10-12] VITALS: BP 149/88; PULSE 81; TEMP 37.2; O2SAT 97
[2017-10-12] MEDS: HEPARIN SOD 5000 UNIT/0.5 ML CARP SQ SCH ×3 (06:41→21:56)
--- NOTE | 2017-10-12 07:21 | Hospitalist Progress Note ---
Hospitalist Progress Note Date of Service Oct 11, 2017. Subjective Pt evaluation today including: conversation w/ patient, conversation w/ peoplesoft hcm consultant (Nephrology) Patient still complains of some abdominal distention, shortness of breath is completely gone. Creatinine has increased a bit. Discussed the case with nephrology. All Other Systems: Reviewed and Negative Objective Vital Signs Date Time Temp Pulse Resp B/P (MAP) Pulse Ox O2 Delivery O2 Flow Rate FiO2 10/11/17 16:00 Room Air 10/11/17 15:40 37.0 93 18 157/90 (112) 95 Room Air 10/11/17 10:19 93 Room Air 10/11/17 08:00 36.8 84 22 172/85 (114) 93 Room Air 10/11/17 06:16 60 154/97 (116) 10/11/17 02:00 Nasal Cannula 2.0 10/11/17 01:52 36.8 108 20 175/95 (121) 95 Room Air 10/11/17 01:34 Nasal Cannula 2.0 10/11/17 01:18 88 20 163/97 94 Room Air 10/10/17 23:58 90 20 141/88 94 Room Air 10/10/17 23:15 86 16 174/99 95 10/10/17 21:24 92 10/10/17 21:03 85 16 163/95 94 Room Air 10/10/17 21:03 95 Room Air Physical Exam General Appearance: WD/WN, no apparent distress (Lying flat on his back when I saw him) Eyes: normal inspection, EOMI, sclerae normal ENT: pharynx normal Neck: trachea midline Respiratory/Chest: no respiratory distress, no accessory muscle use, + decreased breath sounds (Diminished throughout) Cardiovascular: regular rate, rhythm, no edema, no murmur Abdomen: normal bowel sounds, non tender, soft (Mildly distended, no fluid wave ) Extremities: normal inspection, no pedal edema, no calf tenderness Neurologic/Psychiatric: alert, normal mood/affect, oriented x 3 Skin: normal color, warm/dry, no rash Laboratory Results Last 24 Hours Test 10/10/17 21:19 10/11/17 07:28 10/11/17 11:30 Venous Blood pH 7.42 Venous Blood Partial Pressure CO2 33 mmHg Venous Blood Partial Pressure O2 52 mmHg Venous Blood HCO3 21 mmol/L Venous Blood Oxygen Saturation 84.1 % Venous Blood Base Excess -3.0 mEq/L White Blood Count 6.55 K/uL Red Blood Count 2.73 M/uL Hemoglobin 8.9 g/dL Hematocrit 25.6 % Mean Corpuscular Volume 93.8 fL Mean Corpuscular Hemoglobin 32.6 pg Mean Corpuscular Hemoglobin Concent 34.8 g/dl RDW Standard Deviation 43.1 fL RDW Coefficient of Variation 12.7 % Platelet Count 248 K/uL Mean Platelet Volume 9.0 fL Sodium Level 136 mmol/L Potassium Level 4.7 mmol/L Chloride Level 107 mmol/L Carbon Dioxide Level 20 mmol/L Anion Gap 10.0 mmol/L Blood Urea Nitrogen 44 mg/dl Creatinine 3.50 mg/dl Est Creatinine Clear Calc Drug Dose 23.7 ml/min Estimated GFR () 19.9 Estimated GFR (Non- 17.2 BUN/Creatinine Ratio 12.6 Random Glucose 95 mg/dl Calcium Level 8.6 mg/dl Magnesium Level 2.5 mg/dl Total Bilirubin 1.4 mg/dl Direct Bilirubin 0.6 mg/dl Aspartate Amino Transf (AST/SGOT) 74 U/L Alanine Aminotransferase (ALT/SGPT) 98 U/L Alkaline Phosphatase 452 U/L Total Protein 7.2 gm/dl Albumin 3.1 gm/dl Lipase 416 U/L Urine Color YELLOW Urine Appearance CLEAR Urine pH 5.0 Urine Specific [place] 1.010 Urine Protein NEG Urine Glucose (UA) NEG Urine Ketones NEG Urine Occult Blood NEG Urine Nitrite NEG Urine Bilirubin NEG Urine Urobilinogen NEG Urine Leukocyte Esterase NEG Urine Random Creatinine 86.0 mg/dl Urine Random Total Protein 14.2 mg/dl Urine Random Sodium 92 mEq/L Urine Protein/Creatinine Ratio 0.2 Assessment and Plan Patient is a 67 y/o M HTN, HPL, anemia, pulmonary nodules - 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 CHAD was thought to be due to ATN, NSAID and TAWNY use in the setting of an acute pancreatitis episode and was initially treated with IVF. Renal function only minimally improved despite hydration and he was subsequently DCd with a creatinine of approximately 3.0. He states that he had gained 15lbs during his hospital stay and in the week after. Presented to the ER 10/07 c/o exertional dyspnea and weight gain. No acute abnormalities were found on labs or imaging. He was provided a dose of IV Lasix and DCd from the ER. He returns to the ER today c/o worsening weight gain, worsening LE edema and exertional dyspnea. Initial imaging shows stable, small pleural effusions. Initial labs are notable for worsening renal function as his creatinine has increased form 3 to 3.4 since receiving Lasix. Acute kidney injury with volume overload and dyspnea -received a dose of IV Lasix in the ER but creatinine has increased again today to 3.5. Bicarbonate mildly low at 20. Not hypoxic. Renal ultrasound normal on last admission last week. CT abdomen/pelvis showed moderate perinephric stranding possibly consistent with chronic kidney disease. No stones or obstruction. He is making urine. -Appreciate nephrology consultation -No IV fluids at this time, hold off on any further diuretics -Check urine spot protein to creatinine ratio -Follow PRP and electrolytes -Follow I's and O's Alcoholic cirrhosis/elevated LFTs-alkaline phosphatase almost 500 consistently and this may not all be from the liver, possibly from bone as well given the T12 lesion. INR and platelets are normal, no evidence of portal hypertension on imaging previously. Liver does appear cirrhotic on previous imaging. He has compensated at this point -Seen by gastroenterology last admission and will need follow-up as an outpatient -He has already quit all alcohol use -Follow LFTs HTN - cont Norvasc with parameters Anemia - related to cirrhosis and possibly CKD - Hb is stable. to slightly lower at 8.9. Fe studies in 08/2016 normal HPL - not currently treated due to cirrhosis. Pulmonary nodules -numerous, seen on CT last admission. Also with T12 marrow replacement lesion not amenable to biopsy in this facility as per my discussion with radiology today. Could be granulomatous disease versus malignancy. He is a lifetime non-smoker The pt is due for a thoracic surgery appt Tuesday with Dr. Menezes, however will discuss the case with him to see if he wants to see him here -Consult Pulm here as well Full code - Heparin prophylaxis
[2017-10-12 07:50] VITALS: BP 160/96; PULSE 80; TEMP 36.8; O2SAT 91
[2017-10-12 08:20] VITALS: O2SAT 91
--- NOTE | 2017-10-12 08:21 | Clinical Documentation Query ---
MEGHNA Bean : CLINICAL DOCUMENTATION QUERY Patient is a 67 year old male admitted twice since 10/02 for SOB, weight gain, transaminitis, and ARF thought to be due to ATN. Labs on this admission demonstrate worsening renal function in the setting of concomitant worsening hepatic function per serum chemistries. Treatment includes nephrologic consultation, serial labs/chemistries, holding of NSAID's/Lisinopril. Holding of NSAID's/Lisinopril and IVF on prior admission did not improve renal function. In your clinical opinion is this patient being managed for: ( ) Hepatorenal syndrome ( ) Not Agree (x ) Other explanation of clinical findings (Please Explain)-acute kidney injury in the setting of recent acute pancreatitis and elevated transaminases with clinically compensated cirrhosis of the liver ( ) Unable to determine (Please Define) ( ) Need to Discuss The medical record reflects the following clinical findings, treatment, and risk factors. Clinical Indicators: Cirrhosis, abdominal distention, weight gain, acute on chronic liver disease, low GFR, absence of shock/infection, absence of GI or renal fluid losses, no sustained improvement in renal function following prior diuretic/NSAID/Lisinopril withdrawal. Treatment: Radiologic, hematologic, chemistry studies, nephrology consultation, GI consultation prior admission, holding IVF and diuretics Risk Factors: Alcoholic cirrhosis Please clarify and document your clinical opinion in the progress notes and discharge summary. Terms such as "probable", "suspected", "likely", "questionable", "possible", or "still to be ruled out" are acceptable. IF IN AGREEMENT, YOU MUST DOCUMENT ABOVE DIAGNOSTIC STATEMENT IN DAILY PROGRESS NOTES AND DISCHARGE SUMMARY. This document is not part of the patient's record. Thank You, Vladimir Griffin, RN [phone]
[2017-10-12 08:52] LABS: CALCIUM 8.6 mg/dl (8.5-10.1); CREATININE 3.67 mg/dl (0.60-1.40); POTASSIUM 4.4 mmol/L (3.5-5.1)
[2017-10-12] MEDS: AMLODIPINE BESYLATE 5 MG TAB PO SCH (10:21)
[2017-10-12] MEDS: POLYETHYLENE (MIRALAX) 17 GM PACK PO PRN (10:21)
--- NOTE | 2017-10-12 11:18 | PULMONARY CONSULTATION ---
DATE OF CONSULTATION: 10/12/2017 TIME: 09:50 a.m. REPORT OF CONSULTATION: The patient was seen in room #461, bed 2. Pulmonary consultation is requested regarding the finding of multiple small pulmonary nodules. The patient's history is that he was admitted to the hospital from October 02 to October 06 with acute pancreatitis and renal failure. His complaints at that time were midepigastric pain. He was evaluated by nephrology for the renal insufficiency. His creatinines were approximately 3. He had never had any kidney function abnormalities in the past. The patient returned to the Emergency Room on October 07 complaining of abdominal swelling. He was given some Lasix and discharged to home. The patient returned to the ER on October 10. At that time he was complaining of shortness of breath that began a day earlier. He felt that he had gained about 15 pounds. He was convinced that his abdomen was swollen and this was bothering his breathing. Since admission he has improved a lot. His breathing is much better. I was not able to determine that he has had a dramatic diuresis, however. The patient's oxygen saturations on room air have been good. His respiratory rates have been only slightly elevated early on. The patient has had some cough. He states he expectorates some clear phlegm. He is not having chest pains. He states he had some chills when he was first admitted on the , but that has resolved. His weight has decreased by 3.4 kilograms since he was admitted. This would correlate with a greater diuresis than what is showing. The patient's only prior pulmonary history is that he states he had asthma as a child. Previously, he denies having any respiratory issues at all as an adult, yet he has a rescue inhaler that he uses periodically. He states that he is exposed to some dust or other things. It seems to help his breathing. At the time of his initial hospital stay on October 02, he had a CAT scan of the chest done. This showed evidence of innumerable small noncalcified nodules. The largest measured 8 mm in the right lower lobe. There was also a 6-mm nodule in the left upper lobe. There was a calcified granuloma seen in the lingula. Small pleural effusions were noted. There was a mildly enlarged right paratracheal lymph node, measuring up to 13 mm. The CAT scan suggested slight nodularity of the liver compatible with cirrhosis. The patient also had a CAT scan of the abdomen done during that stay. The CAT scan of the abdomen reported a 3.2-cm focus of suspected marrow replacement within the T12 vertebral body. This would be worrisome for a neoplastic process. PAST SURGICAL HISTORY: 1. Left carpal tunnel surgery. 2. Left inguinal hernia repair as a child. PAST MEDICAL HISTORY: 1. Hypertension. 2. Hyperlipidemia. 3. Iron deficiency anemia. 4. Degenerative joint disease. 5. Alcohol abuse. SOCIAL HISTORY: Tobacco never. ETOH -- the patient was a heavy beer drinker. He admits to drinking about 15 beers per day, but he states his family thinks he drinks a case per day. He apparently did not drink any alcohol since his prior hospital stay. 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 He did not have any significant dust fume or chemical exposure. FAMILY HISTORY: Mother with coronary artery disease and breast cancer. Father , had end-stage renal disease. ALLERGIES: No known allergies. REVIEW OF SYSTEMS: The patient's energy level has decreased some. It usually is very high. The patient does snore. There has been no observed apneas. He has been waking up from sleep recently with abdominal pains, but usually his sleep is good. He has had some loose stools. The remainder of the review of systems is otherwise negative. Ten systems reviewed. PHYSICAL EXAMINATION: GENERAL: The patient is a 67-year-old male who was cooperative, alert and oriented. VITAL SIGNS: His temperature at midnight last night was 37.2. That is the highest temperature elevation during this hospital stay. HEENT: Pupils were reactive to light. Nares were clear. Mouth exam did reveal some prominence to the uvula with some crowding in the posterior pharynx. He would be a Mallampati grade 2. NECK: Palpation of the neck reveals no lymph nodes or masses. CHEST: Normal expansion and development. HEART: Heart rate was 80 per minute. The rhythm was regular. Blood pressure 160/96. LUNGS: Lung montero were clear bilaterally. No wheezes, rales, or rhonchi were heard. Oxygen saturation was last reported at 91%, but prior to that was 97%. The respiratory rate is 16 breaths per minute and not labored. ABDOMEN: Somewhat obese. It was not significantly tight in my opinion. Bowel sounds were normal. There was no focal tenderness to palpation. EXTREMITIES: Showed no cyanosis, clubbing or edema. LABORATORY DATA: White blood cell count is 6.55. Hemoglobin is 8.9. MCV, MCH, and MCHC are normal. INR is 1. Urinalysis was negative. Venous blood gas showed a pH of 7.42, pCO2 of 33, and pO2 of 52. Electrolytes show sodium 135, potassium 4.4, chloride 105, and bicarb 21. The BUN is 43 with a creatinine of 3.67. These are worse than when he was discharged from the other hospital stay. The patient's liver functions show AST 74, ALT 98, and alkaline phosphatase 452. Serum lipase on the was 416. ProBNP was 606. Serum calcium was 8.8. Phosphorus was 4.2. Magnesium was 2.4. IMPRESSIONS: 1. Multiple lung nodules of undetermined origin. 2. Small right and left pleural effusions. 3. Renal failure. 4. Cirrhosis. 5. Recent pancreatitis. 6. Abnormal T12 vertebrae. COMMENTS: The etiology of the lung nodules are not clear. Obviously, metastatic disease could not be excluded. There was no prior CAT scan of the chest for comparison. He had a CAT scan of the abdomen on 08/25/2013 that did not mention any pulmonary nodules. The patient does have an elevated CEA level done during the initial hospital stay and this was elevated at 5.6. Curiously, the CA-125 antigen was quite elevated at 143. There was one mildly enlarged mediastinal lymph node as noted. Considering everything, I do not believe that bronchoscopy would be likely to make a definitive diagnosis. Considering his underlying cirrhosis and renal failure, I would not recommend doing a thoracic surgical biopsy at present. I think it makes the most reasonable approach would be to do a followup chest CAT scan in 2-3 months and see if the nodules are enlarging or increasing in number. Obviously, this does not answer any questions now as to whether he has malignancy or not. I would defer to the hospitalist team as to whether it would be appropriate to obtain a biopsy of the T12 vertebrae. As discussed with Dr. Linder, perhaps an MRI would be helpful. An ortho consult could be considered. The patient has many metabolic issues going on right now that would substantially increase morbidity if he were to have a thoracic surgery procedure at present. Dr. Menezes is scheduled to see the patient as an outpatient next week. He has reviewed the x-rays and he concurs with this assessment. Thank you for asking me to assist in his care. TIP
--- NOTE | 2017-10-12 11:34 | Hospitalist Progress Note ---
Hospitalist Progress Note Date of Service Oct 12, 2017. Subjective Pt evaluation today including: conversation w/ patient, conversation w/ technical marketing consultant (Pulmonology) Voiding: no voiding problems Patient has complaint of constipation. He denies shortness of breath and does not feel like there is any fluid in his lungs anymore. He walked 25 laps around the halls yesterday and had no shortness of breath but did feel a little tired. Unfortunately his renal function worsened today. He denies cough or sputum production, he is afebrile. I discussed the case with pulmonology and thoracic surgery this morning. They will not be performing a bronchoscopy as the nodules are too small at this point. Constitutional: No fever Respiratory: No cough, No sputum Cardiovascular: No chest pain Abdomen: + constipation, No pain, No nausea All Other Systems: Reviewed and Negative Objective Vital Signs Date Time Temp Pulse Resp B/P (MAP) Pulse Ox O2 Delivery O2 Flow Rate FiO2 10/12/17 07:50 36.8 80 16 160/96 (117) 91 10/12/17 00:00 37.2 81 20 149/88 (108) 97 Room Air 10/12/17 00:00 Room Air 10/11/17 16:00 Room Air 10/11/17 15:40 37.0 93 18 157/90 (112) 95 Room Air Physical Exam General Appearance: WD/WN, no apparent distress Eyes: normal inspection, sclerae normal ENT: hearing grossly normal, pharynx normal Neck: trachea midline Respiratory/Chest: no respiratory distress, no accessory muscle use, + decreased breath sounds (at bases but otherwise clear) Cardiovascular: regular rate, rhythm, no edema, no gallop, no murmur Abdomen: normal bowel sounds, non tender, soft, no organomegaly Extremities: non-tender, normal inspection, no pedal edema, no calf tenderness Neurologic/Psychiatric: no motor/sensory deficits, alert, normal mood/affect, oriented x 3 Skin: normal color, warm/dry, no rash Laboratory Results Last 24 Hours Test 10/11/17 11:30 10/12/17 07:12 10/12/17 11:03 Urine Color YELLOW Urine Appearance CLEAR Urine pH 5.0 Urine Specific [place] 1.010 Urine Protein NEG Urine Glucose (UA) NEG Urine Ketones NEG Urine Occult Blood NEG Urine Nitrite NEG Urine Bilirubin NEG Urine Urobilinogen NEG Urine Leukocyte Esterase NEG Urine Random Creatinine 86.0 mg/dl Urine Random Total Protein 14.2 mg/dl Urine Random Sodium 92 mEq/L Urine Protein/Creatinine Ratio 0.2 Sodium Level 135 mmol/L Potassium Level 4.4 mmol/L Chloride Level 105 mmol/L Carbon Dioxide Level 21 mmol/L Anion Gap 10.0 mmol/L Blood Urea Nitrogen 43 mg/dl Creatinine 3.67 mg/dl Est Creatinine Clear Calc Drug Dose 22.5 ml/min Estimated GFR () 18.8 Estimated GFR (Non- 16.2 BUN/Creatinine Ratio 11.6 Random Glucose 86 mg/dl Calcium Level 8.6 mg/dl Assessment and Plan Patient is a 67 y/o M HTN, HPL, anemia, pulmonary nodules - 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 CHAD was thought to be due to ATN, NSAID and TAWNY use in the setting of an acute pancreatitis episode and was initially treated with IVF. Renal function only minimally improved despite hydration and he was subsequently DCd with a creatinine of approximately 3.0. He states that he had gained 15lbs during his hospital stay and in the week after. Presented to the ER 10/07 c/o exertional dyspnea and weight gain. No acute abnormalities were found on labs or imaging. He was provided a dose of IV Lasix and DCd from the ER. He returned to the ER a few days later with c/o worsening weight gain, worsening LE edema and exertional dyspnea. Initial imaging shows stable, small pleural effusions. Initial labs are notable for worsening renal function as his creatinine has increased from 3 to 3.4. Acute kidney injury with volume overload and dyspnea -received a dose of IV Lasix in the ER initially but creatinine continues to rise again today to 3.67. Bicarbonate mildly low at 21. Not hypoxic. Renal ultrasound normal on last admission last week. CT abdomen/pelvis showed moderate perinephric stranding possibly consistent with chronic kidney disease. No stones or obstruction. He is making urine and diuresing with some weight loss since admission. Clinically this would be ATN. Urine spot protein/creatinine ratio is normal at 0.2, repeat UA is normal -Appreciate nephrology consultation -No IV fluids at this time, hold off on any further diuretics -Follow PRP and electrolytes, hoping for recovery with time -Follow I's and O's Avoid nephrotoxins, continue to hold previous home lisinopril, NSAIDs Alcoholic cirrhosis/elevated LFTs-alkaline phosphatase almost 500 consistently and this may not all be from the liver, possibly from bone as well given the T12 lesion. INR and platelets are normal, no evidence of portal hypertension on imaging previously. Liver does appear cirrhotic on previous imaging. He is compensated at this point from a cirrhosis standpoint. Hepatitis C antibody was negative in March of this past year. No other bony lesions noted on other imaging studies. -Seen by gastroenterology last admission and will need follow-up as an outpatient for HCC surveillance -He has already quit all alcohol use -Follow LFTs -Check alkaline phosphatase isoenzyme panel -Checking MRI of the thoracic spine to further evaluate T12 lesion HTN -BP is uncontrolled -cont Norvasc -Add IV hydralazine as needed Anemia -normocytic, related to cirrhosis and possibly CKD - Hb is stable. to slightly lower at 8.9. Fe studies normal in 08/2016 and partially done in 09/2017 with normal serum iron and normal TIBC normal. Hemoccult stool was negative in September 2017. B12 and folate were normal recently. -Follow CBC in the morning -He had colonoscopy 2 and half years ago that was normal as per patient-request records from [facility] - not currently treated with statin due to cirrhosis. Pulmonary nodules -numerous, seen on CT last admission. Also with T12 marrow replacement lesion not amenable to biopsy in this facility as per my discussion with radiology. Could be granulomatous disease versus malignancy versus atypical infection. He is a lifetime non-smoker. He has no signs or symptoms of infection. Pulmonary and thoracic surgery discussed the case with me today and decided no bronchoscopy at this time as the nodules are too small-there is nothing to biopsy -check TAWNY level for sarcoidosis -Pulmonary recommends follow-up CT chest in 2-3 months -Could consider PET scan as an outpatient if can get approved which is likely due to his T12 lesion as well as numerous pulmonary nodules -Checking MRI of the thoracic spine as above and consulting orthopedic spine surgery for further evaluation Constipation-had a small bowel movement yesterday -Continue prune juice, docusate/senna -Add on more aggressive bowel regimen if needed Full code - Heparin prophylaxis Disposition-remain in the hospital until renal function is improving
--- NOTE | 2017-10-12 12:48 | DIAGNOSTIC IMAGING REPORT ---
THORACIC SPINE WITHOUT CLINICAL HISTORY: 67 years-old Male presenting with T12 lesion, lung nodules, acute onset renal failure. TECHNIQUE: Multisequence, multiplanar MR imaging of the thoracic spine was performed without the use of intravenous contrast. IV contrast: None. COMPARISON: Chest CT from 10/02/2017. FINDINGS: Localizer images: Moderate right and small left pleural effusions. Normal thoracic kyphosis. Vertebral bodies demonstrate normal height and alignment. Focal T2 hyperintense, T1 hypointense lesion occupying the majority of the bone marrow in the T12 vertebral body anteriorly. No evidence of extracortical extension of disease. Minimal bone marrow edema at the T9-10 level without fluid in the intervertebral disc space or T1 hypointensity, most likely degenerative in etiology. Degenerative changes noted at the lower cervical spine with a disc osteophyte complex and reactive bone marrow changes at the C7-T1 level. No significant spinal canal stenosis at this level. Trace disc osteophyte complex at T9-10 without effacement of the thecal sac. Mild neural foraminal narrowing noted at T9-10 bilaterally. There is also neural foraminal narrowing on the left at T8-9. Nonspecific subcutaneous edema in the lumbar region. Bilateral adrenal nodules may be present. IMPRESSION: 1. Suspicious lesion at the T12 level, which is highly concerning for a site of metastatic disease. No convincing evidence of an additional osseous lesion in the thoracic spine. 2. Mild degenerative changes of the thoracic spine including neural foraminal narrowing on the left at T8-9 and bilaterally at T9-10. 3. Partially visualized degenerative changes in the lower cervical spine. The report will be called/faxed according to standard departmental protocol. Electronically signed by: Segundo Reyna M.D. 10/12/2017 12:47 PM Dictated Date/Time: 10/12/2017 12:40 PM
--- NOTE | 2017-10-12 14:44 | Orthopedic Consultation ---
Orthopedic Consultation Date of Consultation: Oct 12, 2017. Attending Physician: Fernanda Linder MD Reason for Consultation: Lesion T12 vertebral body. History of Present Illness This is a 67-year-old male admitted to the hospital with multiple medical issues. Upon evaluation workup an MRI of the thoracic spine was obtained. Demonstrates evidence of a possible metastatic lesion involving the T12 vertebral body. His no evidence of any canal compromise. At this time the patient denies any thoracal lumbar back pain. He's been ambulating throughout the day without difficulty. Past Medical/Surgical History Medical Problems: (1) Acute kidney injury Status: Acute (2) Acute on chronic renal failure Status: Acute (3) Ascites Status: Acute (4) Cirrhosis of liver Status: Acute (5) Pancreatitis Status: Acute (6) Pleural effusion Status: Acute Family History FH: cancer FH: gallbladder disease FH: heart disease Hypertension Kidney disease Kidney stones Social History Smoking Status: Never Smoker Marital Status: Housing Status: lives with significant other Occupation Status: retired Allergies Coded Allergies: No Known Allergies (Unverified , 10/07/17) Home Medications Scheduled Amlodipine (Norvasc), 10 MG PO DAILY Scheduled PRN Albuterol Sulfate (Proair Respiclick), 2 PUFFS INH Q4H PRN for SOB/Wheezing Polyethylene Glycol 3350 (Miralax), 17 GM PO DAILY PRN for Constipation Current Inpatient Medications Current Inpatient Medications Medications (Trade) Dose Ordered Sig/Margarito Route Start Time Stop Time Status Last Admin Dose Admin Amlodipine Besylate (Norvasc Tab) 10 mg DAILY PO 10/11/17 08:00 11/10/17 08:59 10/12/17 10:21 10 MG Polyethylene (Miralax Powder Packet) 17 gm DAILY PRN PO 10/10/17 23:30 11/09/17 23:29 10/12/17 10:21 17 GM Heparin Sodium (Porcine) (Heparin Sq 5000 Unit/0.5ml) 5,000 unit Q8H SQ 10/11/17 06:00 11/10/17 05:59 10/12/17 13:57 5,000 UNIT Zolpidem Tartrate (Ambien Tab) 5 mg HSZ PRN PO 10/11/17 00:00 11/10/17 00:00 Ondansetron HCl (Zofran Inj) 4 mg Q6H PRN IV 10/11/17 00:00 11/10/17 00:00 Albuterol (Ventolin Hfa Inhaler) 2 puffs Q4H PRN INH 10/11/17 02:15 11/10/17 02:14 Senna/Docusate Sodium (Senokot S Tab) 1 tab QAM PO 10/12/17 08:00 11/11/17 07:59 10/11/17 17:47 1 TAB Lorazepam (Ativan Tab) 0.5 mg HS PRN PO 10/11/17 21:00 11/10/17 20:59 10/11/17 21:46 0.5 MG Hydralazine HCl (HydrALAZINE INJ) 10 mg Q8H PRN IV. 10/12/17 11:30 11/11/17 11:29 Physical Exam Date Time Temp Pulse Resp B/P (MAP) Pulse Ox O2 Delivery O2 Flow Rate FiO2 10/12/17 08:20 91 Room Air 10/12/17 07:50 36.8 80 16 160/96 (117) 91 10/12/17 00:00 37.2 81 20 149/88 (108) 97 Room Air 10/12/17 00:00 Room Air 10/11/17 16:00 Room Air 10/11/17 15:40 37.0 93 18 157/90 (112) 95 Room Air On physical exam the patient demonstrates plus femoral to 5 plantar flexion dorsiflexion quadriceps bilateral lower extremities. He demonstrates no discomfort when sitting forward for throughout his exam. Palpation of percussion of the thoracal lumbar spine demonstrates no evidence of discomfort. Laboratory Results Last 24 Hours Test 10/12/17 07:12 10/12/17 11:03 Sodium Level 135 mmol/L Potassium Level 4.4 mmol/L Chloride Level 105 mmol/L Carbon Dioxide Level 21 mmol/L Anion Gap 10.0 mmol/L Blood Urea Nitrogen 43 mg/dl Creatinine 3.67 mg/dl Est Creatinine Clear Calc Drug Dose 22.5 ml/min Estimated GFR () 18.8 Estimated GFR (Non- 16.2 BUN/Creatinine Ratio 11.6 Random Glucose 86 mg/dl Calcium Level 8.6 mg/dl Assessment & Plan Assessment T12 vertebral body lesion. Plan at this time we're considering possible biopsy of the vertebral body. At this institution do not have interventional radiology to assist us in this matter. We are also awaiting an oncologic consultation. Ultimately I may perform a biopsy of the T12 vertebral body if and when he is medically cleared and posterior necessary. I did supplement his MRI imaging with a CAT scan to look for any evidence of bony destruction.
--- NOTE | 2017-10-12 15:06 | DIAGNOSTIC IMAGING REPORT ---
THORACIC SPINE WITHOUT HISTORY: 67 years-old Male back pain acute back pain. Suspicious lesion of the anterior T12 vertebral body noted on comparison study COMPARISON: Thoracic spine MRI of same day, MRI abdomen 10/02/2017, CT chest 10/02/2017 TECHNIQUE: Multiple axial CT images of the thoracic spine were obtained without contrast. Coronal and sagittal reformatted images were obtained from the axial data set and submitted for review. A dose lowering technique was used consistent with the principals of ALARA. FINDINGS: Moderate to severe intervertebral disc space narrowing at C7-T1, T8-T9 and T9-T10. Multilevel endplate spurring and facet arthropathy. Degree of central canal and foraminal narrowing is better assessed by comparison MRI of same day. Imaged ribs appear to be intact. There is minimally increased sclerosis within the anterior portion of the T12 vertebral body as seen on image 44 of the sagittal series. No additional suspicious lytic or blastic bony lesions identified. The imaged ribs appear to be intact. No compression deformity. No acute malalignment. Mildly prominent 9 mm right paratracheal lymph node is seen. Moderate bilateral pleural effusions. There are multiple bilateral pulmonary nodules measuring up to 5 mm. IMPRESSION: 1. Minimally increased sclerosis with ill-defined margins involves the anterior portion of the T12 vertebral body which may correlate with the focal area of marrow replacement seen on comparison MRI studies. Again, this is suspicious for metastatic disease. 2. No additional suspicious lytic or blastic bony lesions of the spine identified. 3. Discogenic degenerative changes, facet arthropathy and endplate spurring as above. 4. Moderate bilateral pleural effusions with multifocal bilateral pulmonary nodules, better evaluated on CT chest 10/02/2017. The above report was generated using voice recognition software. It may contain grammatical, syntax or spelling errors. Electronically signed by: Ronan Campos M.D. 10/12/2017 3:05 PM Dictated Date/Time: 10/12/2017 2:56 PM
[2017-10-12 16:10] VITALS: O2SAT 91
[2017-10-12 16:26] VITALS: BP 162/106; PULSE 83; TEMP 36.8; O2SAT 90
--- NOTE | 2017-10-12 16:51 | Nephrology Progress Note ---
Nephrology Progress Note Date of Service Oct 12, 2017. Chief Complaint CHAD Subjective Mr. Phillips was seen & examined in his hospital room this morning. He denies abdominal or back discomfort. His abdominal swelling and leg edema is mildly improved. Mr. Phillips reports brisk urine output. Review of Systems Constitutional: No fever Cardiovascular: No chest pain Respiratory: No dyspnea at rest Abdomen: + problem reported (distention), No pain, No nausea, No vomiting Genitourinary - Male: No urinary hesitancy Extremities: + leg edema A complete review of systems was performed. Pertinent positives are noted above. All other systems are negative. Vital Signs Last 8 Hrs Date Time Temp Pulse Resp B/P (MAP) Pulse Ox O2 Delivery O2 Flow Rate FiO2 10/12/17 16:26 36.8 83 16 162/106 (124) 90 Room Air I & O 24-Hour Column 10/13/17 08:00 Intake Total 200 ml Balance 200 ml Last Recorded Weight Weight (Kilograms): 94.600 Physical Exam General Appearance: no apparent distress Head: normocephalic, atraumatic Eyes: PERRL, EOMI Neck: no adenopathy Respiratory/Chest: lungs clear, no respiratory distress Cardiovascular: regular rate, rhythm Abdomen/GI: non tender, soft, + distended Extremities/Musculoskelatal: + pertinent finding (trace pretibial pitting edema ) Neurologic/Psych: alert, oriented x 3 Family History FH: cancer FH: gallbladder disease FH: heart disease Hypertension Kidney disease Kidney stones Father had ESRD requiring HD related to "heart failure Social History Smoking Status: Never smoker Marital Status: Occupation: retired . Two children in good health. 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 Never a smoker. History of heavy alcohol abuse (stopped following recent hospitalization 10/02) Laboratory Results Past 24 Hours 10/12/17 07:12 Test 10/12/17 07:12 10/12/17 11:03 Anion Gap 10.0 mmol/L (3-11) Est Creatinine Clear Calc Drug Dose 22.5 ml/min Estimated GFR () 18.8 Estimated GFR (Non- 16.2 BUN/Creatinine Ratio 11.6 (10-20) Calcium Level 8.6 mg/dl (8.5-10.1) Allergies Coded Allergies: No Known Allergies (Unverified , 10/07/17) Medications Current Inpatient Medications Medications (Trade) Dose Ordered Sig/Margarito Route Start Time Stop Time Status Last Admin Dose Admin Amlodipine Besylate (Norvasc Tab) 10 mg DAILY PO 10/11/17 08:00 11/10/17 08:59 10/12/17 10:21 10 MG Polyethylene (Miralax Powder Packet) 17 gm DAILY PRN PO 10/10/17 23:30 11/09/17 23:29 10/12/17 10:21 17 GM Heparin Sodium (Porcine) (Heparin Sq 5000 Unit/0.5ml) 5,000 unit Q8H SQ 10/11/17 06:00 11/10/17 05:59 10/12/17 13:57 5,000 UNIT Zolpidem Tartrate (Ambien Tab) 5 mg HSZ PRN PO 10/11/17 00:00 11/10/17 00:00 Ondansetron HCl (Zofran Inj) 4 mg Q6H PRN IV 10/11/17 00:00 11/10/17 00:00 Albuterol (Ventolin Hfa Inhaler) 2 puffs Q4H PRN INH 10/11/17 02:15 11/10/17 02:14 Senna/Docusate Sodium (Senokot S Tab) 1 tab QAM PO 10/12/17 08:00 11/11/17 07:59 10/11/17 17:47 1 TAB Lorazepam (Ativan Tab) 0.5 mg HS PRN PO 10/11/17 21:00 11/10/17 20:59 10/11/17 21:46 0.5 MG Hydralazine HCl (HydrALAZINE INJ) 10 mg Q8H PRN IV. 10/12/17 11:30 11/11/17 11:29 Impression (1) Cirrhosis (2) Lung nodules (3) Lesion of vertebra (4) Acute kidney injury (5) Hypertension Recommendations ACUTE KIDNEY INJURY: -- CHAD is continuation from recent hospitalization earlier this month. Patient has not yet entered the recovery phase -- Clinically suspect ATN. Continue to hold Lisinopril and Ibuprofen. Recommend holding IVF. Patient is 16 lbs above his "dry weight". Expect that he will begin to diurese on his own -- Urinalysis negative for protein or blood. Urine microscopy negative for casts -- Renal US from last admission reviewed. No obstruction or mass -- Monitor serial PRP HYPERTENSION: -- Hold Lisinopril -- Continue Amlodipine -- Use IV Hydralazine PRN SBP > 180 mm HG GI: -- LFT & lipase are trending down. Continue supportive care and monitor OTHER: -- PSA last hospitalization was < 4 -- Consider biopsy of T 12 lesion and pulmonary evaluation of lung nodules
[2017-10-12] MEDS ORDERED: BISACODYL 5 MG TABEC PO ONE (18:15)
[2017-10-12] MEDS ORDERED: BISACODYL 10 MG SUPP PR PRN (18:15)
[2017-10-12] MEDS: LORAZEPAM 0.5 MG TAB PO PRN (21:55)
[2017-10-12] MEDS: ZOLPIDEM TARTRATE 5 MG TAB PO PRN (23:30)
[2017-10-13] VITALS (8 sets, daily range): BP systolic 157–167; BP diastolic 96–115; PULSE 86–92; TEMP 36.7–37.2; O2SAT 84–93
[2017-10-13] MEDS: HydrALAZINE HCL 20 MG/ML VIAL IV. PRN (01:02)
[2017-10-13] MEDS: HEPARIN SOD 5000 UNIT/0.5 ML CARP SQ SCH ×3 (05:49→21:00)
--- NOTE | 2017-10-13 07:06 | DIAGNOSTIC IMAGING REPORT ---
CHEST ONE VIEW PORTABLE HISTORY: 67 years-old Male f/u pleural effusions, SOB follow-up study in a patient with pleural effusions and acute shortness of breath COMPARISON: Chest radiograph 10/10/2017, CT chest 10/02/2017 TECHNIQUE: Portable AP view of the chest FINDINGS: Cardiomediastinal and hilar silhouettes are within normal limits. Atherosclerosis of the aorta. Subcentimeter bilateral pulmonary nodules are unchanged There is no pneumothorax. Mild blunting of the bilateral costophrenic angles with hazy bibasilar opacities, slightly worsened on the right. Lungs are mildly hypoinflated. No overt pulmonary edema. The bones of the chest appear grossly intact. IMPRESSION: 1. Unchanged small bilateral pleural effusions. 2. Subsegmental bibasilar opacities, slightly worsened on the right favor compressive atelectasis. 3. Bilateral pulmonary nodules are better seen on comparison chest CT 10/02/2017. The above report was generated using voice recognition software. It may contain grammatical, syntax or spelling errors. Electronically signed by: Ronan Campos M.D. 10/13/2017 7:04 AM Dictated Date/Time: 10/13/2017 7:02 AM
[2017-10-13] MEDS: DOCUSATE SODIUM/SENNA 50/8.6MG TAB PO SCH (07:44)
[2017-10-13] MEDS: AMLODIPINE BESYLATE 5 MG TAB PO SCH (07:44)
[2017-10-13 07:56] LABS: HEMOGLOBIN 8.3 g/dL (14.0-18.0); MEAN CORPUSCULAR HEMOGLOBIN 31.8 pg (25-34); MEAN CORPUSCULAR HGB CONC 34.6 g/dl (32-36); MEAN PLATELET VOLUME 8.8 fL (7.4-10.4); PLATELET COUNT 275 K/uL (130-400); RED CELL DISTRIBUTION WIDTH CV 12.8 % (11.5-14.5); RED CELL DISTRIBUTION WIDTH SD 43.3 fL (36.4-46.3); WHITE BLOOD COUNT 5.98 K/uL (4.8-10.8)
[2017-10-13 08:21] LABS: BASO % 0.3 %; BASO ABS # 0.02 K/uL (0-0.2); EOS % 7.7 %; EOS ABS # 0.46 K/uL (0-0.5); IG# 0.01 K/uL (0.00-0.02); LYMPH % 12.2 %; LYMPH ABS # 0.73 K/uL (1.2-3.4); MONO % 13.4 %; NEUT % 66.2 %; NEUT ABS # 3.96 K/uL (1.4-6.5)
[2017-10-13 08:35] LABS: CALCIUM 8.5 mg/dl (8.5-10.1); CREATININE 3.85 mg/dl (0.60-1.40); POTASSIUM 4.3 mmol/L (3.5-5.1)
[2017-10-13 08:38] LABS: TOTAL PROTEIN 6.8 gm/dl (6.4-8.2)
--- NOTE | 2017-10-13 13:18 | Hospitalist Progress Note ---
Hospitalist Progress Note Date of Service Oct 13, 2017. Subjective Pt evaluation today including: conversation w/ patient, conversation w/ campaign consultant (Nephrology, pulmonology) Voiding: no voiding problems (Does not think he is urinating a lot, he is not measuring it in the urinal so difficult to tell) Patient had some shortness of breath last night and this morning but is now feeling better. Pulse ox 100%. He just walked 15 laps around the nurses station and did not have any dyspnea. Still not moving his bowels much. Appetite is lower than usual. All Other Systems: Reviewed and Negative Objective Vital Signs Date Time Temp Pulse Resp B/P (MAP) Pulse Ox O2 Delivery O2 Flow Rate FiO2 10/13/17 12:54 160/98 (118) 10/13/17 08:49 166/108 (127) 10/13/17 08:30 Room Air 10/13/17 07:28 36.9 89 18 157/111 (126) 91 Room Air 167/115 (132) 10/13/17 00:37 37.2 86 20 163/109 (127) 84 Room Air 10/13/17 00:00 93 Oxymask 3.0 10/12/17 16:26 36.8 83 16 162/106 (124) 90 Room Air 10/12/17 16:10 91 Room Air Physical Exam General Appearance: WD/WN, no apparent distress Eyes: normal inspection, sclerae normal ENT: hearing grossly normal Neck: trachea midline Respiratory/Chest: no respiratory distress, no accessory muscle use, + decreased breath sounds (At the lower lung montero bilaterally with dullness to percussion about one third of the way up bilaterally) Cardiovascular: regular rate, rhythm, no edema, no murmur Abdomen: normal bowel sounds, non tender, soft (With mild distention) Extremities: non-tender, normal inspection, no pedal edema, no calf tenderness Neurologic/Psychiatric: alert, normal mood/affect, oriented x 3 Skin: normal color, warm/dry, no rash Laboratory Results Last 24 Hours Test 10/13/17 07:10 White Blood Count 5.98 K/uL Red Blood Count 2.61 M/uL Hemoglobin 8.3 g/dL Hematocrit 24.0 % Mean Corpuscular Volume 92.0 fL Mean Corpuscular Hemoglobin 31.8 pg Mean Corpuscular Hemoglobin Concent 34.6 g/dl Platelet Count 275 K/uL Mean Platelet Volume 8.8 fL Neutrophils (%) (Auto) 66.2 % Lymphocytes (%) (Auto) 12.2 % Monocytes (%) (Auto) 13.4 % Eosinophils (%) (Auto) 7.7 % Basophils (%) (Auto) 0.3 % Neutrophils # (Auto) 3.96 K/uL Lymphocytes # (Auto) 0.73 K/uL Monocytes # (Auto) 0.80 K/uL Eosinophils # (Auto) 0.46 K/uL Basophils # (Auto) 0.02 K/uL RDW Standard Deviation 43.3 fL RDW Coefficient of Variation 12.8 % Immature Granulocyte % (Auto) 0.2 % Immature Granulocyte # (Auto) 0.01 K/uL Red Blood Cell Morphology Unremarkable Erythrocyte Sedimentation Rate 39 mm/hr Sodium Level 135 mmol/L Potassium Level 4.3 mmol/L Chloride Level 106 mmol/L Carbon Dioxide Level 20 mmol/L Anion Gap 10.0 mmol/L Blood Urea Nitrogen 46 mg/dl Creatinine 3.85 mg/dl Est Creatinine Clear Calc Drug Dose 21.5 ml/min Estimated GFR () 17.7 Estimated GFR (Non- 15.3 BUN/Creatinine Ratio 11.9 Random Glucose 94 mg/dl Calcium Level 8.5 mg/dl Total Bilirubin 1.4 mg/dl Direct Bilirubin 0.7 mg/dl Aspartate Amino Transf (AST/SGOT) 96 U/L Alanine Aminotransferase (ALT/SGPT) 96 U/L Alkaline Phosphatase 467 U/L C-Reactive Protein 4.39 mg/dl Total Protein 6.8 gm/dl Albumin 3.0 gm/dl Assessment and Plan Patient is a 67 y/o M HTN, HPL, anemia, pulmonary nodules - 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 CHAD was thought to be due to ATN, NSAID and TAWNY use in the setting of an acute pancreatitis episode and was initially treated with IVF. Renal function only minimally improved despite hydration and he was subsequently DCd with a creatinine of approximately 3.0. He states that he had gained 15lbs during his hospital stay and in the week after. Presented to the ER 10/07 c/o exertional dyspnea and weight gain. No acute abnormalities were found on labs or imaging. He was provided a dose of IV Lasix and DCd from the ER. He returned to the ER a few days later with c/o worsening weight gain, worsening LE edema and exertional dyspnea. Initial imaging shows stable, small pleural effusions. Initial labs are notable for worsening renal function as his creatinine has increased from 3 to 3.4. Acute kidney injury with volume overload and dyspnea/bilateral pleural effusions -received a dose of IV Lasix in the ER initially but creatinine continues to rise again today to 3.85. Bicarbonate mildly low at 20. Was hypoxic to 84% briefly last night and was on oxygen. Renal ultrasound normal on last admission last week. CT abdomen/pelvis showed moderate perinephric stranding possibly consistent with chronic kidney disease. No stones or obstruction. He is making urine with some weight loss since yesterday, I's and O's not accurately recorded as he is not using the urinal Clinically this would be ATN. Urine spot protein/creatinine ratio is normal at 0.2, repeat UA is normal No brisk diuresis just yet-encouraged him to use the urinal for accurate measurement -Appreciate nephrology consultation -No IV fluids at this time, hold off on any further diuretics -Follow PRP and electrolytes, hoping for recovery with time -Follow I's and O's Avoid nephrotoxins, continue to hold previous home lisinopril, NSAIDs -Follow chest x-ray and consider thoracentesis for therapeutic and diagnostic purposes if effusions enlarge Alcoholic cirrhosis/elevated LFTs-alkaline phosphatase almost 500 consistently and this may not all be from the liver, possibly from bone as well given the T12 lesion. INR and platelets are normal, no evidence of portal hypertension on imaging previously. Liver does appear cirrhotic on previous imaging. He is compensated at this point from a cirrhosis standpoint. Hepatitis C antibody was negative in March of this past year. No other bony lesions noted on other imaging studies.- MRI of the thoracic spine to further evaluate T12 lesion again shows suspicious for neoplasm, as does CT of the thoracic spine ordered by spine surgery Orthopedic spine surgery could perform biopsy but would require general anesthesia-given his renal failure, he is not a candidate for that right now-we will consider interventional radiology for biopsy after discharge from the hospital -Seen by gastroenterology last admission and will need follow-up as an outpatient for HCC surveillance -He has already quit all alcohol use -Follow LFTs -Check alkaline phosphatase isoenzyme panel-pending HTN -BP is uncontrolled but slightly improved -cont Norvasc -Add IV hydralazine as needed Anemia -normocytic, related to cirrhosis and possibly CKD - Hb is stable. to slightly lower at 8.3. Fe studies normal in 08/2016 and partially done in 09/2017 with normal serum iron and normal TIBC normal. Hemoccult stool was negative in September 2017. B12 and folate were normal recently. -Follow CBC and transfuse as needed but caution with fluid overload -He had colonoscopy 2 and half years ago that was normal as per patient-request records from [facility] - not currently treated with statin due to cirrhosis. Pulmonary nodules -numerous, seen on CT last admission. Also with T12 marrow replacement lesion not amenable to biopsy in this facility as per my discussion with radiology. Could be granulomatous disease versus malignancy versus atypical infection. He is a lifetime non-smoker. He has no signs or symptoms of infection. Pulmonary and thoracic surgery decided no bronchoscopy at this time as the nodules are too small-there is nothing to biopsy -check TAWNY level for sarcoidosis-pending -Pulmonary recommends follow-up CT chest in 2-3 months versus biopsy of the spine instead for tissue -Could consider PET scan as an outpatient if can get approved which is likely due to his T12 lesion as well as numerous pulmonary nodules Constipation-had a small bowel movement yesterday -Continue prune juice, docusate/senna, Dulcolax and Dulcolax suppositories as needed -Add on more aggressive bowel regimen if needed Full code - Heparin prophylaxis Disposition-remain in the hospital until renal function is improving
--- NOTE | 2017-10-13 13:29 | PULMONARY PROGRESS NOTE ---
DATE: 10/13/2017 TIME: 01:05 p.m. SUBJECTIVE: The patient noticed some increasing shortness of breath last evening. He has very little cough. His appetite is poor. He is having trouble having bowel movements. OBJECTIVE: GENERAL: The patient looks to be in no distress. VITAL SIGNS: Current temperature 36.9. Maximum temperature in the past 24 hours 37.2. Heart rate is 89 per minute. Blood pressure elevated at 157/111. EARS, NOSE, AND THROAT: Exam is unchanged from yesterday. LUNGS: Lung montero revealed diminished breath sounds in both lung bases. There is dullness to percussion in both bases. Saturation on room air was 91%. During the nighttime, it went as low as 84%. ABDOMEN: Soft. Good bowel sounds were heard. There was no tenderness. EXTREMITIES: Showed no edema. The patient did have a thoracic MRI done that showed an abnormal lesion at T12. This would be worrisome for malignancy. The patient did have pleural effusions greater on the right than the left that were visualized on the MRI. These have definitively increased compared with his CAT scan done 11 days earlier on October 02. IMPRESSIONS: 1. Multiple lung nodules. 2. Pleural effusions, right greater than left. 3. Abnormal T12 vertebrae suspicious for metastatic disease. 4. Cirrhosis. 5. Renal failure. 6. Recent pancreatitis. COMMENTS AND RECOMMENDATIONS: The case was discussed with Dr. Lnider. As noted yesterday, I do not feel bronchoscopy would provide a diagnosis. The lung nodules would be much too small to think about biopsying through the bronchoscope. The bronchoscopy would be helpful only if he had an atypical lung infection. I think it is more likely these are metastatic nodules in all likelihood. I do not believe an open lung biopsy is a good idea at present with his renal failure and cirrhosis. The patient is getting increasing pleural effusions. If this continues to increase, he might need thoracentesis. Regarding the lung nodules, would only recommend a CT in approximately 2 months if his overall diagnosis has not been made at that time. Dr. Linder is trying to assess if other hospitals might be able to do a biopsy of T12.
--- NOTE | 2017-10-13 16:11 | Nephrology Progress Note ---
Nephrology Progress Note Date of Service Oct 13, 2017. Chief Complaint CHAD Subjective Mr. Phillips was seen & examined in his hospital room this morning. He complains of abdominal distention but notes that he has been constipated. He reports brisk urine output. Review of Systems Constitutional: No fever Cardiovascular: No chest pain Respiratory: No dyspnea at rest Abdomen: + constipation, No nausea, No vomiting Extremities: + leg edema A complete review of systems was performed. Pertinent positives are noted above. All other systems are negative. Vital Signs Last 8 Hrs Date Time Temp Pulse Resp B/P (MAP) Pulse Ox O2 Delivery O2 Flow Rate FiO2 10/13/17 15:25 36.7 87 16 164/97 (119) 92 10/13/17 12:54 160/98 (118) 10/13/17 08:49 166/108 (127) 10/13/17 08:30 Room Air I & O 24-Hour Column 10/14/17 08:00 Intake Total 240 ml Balance 240 ml Last Recorded Weight Weight (Kilograms): 95.300 Physical Exam General Appearance: no apparent distress Head: normocephalic, atraumatic Eyes: PERRL, EOMI Neck: no adenopathy Respiratory/Chest: lungs clear, no respiratory distress Cardiovascular: regular rate, rhythm Abdomen/GI: + distended (hypoactive bowel sounds) Extremities/Musculoskelatal: no pedal edema Neurologic/Psych: alert, oriented x 3 Family History FH: cancer FH: gallbladder disease FH: heart disease Hypertension Kidney disease Kidney stones Father had ESRD requiring HD related to "heart failure Social History Smoking Status: Never smoker Marital Status: Occupation: retired . Two children in good health. 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 Never a smoker. History of heavy alcohol abuse (stopped following recent hospitalization 10/02) Laboratory Results Past 24 Hours 10/13/17 07:10 Red Blood Count 2.61, Mean Corpuscular Volume 92.0, Mean Corpuscular Hemoglobin 31.8, Mean Corpuscular Hemoglobin Concent 34.6, Mean Platelet Volume 8.8, Neutrophils (%) (Auto) 66.2, Lymphocytes (%) (Auto) 12.2, Monocytes (%) (Auto) 13.4, Eosinophils (%) (Auto) 7.7, Basophils (%) (Auto) 0.3, Neutrophils # (Auto ) 3.96, Lymphocytes # (Auto) 0.73, Monocytes # (Auto) 0.80, Eosinophils # (Auto ) 0.46, Basophils # (Auto) 0.02 10/13/17 07:10 Test 10/13/17 07:10 White Blood Count 5.98 K/uL (4.8-10.8) Red Blood Count 2.61 M/uL (4.7-6.1) Hemoglobin 8.3 g/dL (14.0-18.0) Hematocrit 24.0 % (42-52) Mean Corpuscular Volume 92.0 fL (80-100) Mean Corpuscular Hemoglobin 31.8 pg (25-34) Mean Corpuscular Hemoglobin Concent 34.6 g/dl (32-36) Platelet Count 275 K/uL (130-400) Mean Platelet Volume 8.8 fL (7.4-10.4) Neutrophils (%) (Auto) 66.2 % Lymphocytes (%) (Auto) 12.2 % Monocytes (%) (Auto) 13.4 % Eosinophils (%) (Auto) 7.7 % Basophils (%) (Auto) 0.3 % Neutrophils # (Auto) 3.96 K/uL (1.4-6.5) Lymphocytes # (Auto) 0.73 K/uL (1.2-3.4) Monocytes # (Auto) 0.80 K/uL (0.11-0.59) Eosinophils # (Auto) 0.46 K/uL (0-0.5) Basophils # (Auto) 0.02 K/uL (0-0.2) RDW Standard Deviation 43.3 fL (36.4-46.3) RDW Coefficient of Variation 12.8 % (11.5-14.5) Immature Granulocyte % (Auto) 0.2 % Immature Granulocyte # (Auto) 0.01 K/uL (0.00-0.02) Red Blood Cell Morphology Unremarkable Erythrocyte Sedimentation Rate 39 mm/hr (0-14) Anion Gap 10.0 mmol/L (3-11) Est Creatinine Clear Calc Drug Dose 21.5 ml/min Estimated GFR () 17.7 Estimated GFR (Non- 15.3 BUN/Creatinine Ratio 11.9 (10-20) Calcium Level 8.5 mg/dl (8.5-10.1) Total Bilirubin 1.4 mg/dl (0.2-1) Direct Bilirubin 0.7 mg/dl (0-0.2) Aspartate Amino Transf (AST/SGOT) 96 U/L (15-37) Alanine Aminotransferase (ALT/SGPT) 96 U/L (12-78) Alkaline Phosphatase 467 U/L (45-117) C-Reactive Protein 4.39 mg/dl (0-0.29) Total Protein 6.8 gm/dl (6.4-8.2) Albumin 3.0 gm/dl (3.4-5.0) Allergies Coded Allergies: No Known Allergies (Unverified , 10/07/17) Medications Current Inpatient Medications Medications (Trade) Dose Ordered Sig/Margarito Route Start Time Stop Time Status Last Admin Dose Admin Amlodipine Besylate (Norvasc Tab) 10 mg DAILY PO 10/11/17 08:00 11/10/17 08:59 10/13/17 07:44 10 MG Polyethylene (Miralax Powder Packet) 17 gm DAILY PRN PO 10/10/17 23:30 11/09/17 23:29 10/12/17 10:21 17 GM Zolpidem Tartrate (Ambien Tab) 5 mg HSZ PRN PO 10/11/17 00:00 11/10/17 00:00 10/12/17 23:30 5 MG Ondansetron HCl (Zofran Inj) 4 mg Q6H PRN IV 10/11/17 00:00 11/10/17 00:00 Albuterol (Ventolin Hfa Inhaler) 2 puffs Q4H PRN INH 10/11/17 02:15 11/10/17 02:14 Senna/Docusate Sodium (Senokot S Tab) 1 tab QAM PO 10/12/17 08:00 11/11/17 07:59 10/13/17 07:44 1 TAB Lorazepam (Ativan Tab) 0.5 mg HS PRN PO 10/11/17 21:00 11/10/17 20:59 10/12/17 21:55 0.5 MG Hydralazine HCl (HydrALAZINE INJ) 10 mg Q8H PRN IV. 10/12/17 11:30 11/11/17 11:29 10/13/17 01:02 10 MG Bisacodyl (Dulcolax Supp) 10 mg DAILY PRN AK 10/12/17 18:15 11/11/17 18:14 Heparin Sodium (Porcine) (Heparin Sq 5000 Unit/0.5ml) 5,000 unit Q12H SQ 10/13/17 21:00 11/10/17 05:59 Impression (1) Cirrhosis (2) Lung nodules (3) Lesion of vertebra (4) Acute kidney injury (5) Hypertension Recommendations ACUTE KIDNEY INJURY: -- CHAD is continuation from recent hospitalization earlier this month. Patient has not yet entered the recovery phase -- Clinically suspect ATN. Continue to hold Lisinopril and Ibuprofen. Recommend holding IVF. Patient is 16 lbs above his "dry weight". He is now beginning to diurese on his own -- Urinalysis negative for protein or blood. Urine microscopy negative for casts -- Renal US from last admission reviewed. No obstruction or mass -- Monitor serial PRP HYPERTENSION: -- Hold Lisinopril -- Continue Amlodipine -- Use IV Hydralazine PRN SBP > 180 mm HG GI: -- LFT & lipase are trending down. Continue supportive care and monitor OTHER: -- PSA last hospitalization was < 4 -- Consider biopsy of T 12 lesion and pulmonary evaluation of lung nodules
[2017-10-13] MEDS: LORAZEPAM 0.5 MG TAB PO PRN (22:56)
[2017-10-14] MEDS: ZOLPIDEM TARTRATE 5 MG TAB PO PRN ×2 (00:42→22:35)
[2017-10-14 06:51] VITALS: BP 170/79; PULSE 84; TEMP 36.9; O2SAT 92
[2017-10-14 08:38] VITALS: BP 174/99; PULSE 85
[2017-10-14] MEDS: POLYETHYLENE (MIRALAX) 17 GM PACK PO PRN (08:38)
[2017-10-14] MEDS: AMLODIPINE BESYLATE 5 MG TAB PO SCH (08:39)
[2017-10-14] MEDS: DOCUSATE SODIUM/SENNA 50/8.6MG TAB PO SCH (08:40)
[2017-10-14] MEDS: HEPARIN SOD 5000 UNIT/0.5 ML CARP SQ SCH ×2 (08:42→20:46)
[2017-10-14 09:08] LABS: HEMATOCRIT 23.4 % (42-52); HEMOGLOBIN 8.3 g/dL (14.0-18.0); MEAN CELL VOLUME 92.1 fL (80-100); MEAN CORPUSCULAR HEMOGLOBIN 32.7 pg (25-34); MEAN CORPUSCULAR HGB CONC 35.5 g/dl (32-36); MEAN PLATELET VOLUME 8.9 fL (7.4-10.4); PLATELET COUNT 294 K/uL (130-400); WHITE BLOOD COUNT 5.81 K/uL (4.8-10.8)
[2017-10-14 09:33] LABS: CALCIUM 8.5 mg/dl (8.5-10.1); CREATININE 3.88 mg/dl (0.60-1.40); POTASSIUM 4.3 mmol/L (3.5-5.1)
--- NOTE | 2017-10-14 09:45 | PULMONARY PROGRESS NOTE ---
DATE: 10/14/2017 TIME: 9:30 a.m. SUBJECTIVE: The patient's breathing is about the same. He does not feel more short of breath or less short of breath. He complains again of abdominal pain during the night, but not during the day. His appetite is poor. I do believe the patient is anxious over everything that is going on and this would be understandable. OBJECTIVE: GENERAL: The patient appeared in no distress. VITAL SIGNS: Temperature 36.9. Heart rate is 85 per minute. Blood pressure elevated at 174/99. LUNGS: Lung montero revealed decreased breath sounds at the bases. Oxygen saturation is 92% on room air. This was taken by myself. EXTREMITIES: Showed no edema. The abdomen revealed active bowel sounds. Chemistry studies from today are still pending. IMPRESSIONS: 1. Multiple lung nodules -- worrisome for malignancy. 2. Bilateral pleural effusions. 3. Cirrhosis. 4. Recent pancreatitis. 5. Renal failure. 6. Abnormal T12 vertebrae. COMMENTS: Case was discussed with Dr. Cardoso. We did look and could not find presence of a serum protein electrophoresis. He indicated he will order that. From a respiratory perspective would just follow his degree of dyspnea to make sure that the effusions are not enlarging.
--- NOTE | 2017-10-14 10:57 | Nephrology Progress Note ---
Nephrology Progress Note Date of Service Oct 14, 2017. Chief Complaint CHAD Subjective Mr. Phillips was seen & examined in his hospital room this morning. He reports one BM yesterday and notes that his abdominal distention has improved. UO was not recorded yesterday but Mr. Phillips reports brisk diuresis and notes that his leg edema is mildly improved and his weight is down 3 kg since admission. He remains active by ambulating in the hallway. He is tolerating a regular diet without abdominal pain. Review of Systems Constitutional: No fever Cardiovascular: No chest pain Respiratory: No dyspnea at rest Abdomen: No pain Extremities: + leg edema A complete review of systems was performed. Pertinent positives are noted above. All other systems are negative. Vital Signs Last 8 Hrs Date Time Temp Pulse Resp B/P (MAP) Pulse Ox O2 Delivery O2 Flow Rate FiO2 10/14/17 08:38 85 174/99 (124) 10/14/17 06:51 36.9 84 20 170/79 (109) 92 Last Recorded Weight Weight (Kilograms): 94.400 Physical Exam General Appearance: no apparent distress Head: normocephalic, atraumatic Eyes: PERRL, EOMI Neck: no adenopathy Respiratory/Chest: lungs clear Cardiovascular: regular rate, rhythm Abdomen/GI: normal bowel sounds, non tender, + distended Extremities/Musculoskelatal: + swelling (1+ pretibial pitting edema) Neurologic/Psych: alert, oriented x 3 Family History FH: cancer FH: gallbladder disease FH: heart disease Hypertension Kidney disease Kidney stones Father had ESRD requiring HD related to "heart failure Social History Smoking Status: Never smoker Marital Status: Occupation: retired . Two children in good health. 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 Never a smoker. History of heavy alcohol abuse (stopped following recent hospitalization 10/02) Laboratory Results Past 24 Hours 10/14/17 08:45 10/14/17 08:45 Test 10/14/17 00:00 10/14/17 08:45 10/14/17 10:08 Urine Color DK YELLOW Urine Appearance CLEAR (CLEAR) Urine pH 5.0 (4.5-7.5) Urine Specific [place] 1.017 (1.000-1.030) Urine Protein 1+ (NEG) Urine Glucose (UA) NEG (NEG) Urine Ketones NEG (NEG) Urine Occult Blood NEG (NEG) Urine Nitrite NEG (NEG) Urine Bilirubin NEG (NEG) Urine Urobilinogen NEG (NEG) Urine Leukocyte Esterase NEG (NEG) Urine WBC (Auto) 1-5 /hpf (0-5) Urine RBC (Auto) 0-4 /hpf (0-4) Urine Hyaline Casts (Auto) 1-5 /lpf (0-5) Urine Epithelial Cells (Auto) 0-5 /lpf (0-5) Urine Bacteria (Auto) NEG (NEG) Red Blood Count 2.54 M/uL (4.7-6.1) Mean Corpuscular Volume 92.1 fL (80-100) Mean Corpuscular Hemoglobin 32.7 pg (25-34) Mean Corpuscular Hemoglobin Concent 35.5 g/dl (32-36) RDW Standard Deviation 44.0 fL (36.4-46.3) RDW Coefficient of Variation 13.0 % (11.5-14.5) Mean Platelet Volume 8.9 fL (7.4-10.4) Anion Gap 11.0 mmol/L (3-11) Est Creatinine Clear Calc Drug Dose 21.2 ml/min Estimated GFR () 17.6 Estimated GFR (Non- 15.2 BUN/Creatinine Ratio 11.3 (10-20) Calcium Level 8.5 mg/dl (8.5-10.1) Allergies Coded Allergies: No Known Allergies (Unverified , 10/07/17) Medications Current Inpatient Medications Medications (Trade) Dose Ordered Sig/Margarito Route Start Time Stop Time Status Last Admin Dose Admin Amlodipine Besylate (Norvasc Tab) 10 mg DAILY PO 10/11/17 08:00 11/10/17 08:59 10/14/17 08:39 10 MG Polyethylene (Miralax Powder Packet) 17 gm DAILY PRN PO 10/10/17 23:30 11/09/17 23:29 10/14/17 08:38 17 GM Zolpidem Tartrate (Ambien Tab) 5 mg HSZ PRN PO 10/11/17 00:00 11/10/17 00:00 10/14/17 00:42 5 MG Ondansetron HCl (Zofran Inj) 4 mg Q6H PRN IV 10/11/17 00:00 11/10/17 00:00 Albuterol (Ventolin Hfa Inhaler) 2 puffs Q4H PRN INH 10/11/17 02:15 11/10/17 02:14 Senna/Docusate Sodium (Senokot S Tab) 1 tab QAM PO 10/12/17 08:00 11/11/17 07:59 10/14/17 08:40 1 TAB Lorazepam (Ativan Tab) 0.5 mg HS PRN PO 10/11/17 21:00 11/10/17 20:59 10/13/17 22:56 0.5 MG Hydralazine HCl (HydrALAZINE INJ) 10 mg Q8H PRN IV. 10/12/17 11:30 11/11/17 11:29 10/13/17 01:02 10 MG Bisacodyl (Dulcolax Supp) 10 mg DAILY PRN [place] 10/12/17 18:15 11/11/17 18:14 Heparin Sodium (Porcine) (Heparin Sq 5000 Unit/0.5ml) 5,000 unit Q12H SQ 10/13/17 21:00 11/10/17 05:59 10/14/17 08:42 5,000 UNIT Impression (1) Cirrhosis (2) Lung nodules (3) Lesion of vertebra (4) Acute kidney injury (5) Hypertension Recommendations ACUTE KIDNEY INJURY: -- CHAD is continuation from recent hospitalization earlier this month. Clinically suspect ATN. Kidney function was stable overnight. Continue to hold Lisinopril and Ibuprofen. Recommend holding IVF. Patient is now beginning to diurese on his own -- Urinalysis negative for protein or blood. Urine microscopy negative for casts -- SIEP 2016 was negative for monoclonal band. Will recheck SIEP/UIEP and serum free light chains -- Renal US from last admission reviewed. No obstruction or mass -- Monitor serial PRP HYPERTENSION: -- Hold Lisinopril -- Continue Amlodipine -- Use IV Hydralazine PRN SBP > 180 mm HG GI: -- LFT & lipase are trending down. Continue supportive care and monitor OTHER: -- PSA last hospitalization was < 4 -- Consider biopsy of T 12 lesion and pulmonary evaluation of lung nodules
--- NOTE | 2017-10-14 11:40 | Hospitalist Progress Note ---
Hospitalist Progress Note Date of Service Oct 14, 2017. Subjective Pt evaluation today including: conversation w/ patient, conversation w/ family (Spoke with his niece on the phone who is a family medicine physician) Patient reports he is not putting out much urine. He started a 24-hour urine collection today so we shall see. He is eating, he continues to walk laps. He does still feel a little bit short of breath but is not hypoxic. He still has not had much of a bowel movement at all and is willing to try a bisacodyl suppository. All Other Systems: Reviewed and Negative Objective Vital Signs Date Time Temp Pulse Resp B/P (MAP) Pulse Ox O2 Delivery O2 Flow Rate FiO2 10/14/17 08:38 85 174/99 (124) 10/14/17 06:51 36.9 84 20 170/79 (109) 92 10/14/17 00:00 Room Air 10/13/17 22:46 37.0 92 20 159/96 (117) 91 Room Air 10/13/17 16:22 91 Room Air 10/13/17 15:25 36.7 87 16 164/97 (119) 92 10/13/17 12:54 160/98 (118) Physical Exam General Appearance: WD/WN, no apparent distress Eyes: normal inspection, sclerae normal ENT: hearing grossly normal Neck: trachea midline Respiratory/Chest: no respiratory distress, no accessory muscle use, + decreased breath sounds (At the bases bilaterally) Cardiovascular: regular rate, rhythm, no edema, no gallop, no murmur Abdomen: normal bowel sounds, non tender, soft (But mildly distended) Extremities: normal range of motion, non-tender, normal inspection, no pedal edema, no calf tenderness Neurologic/Psychiatric: alert, normal mood/affect, oriented x 3 Skin: normal color, warm/dry, no rash Laboratory Results Last 24 Hours Test 10/14/17 00:00 10/14/17 08:45 10/14/17 10:08 Urine Color DK YELLOW Urine Appearance CLEAR Urine pH 5.0 Urine Specific [place] 1.017 Urine Protein 1+ Urine Glucose (UA) NEG Urine Ketones NEG Urine Occult Blood NEG Urine Nitrite NEG Urine Bilirubin NEG Urine Urobilinogen NEG Urine Leukocyte Esterase NEG Urine WBC (Auto) 1-5 /hpf Urine RBC (Auto) 0-4 /hpf Urine Hyaline Casts (Auto) 1-5 /lpf Urine Epithelial Cells (Auto) 0-5 /lpf Urine Bacteria (Auto) NEG White Blood Count 5.81 K/uL Red Blood Count 2.54 M/uL Hemoglobin 8.3 g/dL Hematocrit 23.4 % Mean Corpuscular Volume 92.1 fL Mean Corpuscular Hemoglobin 32.7 pg Mean Corpuscular Hemoglobin Concent 35.5 g/dl RDW Standard Deviation 44.0 fL RDW Coefficient of Variation 13.0 % Platelet Count 294 K/uL Mean Platelet Volume 8.9 fL Sodium Level 136 mmol/L Potassium Level 4.3 mmol/L Chloride Level 106 mmol/L Carbon Dioxide Level 19 mmol/L Anion Gap 11.0 mmol/L Blood Urea Nitrogen 44 mg/dl Creatinine 3.88 mg/dl Est Creatinine Clear Calc Drug Dose 21.2 ml/min Estimated GFR () 17.6 Estimated GFR (Non- 15.2 BUN/Creatinine Ratio 11.3 Random Glucose 110 mg/dl Calcium Level 8.5 mg/dl Assessment and Plan Patient is a 67 y/o M HTN, HPL, anemia, pulmonary nodules - 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 CHAD was thought to be due to ATN, NSAID and TAWNY use in the setting of an acute pancreatitis episode and was initially treated with IVF. Renal function only minimally improved despite hydration and he was subsequently DCd with a creatinine of approximately 3.0. He states that he had gained 15lbs during his hospital stay and in the week after. Presented to the ER 10/07 c/o exertional dyspnea and weight gain. No acute abnormalities were found on labs or imaging. He was provided a dose of IV Lasix and DCd from the ER. He returned to the ER a few days later with c/o worsening weight gain, worsening LE edema and exertional dyspnea. Initial imaging shows stable, small pleural effusions. Initial labs are notable for worsening renal function as his creatinine has increased from 3 to 3.4. Acute kidney injury with volume overload and dyspnea/bilateral pleural effusions -received a dose of IV Lasix in the ER initially but creatinine has finally stabilized today at 3.88. Bicarbonate mildly low at 19. Was hypoxic at one- point to 84% briefly and was on oxygen, but currently remains on room air. Renal ultrasound normal on previous admission. CT abdomen/pelvis showed moderate perinephric stranding possibly consistent with chronic kidney disease. No stones or obstruction. He is making urine with some continued weight loss, it is still unclear if the i 's and O's are being accurately recorded, however he is now collecting a 24- hour urine for UPEP Clinically this would be ATN. Urine spot protein/creatinine ratio is normal at 0.2, repeat UA now with 1+ protein No brisk diuresis just yet-encouraged him to use the urinal for accurate measurement-hoping this will begin today or tomorrow now the creatinine is stabilized -Appreciate nephrology consultation -No IV fluids at this time, hold off on any further diuretics -Follow PRP and electrolytes -Follow I's and O's Avoid nephrotoxins, continue to hold previous home lisinopril, NSAIDs -Follow chest x-ray and consider thoracentesis for therapeutic and diagnostic purposes if effusions enlarge-we will check chest x-ray again tomorrow Alcoholic cirrhosis/elevated LFTs-alkaline phosphatase persistently in the high 400s and this may not all be from the liver, possibly from bone as well given the T12 lesion. INR and platelets are normal, no evidence of portal hypertension on imaging previously. Liver does appear cirrhotic on previous imaging. He is compensated at this point from a cirrhosis standpoint. Hepatitis C antibody was negative in March of this past year. No other bony lesions noted on other imaging studies.- MRI of the thoracic spine to further evaluate T12 lesion again shows suspicious for neoplasm, as does CT of the thoracic spine ordered by spine surgery Orthopedic spine surgery could perform biopsy but would require general anesthesia-given his renal failure, he is not a candidate for that right now-we will consider interventional radiology for biopsy after discharge from the hospital-possibly at [facility] as suggested by oncology here -Seen by gastroenterology last admission and will need follow-up as an outpatient for HCC surveillance -He has already quit all alcohol use -Follow LFTs -Check alkaline phosphatase isoenzyme panel-pending HTN -BP is uncontrolled but slightly improved, hopefully should improve once renal function improves -cont Norvasc -Add IV hydralazine as needed Anemia -normocytic, related to cirrhosis and possibly CKD - Hb is stable at 8.3. Fe studies normal in 08/2016 and partially done in 09/2017 with normal serum iron and normal TIBC normal. Hemoccult stool was negative in September 2017. B12 and folate were normal recently. -Follow CBC and transfuse as needed but caution with fluid overload -He had colonoscopy 2 and half years ago that was normal as per patient-request records from [facility] - not currently treated with statin due to cirrhosis. Pulmonary nodules -numerous bilateral, seen on CT last admission. Also with T12 marrow replacement lesion not amenable to biopsy in this facility as per my discussion with radiology. Could be granulomatous disease versus malignancy versus atypical infection. He is a lifetime non-smoker. He has no signs or symptoms of infection. Pulmonary and thoracic surgery decided no bronchoscopy at this time as the nodules are too small-there is nothing to biopsy -check TAWNY level for sarcoidosis-pending -Pulmonary recommends follow-up CT chest in 2-3 months versus biopsy of the spine instead for tissue -Could consider PET scan as an outpatient if can get approved which is likely due to his T12 lesion as well as numerous pulmonary nodules Constipation-had a small bowel movement yesterday but still nothing substantial , complains of abdominal distention, I do not think he has ascites -Continue prune juice, docusate/senna, Dulcolax and Dulcolax suppositories as needed-he will have a suppository today -Add on more aggressive bowel regimen if needed Full code - Heparin prophylaxis Disposition-remain in the hospital until renal function is improving Discussed the case in detail with his niece at the patient's request, Dr. Shabnam De Jesus, who is a family medicine physician in [facility]-phone number [phone] -she states that she will be the spokesperson for the family
[2017-10-14 16:07] VITALS: BP 176/115; PULSE 99; TEMP 36.8; O2SAT 93
[2017-10-14] MEDS: HydrALAZINE HCL 20 MG/ML VIAL IV. PRN (16:17)
[2017-10-14 17:10] VITALS: BP_SYST 168; BP_SYST 177; BP_DIAS 104; BP_DIAS 115; PULSE 106
[2017-10-14] MEDS ORDERED: NURSING VERBAL MED ORDER ONE (18:30)
[2017-10-14] MEDS ORDERED: MILK AND MOLASSES ENEMA PR ONE (18:45)
[2017-10-14 21:16] VITALS: BP 167/117; PULSE 90
[2017-10-15 00:20] VITALS: BP 163/96; PULSE 96; TEMP 36.9; O2SAT 93
[2017-10-15] MEDS: AMLODIPINE BESYLATE 5 MG TAB PO SCH (07:31)
[2017-10-15] MEDS: DOCUSATE SODIUM/SENNA 50/8.6MG TAB PO SCH (07:32)
[2017-10-15] MEDS: HEPARIN SOD 5000 UNIT/0.5 ML CARP SQ SCH ×2 (07:34→19:43)
[2017-10-15 07:38] VITALS: BP_SYST 173; BP_SYST 175; BP_DIAS 104; BP_DIAS 111; PULSE 86; PULSE 92; TEMP 36.9; O2SAT 93
[2017-10-15 08:33] LABS: CALCIUM 8.5 mg/dl (8.5-10.1); CREATININE 3.92 mg/dl (0.60-1.40); POTASSIUM 4.5 mmol/L (3.5-5.1)
[2017-10-15] MEDS ORDERED: METOPROLOL TARTRATE 25 MG TAB PO SCH (09:30)
[2017-10-15 10:11] VITALS: BP 163/105; PULSE 85
--- NOTE | 2017-10-15 10:52 | DIAGNOSTIC IMAGING REPORT ---
CHEST 2 VIEWS ROUTINE CLINICAL HISTORY: 67 years-old Male presenting with Follow-up pleural effusions. TECHNIQUE: PA and lateral views of the chest were obtained. COMPARISON: 10/13/2017. FINDINGS: Atherosclerosis of the aortic arch. Cardiac silhouette normal in size. Persistent right basilar opacity and left retrocardiac opacity. Small bilateral pleural effusions. Degenerative changes of the thoracic spine. Upper abdomen normal. IMPRESSION: 1. Unchanged bibasilar opacities, possibly atelectasis. 2. Small bilateral pleural effusions stable to slightly increased in size. Electronically signed by: Segundo Reyna M.D. 10/15/2017 10:50 AM Dictated Date/Time: 10/15/2017 10:49 AM
--- NOTE | 2017-10-15 11:25 | Nephrology Progress Note ---
Nephrology Progress Note Date of Service Oct 15, 2017. Chief Complaint F/U for CHAD Subjective Efe was seen and examined in his room this am. Cr staying around 3.8-3.9. BP running high. Oliguric. Appetite continues to be poor, denies any shortness of breath or chest pain. Review of Systems A complete review of systems was performed. Pertinent positives are noted above. All other systems are negative. Vital Signs Last 8 Hrs Date Time Temp Pulse Resp B/P (MAP) Pulse Ox O2 Delivery O2 Flow Rate FiO2 10/15/17 07:38 36.9 92 18 175/104 (127) 93 Room Air 86 173/111 (131) 10/15/17 03:37 Room Air Last Recorded Weight Weight (Kilograms): 94.200 Physical Exam GENERAL: middle aged male, AAA x 3, pleasant,, not in any distress. NECK: Supple, no JVD. RESPIRATORY: Normal breathing efforts, no accessory muscle use, clear to auscultation bilaterally, no wheezes or rales. CARDIOVASCULAR: S1, S2 normal, rate rhythm regular. EXTREMITY: No lower extremity edema NEURO: speech fluent. PSYCHIATRY: Normal mood and judgment Family History FH: cancer FH: gallbladder disease FH: heart disease Hypertension Kidney disease Kidney stones Father had ESRD requiring HD related to "heart failure Social History Smoking Status: Never smoker Marital Status: Occupation: retired . Two children in good health. 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 Never a smoker. History of heavy alcohol abuse (stopped following recent hospitalization 10/02) Laboratory Results Past 24 Hours 10/15/17 07:38 Test 10/14/17 10:08 10/15/17 07:38 Anion Gap 11.0 mmol/L (3-11) Est Creatinine Clear Calc Drug Dose 21.0 ml/min Estimated GFR () 17.4 Estimated GFR (Non- 15.0 BUN/Creatinine Ratio 11.2 (10-20) Calcium Level 8.5 mg/dl (8.5-10.1) Allergies Coded Allergies: No Known Allergies (Unverified , 10/07/17) Medications Current Inpatient Medications Medications (Trade) Dose Ordered Sig/Margarito Route Start Time Stop Time Status Last Admin Dose Admin Amlodipine Besylate (Norvasc Tab) 10 mg DAILY PO 10/11/17 08:00 11/10/17 08:59 10/15/17 07:31 10 MG Polyethylene (Miralax Powder Packet) 17 gm DAILY PRN PO 10/10/17 23:30 11/09/17 23:29 10/14/17 08:38 17 GM Zolpidem Tartrate (Ambien Tab) 5 mg HSZ PRN PO 10/11/17 00:00 11/10/17 00:00 10/14/17 22:35 5 MG Ondansetron HCl (Zofran Inj) 4 mg Q6H PRN IV 10/11/17 00:00 11/10/17 00:00 Albuterol (Ventolin Hfa Inhaler) 2 puffs Q4H PRN INH 10/11/17 02:15 11/10/17 02:14 Senna/Docusate Sodium (Senokot S Tab) 1 tab QAM PO 10/12/17 08:00 11/11/17 07:59 10/15/17 07:32 1 TAB Lorazepam (Ativan Tab) 0.5 mg HS PRN PO 10/11/17 21:00 11/10/17 20:59 10/13/17 22:56 0.5 MG Hydralazine HCl (HydrALAZINE INJ) 10 mg Q8H PRN IV. 10/12/17 11:30 11/11/17 11:29 10/14/17 16:17 10 MG Bisacodyl (Dulcolax Supp) 10 mg DAILY PRN FL 10/12/17 18:15 11/11/17 18:14 10/14/17 11:40 10 MG Heparin Sodium (Porcine) (Heparin Sq 5000 Unit/0.5ml) 5,000 unit Q12H SQ 10/13/17 21:00 11/10/17 05:59 10/15/17 07:34 5,000 UNIT Metoprolol Tartrate (Lopressor Tab) 25 mg BID PO 10/15/17 09:30 11/14/17 09:29 Impression (1) Cirrhosis (2) Lung nodules (3) Lesion of vertebra (4) Acute kidney injury (5) Hypertension CHAD most likely secondary to ATN, is continuation from recent hospitalization earlier this month. Urinalysis negative for protein or blood. Urine microscopy negative for casts. SIEP 2016 was negative for monoclonal band. Pending repeat SIEP/UIEP and serum free light chains. Renal US from last admission reviewed. No obstruction or mass Recommendations -- creatinine staying around 3.8-3.9, without clear sign of renal recovery. Has electrolyte abnormality as well. Blood pressure running high and urine output seems relatively low. --give Lasix 80 IV x1 dose monitor intake and output -- continue to monitor renal function with daily renal panel -- Hold Lisinopril -- Continue Amlodipine -- Use IV Hydralazine PRN SBP > 180 mm HG --increase metoprolol to 50 milligram twice a day
[2017-10-15] MEDS ORDERED: FUROSEMIDE INJ 80 MG in SYRINGE 0 ML IV ONE (11:38)
[2017-10-15 15:30] VITALS: BP 143/79; PULSE 83; TEMP 36.8; O2SAT 94
--- NOTE | 2017-10-15 16:13 | DIAGNOSTIC IMAGING REPORT ---
DUPLEX PORTAL HEPATIC VEINS CLINICAL HISTORY: 67 years-old Male presenting with new onset ascites, cirrhosis, eval for PVT . TECHNIQUE: Real-time grayscale and limited color Doppler ultrasound imaging of the abdomen limited to the right upper quadrant was performed. COMPARISON: None. FINDINGS: Inferior vena cava: Patent. Normal waveforms. Hepatic veins: Left, right, and middle hepatic veins patent with normal triphasic waveforms. Portal veins: Main portal vein patent with normal antegrade flow and normal velocity of 28 cm/s with gentle on dilating waveforms. Right and left portal veins patent with normal directional flow. Hepatic arteries: Patent with normal velocity of 82 cm/s. Right and left hepatic arteries patent with normal waveforms and velocity. Portal splenic confluence: Patent. Splenic vein: Patent. IMPRESSION: Patent hepatic vasculature. No evidence of portal vein thrombosis. Electronically signed by: Segundo Reyna M.D. 10/15/2017 4:12 PM Dictated Date/Time: 10/15/2017 4:10 PM
--- NOTE | 2017-10-15 16:15 | DIAGNOSTIC IMAGING REPORT ---
ASCITES-ABDOMEN LIMITED CLINICAL HISTORY: 67 years-old Male presenting with abd distension, eval for ascites. TECHNIQUE: Real-time grayscale ultrasound imaging of the the 4 quadrants of the abdomen was performed for a focused evaluation at the site of clinical concern. COMPARISON: None. FINDINGS: Small amount of free fluid in the upper quadrants and left lower quadrant. A slightly larger volume of ascites noted in the right lower quadrant though volume is still small. Bilateral pleural effusions suggested. IMPRESSION: 1. Small volume ascites. 2. Bilateral pleural effusions. Electronically signed by: Segundo Reyna M.D. 10/15/2017 4:13 PM Dictated Date/Time: 10/15/2017 4:12 PM
[2017-10-15 18:27] VITALS: BP 170/92; PULSE 87
[2017-10-15] MEDS: SODIUM BICARBONATE 650 MG TAB PO SCH (19:42)
[2017-10-15] MEDS: METOPROLOL TARTRATE 25 MG TAB PO SCH (19:42)
[2017-10-15 19:46] VITALS: BP 149/78; PULSE 87
[2017-10-15] MEDS ORDERED: SENNA 8.6 MG TAB PO ONE (22:00)
[2017-10-15] MEDS: ZOLPIDEM TARTRATE 5 MG TAB PO PRN (22:03)
[2017-10-16 00:45] VITALS: BP 151/91; PULSE 89; TEMP 36.9; O2SAT 94
--- NOTE | 2017-10-16 06:32 | Progress Note ---
Subjective Date of Service: late entry for visit on Oct 15, 2017. Subjective Pt evaluation today including: conversation w/ patient, physical exam, chart review, lab review, review of studies (u/s abd, etc), review of inpatient medication list Pain: abdominal bloating; no back pain PO Intake: fair pt's main complaint is that of abdominal bloating - quite uncomfortable - as well as dyspnea on exertion latter has not improved while hospitalized some orthopnea no drinking of etoh in quite some time Problem List Medical Problems: (1) Acute kidney injury Status: Acute (2) Acute on chronic renal failure Status: Acute (3) Ascites Status: Acute (4) Cirrhosis of liver Status: Acute (5) Pancreatitis Status: Acute (6) Pleural effusion Status: Acute Review of Systems Constitutional: No fever Cardiac: + orthopnea, + edema, No chest pain Abdomen: + pain, No nausea, No vomiting Male : + slowing stream, No dysuria Objective Vital Signs Date Time Temp Pulse Resp B/P (MAP) Pulse Ox O2 Delivery O2 Flow Rate FiO2 10/16/17 00:45 36.9 89 20 151/91 (111) 94 Room Air 10/16/17 00:00 Room Air 10/15/17 20:00 Room Air 10/15/17 19:46 87 149/78 (101) 10/15/17 18:27 87 170/92 (118) 10/15/17 16:00 Room Air 10/15/17 15:30 36.8 83 18 143/79 (100) 94 Room Air 10/15/17 10:11 85 163/105 (124) 10/15/17 08:00 Room Air 10/15/17 07:38 36.9 92 18 175/104 (127) 93 Room Air 86 173/111 (131) Physical Exam General Appearance: no apparent distress ENT: pharynx normal Neck: no JVD Respiratory/Chest: no respiratory distress, no accessory muscle use, + decreased breath sounds (bases) Cardiovascular: regular rate, rhythm, no gallop, no murmur Abdomen: normal bowel sounds, no organomegaly, + distended (with ascites), + pertinent finding (mild tenderness throughout) Extremities: + pedal edema Neurologic/Psychiatric: alert, oriented x 3, + pertinent finding (no asterixis ) Laboratory Results Last 24 Hours Test 10/15/17 07:38 10/15/17 15:05 3/4/18 04:44 Sodium Level 135 mmol/L Potassium Level 4.5 mmol/L Chloride Level 106 mmol/L Carbon Dioxide Level 19 mmol/L Anion Gap 11.0 mmol/L Blood Urea Nitrogen 44 mg/dl Creatinine 3.92 mg/dl Est Creatinine Clear Calc Drug Dose 21.0 ml/min Estimated GFR () 17.4 Estimated GFR (Non- 15.0 BUN/Creatinine Ratio 11.2 Random Glucose 96 mg/dl Calcium Level 8.5 mg/dl Assessment and Plan 67yo male with: 1. acute kidney injury - suspected to be from ATN - no significant improvement in creatinine. Nephrology consult appreciated. Agree with a dose of diuretic today to assist with volume overload. Renal ultrasound normal on previous admission. CT abdomen/pelvis showed moderate perinephric stranding possibly consistent with chronic kidney disease. No stones or obstruction. Daily BMP. 2. alcoholic cirrhosis - check abdominal u/s today to see if there is a large enough pocket to perform a therapeutic paracentesis. Cont diuretic therapy as tolerated. Check portal vein dopplers, r/o PVT. 3. HTN - uncontrolled; add metoprolol 25 BID. Cont amlodipine. 4. anemia - likely due to #2. Follow with cbc every 2-3 days for stability. 5. elevated alk phos - either 2nd to cirrhosis or bony mets. Follow. 6. pulmonary nodules and T12 metastatic lesion - all concerning for metastatic cancer. Consider bx of the T12 met; pulmonary nodules are too small for bx. TAWNY level for sarcoid pending. 7. DVT proph - heparin q12h. Dr. Shabnam De Jesus, who is a family medicine physician - pt's niece [phone] will update her tomorrow Continued [facility] stay due to: other (ATN) Discharge planning: uncertain
[2017-10-16 07:37] VITALS: BP 135/77; PULSE 90; TEMP 37; O2SAT 91
[2017-10-16 07:56] LABS: CALCIUM 8.5 mg/dl (8.5-10.1); CREATININE 4.01 mg/dl (0.60-1.40); POTASSIUM 4.1 mmol/L (3.5-5.1)
[2017-10-16] MEDS: DOCUSATE SODIUM/SENNA 50/8.6MG TAB PO SCH (08:00)
[2017-10-16] MEDS: POLYETHYLENE (MIRALAX) 17 GM PACK PO PRN (08:00)
[2017-10-16] MEDS: METOPROLOL TARTRATE 25 MG TAB PO SCH ×2 (08:01→19:53)
[2017-10-16] MEDS: SODIUM BICARBONATE 650 MG TAB PO SCH ×2 (08:02→19:53)
[2017-10-16] MEDS: AMLODIPINE BESYLATE 5 MG TAB PO SCH (08:02)
[2017-10-16] MEDS: HEPARIN SOD 5000 UNIT/0.5 ML CARP SQ SCH ×2 (08:05→19:58)
--- NOTE | 2017-10-16 11:56 | Nephrology Progress Note ---
Nephrology Progress Note Date of Service Oct 16, 2017. Chief Complaint F/U for CHAD Subjective Efe was seen and examined in his room this am. Cr continues to trend up slightly, 4.0 today. Urine output improved and has been net negative after 1 dose of Lasix 80 IV yesterday. Blood pressure well controlled. Appetite continues to be poor, denies any shortness of breath or chest pain. Review of Systems A complete review of systems was performed. Pertinent positives are noted above. All other systems are negative. Vital Signs Last 8 Hrs Date Time Temp Pulse Resp B/P (MAP) Pulse Ox O2 Delivery O2 Flow Rate FiO2 10/16/17 07:37 37.0 90 20 135/77 (96) 91 Room Air Last Recorded Weight Weight (Kilograms): 92.700 Physical Exam GENERAL: Middle-aged man, AAA x 3, pleasant, healthy-appearing, not in any distress. NECK: Supple, no JVD. RESPIRATORY: Normal breathing efforts, no accessory muscle use, clear to auscultation bilaterally, no wheezes or rales. CARDIOVASCULAR: S1, S2 normal, rate rhythm regular. EXTREMITY: No lower extremity edema NEURO: speech fluent. PSYCHIATRY: Normal mood and judgment Family History FH: cancer FH: gallbladder disease FH: heart disease Hypertension Kidney disease Kidney stones Father had ESRD requiring HD related to "heart failure Social History Smoking Status: Never smoker Marital Status: Occupation: retired . Two children in good health. 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 Never a smoker. History of heavy alcohol abuse (stopped following recent hospitalization 10/02) Laboratory Results Past 24 Hours 10/16/17 07:12 Test 10/15/17 15:05 10/16/17 07:12 Anion Gap 10.0 mmol/L (3-11) Est Creatinine Clear Calc Drug Dose 20.4 ml/min Estimated GFR () 16.9 Estimated GFR (Non- 14.6 BUN/Creatinine Ratio 11.3 (10-20) Calcium Level 8.5 mg/dl (8.5-10.1) Allergies Coded Allergies: No Known Allergies (Unverified , 10/07/17) Medications Current Inpatient Medications Medications (Trade) Dose Ordered Sig/Margarito Route Start Time Stop Time Status Last Admin Dose Admin Amlodipine Besylate (Norvasc Tab) 10 mg DAILY PO 10/11/17 08:00 11/10/17 08:59 10/16/17 08:02 10 MG Polyethylene (Miralax Powder Packet) 17 gm DAILY PRN PO 10/10/17 23:30 11/09/17 23:29 10/16/17 08:00 17 GM Zolpidem Tartrate (Ambien Tab) 5 mg HSZ PRN PO 10/11/17 00:00 11/10/17 00:00 10/15/17 22:03 5 MG Ondansetron HCl (Zofran Inj) 4 mg Q6H PRN IV 10/11/17 00:00 11/10/17 00:00 Albuterol (Ventolin Hfa Inhaler) 2 puffs Q4H PRN INH 10/11/17 02:15 11/10/17 02:14 10/16/17 07:58 2 PUFFS Senna/Docusate Sodium (Senokot S Tab) 1 tab QAM PO 10/12/17 08:00 11/11/17 07:59 10/15/17 07:32 1 TAB Lorazepam (Ativan Tab) 0.5 mg HS PRN PO 10/11/17 21:00 11/10/17 20:59 10/13/17 22:56 0.5 MG Hydralazine HCl (HydrALAZINE INJ) 10 mg Q8H PRN IV. 10/12/17 11:30 11/11/17 11:29 10/14/17 16:17 10 MG Bisacodyl (Dulcolax Supp) 10 mg DAILY PRN MD 10/12/17 18:15 11/11/17 18:14 10/14/17 11:40 10 MG Heparin Sodium (Porcine) (Heparin Sq 5000 Unit/0.5ml) 5,000 unit Q12H SQ 10/13/17 21:00 11/10/17 05:59 10/16/17 08:05 5,000 UNIT Metoprolol Tartrate (Lopressor Tab) 50 mg BID PO 10/15/17 20:00 11/14/17 09:29 10/16/17 08:01 50 MG Sodium Bicarbonate (Sodium Bicarbonate Tab) 650 mg BID PO 10/15/17 20:00 11/14/17 19:59 10/16/17 08:02 650 MG Impression (1) Cirrhosis (2) Lung nodules (3) Lesion of vertebra (4) Acute kidney injury (5) Hypertension CHAD most likely secondary to ATN, is continuation from recent hospitalization earlier this month. Urinalysis negative for protein or blood. Urine microscopy negative for casts. SIEP 2017 was negative for monoclonal band. Pending repeat SIEP/UIEP and serum free light chains. Renal US from last admission reviewed. No obstruction or mass Recommendations -- creatinine continues to trend up slowly, 4.0 today with some electrolyte abnormality and without clear sign of renal recovery, however, urine output improved with IV Lasix yesterday and blood pressure currently better controlled after metoprolol was increased. --on NaBicarb 650 mg BID -- continue to monitor renal function with daily renal panel -- Hold Lisinopril -- Continue Amlodipine, metoprolol to 50 milligram twice a day and IV Hydralazine PRN SBP > 180 mm HG Will follow
[2017-10-16 15:09] VITALS: BP 166/97; PULSE 75; TEMP 36.7; O2SAT 95
--- NOTE | 2017-10-16 16:28 | DIAGNOSTIC IMAGING REPORT ---
KUB CLINICAL HISTORY: Bloating. Constipation. FINDINGS: 2 AP, portable, supine abdominal radiographs are compared to study dated 10/07/2017. There is a nonobstructed abdominal bowel gas pattern. No evidence of intraperitoneal free air is seen on these supine images. Mild fecal retention is observed. There are no abnormal abdominal calcifications. The skeletal structures are osteopenic. Moderate lumbosacral spondylosis is identified. IMPRESSION: Nonobstructed abdominal bowel gas pattern. Electronically signed by: Cruz Forde M.D. 10/16/2017 4:26 PM Dictated Date/Time: 10/16/2017 4:26 PM
[2017-10-16 19:51] VITALS: BP 166/85; PULSE 86
[2017-10-16] MEDS: LORAZEPAM 0.5 MG TAB PO PRN (20:03)
[2017-10-16] MEDS: ZOLPIDEM TARTRATE 5 MG TAB PO PRN (21:19)
--- NOTE | 2017-10-16 22:33 | Progress Note ---
Subjective Date of Service: Oct 16, 2017. Subjective Pt evaluation today including: conversation w/ patient, conversation w/ family (girlfriend at bedside; niece by phone), physical exam, chart review, lab review Pain: abdominal bloating/discomfort PO Intake: eating - fair patient with numerous questions today main complaint is abdominal bloating/fullness now having what he describes as diarrhea but the stool is modestly formed; not pure liquid had been constipated prior no nausea or emesis no fevers walking the hallways albeit with modest dyspnea Problem List Medical Problems: (1) Acute kidney injury Status: Acute (2) Acute on chronic renal failure Status: Acute (3) Ascites Status: Acute (4) Cirrhosis of liver Status: Acute (5) Pancreatitis Status: Acute (6) Pleural effusion Status: Acute Review of Systems Constitutional: No fever, No chills Respiratory: No cough Cardiac: No chest pain Abdomen: + see HPI, No nausea, No vomiting, No GI bleeding Objective Vital Signs Date Time Temp Pulse Resp B/P (MAP) Pulse Ox O2 Delivery O2 Flow Rate FiO2 10/16/17 19:51 86 166/85 (112) 10/16/17 16:00 Room Air 10/16/17 15:09 36.7 75 20 166/97 (120) 95 Room Air 10/16/17 08:00 Room Air 10/16/17 07:37 37.0 90 20 135/77 (96) 91 Room Air 10/16/17 00:45 36.9 89 20 151/91 (111) 94 Room Air 10/16/17 00:00 Room Air Physical Exam General Appearance: no apparent distress ENT: pharynx normal Neck: no JVD Respiratory/Chest: no respiratory distress, no accessory muscle use, + decreased breath sounds (bases) Cardiovascular: regular rate, rhythm, no gallop, no murmur Abdomen: normal bowel sounds, non tender, no organomegaly, + distended (mild) Extremities: no pedal edema Neurologic/Psychiatric: alert, oriented x 3 Laboratory Results Last 24 Hours Test 10/16/17 07:12 Sodium Level 135 mmol/L Potassium Level 4.1 mmol/L Chloride Level 105 mmol/L Carbon Dioxide Level 20 mmol/L Anion Gap 10.0 mmol/L Blood Urea Nitrogen 46 mg/dl Creatinine 4.01 mg/dl Est Creatinine Clear Calc Drug Dose 20.4 ml/min Estimated GFR () 16.9 Estimated GFR (Non- 14.6 BUN/Creatinine Ratio 11.3 Random Glucose 91 mg/dl Calcium Level 8.5 mg/dl Assessment and Plan 67yo male with: 1. acute kidney injury - suspected to be from ATN - no significant improvement in creatinine. Creatinine minimally worse today but had excellent diuresis yesterday with IV lasix. Nephrology consult appreciated. Renal ultrasound normal on previous admission. CT abdomen/pelvis showed moderate perinephric stranding possibly consistent with chronic kidney disease but clinical picture most c/w CHAD from ATN. No stones or obstruction. Doubt hepatorenal given his elevated urine Na. Daily BMP. 2. alcoholic cirrhosis - no PVT on dopplers. In light of abdominal symptoms will obtain diagnostic paracentesis to r/o SBP. Also send fluid for SAAG and cytologies (especially in light of pulmonary and T12 mets). 3. HTN - uncontrolled; increase metoprolol to 50 BID. Cont amlodipine. 4. anemia - likely due to #2. Repeat cbc in am. 5. elevated alk phos - either 2nd to cirrhosis or bony mets. Repeat LFTs in am. 6. pulmonary nodules and T12 metastatic lesion - all concerning for metastatic cancer. Consider bx of the T12 met; pulmonary nodules are too small for bx. TAWNY level wnl. Check ascites cytology. 7. DVT proph - heparin q12h. Hold heparin in am for diagnostic paracentesis. 8. abdominal fullness - likely due to small amount of ascites; cannot rule out constipation and other issues - check KUB to r/o severe constipation, ileus, etc. Dr. Shabnam De Jesus, who is a family medicine physician - pt's niece -- I updated her today [phone] time spent 35 min today Continued [facility] stay due to: other (ATN) Discharge planning: uncertain
[2017-10-16 23:10] VITALS: BP 156/92; PULSE 80; TEMP 37.6; O2SAT 92
[2017-10-17] VITALS (8 sets, daily range): BP systolic 150–183; BP diastolic 90–116; PULSE 71–85; TEMP 36.7–37.3; O2SAT 94–95
[2017-10-17 07:09] LABS: MEAN CELL VOLUME 91.3 fL (80-100); MEAN CORPUSCULAR HEMOGLOBIN 31.7 pg (25-34); MEAN CORPUSCULAR HGB CONC 34.8 g/dl (32-36); MEAN PLATELET VOLUME 8.5 fL (7.4-10.4); PLATELET COUNT 307 K/uL (130-400); RED CELL DISTRIBUTION WIDTH CV 13.1 % (11.5-14.5); WHITE BLOOD COUNT 6.21 K/uL (4.8-10.8)
[2017-10-17 07:36] LABS: ALBUMIN 2.5 gm/dl (3.4-5.0); CALCIUM 8.2 mg/dl (8.5-10.1); CREATININE 4.29 mg/dl (0.60-1.40); POTASSIUM 4.1 mmol/L (3.5-5.1)
[2017-10-17 07:39] LABS: TOTAL PROTEIN 6.6 gm/dl (6.4-8.2)
[2017-10-17] MEDS: AMLODIPINE BESYLATE 5 MG TAB PO SCH (08:19)
[2017-10-17] MEDS: DOCUSATE SODIUM/SENNA 50/8.6MG TAB PO SCH (08:20)
[2017-10-17] MEDS: METOPROLOL TARTRATE 25 MG TAB PO SCH (08:21)
[2017-10-17] MEDS: SODIUM BICARBONATE 650 MG TAB PO SCH (08:21)
--- NOTE | 2017-10-17 10:15 | Nephrology Progress Note ---
Nephrology Progress Note Date of Service Oct 17, 2017. Chief Complaint F/U for CHAD Subjective Efe was seen and examined in his room this am. Cr continues to trend up, 4.3 today. Urine output improved and has been net negative. Blood pressure remain elevated Appetite continues to be poor, denies any shortness of breath or chest pain. Has been having abdominal discomfort and had low grade fever last night. UA remain unremarkable. Review of Systems A complete review of systems was performed. Pertinent positives are noted above. All other systems are negative. Vital Signs Last 8 Hrs Date Time Temp Pulse Resp B/P (MAP) Pulse Ox O2 Delivery O2 Flow Rate FiO2 10/17/17 08:24 36.8 83 20 150/90 (110) 94 Room Air 10/17/17 08:17 85 161/97 (118) 10/17/17 07:15 Room Air Last Recorded Weight Weight (Kilograms): 93.900 Physical Exam GENERAL: Middle-aged man, AAA x 3, pleasant, healthy-appearing, not in any distress. NECK: Supple, no JVD. RESPIRATORY: Normal breathing efforts, no accessory muscle use, clear to auscultation bilaterally, no wheezes or rales. CARDIOVASCULAR: S1, S2 normal, rate rhythm regular. ABDOMEN: distended but not tense or tender. EXTREMITY: No lower extremity edema NEURO: speech fluent. PSYCHIATRY: Normal mood and judgment Family History FH: cancer FH: gallbladder disease FH: heart disease Hypertension Kidney disease Kidney stones Father had ESRD requiring HD related to "heart failure Social History Smoking Status: Never smoker Marital Status: Occupation: retired . Two children in good health. 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 Never a smoker. History of heavy alcohol abuse (stopped following recent hospitalization 10/02) Laboratory Results Past 24 Hours 10/17/17 06:40 10/17/17 06:40 Test 10/17/17 06:40 Red Blood Count 2.52 M/uL (4.7-6.1) Mean Corpuscular Volume 91.3 fL (80-100) Mean Corpuscular Hemoglobin 31.7 pg (25-34) Mean Corpuscular Hemoglobin Concent 34.8 g/dl (32-36) RDW Standard Deviation 44.0 fL (36.4-46.3) RDW Coefficient of Variation 13.1 % (11.5-14.5) Mean Platelet Volume 8.5 fL (7.4-10.4) Anion Gap 10.0 mmol/L (3-11) Est Creatinine Clear Calc Drug Dose 19.0 ml/min Estimated GFR () 15.6 Estimated GFR (Non- 13.4 BUN/Creatinine Ratio 11.0 (10-20) Calcium Level 8.2 mg/dl (8.5-10.1) Total Bilirubin 2.7 mg/dl (0.2-1) Direct Bilirubin 2.0 mg/dl (0-0.2) Aspartate Amino Transf (AST/SGOT) 135 U/L (15-37) Alanine Aminotransferase (ALT/SGPT) 126 U/L (12-78) Alkaline Phosphatase 609 U/L (45-117) Total Protein 6.6 gm/dl (6.4-8.2) Albumin 2.5 gm/dl (3.4-5.0) Allergies Coded Allergies: No Known Allergies (Unverified , 10/07/17) Medications Current Inpatient Medications Medications (Trade) Dose Ordered Sig/Margarito Route Start Time Stop Time Status Last Admin Dose Admin Amlodipine Besylate (Norvasc Tab) 10 mg DAILY PO 10/11/17 08:00 11/10/17 08:59 10/17/17 08:19 10 MG Polyethylene (Miralax Powder Packet) 17 gm DAILY PRN PO 10/10/17 23:30 11/09/17 23:29 10/16/17 08:00 17 GM Zolpidem Tartrate (Ambien Tab) 5 mg HSZ PRN PO 10/11/17 00:00 11/10/17 00:00 10/16/17 21:19 5 MG Ondansetron HCl (Zofran Inj) 4 mg Q6H PRN IV 10/11/17 00:00 11/10/17 00:00 Albuterol (Ventolin Hfa Inhaler) 2 puffs Q4H PRN INH 10/11/17 02:15 11/10/17 02:14 10/16/17 07:58 2 PUFFS Senna/Docusate Sodium (Senokot S Tab) 1 tab QAM PO 10/12/17 08:00 11/11/17 07:59 10/17/17 08:20 1 TAB Lorazepam (Ativan Tab) 0.5 mg HS PRN PO 10/11/17 21:00 11/10/17 20:59 10/16/17 20:03 0.5 MG Hydralazine HCl (HydrALAZINE INJ) 10 mg Q8H PRN IV. 10/12/17 11:30 11/11/17 11:29 10/14/17 16:17 10 MG Bisacodyl (Dulcolax Supp) 10 mg DAILY PRN [place] 10/12/17 18:15 11/11/17 18:14 10/14/17 11:40 10 MG Heparin Sodium (Porcine) (Heparin Sq 5000 Unit/0.5ml) 5,000 unit Q12H SQ 10/13/17 21:00 11/10/17 05:59 Future Hold 10/16/17 19:58 5,000 UNIT Metoprolol Tartrate (Lopressor Tab) 50 mg BID PO 10/15/17 20:00 11/14/17 09:29 10/17/17 08:21 50 MG Sodium Bicarbonate (Sodium Bicarbonate Tab) 650 mg BID PO 10/15/17 20:00 11/14/17 19:59 10/17/17 08:21 650 MG Impression (1) Cirrhosis (2) Lung nodules (3) Lesion of vertebra (4) Acute kidney injury (5) Hypertension CHAD most likely secondary to ATN, is continuation from recent hospitalization earlier this month. Urinalysis negative for protein or blood. Urine microscopy negative for casts. SIEP 2017 was negative for monoclonal band. Pending repeat SIEP/UIEP and serum free light chains. Renal US from last admission reviewed. No obstruction or mass Recommendations -- creatinine continues to trend up slowly, 4.3. K, Bicarb acceptable. Remain non oliguric. -- continue on NaBicarb 650 mg BID -- Hold Lisinopril -- Continue Amlodipine -- increase metoprolol to 100 milligram twice a day and IV Hydralazine PRN SBP > 180 mm HG -- plan for paracentesis today Will follow
[2017-10-17] MEDS ORDERED: ACETAMINOPHEN 500 MG TAB PO PRN (10:45)
--- NOTE | 2017-10-17 10:48 | Discharge Instructions ---
Discharge Instructions Procedure Procedure Date: Oct 17, 2017. Reason for visit: Acute On Chronic Renal Failure, Edema. Discharge Discharge Date: Oct 17, 2017. Discharge Diagnosis: Ascites Medications Restart Stopped Medication(s): Resume home meds Instructions Activity Recommendations: No limitations Return to School/Work: no limitations Recommended Home Diet: No Limitations Provider Instructions: Successful ultrasound-guided diagnostic paracentesis. Allergies Coded Allergies: No Known Allergies (Unverified , 10/07/17) Cristina Serrano Recommendations: Call your doctor if: * Temperature above 101 degrees * Pain not relieved by pain medicine ordered * There is increased drainage or redness from any incision * You have any unanswered questions or concerns. Your Doctors Instructions noted above were prepared by provider Segundo Reyna. Patient Signature Section: Patient Instructions Signature Page Watson Phillips Patient (or Guardian) Signature/Date: I have read and understand the instructions given to me by my caregivers. Caregiver/RN/Doctor Signature/Date: The above-named patient and/or guardian has received patient instructions on this date. + Original Patient Signature Page (only) stays with chart. Please make copy for patient.
--- NOTE | 2017-10-17 11:12 | DIAGNOSTIC IMAGING REPORT ---
PARACENTESIS ABDOMEN W/IMAGING CLINICAL HISTORY: 67 years-old Male presenting with ascites, new onset cirrhosis. COMPARISON: 10/15/2017. PROCEDURE: The procedure and its risks, benefits and alternatives were discussed with the patient, and written informed consent was obtained. A timeout was performed to confirm patient identity. Limited ultrasound of the abdomen was performed to determine a safe needle entry site. The right lower quadrant was prepped and draped in the usual aseptic fashion. 1% Lidocaine was used for local anesthesia. A 22-gauge spinal needle was inserted into the peritoneal space using ultrasound guidance. A total of 20 cc of clear yellow ascites was aspirated. The needle was removed, and a dressing applied. The patient tolerated the procedure well. No immediate complications. IMPRESSION: Ultrasound-guided diagnostic paracentesis with aspiration of 20 cc of ascites. Electronically signed by: Segundo Reyna M.D. 10/17/2017 11:10 AM Dictated Date/Time: 10/17/2017 11:09 AM
[2017-10-17] MEDS: POLYETHYLENE (MIRALAX) 17 GM PACK PO SCH (15:30)
--- NOTE | 2017-10-17 16:25 | Gastrointestinal Consultation ---
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 Pt was seen and evaluated, chart reviewed. Pt notes his symptoms are identical to previous admission. Since July, he has had upper abdominal pain, constant, epigastric in location. Sharp, burning sensation. This radiates to his back and underneath his breasts. No nausea, vomiting. Unchanged w/ PO intake but notes he has a decreased appetite w/ early satiety. Denies weight loss. He tells me he also has abdominal fullness and pressure. This is generalized and new in September. He tells me he feels like he could burst. Constant full and pressure sensation, unchanged with urination, BM. Has new constipation, used to move his bowels daily. In past two months has been having stools every other day. Very formed, hard to pass with straining. Has had some thinner stools. Stools are brown. No black or bloody stools. He notes dark urine, decreased output. No painful urination, blood in urine. No weight loss, fever, chills, nightsweats, CP, SOB. Paracentesis 10/17/17: 20 cc off. No SBP - PMN 16. SAAG 0.6 w/ total protein 6.6 not suggestive of portal HTN. Lipase 2300, Amylase 600 KUB 10/16/17: Non-obstructed abdominal bowel gas pattern ABD US 10/15/17: Small volume ascites. Bilateral pleural effusions Hepatic Duplex 10/15/17: Patent hepatic vasculature. No evidence of portal vein thrombosis Chest XR 10/15/17: Unchanged bibasilar opacities, possibly atelectasis. Small bilateral pleural effusions stable to slightly increased in size Chest CT 10/12/17: Minimally increased sclerosis with ill-defined margins involves the anterior portion of the T12 vertebral body which may correlate with the focal area of marrow replacement seen on comparison MRI studies. Again , this is suspicious for metastatic disease. No additional suspicious lytic or blastic bony lesions of the spine identified. Discogenic degenerative changes, facet arthropathy and endplate spurring as above. Moderate bilateral pleural effusions with multifocal bilateral pulmonary nodules, better evaluated on CT chest 10/02/2017. Thoracic MRI 10/12/17: Suspicious lesion at the T12 level, which is highly concerning for a site of metastatic disease. No convincing evidence of an additional osseous lesion in the thoracic spine. Mild degenerative changes of the thoracic spine including neural foraminal narrowing on the left at T8-9 and bilaterally at T9-10. Partially visualized degenerative changes in the lower cervical spine CT ABD/Pelvis 10/02/17: Numerous small nodules within visualized portions of the lungs which are new since CT of August 25, 2013. While nonspecific, metastatic disease is within the differential and correlation with history of known malignancy is recommended. A follow-up chest CT could be obtained. Trace bilateral pleural effusions with possible pleural nodularity. Discussed with Dr. Linder at time of dictation. Moderate bilateral perinephric infiltration, a nonspecific finding. Mild prominence of both collecting systems without melva hydronephrosis. No ureteral calculi. Small amount of ascites. Suspected cirrhosis. Extensive atherosclerotic plaque. 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 Family history of GI malignancy: none Family history of liver disease: none Family history of pancreatitis: none Family history of gallbladder disease: mom w/ cholecystitis and gallstones Past Medical/Surgical History Medical Problems: (1) Acute kidney injury Status: Acute (2) Acute on chronic renal failure Status: Acute (3) Ascites Status: Acute (4) Cirrhosis of liver Status: Acute (5) Pancreatitis Status: Acute (6) Pleural effusion Status: Acute Past Medical History: CHAD, anemia, HTN, dyslipidemia, ETOH abuse - sober 09/2017, cirrhosis, pulm. nodules, T12 vertebral lesion Past Surgical History: colonoscopy 2016 hernia repair carpal tunnel Family History FH: cancer FH: gallbladder disease FH: heart disease Hypertension Kidney disease Kidney stones gallstones Social History Smoking Status: Never Smoker Alcohol Use: heavy (history, sober 10/12) Marital Status: Housing Status: lives with significant other Occupation Status: retired Allergies Coded Allergies: No Known Allergies (Unverified , 10/07/17) Current Medications Home Meds and Scripts Medications Dose Route/Sig Max Daily Dose Days Date Category Proair Respiclick (Albuterol Sulfate) 108 Mcg/Act Aer 2 Puffs INH Q4H PRN 10/10/17 Reported Miralax (Polyethylene Glycol 3350) 1 Pow Pow 17 Gm PO DAILY PRN 10/10/17 Reported Norvasc (Amlodipine Besylate) 5 Mg Tab 10 Mg PO DAILY 10/10/17 Reported Review of Systems Constitutional: No fever, No chills, No weight loss, No weakness, No fatigue ENT: No hearing loss, No unusual epistaxis, No nasal symptoms, No sore throat, No tinnitus, No trouble swallowing, No pain on swallowing Respiratory: + shortness of breath, No cough, No sputum, No wheezing, No hemoptysis Cardiac: No chest pain, No orthopnea, No edema, No palpitations Abdomen: + pain, + constipation, + dark urine, No nausea, No vomiting, No diarrhea, No GI bleeding, No dysphagia, No odynophagia, No acolic stools, No jaundice Male : No urinary frequency, No slowing stream, No hematuria Endo: No fatigue, No excessive thirst, No excessive urination Skin: No rash, No itch, No color change, No jaundice Physical Exam Date Time Temp Pulse Resp B/P (MAP) Pulse Ox O2 Delivery O2 Flow Rate FiO2 10/17/17 15:44 36.7 79 20 167/116 (133) 94 10/17/17 12:13 71 16 157/91 (113) 95 Room Air 10/17/17 11:00 36.9 73 18 166/96 (119) 95 Room Air 10/17/17 08:24 36.8 83 20 150/90 (110) 94 Room Air 10/17/17 08:17 85 161/97 (118) 10/17/17 07:15 Room Air 10/16/17 23:10 37.6 80 20 156/92 (113) 92 Room Air 10/16/17 19:51 86 166/85 (112) General Appearance: no apparent distress (pt is sitting OOB in chair on his computer) Eyes: PERRL ENT: hearing grossly normal Neck: supple, thyroid normal, trachea midline Respiratory/Chest: lungs clear, normal breath sounds, no respiratory distress, no accessory muscle use Cardiovascular: regular rate, rhythm, no edema, no gallop, no murmur Abdomen: normal bowel sounds, soft, no organomegaly, no pulsatile mass, + tenderness (epigastric tenderness w/ palpation, generalized tenderness without rebound or guarding) Neurologic/Psych: alert, normal mood/affect, oriented x 3 Skin: normal color, no jaundice, warm/dry, no rash Laboratory Results Last 24 Hours Test 10/17/17 00:00 10/17/17 06:40 10/17/17 09:14 Peritoneal Fluid Color YELLOW Peritoneal Fluid Appearance CLEAR Peritoneal Fluid WBC 544 /uL Peritoneal Fluid RBC < 3000 /uL Peritoneal Fluid Other Cells % Peritoneal Fld Mononuclear WBCs (%) 96.9 % Peritoneal Fld Polynuclear WBCs (%) 3.1 % Peritoneal Fluid Total Protein 3.6 g/dl Peritoneal Fluid Albumin 1.9 g/dl Peritoneal Fluid LDH 103 IU Peritoneal Fluid Glucose 102 mg/dl Peritoneal Fluid Amylase 611 U/L Peritoneal Fluid Lipase 2303 U/L Peritoneal Fluid Triglycerides 69 mg/dl White Blood Count 6.21 K/uL Red Blood Count 2.52 M/uL Hemoglobin 8.0 g/dL Hematocrit 23.0 % Mean Corpuscular Volume 91.3 fL Mean Corpuscular Hemoglobin 31.7 pg Mean Corpuscular Hemoglobin Concent 34.8 g/dl RDW Standard Deviation 44.0 fL RDW Coefficient of Variation 13.1 % Platelet Count 307 K/uL Mean Platelet Volume 8.5 fL Sodium Level 136 mmol/L Potassium Level 4.1 mmol/L Chloride Level 105 mmol/L Carbon Dioxide Level 21 mmol/L Anion Gap 10.0 mmol/L Blood Urea Nitrogen 47 mg/dl Creatinine 4.29 mg/dl Est Creatinine Clear Calc Drug Dose 19.0 ml/min Estimated GFR () 15.6 Estimated GFR (Non- 13.4 BUN/Creatinine Ratio 11.0 Random Glucose 94 mg/dl Calcium Level 8.2 mg/dl Total Bilirubin 2.7 mg/dl Direct Bilirubin 2.0 mg/dl Aspartate Amino Transf (AST/SGOT) 135 U/L Alanine Aminotransferase (ALT/SGPT) 126 U/L Alkaline Phosphatase 609 U/L Total Protein 6.6 gm/dl Albumin 2.5 gm/dl Lipase 947 U/L Prothrombin Time 10.0 SECONDS Prothromb Time International Ratio 1.0 Impression Patient is a 67 year old male with upper abdominal pain w/ radiation to his back and underneath both breast without weight loss, nausea or vomiting since July, who presented to the ED about a month ago for abnormal outpatient labs concerning for pancreatitis, underwent CT imaging without contrast due to CHAD w/o evidence of pancreatitis or mass effect but suggestive of hepatic cirrhosis. He was managed conservatively but notes his symptoms never improved. Was D/C home, noted weight gain of about 10 lbs with abdominal distention and gradual SOB. Now, w/ abdominal ascites s/p diagnostic tap w/ low SAAG but high protein w/ elevated ascitic and serum lipase/amylase. His LFTs are persistently elevated but are worse on this admission. He did not have a pancreatic protocol CT or MRI abd imaging to rule out pancreatic mass. Ascites fluid differential: pancreatitis, malignancy, TB LFTs differential: CBD obstruction, acute hepatitis, CMV, EBV, autoimmune Plan - Suspected recurrent acute pancreatitis, etiology unclear - Follow up CT that was ordered - MRCP - IVF hydration w/ LR 200 mL/hr - clear liquids as tolerated, can advance to low fat as tolerated - Analgesia PRN - Antiemetics PRN - Ascites - Follow up cytology - No signs of SBP - Low SAAG w/ high protein - Elevated LFTs - Serology added - URMILA, AMA, ASMA, acute hepatitis panel, CMV, EBV - MRCP - Cirrhosis Management - ETOH cessation - Less than 2G Tylenol daily - Low NA diet - Completion of full serological evaluation at time of discharge - SPEP, ceruloplasmin, alpha-1, iron panel w/ ferritin, celiac panel - Outpatient EGD for variceal screening - Outpatient Hep A and Hep B immunization if indicated - GI will follow, please call with any questions or concerns Att add: I interviewed and examined pt, reviewed chart and labs. Pt with abd pain, cholestatic LFT's, elevated lipase, ascitic fluid with increased lipase. Unclear etiology of symptoms - presentation suggestive of chronic panc, ductal obstruction. WIll request MRCP, f/u fluid cytology.
[2017-10-17] MEDS: HydrALAZINE HCL 20 MG/ML VIAL IV. PRN (16:32)
--- NOTE | 2017-10-17 18:02 | DIAGNOSTIC IMAGING REPORT ---
CT SCAN OF THE ABDOMEN AND PELVIS WITHOUT IV CONTRAST CLINICAL HISTORY: Ascites. COMPARISON STUDY: Abdominal CT dated 10/02/2017 and 08/25/2013. TECHNIQUE: CT scan of the abdomen and pelvis is performed from the lung bases to the proximal femora. Images are reviewed in the axial, sagittal, and coronal planes. IV contrast was not administered for this examination as per the referring clinician. Note that the examination was performed in suboptimal fashion without IV contrast. Oral contrast was utilized. A dose lowering technique was utilized adhering to the principles of ALARA. CT DOSE: 811.56 mGy.cm FINDINGS: Lung bases: The heart is enlarged and without pericardial effusion. There are moderate pleural effusions with associated atelectasis numerous pulmonary nodules are present at both lung bases. The largest is in the right middle lobe and measures 7 mm. Calcified granulomas are also identified. Liver: The unenhanced liver is normal in size. The liver is subtly heterogeneous in attenuation. Mild nodularity of the surface contour is suspected. There is no intrahepatic biliary ductal dilatation. Gallbladder: There is nonspecific gallbladder wall thickening. Spleen: Normal in size and attenuation. Pancreas: The unenhanced pancreas is moderately atrophic and grossly unremarkable. Adrenal glands: Unremarkable. Kidneys: The unenhanced kidneys appear edematous and heterogeneous. There is fullness of the renal collecting system bilaterally without clear evidence of hydronephrosis. There are no renal calculi identified. Renovascular calcifications are observed. There is no evidence of contour deforming renal mass lesion. Perinephric stranding is noted. Abdominal vasculature: The abdominal aorta is normal in course and caliber noting advanced atherosclerotic calcification. Bowel: There is mild to moderate colonic diverticulosis without CT evidence of acute diverticulitis. No bowel obstruction is seen. The appendix is well-visualized and normal. Peritoneum: There is a small to moderate volume of abdominal ascites. No intraperitoneal free air is seen. There is a fat-containing umbilical hernia. Lymphadenopathy: Prominent mesenteric lymph nodes measure up to 12 mm in short axis. Pelvic viscera: The prostate gland is diminutive and heterogeneous. The bladder is decompressed. The bladder wall appears thickened and trabeculated suggesting chronic outlet obstruction. Pericystic inflammation is observed. Skeletal structures: The skeletal structures are osteopenic. There is a right-sided pars defect at L5. Moderate lumbosacral spondylosis is observed. No lytic or blastic lesions are seen. IMPRESSION: 1. There is a small to moderate volume of abdominal ascites. 2. Question early changes of cirrhosis. 3. Moderate pleural effusions with associated atelectasis. These have significantly increased in size from 10/02/2017. 4. The kidneys appear heterogeneous and edematous. Perinephric stranding is again identified. These findings are nonspecific. Correlation with clinical findings and urinalysis will be required. 5. Although decompressed, the bladder wall appears thickened and pericystic stranding is suggested. Again, correlation with clinical findings and urinalysis will be required. 6. Mild to moderate colonic diverticulosis without evidence of acute diverticulitis. 7. Cardiomegaly. 8. Numerous pulmonary nodules are again seen at the lung bases. These are new from 2014 and although nonspecific, metastatic disease is the diagnosis of exclusion. 9. Mildly enlarged mesenteric lymph nodes are nonspecific and may be on a reactive basis. 10. Additional findings as above. Electronically signed by: Cruz Forde M.D. 10/17/2017 6:01 PM Dictated Date/Time: 10/17/2017 5:50 PM
[2017-10-17] MEDS ORDERED: POLYETHYLENE (MIRALAX) 17 GM PACK ONE (18:12)
[2017-10-17 19:09] LABS: HEP C IGG 13 YRS+OLDER_RFLX NEG (NEG)
--- NOTE | 2017-10-17 23:25 | Progress Note ---
Subjective Date of Service: Oct 17, 2017. Subjective Pt evaluation today including: conversation w/ patient, physical exam, chart review, lab review, review of studies (parecentesis results, CT abd/pelvis), conversation w/ managing consultant (GI), review of inpatient medication list Pain: abdominal pain/bloating PO Intake: tolerating meals; does not worsen his abdominal symptoms no significant change in his abdominal bloating/discomfort had difficulty sleeping last night because of the discomfort denies dyspnea on exertion - walking the hallways frequently no orthopnea no emesis or nausea no melva fever Problem List Medical Problems: (1) Acute kidney injury Status: Acute (2) Acute on chronic renal failure Status: Acute (3) Ascites Status: Acute (4) Cirrhosis of liver Status: Acute (5) Pancreatitis Status: Acute (6) Pleural effusion Status: Acute Review of Systems Constitutional: No fever, No chills Respiratory: No cough, No sputum Abdomen: + pain, + problem reported (does report excess flatulence), No nausea , No vomiting, No diarrhea, No constipation Objective Vital Signs Date Time Temp Pulse Resp B/P (MAP) Pulse Ox O2 Delivery O2 Flow Rate FiO2 10/17/17 17:39 153/93 (113) 10/17/17 16:30 Room Air 10/17/17 16:28 183/96 (125) 10/17/17 15:44 36.7 79 20 167/116 (133) 94 10/17/17 12:13 71 16 157/91 (113) 95 Room Air 10/17/17 11:00 36.9 73 18 166/96 (119) 95 Room Air 10/17/17 08:24 36.8 83 20 150/90 (110) 94 Room Air 10/17/17 08:17 85 161/97 (118) 10/17/17 07:15 Room Air Physical Exam General Appearance: no apparent distress ENT: pharynx normal Neck: no JVD Respiratory/Chest: lungs clear, no respiratory distress, no accessory muscle use, + decreased breath sounds (bases) Cardiovascular: regular rate, rhythm, no gallop, no murmur Abdomen: normal bowel sounds, non tender, no organomegaly, + distended (no change from yesterday's exam) Extremities: no pedal edema Neurologic/Psychiatric: alert, oriented x 3 Skin: no rash Laboratory Results Last 24 Hours Test 10/17/17 00:00 3/5/18 06:40 10/17/17 09:14 10/17/17 17:18 Peritoneal Fluid Color YELLOW Peritoneal Fluid Appearance CLEAR Peritoneal Fluid WBC 544 /uL Peritoneal Fluid RBC < 3000 /uL Peritoneal Fluid Other Cells % Peritoneal Fld Mononuclear WBCs (%) 96.9 % Peritoneal Fld Polynuclear WBCs (%) 3.1 % Peritoneal Fluid Total Protein 3.6 g/dl Peritoneal Fluid Albumin 1.9 g/dl Peritoneal Fluid LDH 103 IU Peritoneal Fluid Glucose 102 mg/dl Peritoneal Fluid Amylase 611 U/L Peritoneal Fluid Lipase 2303 U/L Peritoneal Fluid Triglycerides 69 mg/dl White Blood Count 6.21 K/uL Red Blood Count 2.52 M/uL Hemoglobin 8.0 g/dL Hematocrit 23.0 % Mean Corpuscular Volume 91.3 fL Mean Corpuscular Hemoglobin 31.7 pg Mean Corpuscular Hemoglobin Concent 34.8 g/dl RDW Standard Deviation 44.0 fL RDW Coefficient of Variation 13.1 % Platelet Count 307 K/uL Mean Platelet Volume 8.5 fL Sodium Level 136 mmol/L Potassium Level 4.1 mmol/L Chloride Level 105 mmol/L Carbon Dioxide Level 21 mmol/L Anion Gap 10.0 mmol/L Blood Urea Nitrogen 47 mg/dl Creatinine 4.29 mg/dl Est Creatinine Clear Calc Drug Dose 19.0 ml/min Estimated GFR () 15.6 Estimated GFR (Non- 13.4 BUN/Creatinine Ratio 11.0 Random Glucose 94 mg/dl Calcium Level 8.2 mg/dl Total Bilirubin 2.7 mg/dl Direct Bilirubin 2.0 mg/dl Aspartate Amino Transf (AST/SGOT) 135 U/L Alanine Aminotransferase (ALT/SGPT) 126 U/L Alkaline Phosphatase 609 U/L Total Protein 6.6 gm/dl Albumin 2.5 gm/dl Lipase 947 U/L Prothrombin Time 10.0 SECONDS Prothromb Time International Ratio 1.0 Hepatitis B Surface Antigen NEG Hepatitis C Antibody NEG Assessment and Plan 67yo male with: 1. acute kidney injury - suspected to be from ATN - no significant improvement in creatinine despite supportive care and recent lasix. Creatinine again minimally worse today. Renal ultrasound normal on previous admission. CT abdomen/pelvis showed moderate perinephric stranding possibly consistent with chronic kidney disease but clinical picture most c/w CHAD from ATN. No stones or obstruction. Doubt hepatorenal given his elevated urine Na. Daily BMP. Appreciate Dr. Suárez's consultation. 2. alcoholic cirrhosis - no PVT on dopplers. SAAG on diagnostic paracentesis today is <1.1. This suggests lack of portal HTN and thus the fluid is likely not due to cirrhosis. The ascites fluid showed high levels of lipase/amylase. The patient had acute pancreatitis last month and thus the ascites may be pancreatic in origin. Cytologies are pending. Cell counts NOT c/w SBP. Obtained CT abd/pelvis today to r/o pancreatic pathology - only atrophy noted. GI consultation with [facility] requested and recommendations appreciated. They have recommended MRCP and MRI of the abdomen - these are pending. 3. HTN - uncontrolled; metoprolol increased to 100mg BID. Cont amlodipine. 4. anemia - likely due to #2. Repeat cbc today stable. 5. elevated alk phos - either 2nd to cirrhosis or bony mets. Alk phos rising along with other LFTs. Etiology of elevated LFTs uncertain. Appreciate GI consult. MRCP ordered; acute hepatitis profile ordered. Repeat LFTs in am. Fortunately his platelets and INR are normal. 6. pulmonary nodules and T12 metastatic lesion - all concerning for metastatic cancer. Consider bx of the T12 met; pulmonary nodules are too small for bx. TAWNY level wnl. Check ascites cytology. 7. DVT proph - heparin q12h. Resume tomorrow AM. 8. abdominal fullness - KUB x-ray yesterday w/o ileus, constipation, or obstruction. Small volume of ascites on u/s and CT. I don't think the ascites accounts for all of the bloating/fullness sensation. Await all ascites studies. Await cytologies. Oxycodone [address] prn[address] Shabnam De Jesus, who is a family medicine physician - pt's niece -- updated [phone] Continued [facility] stay due to: other (ATN) Discharge planning: uncertain
[2017-10-18] MEDS: ZOLPIDEM TARTRATE 5 MG TAB PO PRN ×2 (00:34→20:37)
[2017-10-18] MEDS: SODIUM BICARBONATE 650 MG TAB PO SCH ×3 (00:35→20:37)
[2017-10-18] MEDS: METOPROLOL TARTRATE 100 MG TAB PO SCH ×3 (00:35→20:39)
[2017-10-18 07:31] LABS: HEMATOCRIT 23.4 % (42-52); HEMOGLOBIN 8.3 g/dL (14.0-18.0); MEAN CELL VOLUME 91.1 fL (80-100); MEAN CORPUSCULAR HEMOGLOBIN 32.3 pg (25-34); MEAN CORPUSCULAR HGB CONC 35.5 g/dl (32-36); MEAN PLATELET VOLUME 8.9 fL (7.4-10.4); PLATELET COUNT 295 K/uL (130-400); RED CELL DISTRIBUTION WIDTH CV 13.1 % (11.5-14.5); RED CELL DISTRIBUTION WIDTH SD 43.9 fL (36.4-46.3)
[2017-10-18 07:39] VITALS: BP 160/99; PULSE 76; TEMP 37; O2SAT 94
--- NOTE | 2017-10-18 08:02 | DIAGNOSTIC IMAGING REPORT ---
MRCP HISTORY: 67 years-old Male abnormal LFTs, pancreatitis, eval for CBD stone/abnormalities acute pancreatitis with history of metastatic disease of the lung. COMPARISON: MRI of the abdomen 10/02/2017, thoracic spine MRI 10/12/2017, CT abdomen and pelvis 10/17/2017. TECHNIQUE: MRCP without contrast was obtained according to institutional protocol. FINDINGS: Study is limited secondary to patient motion. Layering moderate sized bilateral pleural effusions are again noted along with moderate volume of abdominal ascites. The previously questioned suspected marginal nodularity of the liver is better appreciated on comparison CT. Moderate perinephric stranding is again seen bilaterally. T2 hyperintense lesions about the bilateral kidneys suggest renal cysts, not completely characterized on this study. No aortic aneurysm identified. No dilated loops of bowel are seen. Low signal filling defects are noted in the gallbladder neck for example image 15 series 7 suggesting cholelithiasis. No gallbladder distention. There is mild wall thickening of the gallbladder measuring 4 mm, likely secondary to fluid overload status. No definite filling defects identified within the common bile duct. Common bile duct appears normal measuring up to 3 mm in diameter. No pancreatic ductal dilation. No evidence of pancreatic divisum. The previously discussed lesion of the T12 vertebral body is better characterized on comparison MRI of the thoracic spine. IMPRESSION: 1. Motion degraded exam. 2. Suggested mild cholelithiasis without evidence of choledocholithiasis or common bile duct dilation. 3. Moderate sized bilateral pleural effusions with moderate volume of abdominal ascites redemonstrated. 4. Lesion of the T12 vertebral body better characterized on comparison thoracic spine MRI 10/12/2017. The above report was generated using voice recognition software. It may contain grammatical, syntax or spelling errors. Electronically signed by: Ronan Campos M.D. 10/18/2017 8:01 AM Dictated Date/Time: 10/18/2017 7:33 AM
[2017-10-18 08:12] LABS: ALBUMIN 2.5 gm/dl (3.4-5.0); CALCIUM 8.5 mg/dl (8.5-10.1); CREATININE 4.05 mg/dl (0.60-1.40); POTASSIUM 4.5 mmol/L (3.5-5.1)
[2017-10-18 08:14] LABS: TOTAL PROTEIN 6.7 gm/dl (6.4-8.2)
[2017-10-18] MEDS: POLYETHYLENE (MIRALAX) 17 GM PACK PO SCH (08:32)
[2017-10-18] MEDS: DOCUSATE SODIUM/SENNA 50/8.6MG TAB PO SCH (08:33)
[2017-10-18] MEDS: AMLODIPINE BESYLATE 5 MG TAB PO SCH (08:33)
[2017-10-18] MEDS: HEPARIN SOD 5000 UNIT/0.5 ML CARP SQ SCH ×2 (09:00→20:36)
--- NOTE | 2017-10-18 09:44 | Gastroenterology Progress Note ---
Progress Note Date of Service: Oct 18, 2017 Subjective Pt evaluation today including: conversation w/ patient, conversation w/ family , physical exam, chart review, lab review Pt was seen and evaluated, chart reviewed. Pt significant other is at bedside. GI was asked to evaluate the pt yesterday as his LFTs were elevated, lipase was elevated and he had ascites, low SAAG w/ elevated ascitic lipase and amylase. CT ABD/Pelvis negative. MRCP w/ question of stones, no ductal dilation. Pt notes he feels fine if he does not eat. When he eats or drinks he still gets epigastric pressure w/ radiation to his back and bloating. Making urine, dark. No painful urination, frequency. Moved his bowels yesterday, semi-formed. No black or bloody stools. No fever, chills, CP, SOB. TB 0.8 --> 1.4 --> 3.8 DB 0.7 --> 2.0 --> 2.7 AST 99 --> 135 ALT 96 --> 126 ALKP 495 --> 610 Lipase 416 --> 1017 MRCP 10/17/17: Motion degraded exam. Suggested mild cholelithiasis without evidence of choledocholithiasis or common bile duct dilation. Moderate sized bilateral pleural effusions with moderate volume of abdominal ascites re- demonstrated. Lesion of the T12 vertebral body better characterized on comparison thoracic spine MRI 10/12/2017. CT ABD/Pelvis 10/17/17: There is a small to moderate volume of abdominal ascites. Question early changes of cirrhosis. Moderate pleural effusions with associated atelectasis. These have significantly increased in size from 2017. The kidneys appear heterogeneous and edematous. Perinephric stranding is again identified. These findings are nonspecific. Correlation with clinical findings and urinalysis will be required. Although decompressed, the bladder wall appears thickened and pericystic stranding is suggested. Again, correlation with clinical findings and urinalysis will be required. Mild to moderate colonic diverticulosis without evidence of acute diverticulitis. Cardiomegaly. Numerous pulmonary nodules are again seen at the lung bases. These are new from 2014 and although nonspecific, metastatic disease is the diagnosis of exclusion. Enlarged mesenteric lymph nodes are nonspecific and may be on a reactive basis. Paracentesis 10/17/17: 20 cc off. No SBP - PMN 16. SAAG 0.6 w/ total protein 6.6 not suggestive of portal HTN. Lipase 2300, Amylase 600 KUB 10/16/17: Non-obstructed abdominal bowel gas pattern ABD US 10/15/17: Small volume ascites. Bilateral pleural effusions Hepatic Duplex 10/15/17: Patent hepatic vasculature. No evidence of portal vein thrombosis Chest XR 10/15/17: Unchanged bibasilar opacities, possibly atelectasis. Small bilateral pleural effusions stable to slightly increased in size Chest CT 10/12/17: Minimally increased sclerosis with ill-defined margins involves the anterior portion of the T12 vertebral body which may correlate with the focal area of marrow replacement seen on comparison MRI studies. Again , this is suspicious for metastatic disease. No additional suspicious lytic or blastic bony lesions of the spine identified. Discogenic degenerative changes, facet arthropathy and endplate spurring as above. Moderate bilateral pleural effusions with multifocal bilateral pulmonary nodules, better evaluated on CT chest 10/02/2017. Thoracic MRI 10/12/17: Suspicious lesion at the T12 level, which is highly concerning for a site of metastatic disease. No convincing evidence of an additional osseous lesion in the thoracic spine. Mild degenerative changes of the thoracic spine including neural foraminal narrowing on the left at T8-9 and bilaterally at T9-10. Partially visualized degenerative changes in the lower cervical spine CT ABD/Pelvis 10/02/17: Numerous small nodules within visualized portions of the lungs which are new since CT of August 25, 2013. While nonspecific, metastatic disease is within the differential and correlation with history of known malignancy is recommended. A follow-up chest CT could be obtained. Trace bilateral pleural effusions with possible pleural nodularity. Discussed with Dr. Linder at time of dictation. Moderate bilateral perinephric infiltration, a nonspecific finding. Mild prominence of both collecting systems without melva hydronephrosis. No ureteral calculi. Small amount of ascites. Suspected cirrhosis. Extensive atherosclerotic plaque. 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 Family history of GI malignancy: none Family history of liver disease: none Family history of pancreatitis: none Family history of gallbladder disease: mom w/ cholecystitis and gallstones Review of Systems Constitutional: + weakness, + fatigue, No fever, No chills, No weight loss Respiratory: No cough, No sputum, No shortness of breath Cardiac: No chest pain Abdomen: + pain, No nausea, No vomiting, No diarrhea, No constipation, No GI bleeding Endo: + fatigue Skin: No rash, No itch, No bleeding Medications Current Inpatient Medications Medications (Trade) Dose Ordered Sig/Margarito Route Start Time Stop Time Status Last Admin Dose Admin Amlodipine Besylate (Norvasc Tab) 10 mg DAILY PO 10/11/17 08:00 11/10/17 08:59 10/18/17 08:33 10 MG Zolpidem Tartrate (Ambien Tab) 5 mg HSZ PRN PO 10/11/17 00:00 11/10/17 00:00 10/18/17 00:34 5 MG Ondansetron HCl (Zofran Inj) 4 mg Q6H PRN IV 10/11/17 00:00 11/10/17 00:00 Albuterol (Ventolin Hfa Inhaler) 2 puffs Q4H PRN INH 10/11/17 02:15 11/10/17 02:14 10/16/17 07:58 2 PUFFS Senna/Docusate Sodium (Senokot S Tab) 1 tab QAM PO 10/12/17 08:00 11/11/17 07:59 10/17/17 08:20 1 TAB Lorazepam (Ativan Tab) 0.5 mg HS PRN PO 10/11/17 21:00 11/10/17 20:59 10/16/17 20:03 0.5 MG Hydralazine HCl (HydrALAZINE INJ) 10 mg Q8H PRN IV. 10/12/17 11:30 11/11/17 11:29 10/17/17 16:32 10 MG Bisacodyl (Dulcolax Supp) 10 mg DAILY PRN NM 10/12/17 18:15 11/11/17 18:14 10/14/17 11:40 10 MG Heparin Sodium (Porcine) (Heparin Sq 5000 Unit/0.5ml) 5,000 unit Q12H SQ 10/13/17 21:00 11/10/17 05:59 Future hold 10/18/17 09:00 5,000 UNIT Metoprolol Tartrate (Lopressor Tab) 100 mg BID PO 10/17/17 20:00 11/14/17 09:29 10/18/17 08:32 100 MG Acetaminophen (Tylenol Tab) 1,000 mg Q6H PRN PO 10/17/17 10:45 11/16/17 10:44 Polyethylene (Miralax Powder Packet) 17 gm DAILY PO 10/17/17 15:30 11/09/17 15:29 Oxycodone HCl (Roxicodone Immediate Rel Tab) 5 mg Q6H PRN PO 10/17/17 15:15 10/31/17 15:14 Sodium Bicarbonate (Sodium Bicarbonate Tab) 1,300 mg BID PO 10/18/17 20:00 11/14/17 19:59 Objective Vital Signs Date Time Temp Pulse Resp B/P (MAP) Pulse Ox O2 Delivery O2 Flow Rate FiO2 10/18/17 07:39 37.0 76 18 160/99 (119) 94 Room Air 10/18/17 07:20 Room Air 10/18/17 00:30 Room Air 10/17/17 23:34 37.3 85 20 172/93 (119) 95 Room Air 10/17/17 17:39 153/93 (113) 10/17/17 16:30 Room Air 10/17/17 16:28 183/96 (125) 10/17/17 15:44 36.7 79 20 167/116 (133) 94 10/17/17 12:13 71 16 157/91 (113) 95 Room Air 10/17/17 11:00 36.9 73 18 166/96 (119) 95 Room Air Physical Exam General Appearance: no apparent distress Eyes: PERRL Neck: supple Respiratory/Chest: lungs clear, normal breath sounds, no respiratory distress, no accessory muscle use Cardiovascular: regular rate, rhythm, no edema, no gallop Abdomen: normal bowel sounds, non tender, soft, no organomegaly Neurologic/Psych: alert, normal mood/affect, oriented x 3 Skin: normal color, warm/dry, no rash Laboratory Results Last 24 Hours Test 10/17/17 17:18 10/18/17 07:16 Hepatitis B Surface Antigen NEG Hepatitis C Antibody NEG White Blood Count 6.30 K/uL Red Blood Count 2.57 M/uL Hemoglobin 8.3 g/dL Hematocrit 23.4 % Mean Corpuscular Volume 91.1 fL Mean Corpuscular Hemoglobin 32.3 pg Mean Corpuscular Hemoglobin Concent 35.5 g/dl RDW Standard Deviation 43.9 fL RDW Coefficient of Variation 13.1 % Platelet Count 295 K/uL Mean Platelet Volume 8.9 fL Sodium Level 133 mmol/L Potassium Level 4.5 mmol/L Chloride Level 103 mmol/L Carbon Dioxide Level 19 mmol/L Anion Gap 12.0 mmol/L Blood Urea Nitrogen 52 mg/dl Creatinine 4.05 mg/dl Est Creatinine Clear Calc Drug Dose 20.3 ml/min Estimated GFR () 16.7 Estimated GFR (Non- 14.4 BUN/Creatinine Ratio 12.8 Random Glucose 92 mg/dl Calcium Level 8.5 mg/dl Total Bilirubin 3.8 mg/dl Direct Bilirubin 2.7 mg/dl Aspartate Amino Transf (AST/SGOT) 102 U/L Alanine Aminotransferase (ALT/SGPT) 112 U/L Alkaline Phosphatase 610 U/L Total Protein 6.7 gm/dl Albumin 2.5 gm/dl Lipase 1017 U/L Assessment and Plan Patient is a 67 year old male with upper abdominal pain w/ radiation to his back and underneath both breast without weight loss, nausea or vomiting since July, who presented to the ED about a month ago for abnormal outpatient labs concerning for pancreatitis, underwent CT imaging without contrast due to CHAD w/o evidence of pancreatitis or mass effect but suggestive of hepatic cirrhosis. He was managed conservatively but notes his symptoms never improved. Was D/C home, noted weight gain of about 10 lbs with abdominal distention and gradual SOB. Now, w/ abdominal ascites s/p diagnostic tap w/ low SAAG but high protein w/ elevated ascitic and serum lipase/amylase. His LFTs are persistently elevated but are worse on this admission. He did not have a pancreatic protocol CT or MRI abd imaging to rule out pancreatic mass. Ascites fluid differential: pancreatitis, malignancy, TB, chronic pancreatitis, panc pseudocyst LFTs differential: CBD obstruction, acute hepatitis, CMV, EBV, autoimmune Plan - Suspected recurrent acute pancreatitis, etiology unclear - CT negative - MRCP negative - clear liquids as tolerated, can advance to low fat as tolerated - Analgesia PRN - Antiemetics PRN - Ascites - Follow up cytology - No signs of SBP - Low SAAG w/ high protein - Elevated LFTs - Serology added - URMILA, AMA, ASMA, acute hepatitis panel, CMV, EBV - MRCP negative - Will plan for liver biopsy pending results above - Cirrhosis Management - ETOH cessation - Less than 2G Tylenol daily - Low NA diet - Completion of full serological evaluation at time of discharge - SPEP, ceruloplasmin, alpha-1, iron panel w/ ferritin, celiac panel - Outpatient EGD for variceal screening - Outpatient Hep A and Hep B immunization if indicated GI to follow, please call with any questions or concerns Att add: I reviewed chart and labs. 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 Labs suggest worsening ampullary obstruction, although MRCP does not show this. Possible PD obstruction leading to leak and panc ascites? Would favor EUS and ERCP for further w/u.
--- NOTE | 2017-10-18 11:47 | Nephrology Progress Note ---
Nephrology Progress Note Date of Service Oct 18, 2017. Chief Complaint F/U for CHAD Subjective Mr. Phillips was seen and examined in his room this morning with his the goal friend Daniela at bedside. Creatinine seems to be stabilizing, slightly improved to 4.0 from 4.3 yesterday, electrolyte still somewhat abnormal, bicarb 19. Overall he feels about the same and frustrated. Had diagnostic paracentesis yesterday, not suggestive of SBP. Blood pressure running high. Urine output decent. Denies shortness of breath, chest pain or lower extremity edema. Review of Systems A complete review of systems was performed. Pertinent positives are noted above. All other systems are negative. Vital Signs Last 8 Hrs Date Time Temp Pulse Resp B/P (MAP) Pulse Ox O2 Delivery O2 Flow Rate FiO2 10/18/17 07:39 37.0 76 18 160/99 (119) 94 Room Air 10/18/17 07:20 Room Air Last Recorded Weight Weight (Kilograms): 93.700 Physical Exam GENERAL: Middle-aged man, AAA x 3, pleasant, healthy-appearing, not in any distress. NECK: Supple, no JVD. RESPIRATORY: Normal breathing efforts, no accessory muscle use, clear to auscultation bilaterally, no wheezes or rales. CARDIOVASCULAR: S1, S2 normal, rate rhythm regular. ABDOMEN: distended but not tense or tender. EXTREMITY: No lower extremity edema NEURO: speech fluent. PSYCHIATRY: Normal mood and judgment Family History FH: cancer FH: gallbladder disease FH: heart disease Hypertension Kidney disease Kidney stones Father had ESRD requiring HD related to "heart failure Social History Smoking Status: Never smoker Marital Status: Occupation: retired . Two children in good health. 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 Never a smoker. History of heavy alcohol abuse (stopped following recent hospitalization 10/02) Laboratory Results Past 24 Hours 10/18/17 07:16 10/18/17 07:16 Test 10/17/17 09:14 10/17/17 17:18 10/18/17 07:16 Prothrombin Time 10.0 SECONDS (9.0-12.0) Prothromb Time International Ratio 1.0 (0.9-1.1) Hepatitis B Surface Antigen NEG (NEG) Hepatitis C Antibody NEG (NEG) Red Blood Count 2.57 M/uL (4.7-6.1) Mean Corpuscular Volume 91.1 fL (80-100) Mean Corpuscular Hemoglobin 32.3 pg (25-34) Mean Corpuscular Hemoglobin Concent 35.5 g/dl (32-36) RDW Standard Deviation 43.9 fL (36.4-46.3) RDW Coefficient of Variation 13.1 % (11.5-14.5) Mean Platelet Volume 8.9 fL (7.4-10.4) Anion Gap 12.0 mmol/L (3-11) Est Creatinine Clear Calc Drug Dose 20.3 ml/min Estimated GFR () 16.7 Estimated GFR (Non- 14.4 BUN/Creatinine Ratio 12.8 (10-20) Calcium Level 8.5 mg/dl (8.5-10.1) Total Bilirubin 3.8 mg/dl (0.2-1) Direct Bilirubin 2.7 mg/dl (0-0.2) Aspartate Amino Transf (AST/SGOT) 102 U/L (15-37) Alanine Aminotransferase (ALT/SGPT) 112 U/L (12-78) Alkaline Phosphatase 610 U/L (45-117) Total Protein 6.7 gm/dl (6.4-8.2) Albumin 2.5 gm/dl (3.4-5.0) Lipase 1017 U/L (73-393) Allergies Coded Allergies: No Known Allergies (Unverified , 10/07/17) Medications Current Inpatient Medications Medications (Trade) Dose Ordered Sig/Margarito Route Start Time Stop Time Status Last Admin Dose Admin Amlodipine Besylate (Norvasc Tab) 10 mg DAILY PO 10/11/17 08:00 11/10/17 08:59 10/18/17 08:33 10 MG Zolpidem Tartrate (Ambien Tab) 5 mg HSZ PRN PO 10/11/17 00:00 11/10/17 00:00 10/18/17 00:34 5 MG Ondansetron HCl (Zofran Inj) 4 mg Q6H PRN IV 10/11/17 00:00 11/10/17 00:00 Albuterol (Ventolin Hfa Inhaler) 2 puffs Q4H PRN INH 10/11/17 02:15 11/10/17 02:14 10/16/17 07:58 2 PUFFS Senna/Docusate Sodium (Senokot S Tab) 1 tab QAM PO 10/12/17 08:00 11/11/17 07:59 10/17/17 08:20 1 TAB Lorazepam (Ativan Tab) 0.5 mg HS PRN PO 10/11/17 21:00 11/10/17 20:59 10/16/17 20:03 0.5 MG Hydralazine HCl (HydrALAZINE INJ) 10 mg Q8H PRN IV. 10/12/17 11:30 11/11/17 11:29 10/17/17 16:32 10 MG Bisacodyl (Dulcolax Supp) 10 mg DAILY PRN ND 10/12/17 18:15 11/11/17 18:14 10/14/17 11:40 10 MG Heparin Sodium (Porcine) (Heparin Sq 5000 Unit/0.5ml) 5,000 unit Q12H SQ 10/13/17 21:00 11/10/17 05:59 Future hold 10/16/17 19:58 5,000 UNIT Sodium Bicarbonate (Sodium Bicarbonate Tab) 650 mg BID PO 10/15/17 20:00 11/14/17 19:59 10/18/17 08:34 650 MG Metoprolol Tartrate (Lopressor Tab) 100 mg BID PO 10/17/17 20:00 11/14/17 09:29 10/18/17 08:32 100 MG Acetaminophen (Tylenol Tab) 1,000 mg Q6H PRN PO 10/17/17 10:45 11/16/17 10:44 Polyethylene (Miralax Powder Packet) 17 gm DAILY PO 10/17/17 15:30 11/09/17 15:29 Oxycodone HCl (Roxicodone Immediate Rel Tab) 5 mg Q6H PRN PO 10/17/17 15:15 10/31/17 15:14 Impression (1) Cirrhosis (2) Lung nodules (3) Lesion of vertebra (4) Acute kidney injury (5) Hypertension CHAD most likely secondary to ATN, is continuation from recent hospitalization earlier this month. Urinalysis negative for protein or blood. Urine microscopy negative for casts. SIEP 2017 was negative for monoclonal band. Pending repeat SIEP/UIEP and serum free light chains. Renal US from last admission reviewed. No obstruction or mass Recommendations -- creatinine may be stabilizing and now started to improve, 4.0 this morning. Remain non oliguric. -- increase bicarbonate to 1300 milligram b.i.d. -- Hold Lisinopril -- Continue Amlodipine, metoprolol 100 milligram twice a day and IV Hydralazine PRN SBP > 180 mm HG -- GI following and may need to consider liver biopsy Will follow
[2017-10-18 15:45] VITALS: O2SAT 93
[2017-10-18 15:59] VITALS: BP 167/105; PULSE 82; TEMP 37.1; O2SAT 93
[2017-10-18 20:30] VITALS: BP 157/91; PULSE 81
--- NOTE | 2017-10-18 22:50 | Progress Note ---
Subjective Date of Service: Oct 18, 2017. Subjective Pt evaluation today including: conversation w/ patient, conversation w/ family (niece, significant other), physical exam, chart review, lab review, review of studies, conversation w/ is consultant (GI, pathology, heme/onc), review of inpatient medication list Pain: abdomen - bloating, discomfort PO Intake: no issues multiple visits to see the patient today saw patient initially on AM rounds - his main complaint was that of ongoing abdominal discomfort, although he had a very large BM following the PO contrast for his CT scan also plenty of flatus he is anxious to get more test results had 2nd visit to the patient's room - latter was late afternoon; discussed all test results including ascites cytology showing adenocarcinoma niece/significant other were there - see A/P for details Problem List Medical Problems: (1) Acute kidney injury Status: Acute (2) Acute on chronic renal failure Status: Acute (3) Ascites Status: Acute (4) Cirrhosis of liver Status: Acute (5) Pancreatitis Status: Acute (6) Pleural effusion Status: Acute Review of Systems Constitutional: No fever, No chills Respiratory: + dyspnea on exertion (mild), No cough Cardiac: No chest pain, No orthopnea, No edema Abdomen: + pain, No nausea, No vomiting, No GI bleeding Male : No dysuria Objective Vital Signs Date Time Temp Pulse Resp B/P (MAP) Pulse Ox O2 Delivery O2 Flow Rate FiO2 10/18/17 20:30 81 157/91 (113) 10/18/17 15:59 37.1 82 18 167/105 (125) 93 Room Air 10/18/17 15:45 93 Room Air 10/18/17 07:39 37.0 76 18 160/99 (119) 94 Room Air 10/18/17 07:20 Room Air 10/18/17 00:30 Room Air 10/17/17 23:34 37.3 85 20 172/93 (119) 95 Room Air Physical Exam General Appearance: no apparent distress Eyes: + abnormal sclerae exam (icterus ) ENT: pharynx normal Neck: no JVD Respiratory/Chest: no respiratory distress, no accessory muscle use, + decreased breath sounds (bases) Cardiovascular: regular rate, rhythm, no gallop, no murmur Abdomen: normal bowel sounds, non tender (minimal - central abdomen), no organomegaly, + distended Extremities: no pedal edema Neurologic/Psychiatric: alert, oriented x 3, + pertinent finding (anxious ) Skin: no rash, + pallor Laboratory Results Last 24 Hours Test 10/18/17 07:16 White Blood Count 6.30 K/uL Red Blood Count 2.57 M/uL Hemoglobin 8.3 g/dL Hematocrit 23.4 % Mean Corpuscular Volume 91.1 fL Mean Corpuscular Hemoglobin 32.3 pg Mean Corpuscular Hemoglobin Concent 35.5 g/dl RDW Standard Deviation 43.9 fL RDW Coefficient of Variation 13.1 % Platelet Count 295 K/uL Mean Platelet Volume 8.9 fL Sodium Level 133 mmol/L Potassium Level 4.5 mmol/L Chloride Level 103 mmol/L Carbon Dioxide Level 19 mmol/L Anion Gap 12.0 mmol/L Blood Urea Nitrogen 52 mg/dl Creatinine 4.05 mg/dl Est Creatinine Clear Calc Drug Dose 20.3 ml/min Estimated GFR () 16.7 Estimated GFR (Non- 14.4 BUN/Creatinine Ratio 12.8 Random Glucose 92 mg/dl Calcium Level 8.5 mg/dl Total Bilirubin 3.8 mg/dl Direct Bilirubin 2.7 mg/dl Aspartate Amino Transf (AST/SGOT) 102 U/L Alanine Aminotransferase (ALT/SGPT) 112 U/L Alkaline Phosphatase 610 U/L Total Protein 6.7 gm/dl Albumin 2.5 gm/dl Lipase 1017 U/L Assessment and Plan 67yo male with: 1. acute kidney injury - suspected to be from ATN but no significant improvement in creatinine despite supportive care. Creatinine +/- with scant improvement today. Renal ultrasound normal on previous admission. CT abdomen/pelvis showed moderate perinephric stranding possibly consistent with chronic kidney disease but clinical picture most c/w CHAD from ATN. No stones or obstruction. Doubt hepatorenal given his elevated urine Na. Daily BMP. Appreciate Dr. Suárez's consultation. NO acute indication for dialysis at this time. 2. alcoholic cirrhosis - no PVT on dopplers. SAAG on diagnostic paracentesis was <1.1. This suggests lack of portal HTN and thus the fluid is likely not due to cirrhosis. The ascites fluid showed high levels of lipase/amylase. The patient had acute pancreatitis last month and thus the ascites is likely pancreatic in origin. Cytologies reported today with cancer cells suggestive of adenocarcinoma. Cell counts NOT c/w SBP. Obtained CT abd/pelvis to r/o pancreatic pathology - only atrophy noted. MRCP without evidence of CBD obstruction or mass. [facility]. 3. HTN - uncontrolled; metoprolol increased to 100mg BID. Cont amlodipine. Acute kidney injury likely making HTN worse; anxiety could be playing a role as well. 4. anemia - likely multifactorial - repeat cbc today stable. 5. abnormal LFTs - these have worsened significantly in the last 2-3 days. The worsening bilirubin is concerning for possible obstruction. Spoke with Dr. Harding - he may need ERCP if bili continues to trend up. Infectious hepatitis panel thus far negative. In light of the ascites showing adenocarcinoma, the T12 met/pulmonary nodules, etc - all findings point towards either a biliary tract cancer or pancreatic cancer. Again ERCP will likely be needed +/- EUS. Defer to GI. Heme/onc consult requested with Dr. Leblanc as well. 6. pulmonary nodules and T12 lesion - all concerning for metastatic cancer. 7. DVT proph - heparin q12h. 8. abdominal fullness - 2nd to malignant/pancreatic-associated ascites, +/- constipation. 9. recent acute pancreatitis 09/2017 - lipase has never normalized and continues to be about 900-1000. MRI and CT do not show any obvious pancreatic abnormalities, however. The ongoing elevated lipase is concerning - perhaps it is secondary to a biliary tract malignancy? See discussion above. About a [address] took place today between myself, the patient, his significant other and his niece - Dr. Shabnam De Jesus (family medicine physician , ). Gave all test results including the ascites fluid cytology showing adenocarcinoma cells. Discussed potential plan of care and the complexities of his situation. He has had severe anxiety since coming to the hospital - his niece suggested antidepressant/anti-anxiety med (SSRI) -- I agree; start lexapro 5mg qam tomorrow. 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 Discussed his case with Dr. Leblanc, heme/onc, who will consult tomorrow AM. Discussed his case today with Dr. Harding, GI. Next step - ERCP / EUS ?? Need for transfer to tertiary care? Continued [facility] stay due to: other (ATN, worsening LFTs, fluid cytologies + for adenocarcinoma, etc ) Discharge planning: uncertain
[2017-10-19 00:04] VITALS: BP 154/93; PULSE 82; TEMP 36.7; O2SAT 92
[2017-10-19] MEDS: OXYCODONE HCL IR 5 MG TAB (IMMEDIATE RELEASE) PO PRN ×2 (00:09→20:07)
[2017-10-19 07:30] VITALS: BP 139/80; PULSE 86; TEMP 37.1; O2SAT 93
[2017-10-19 07:34] LABS: INR 0.9 (0.9-1.1)
[2017-10-19 07:42] LABS: ALBUMIN 2.4 gm/dl (3.4-5.0); CALCIUM 8.3 mg/dl (8.5-10.1); CREATININE 4.17 mg/dl (0.60-1.40); POTASSIUM 4.3 mmol/L (3.5-5.1)
[2017-10-19 07:44] LABS: TOTAL PROTEIN 6.9 gm/dl (6.4-8.2)
[2017-10-19] MEDS: DOCUSATE SODIUM/SENNA 50/8.6MG TAB PO SCH (08:00)
[2017-10-19] MEDS: AMLODIPINE BESYLATE 5 MG TAB PO SCH (08:03)
[2017-10-19] MEDS: ESCITALOPRAM OXALATE 10 MG TAB PO SCH (08:03)
[2017-10-19] MEDS: METOPROLOL TARTRATE 100 MG TAB PO SCH ×2 (08:03→20:08)
[2017-10-19] MEDS: SODIUM BICARBONATE 650 MG TAB PO SCH ×2 (08:04→20:08)
[2017-10-19] MEDS: HEPARIN SOD 5000 UNIT/0.5 ML CARP SQ SCH (08:06)
[2017-10-19] MEDS: POLYETHYLENE (MIRALAX) 17 GM PACK PO SCH (08:07)
--- NOTE | 2017-10-19 09:18 | Gastroenterology Progress Note ---
Progress Note Date of Service: Oct 19, 2017 Subjective Pt evaluation today including: conversation w/ patient, physical exam, chart review, lab review Pt was seen and evaluated, chart reviewed. Unfortunately, pathology returned yesterday from ascites suggestive of metastatic adenocarcinoma unknown primary. CT imaging and MRCP were unremarkable for lesion of liver or pancreas. LFTs and lipase continue to remain elevated trend up, this is concerning for PD or ampullary stricture. Pt feels down, understands diagnosis. Today, he feels ok. Denies fever, chills, CP, SOB. Does have abdominal fullness, no nausea, vomiting. Has been having loose stools since CT prep no black or bloody stools. Has not had epigastric pain x 24 hours. TB 0.8 --> 1.4 --> 3.8 --> 4.0 DB 0.7 --> 2.0 --> 2.7 AST 99 --> 135 ALT 96 --> 126 ALKP 495 --> 610 --> 641 Lipase 416 --> 1017 MRCP 10/17/17: Motion degraded exam. Suggested mild cholelithiasis without evidence of choledocholithiasis or common bile duct dilation. Moderate sized bilateral pleural effusions with moderate volume of abdominal ascites re- demonstrated. Lesion of the T12 vertebral body better characterized on comparison thoracic spine MRI 10/12/2017. CT ABD/Pelvis 10/17/17: There is a small to moderate volume of abdominal ascites. Question early changes of cirrhosis. Moderate pleural effusions with associated atelectasis. These have significantly increased in size from 2017. The kidneys appear heterogeneous and edematous. Perinephric stranding is again identified. These findings are nonspecific. Correlation with clinical findings and urinalysis will be required. Although decompressed, the bladder wall appears thickened and pericystic stranding is suggested. Again, correlation with clinical findings and urinalysis will be required. Mild to moderate colonic diverticulosis without evidence of acute diverticulitis. Cardiomegaly. Numerous pulmonary nodules are again seen at the lung bases. These are new from 2014 and although nonspecific, metastatic disease is the diagnosis of exclusion. Enlarged mesenteric lymph nodes are nonspecific and may be on a reactive basis. Paracentesis 10/17/17: 20 cc off. No SBP - PMN 16. SAAG 0.6 w/ total protein 6.6 not suggestive of portal HTN. Lipase 2300, Amylase 600. Malignant metastatic adenocarcinoma KUB 10/16/17: Non-obstructed abdominal bowel gas pattern ABD US 10/15/17: Small volume ascites. Bilateral pleural effusions Hepatic Duplex 10/15/17: Patent hepatic vasculature. No evidence of portal vein thrombosis Chest XR 10/15/17: Unchanged bibasilar opacities, possibly atelectasis. Small bilateral pleural effusions stable to slightly increased in size Chest CT 10/12/17: Minimally increased sclerosis with ill-defined margins involves the anterior portion of the T12 vertebral body which may correlate with the focal area of marrow replacement seen on comparison MRI studies. Again , this is suspicious for metastatic disease. No additional suspicious lytic or blastic bony lesions of the spine identified. Discogenic degenerative changes, facet arthropathy and endplate spurring as above. Moderate bilateral pleural effusions with multifocal bilateral pulmonary nodules, better evaluated on CT chest 10/02/2017. Thoracic MRI 10/12/17: Suspicious lesion at the T12 level, which is highly concerning for a site of metastatic disease. No convincing evidence of an additional osseous lesion in the thoracic spine. Mild degenerative changes of the thoracic spine including neural foraminal narrowing on the left at T8-9 and bilaterally at T9-10. Partially visualized degenerative changes in the lower cervical spine CT ABD/Pelvis 10/02/17: Numerous small nodules within visualized portions of the lungs which are new since CT of August 25, 2013. While nonspecific, metastatic disease is within the differential and correlation with history of known malignancy is recommended. A follow-up chest CT could be obtained. Trace bilateral pleural effusions with possible pleural nodularity. Discussed with Dr. Linder at time of dictation. Moderate bilateral perinephric infiltration, a nonspecific finding. Mild prominence of both collecting systems without melva hydronephrosis. No ureteral calculi. Small amount of ascites. Suspected cirrhosis. Extensive atherosclerotic plaque. 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 Family history of GI malignancy: none Family history of liver disease: none Family history of pancreatitis: none Family history of gallbladder disease: mom w/ cholecystitis and gallstones Review of Systems Constitutional: No fever, No chills, No weakness, No fatigue Respiratory: No cough, No sputum, No wheezing, No shortness of breath Cardiac: No chest pain, No edema Abdomen: + pain, + problem reported (bloating), No nausea, No vomiting, No diarrhea, No constipation, No GI bleeding Male : No dysuria Psych: + anxiety Skin: No rash, No itch, No bleeding, No jaundice Medications Current Inpatient Medications Medications (Trade) Dose Ordered Sig/Margarito Route Start Time Stop Time Status Last Admin Dose Admin Amlodipine Besylate (Norvasc Tab) 10 mg DAILY PO 10/11/17 08:00 11/10/17 08:59 10/19/17 08:03 10 MG Zolpidem Tartrate (Ambien Tab) 5 mg HSZ PRN PO 10/11/17 00:00 11/10/17 00:00 10/18/17 20:37 5 MG Ondansetron HCl (Zofran Inj) 4 mg Q6H PRN IV 10/11/17 00:00 11/10/17 00:00 Albuterol (Ventolin Hfa Inhaler) 2 puffs Q4H PRN INH 10/11/17 02:15 11/10/17 02:14 10/16/17 07:58 2 PUFFS Senna/Docusate Sodium (Senokot S Tab) 1 tab QAM PO 10/12/17 08:00 11/11/17 07:59 10/17/17 08:20 1 TAB Lorazepam (Ativan Tab) 0.5 mg HS PRN PO 10/11/17 21:00 11/10/17 20:59 10/16/17 20:03 0.5 MG Hydralazine HCl (HydrALAZINE INJ) 10 mg Q8H PRN IV. 10/12/17 11:30 11/11/17 11:29 10/17/17 16:32 10 MG Bisacodyl (Dulcolax Supp) 10 mg DAILY PRN AL 10/12/17 18:15 11/11/17 18:14 10/14/17 11:40 10 MG Heparin Sodium (Porcine) (Heparin Sq 5000 Unit/0.5ml) 5,000 unit Q12H SQ 10/13/17 21:00 11/10/17 05:59 Future hold 10/19/17 08:06 5,000 UNIT Metoprolol Tartrate (Lopressor Tab) 100 mg BID PO 10/17/17 20:00 11/14/17 09:29 10/19/17 08:03 100 MG Acetaminophen (Tylenol Tab) 1,000 mg Q6H PRN PO 10/17/17 10:45 11/16/17 10:44 Polyethylene (Miralax Powder Packet) 17 gm DAILY PO 10/17/17 15:30 11/09/17 15:29 10/19/17 08:07 17 GM Oxycodone HCl (Roxicodone Immediate Rel Tab) 5 mg Q6H PRN PO 10/17/17 15:15 10/31/17 15:14 10/19/17 00:09 5 MG Sodium Bicarbonate (Sodium Bicarbonate Tab) 1,300 mg BID PO 10/18/17 20:00 11/14/17 19:59 10/19/17 08:04 1,300 MG Escitalopram Oxalate (Lexapro Tab) 5 mg QAM PO 10/19/17 08:00 11/18/17 07:59 10/19/17 08:03 5 MG Objective Vital Signs Date Time Temp Pulse Resp B/P (MAP) Pulse Ox O2 Delivery O2 Flow Rate FiO2 10/19/17 07:30 37.1 86 20 139/80 (99) 93 Room Air 10/19/17 00:50 Room Air 10/19/17 00:04 36.7 82 18 154/93 (113) 92 Room Air 10/18/17 20:30 81 157/91 (113) 10/18/17 15:59 37.1 82 18 167/105 (125) 93 Room Air 10/18/17 15:45 93 Room Air Physical Exam General Appearance: no apparent distress Eyes: PERRL ENT: hearing grossly normal Neck: supple, trachea midline Respiratory/Chest: lungs clear, normal breath sounds, no accessory muscle use Cardiovascular: regular rate, rhythm, no edema, no JVD Abdomen: normal bowel sounds, soft, no organomegaly, no pulsatile mass, + tenderness (generalized fullness) Neurologic/Psych: alert, normal mood/affect, oriented x 3 Skin: normal color, no rash Laboratory Results Last 24 Hours Test 10/19/17 07:11 Prothrombin Time 9.7 SECONDS Prothromb Time International Ratio 0.9 Sodium Level 133 mmol/L Potassium Level 4.3 mmol/L Chloride Level 104 mmol/L Carbon Dioxide Level 19 mmol/L Anion Gap 10.0 mmol/L Blood Urea Nitrogen 54 mg/dl Creatinine 4.17 mg/dl Est Creatinine Clear Calc Drug Dose 19.7 ml/min Estimated GFR () 16.1 Estimated GFR (Non- 13.9 BUN/Creatinine Ratio 13.0 Random Glucose 97 mg/dl Calcium Level 8.3 mg/dl Magnesium Level 2.7 mg/dl Total Bilirubin 4.0 mg/dl Aspartate Amino Transf (AST/SGOT) 123 U/L Alanine Aminotransferase (ALT/SGPT) 122 U/L Alkaline Phosphatase 641 U/L Total Protein 6.9 gm/dl Albumin 2.4 gm/dl Globulin 4.5 gm/dl Albumin/Globulin Ratio 0.5 Lipase 898 U/L Assessment and Plan Patient is a 67 year old male with upper abdominal pain w/ radiation to his back and underneath both breast without weight loss, nausea or vomiting since July, who presented to the ED about a month ago for abnormal outpatient labs concerning for pancreatitis, underwent CT imaging without contrast due to CHAD w/o evidence of pancreatitis or mass effect but suggestive of hepatic cirrhosis. He was managed conservatively but notes his symptoms never improved. Was D/C home, noted weight gain of about 10 lbs with abdominal distention and gradual SOB. Now, w/ abdominal ascites s/p diagnostic tap w/ low SAAG but high protein w/ elevated ascitic and serum lipase/amylase. His LFTs are persistently elevated but are worse on this admission. He did not have a pancreatic protocol CT or MRI abd imaging to rule out pancreatic mass. Imaging was reviewed with radiology including CT and MRI without evidence of pancreatic mass or CBD obstruction. Unfortunately, pathology returned last evening from ascites w/ metastatic adenocarcinoma, unknown primary. There was not enough ascitic fluid for follow up tests. In light of his elevated lipase, LFTs the next step from a GI standpoint would be endoscopic ultrasound or ERCP for brushing or stent placement if needed. - daily hepatic function - low fat as tolerated - Analgesia PRN - Antiemetics PRN - Ascites - No signs of SBP - Low SAAG w/ high protein - cytology confirms malignant ascites - metastatic adenocarcinoma, unknown primary - Elevated LFTs - Serology negative to date - MRCP negative - EUS/ERCP - Cirrhosis Management - ETOH cessation - Less than 2G Tylenol daily - Low NA diet - Completion of full serological evaluation at time of discharge - SPEP, ceruloplasmin, alpha-1, iron panel w/ ferritin, celiac panel - Outpatient EGD for variceal screening - Outpatient Hep A and Hep B immunization if indicated - Pt has asked me to contact his niece, I will call this morning, [facility] to follow, please call with any questions or concerns Attg addendum: I interviewed and examined pt, reviewed chart and labs. Pt with h/o heavy alcohol admit with abd pain, found to have cholestatic LFT's with rising bili, elevated lipase, ARF, ascites with cytology pos for cancer, imaging suggest metastatic cancer but with out evidence of primary and without evidence of ductal obstruction. I cannot find a unifying diagnosis to explain his clinical presentation. It may be possible that he has an ampullary obstruction leading (chronic panc?) leading to panc ascites. It may also be possible that he has infiltrative disease of the liver leading the elevated alk phos. I think he would best be served by an EUS. Unfortunately, that service is not available here this week. I would strongly advocate [place] [facility].
--- NOTE | 2017-10-19 10:46 | Nephrology Progress Note ---
Nephrology Progress Note Date of Service Oct 19, 2017. Chief Complaint F/U for CHAD Subjective Mr. Phillips was seen in his room this morning with his girlfriend Daniela at bedside. Both seem it depressed with the knowledge about the pathology report from yesterday. Denies any shortness of breath or chest pain. Has been voiding , 1700 to a over last 24 hours. No shortness of breath or lower extremity edema. Renal function remained stable, creatinine 4.2. Blood pressure stable. Review of Systems A complete review of systems was performed. Pertinent positives are noted above. All other systems are negative. Vital Signs Last 8 Hrs Date Time Temp Pulse Resp B/P (MAP) Pulse Ox O2 Delivery O2 Flow Rate FiO2 10/19/17 07:30 37.1 86 20 139/80 (99) 93 Room Air 10/19/17 00:50 Room Air Last Recorded Weight Weight (Kilograms): 93.000 Physical Exam GENERAL: Middle-aged man, AAA x 3, not in any distress. NECK: Supple, no JVD. RESPIRATORY: Normal breathing efforts, no accessory muscle use, clear to auscultation bilaterally, no wheezes or rales. CARDIOVASCULAR: S1, S2 normal, rate rhythm regular. ABDOMEN: distended but not tense or tender. EXTREMITY: No lower extremity edema NEURO: speech fluent. PSYCHIATRY: Normal mood and judgment Family History FH: cancer FH: gallbladder disease FH: heart disease Hypertension Kidney disease Kidney stones Father had ESRD requiring HD related to "heart failure Social History Smoking Status: Never smoker Marital Status: Occupation: retired . Two children in good health. 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 Never a smoker. History of heavy alcohol abuse (stopped following recent hospitalization 10/02) Laboratory Results Past 24 Hours 10/19/17 07:11 Test 10/19/17 07:11 Prothrombin Time 9.7 SECONDS (9.0-12.0) Prothromb Time International Ratio 0.9 (0.9-1.1) Anion Gap 10.0 mmol/L (3-11) Est Creatinine Clear Calc Drug Dose 19.7 ml/min Estimated GFR () 16.1 Estimated GFR (Non- 13.9 BUN/Creatinine Ratio 13.0 (10-20) Calcium Level 8.3 mg/dl (8.5-10.1) Magnesium Level 2.7 mg/dl (1.8-2.4) Total Bilirubin 4.0 mg/dl (0.2-1) Aspartate Amino Transf (AST/SGOT) 123 U/L (15-37) Alanine Aminotransferase (ALT/SGPT) 122 U/L (12-78) Alkaline Phosphatase 641 U/L (45-117) Total Protein 6.9 gm/dl (6.4-8.2) Albumin 2.4 gm/dl (3.4-5.0) Globulin 4.5 gm/dl (2.5-4.0) Albumin/Globulin Ratio 0.5 (0.9-2) Lipase 898 U/L (73-393) Allergies Coded Allergies: No Known Allergies (Unverified , 10/07/17) Medications Current Inpatient Medications Medications (Trade) Dose Ordered Sig/Margarito Route Start Time Stop Time Status Last Admin Dose Admin Amlodipine Besylate (Norvasc Tab) 10 mg DAILY PO 10/11/17 08:00 11/10/17 08:59 10/19/17 08:03 10 MG Zolpidem Tartrate (Ambien Tab) 5 mg HSZ PRN PO 10/11/17 00:00 11/10/17 00:00 10/18/17 20:37 5 MG Ondansetron HCl (Zofran Inj) 4 mg Q6H PRN IV 10/11/17 00:00 11/10/17 00:00 Albuterol (Ventolin Hfa Inhaler) 2 puffs Q4H PRN INH 10/11/17 02:15 11/10/17 02:14 10/16/17 07:58 2 PUFFS Senna/Docusate Sodium (Senokot S Tab) 1 tab QAM PO 10/12/17 08:00 11/11/17 07:59 10/17/17 08:20 1 TAB Lorazepam (Ativan Tab) 0.5 mg HS PRN PO 10/11/17 21:00 11/10/17 20:59 10/16/17 20:03 0.5 MG Hydralazine HCl (HydrALAZINE INJ) 10 mg Q8H PRN IV. 10/12/17 11:30 11/11/17 11:29 10/17/17 16:32 10 MG Bisacodyl (Dulcolax Supp) 10 mg DAILY PRN HI 10/12/17 18:15 11/11/17 18:14 10/14/17 11:40 10 MG Heparin Sodium (Porcine) (Heparin Sq 5000 Unit/0.5ml) 5,000 unit Q12H SQ 10/13/17 21:00 11/10/17 05:59 Future hold 10/19/17 08:06 5,000 UNIT Metoprolol Tartrate (Lopressor Tab) 100 mg BID PO 10/17/17 20:00 11/14/17 09:29 10/19/17 08:03 100 MG Acetaminophen (Tylenol Tab) 1,000 mg Q6H PRN PO 10/17/17 10:45 11/16/17 10:44 Polyethylene (Miralax Powder Packet) 17 gm DAILY PO 10/17/17 15:30 11/09/17 15:29 10/19/17 08:07 17 GM Oxycodone HCl (Roxicodone Immediate Rel Tab) 5 mg Q6H PRN PO 10/17/17 15:15 10/31/17 15:14 10/19/17 00:09 5 MG Sodium Bicarbonate (Sodium Bicarbonate Tab) 1,300 mg BID PO 10/18/17 20:00 11/14/17 19:59 10/19/17 08:04 1,300 MG Escitalopram Oxalate (Lexapro Tab) 5 mg QAM PO 10/19/17 08:00 11/18/17 07:59 10/19/17 08:03 5 MG Impression (1) Cirrhosis (2) Lung nodules (3) Lesion of vertebra (4) Acute kidney injury (5) Hypertension CHAD most likely secondary to ATN, is continuation from recent hospitalization earlier this month. Urinalysis negative for protein or blood. Urine microscopy negative for casts. SIEP 2017 was negative for monoclonal band. Pending repeat SIEP/UIEP and serum free light chains. Renal US from last admission reviewed. No obstruction or mass Recommendations -- creatinine may be stabilizing, Staying around 4-4.2 without any significant changes. Remain non oliguric. -- continue bicarbonate to 1300 milligram b.i.d. -- Hold Lisinopril -- Continue Amlodipine, metoprolol 100 milligram twice a day and IV Hydralazine PRN SBP > 180 mm HG -- GI following and may need to consider liver biopsy Will follow
[2017-10-19 12:53] VITALS: Ht 175.3 cm; Wt 92.8 kg
--- NOTE | 2017-10-19 13:01 | Hospitalist Progress Note ---
Hospitalist Progress Note Date of Service Oct 19, 2017. Subjective Pt evaluation today including: conversation w/ patient, conversation w/ family , conversation w/ library sales consultant (Gastroenterology, Oncology, Thoracic Surgery) Voiding: no voiding problems Pt continues to c/o intermittent SOB, epigastric "discomfort," and anxiety over diagnosis of cancer. He is making urine, moving bowels but not a lot. Appetite is poor. Says the oxycodone really helped his discomfort and helped him sleep last night. All Other Systems: Reviewed and Negative Objective Vital Signs Date Time Temp Pulse Resp B/P (MAP) Pulse Ox O2 Delivery O2 Flow Rate FiO2 10/19/17 08:00 Room Air 10/19/17 07:30 37.1 86 20 139/80 (99) 93 Room Air 10/19/17 00:50 Room Air 10/19/17 00:04 36.7 82 18 154/93 (113) 92 Room Air 10/18/17 20:30 81 157/91 (113) 10/18/17 15:59 37.1 82 18 167/105 (125) 93 Room Air 10/18/17 15:45 93 Room Air Physical Exam General Appearance: WD/WN, no apparent distress Eyes: normal inspection, sclerae normal ENT: hearing grossly normal Neck: trachea midline Respiratory/Chest: no respiratory distress, no accessory muscle use, + decreased breath sounds (at bases bilat) Cardiovascular: regular rate, rhythm, no edema, no murmur Abdomen: normal bowel sounds, non tender, soft Extremities: normal inspection, no pedal edema, no calf tenderness Neurologic/Psychiatric: alert, oriented x 3, + pertinent finding (anxious) Skin: warm/dry, no rash, + jaundice (mild) Laboratory Results Last 24 Hours Test 10/19/17 07:11 Prothrombin Time 9.7 SECONDS Prothromb Time International Ratio 0.9 Sodium Level 133 mmol/L Potassium Level 4.3 mmol/L Chloride Level 104 mmol/L Carbon Dioxide Level 19 mmol/L Anion Gap 10.0 mmol/L Blood Urea Nitrogen 54 mg/dl Creatinine 4.17 mg/dl Est Creatinine Clear Calc Drug Dose 19.7 ml/min Estimated GFR () 16.1 Estimated GFR (Non- 13.9 BUN/Creatinine Ratio 13.0 Random Glucose 97 mg/dl Calcium Level 8.3 mg/dl Magnesium Level 2.7 mg/dl Total Bilirubin 4.0 mg/dl Aspartate Amino Transf (AST/SGOT) 123 U/L Alanine Aminotransferase (ALT/SGPT) 122 U/L Alkaline Phosphatase 641 U/L Total Protein 6.9 gm/dl Albumin 2.4 gm/dl Globulin 4.5 gm/dl Albumin/Globulin Ratio 0.5 Lipase 898 U/L Assessment and Plan Patient is a 67 y/o M HTN, HPL, anemia, pulmonary nodules - 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 CHAD was thought to be due to ATN, NSAID and TAWNY use in the setting of an acute pancreatitis episode and was initially treated with IVF. Renal function only minimally improved despite hydration and he was subsequently DCd with a creatinine of approximately 3.0. He states that he had gained 15lbs during his hospital stay and in the week after. Presented to the ER 10/07 c/o exertional dyspnea and weight gain. No acute abnormalities were found on labs or imaging. He was provided a dose of IV Lasix and DCd from the ER. He returned to the ER a few days later with c/o worsening weight gain, worsening LE edema and exertional dyspnea. Initial imaging shows stable, small pleural effusions. Initial labs are notable for worsening renal function as his creatinine has increased to 3.4. Acute kidney injury with volume overload and dyspnea/bilateral pleural effusions -related possibly to ATN secondary to acute pancreatitis/NSAID/ACEI use. Creatinine has stabilized somewhat at 4.1. Bicarbonate mildly low at 19. Not hypoxic. Renal ultrasound normal on previous admission. CT abdomen/pelvis showed moderate perinephric stranding possibly consistent with chronic kidney disease. No stones or obstruction. He remains nonoliguric. Urine spot protein/creatinine ratio is normal at 0.2, repeat UA now with 1+ protein SPEP normal, Urine PAULO with A SMALL BAND OF KAPPA LIGHT CHAIN DETECTED -Appreciate nephrology consultation -No IV fluids at this time, hold off on any further diuretics -Follow PRP and electrolytes -Follow I's and O's Avoid nephrotoxins, continue to hold previous home lisinopril, NSAIDs -NO acute indication for dialysis at this time. 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 TBili now at 4.0 with direct component 2.7. Ascites with adenocarcinoma cells and high lipase, amylase present. No SBP - PMN 16. SAAG 0.6 w/ total protein 6.6 not suggestive of portal HTN. Lipase 2300 , Amylase 600. Lipase 800-1000 up from 400 on admission Alk phos isoenzymes show majority Alk phos from liver. Perhaps a liver infiltrative process? 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 Could have obstruction of ampulla, likely needs EUS and ERCP as per GI Hepatic Duplex neg for portal vein thrombosis INR and platelets are normal, no evidence of portal hypertension on imaging previously. Liver does appear cirrhotic on previous imaging. He is compensated at this point from a cirrhosis standpoint. Hepatitis C antibody was negative in March of this past year. Hep A titer ending, Hep B negative. 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 Likely metastatic disease from adenocarcinoma, unknown primary. TAWNY level normal--> granulomatous disease not likely. He is a lifetime non-smoker. He has no signs or symptoms of infection. Pulmonary and thoracic surgery decided no bronchoscopy at this time as the nodules are too small-there is nothing to biopsy -workup for primary source of adenocarcinoma ongoing as above HTN -BP is uncontrolled but slightly improved. Is no longer on his usual ACEI since CHAD -cont Norvasc, metoprolol -Add IV hydralazine as needed Anemia -normocytic, related to cirrhosis and possibly CKD or chronic disease - Hb is stable at 8.3. Fe studies normal in 08/2016 and partially done in 09/2017 with normal serum iron and normal TIBC normal. Hemoccult stool was negative in September 2017. B12 and folate were normal recently. -Follow CBC and transfuse as needed but caution with fluid overload -He had colonoscopy 2 and half years ago that was normal as per patient-request records from [facility] - not currently treated with statin due to liver issues Constipation-improved -Continue prune juice, docusate/senna, Dulcolax and Dulcolax suppositories as needed, Miralax Full code - Heparin prophylaxis-placed on hold today for thoracentesis in the AM Disposition-transfer to [facility] when bed available tonight or in the AM Discussed the case in detail with numerous family members and girlfriend at the bedside and on the phone multiple times throughout the day. Spent 90 minutes on his case today between discussing with specialists, interpreting studies, and arranging transfer.
[2017-10-19] MEDS: LORAZEPAM 0.5 MG TAB PO PRN ×2 (13:31→20:07)
--- NOTE | 2017-10-19 15:01 | Oncology Consultation ---
Oncology/Heme Consultation Date of Consultation: Oct 19, 2017. Attending Physician: Fernanda Linder MD Reason for Consultation: Adenocarcinoma unknown primary History of Present Illness Mr. Ludwig is a 67-year-old gentleman that has a history of ethyl alcohol use hypertension chronic kidney disease pulmonary nodules and pleural as well as peritoneal fluid. He originally presented in September of this year with abnormal labs which included increases in the transaminases as well as a rising creatinine. His renal function did not improve despite hydration. He was discharged but soon after that gained 15 pounds and he states that his abdomen became bloated. He was admitted for evaluation of this. In addition his lab and asked also worsened with a rising bilirubin as well as a worsening of his creatinine. During his evaluation multiple x-rays have been done. These have included an MRI of his back that show a lesion affecting the vertebral body of T12. The canal is free of impingement. CT scan of the abdomen was really unremarkable for any obvious source that might be neoplasm. A small amount of ascites is seen. Between September and now CT scans of the chest reflect marked increase in bilateral pleural fluid with scattered small pulmonary nodules. The ascites was recently sampled and unfortunately cells consistent with adenocarcinoma were found. Tumor markers have been really nonspecific. We are asked now to calm concerning any further testing and/or potential treatments. Past Medical/Surgical History Medical Problems: (1) Acute kidney injury Status: Acute (2) Acute on chronic renal failure Status: Acute (3) Ascites Status: Acute (4) Cirrhosis of liver Status: Acute (5) Pancreatitis Status: Acute (6) Pleural effusion Status: Acute Family History FH: cancer FH: gallbladder disease FH: heart disease Hypertension Kidney disease Kidney stones Social History Smoking Status: Never Smoker Marital Status: Housing Status: lives with significant other Occupation Status: retired Allergies Coded Allergies: No Known Allergies (Unverified , 10/07/17) Home Medications Scheduled Amlodipine (Norvasc), 10 MG PO DAILY Scheduled PRN Albuterol Sulfate (Proair Respiclick), 2 PUFFS INH Q4H PRN for SOB/Wheezing Polyethylene Glycol 3350 (Miralax), 17 GM PO DAILY PRN for Constipation Current Inpatient Medications Current Inpatient Medications Medications (Trade) Dose Ordered Sig/Margarito Route Start Time Stop Time Status Last Admin Dose Admin Amlodipine Besylate (Norvasc Tab) 10 mg DAILY PO 10/11/17 08:00 11/10/17 08:59 10/19/17 08:03 10 MG Zolpidem Tartrate (Ambien Tab) 5 mg HSZ PRN PO 10/11/17 00:00 11/10/17 00:00 10/18/17 20:37 5 MG Ondansetron HCl (Zofran Inj) 4 mg Q6H PRN IV 10/11/17 00:00 11/10/17 00:00 Albuterol (Ventolin Hfa Inhaler) 2 puffs Q4H PRN INH 10/11/17 02:15 11/10/17 02:14 10/16/17 07:58 2 PUFFS Senna/Docusate Sodium (Senokot S Tab) 1 tab QAM PO 10/12/17 08:00 11/11/17 07:59 10/17/17 08:20 1 TAB Hydralazine HCl (HydrALAZINE INJ) 10 mg Q8H PRN IV. 10/12/17 11:30 11/11/17 11:29 10/17/17 16:32 10 MG Bisacodyl (Dulcolax Supp) 10 mg DAILY PRN [place] 10/12/17 18:15 11/11/17 18:14 10/14/17 11:40 10 MG Heparin Sodium (Porcine) (Heparin Sq 5000 Unit/0.5ml) 5,000 unit Q12H SQ 10/13/17 21:00 11/10/17 05:59 Future hold 10/19/17 08:06 5,000 UNIT Metoprolol Tartrate (Lopressor Tab) 100 mg BID PO 10/17/17 20:00 11/14/17 09:29 10/19/17 08:03 100 MG Acetaminophen (Tylenol Tab) 1,000 mg Q6H PRN PO 10/17/17 10:45 11/16/17 10:44 Polyethylene (Miralax Powder Packet) 17 gm DAILY PO 10/17/17 15:30 11/09/17 15:29 10/19/17 08:07 17 GM Oxycodone HCl (Roxicodone Immediate Rel Tab) 5 mg Q6H PRN PO 10/17/17 15:15 10/31/17 15:14 10/19/17 00:09 5 MG Sodium Bicarbonate (Sodium Bicarbonate Tab) 1,300 mg BID PO 10/18/17 20:00 11/14/17 19:59 10/19/17 08:04 1,300 MG Escitalopram Oxalate (Lexapro Tab) 5 mg QAM PO 10/19/17 08:00 11/18/17 07:59 10/19/17 08:03 5 MG Lorazepam (Ativan Tab) 0.5 mg Q6H PRN PO 10/19/17 13:15 11/10/17 20:59 10/19/17 13:31 0.5 MG Review of Systems Constitutional: Negative for weight loss, night sweats, or fever. He states he has gained weight. He reviews with me that he has been very active up until very recently. Eyes: Negative for event change of vision ENT: Negative for epistaxis, nasal discharge, sore throat, or deafness Cardiovascular: Negative for chest pain, palpitations, dizziness, diaphoresis Respiratory: Negative for new shortness of breath while at rest although he does admit to some shortness of breath with exertion.,he denies hemoptysis, or purulent cough Gastrointestinal: Negative for diarrhea, hematemesis, melena, nausea, vomiting , or dyspepsia or dysphagia. Integumentary (skin): Negative for rash or jaundice discoloration Genitourinary: Negative for urinary frequency, hematuria, or dysuria Neurological: Negative for weakness, seizure activity, headache, or dizziness Lymphatic/Hematologic: Negative for petechiae, bleeding or new adenopathy Musculoskeletal: Negative for new joint or back pain Allergic/Immunologic: Negative for unusual rash or pruritis. Physical Exam Date Time Temp Pulse Resp B/P (MAP) Pulse Ox O2 Delivery O2 Flow Rate FiO2 10/19/17 08:00 Room Air 10/19/17 07:30 37.1 86 20 139/80 (99) 93 Room Air 10/19/17 00:50 Room Air 10/19/17 00:04 36.7 82 18 154/93 (113) 92 Room Air 10/18/17 20:30 81 157/91 (113) 10/18/17 15:59 37.1 82 18 167/105 (125) 93 Room Air 10/18/17 15:45 93 Room Air Constitutional: vitals are stable. Alert pleasant gentleman with a jaundiced hue Eyes: Eyes are DEISY EOMI without conjuctival erythema. There is scleral icterus. ENT: External examination was negative for masses. Neck: Negative for masses or palpable thyromegaly Respiratory: Lung sounds were generally clear bilaterally Cardiovascular: Heart was RRR without significant murmur, gallops aoe rubs Gastrointestinal: No palpable hepatic or splenomegaly. The abdomen was only mildly distended with normal bowel sounds. Lymphatic system: there was no palpable peripheral lymphadenopathy Musculoskeletal System: The musculoskeletal system seemed concordant with age. Skin: No unusual rashes. Neurologic exam: The exam was negative for any focal findings. Deep tendon reflexes were equal and symmetrical. Psychiatric exam: Was essentially negative with normal mood and effect. Extremities: negative for edema Laboratory Results Last 24 Hours Test 10/19/17 07:11 Prothrombin Time 9.7 SECONDS Prothromb Time International Ratio 0.9 Sodium Level 133 mmol/L Potassium Level 4.3 mmol/L Chloride Level 104 mmol/L Carbon Dioxide Level 19 mmol/L Anion Gap 10.0 mmol/L Blood Urea Nitrogen 54 mg/dl Creatinine 4.17 mg/dl Est Creatinine Clear Calc Drug Dose 19.7 ml/min Estimated GFR () 16.1 Estimated GFR (Non- 13.9 BUN/Creatinine Ratio 13.0 Random Glucose 97 mg/dl Calcium Level 8.3 mg/dl Magnesium Level 2.7 mg/dl Total Bilirubin 4.0 mg/dl Aspartate Amino Transf (AST/SGOT) 123 U/L Alanine Aminotransferase (ALT/SGPT) 122 U/L Alkaline Phosphatase 641 U/L Total Protein 6.9 gm/dl Albumin 2.4 gm/dl Globulin 4.5 gm/dl Albumin/Globulin Ratio 0.5 Lipase 898 U/L Assessment & Plan Scans were reviewed. I did also discuss the peritoneal fluid findings with pathology. All that can be said is that this is an adenocarcinoma. At this time the primary is unclear. He does have small pulmonary nodules and worsening pleural fluid. I understand an ERCP is being planned for the later this week. An MRCP that was just done was really unremarkable. Of course with the ERCP, we will learn the status of his esophagus as well as his stomach. One other alternative as far as a potential diagnostic maneuver and potentially a therapeutic maneuver would be to drain some of the pleural fluid for analysis. If this is positive then pleurodesis could also be considered. His creatinine is stable but still quite elevated. With what we know thus far, we unfortunately will be rather limited in drugs that we might be able to use to treat this problem however.Will of course follow along with you. Discussed with Dr. Linder.
[2017-10-19 15:56] VITALS: BP 154/90; PULSE 76; TEMP 36.9; O2SAT 90
[2017-10-19 19:20] VITALS: O2SAT 91
[2017-10-19] MEDS ORDERED: LXP10 PO (20:45)
[2017-10-19] MEDS ORDERED: RXC5 PO (20:45)
[2017-10-19] MEDS ORDERED: SODI650T8 PO (20:45)
[2017-10-19] MEDS ORDERED: AMB5 PO (20:45)
[2017-10-19] MEDS ORDERED: ATV5 PO (20:45)
[2017-10-19] MEDS ORDERED: SENN8.6T7 PO (20:45)
[2017-10-19] MEDS ORDERED: LPR100 PO (20:45)
[2017-10-19] MEDS ORDERED: HYDI IV. (20:45)
--- NOTE | 2017-10-19 20:51 | Discharge Instructions ---
Discharge Instructions Date of Service Oct 19, 2017. Admission Reason for Admission: Acute kidney injury, Elevated LFTs Discharge Discharge Diagnosis / Problem: CHAD, Metastatic adenocarcinoma Discharge Goals Goal(s): Improve disease control, Diagnostic testing, Therapeutic intervention Activity Recommendations Activity Limitations: per Instructions/Follow-up section Exercise/Sports Limitations: as tolerated Shower/Bathe: no limitations . Instructions / Follow-Up Instructions / Follow-Up Transferred to [facility] Current Hospital Diet Patient's current hospital diet: AHA Diet (Heart Healthy), Low Sodium Diet (2gm Na) Discharge Diet Recommended Diet: AHA Diet (Heart Healthy), Low Sodium Diet (2gm Na) Procedures Procedures Performed: CXR Thoracic Spine MRI Thoracic spine CT MRCP Liver US Abdomen US Paracentesis CT abd/pel KUB Pending Studies Studies pending at discharge: yes List of pending studies: Hep A, Heb titer EBV, CMV titers Peritoneal fluid culture and AFB Laboratory Results Last 24 Hours Test 10/19/17 07:11 Prothrombin Time 9.7 SECONDS Prothromb Time International Ratio 0.9 Sodium Level 133 mmol/L Potassium Level 4.3 mmol/L Chloride Level 104 mmol/L Carbon Dioxide Level 19 mmol/L Anion Gap 10.0 mmol/L Blood Urea Nitrogen 54 mg/dl Creatinine 4.17 mg/dl Est Creatinine Clear Calc Drug Dose 19.7 ml/min Estimated GFR () 16.1 Estimated GFR (Non- 13.9 BUN/Creatinine Ratio 13.0 Random Glucose 97 mg/dl Calcium Level 8.3 mg/dl Magnesium Level 2.7 mg/dl Total Bilirubin 4.0 mg/dl Aspartate Amino Transf (AST/SGOT) 123 U/L Alanine Aminotransferase (ALT/SGPT) 122 U/L Alkaline Phosphatase 641 U/L Total Protein 6.9 gm/dl Albumin 2.4 gm/dl Globulin 4.5 gm/dl Albumin/Globulin Ratio 0.5 Lipase 898 U/L Medical Emergencies . Who to Call and When: Medical Emergencies: If at any time you feel your situation is an emergency, please call 911 immediately. . Non-Emergent Contact Non-Emergency issues call your: Primary Care Provider, Jacquard Loom Fixer . . "Provider Documentation" section prepared by Fernanda Linder. .
[2017-10-20] MEDS: ZOLPIDEM TARTRATE 5 MG TAB PO PRN (00:42)
[2017-10-20 07:20] VITALS: BP 169/94; PULSE 78; TEMP 36.7; O2SAT 90
[2017-10-20 07:46] LABS: BASO % 0.5 %; BASO ABS # 0.03 K/uL (0-0.2); EOS % 4.1 %; EOS ABS # 0.25 K/uL (0-0.5); HEMATOCRIT 21.8 % (42-52); HEMOGLOBIN 7.6 g/dL (14.0-18.0); IG# 0.02 K/uL (0.00-0.02); LYMPH % 13.1 %; MEAN CELL VOLUME 91.6 fL (80-100); MEAN CORPUSCULAR HEMOGLOBIN 31.9 pg (25-34); MEAN CORPUSCULAR HGB CONC 34.9 g/dl (32-36); MONO % 14.9 %; MONO ABS # 0.91 K/uL (0.11-0.59); NEUT % 67.1 %; PLATELET COUNT 342 K/uL (130-400); RED CELL DISTRIBUTION WIDTH CV 13.4 % (11.5-14.5); RED CELL DISTRIBUTION WIDTH SD 44.3 fL (36.4-46.3); WHITE BLOOD COUNT 6.11 K/uL (4.8-10.8)
[2017-10-20] MEDS: POLYETHYLENE (MIRALAX) 17 GM PACK PO SCH (08:00)
[2017-10-20] MEDS: DOCUSATE SODIUM/SENNA 50/8.6MG TAB PO SCH (08:00)
[2017-10-20] MEDS: SODIUM BICARBONATE 650 MG TAB PO SCH ×2 (08:02→21:44)
[2017-10-20] MEDS: METOPROLOL TARTRATE 100 MG TAB PO SCH ×2 (08:02→21:44)
[2017-10-20] MEDS: AMLODIPINE BESYLATE 5 MG TAB PO SCH (08:03)
[2017-10-20] MEDS: ESCITALOPRAM OXALATE 10 MG TAB PO SCH (08:03)
[2017-10-20 08:08] LABS: ALBUMIN 2.5 gm/dl (3.4-5.0); CALCIUM 8.2 mg/dl (8.5-10.1); CREATININE 4.46 mg/dl (0.60-1.40); POTASSIUM 4.3 mmol/L (3.5-5.1)
[2017-10-20 08:18] LABS: TOTAL PROTEIN 6.8 gm/dl (6.4-8.2)
--- NOTE | 2017-10-20 10:02 | Nephrology Progress Note ---
Nephrology Progress Note Date of Service Oct 20, 2017. Chief Complaint F/U for CHAD Subjective Mr. Phillips was seen in his room this morning. Denies any shortness of breath or chest pain. Has been voiding, 800 to a over last 24 hours. No shortness of breath or lower extremity edema. Renal function worsened further, creatinine 4.5. Blood pressure stable. Review of Systems A complete review of systems was performed. Pertinent positives are noted above. All other systems are negative. Vital Signs Last 8 Hrs Date Time Temp Pulse Resp B/P (MAP) Pulse Ox O2 Delivery O2 Flow Rate FiO2 10/20/17 07:20 36.7 78 16 169/94 (119) 90 Room Air Last Recorded Weight Weight (Kilograms): 92.800 Physical Exam GENERAL: Middle-aged man, AAA x 3, not in any distress. NECK: Supple, no JVD. RESPIRATORY: Normal breathing efforts, no accessory muscle use, clear to auscultation bilaterally, no wheezes or rales. CARDIOVASCULAR: S1, S2 normal, rate rhythm regular. ABDOMEN: distended but not tense or tender. EXTREMITY: No lower extremity edema NEURO: speech fluent. PSYCHIATRY: Normal mood and judgment Family History FH: cancer FH: gallbladder disease FH: heart disease Hypertension Kidney disease Kidney stones Father had ESRD requiring HD related to "heart failure Social History Smoking Status: Never smoker Marital Status: Occupation: retired . Two children in good health. 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 Never a smoker. History of heavy alcohol abuse (stopped following recent hospitalization 10/02) Laboratory Results Past 24 Hours 10/20/17 07:02 Red Blood Count 2.38, Mean Corpuscular Volume 91.6, Mean Corpuscular Hemoglobin 31.9, Mean Corpuscular Hemoglobin Concent 34.9, Mean Platelet Volume 9.0, Neutrophils (%) (Auto) 67.1, Lymphocytes (%) (Auto) 13.1, Monocytes (%) (Auto) 14.9, Eosinophils (%) (Auto) 4.1, Basophils (%) (Auto) 0.5, Neutrophils # (Auto ) 4.10, Lymphocytes # (Auto) 0.80, Monocytes # (Auto) 0.91, Eosinophils # (Auto ) 0.25, Basophils # (Auto) 0.03 10/20/17 07:02 Test 10/20/17 07:02 White Blood Count 6.11 K/uL (4.8-10.8) Red Blood Count 2.38 M/uL (4.7-6.1) Hemoglobin 7.6 g/dL (14.0-18.0) Hematocrit 21.8 % (42-52) Mean Corpuscular Volume 91.6 fL (80-100) Mean Corpuscular Hemoglobin 31.9 pg (25-34) Mean Corpuscular Hemoglobin Concent 34.9 g/dl (32-36) Platelet Count 342 K/uL (130-400) Mean Platelet Volume 9.0 fL (7.4-10.4) Neutrophils (%) (Auto) 67.1 % Lymphocytes (%) (Auto) 13.1 % Monocytes (%) (Auto) 14.9 % Eosinophils (%) (Auto) 4.1 % Basophils (%) (Auto) 0.5 % Neutrophils # (Auto) 4.10 K/uL (1.4-6.5) Lymphocytes # (Auto) 0.80 K/uL (1.2-3.4) Monocytes # (Auto) 0.91 K/uL (0.11-0.59) Eosinophils # (Auto) 0.25 K/uL (0-0.5) Basophils # (Auto) 0.03 K/uL (0-0.2) RDW Standard Deviation 44.3 fL (36.4-46.3) RDW Coefficient of Variation 13.4 % (11.5-14.5) Immature Granulocyte % (Auto) 0.3 % Immature Granulocyte # (Auto) 0.02 K/uL (0.00-0.02) Hypochromasia PRESENT Anion Gap 9.0 mmol/L (3-11) Est Creatinine Clear Calc Drug Dose 18.3 ml/min Estimated GFR () 14.8 Estimated GFR (Non- 12.8 BUN/Creatinine Ratio 13.2 (10-20) Calcium Level 8.2 mg/dl (8.5-10.1) Magnesium Level 2.8 mg/dl (1.8-2.4) Total Bilirubin 4.6 mg/dl (0.2-1) Direct Bilirubin 3.7 mg/dl (0-0.2) Aspartate Amino Transf (AST/SGOT) 125 U/L (15-37) Alanine Aminotransferase (ALT/SGPT) 122 U/L (12-78) Alkaline Phosphatase 679 U/L (45-117) Total Protein 6.8 gm/dl (6.4-8.2) Albumin 2.5 gm/dl (3.4-5.0) Allergies Coded Allergies: No Known Allergies (Unverified , 10/07/17) Medications Current Inpatient Medications Medications (Trade) Dose Ordered Sig/Margarito Route Start Time Stop Time Status Last Admin Dose Admin Amlodipine Besylate (Norvasc Tab) 10 mg DAILY PO 10/11/17 08:00 11/10/17 08:59 10/20/17 08:03 10 MG Zolpidem Tartrate (Ambien Tab) 5 mg HSZ PRN PO 10/11/17 00:00 11/10/17 00:00 10/20/17 00:42 5 MG Ondansetron HCl (Zofran Inj) 4 mg Q6H PRN IV 10/11/17 00:00 11/10/17 00:00 Albuterol (Ventolin Hfa Inhaler) 2 puffs Q4H PRN INH 10/11/17 02:15 11/10/17 02:14 10/16/17 07:58 2 PUFFS Senna/Docusate Sodium (Senokot S Tab) 1 tab QAM PO 10/12/17 08:00 11/11/17 07:59 10/17/17 08:20 1 TAB Hydralazine HCl (HydrALAZINE INJ) 10 mg Q8H PRN IV. 10/12/17 11:30 11/11/17 11:29 10/17/17 16:32 10 MG Bisacodyl (Dulcolax Supp) 10 mg DAILY PRN ME 10/12/17 18:15 11/11/17 18:14 10/14/17 11:40 10 MG Heparin Sodium (Porcine) (Heparin Sq 5000 Unit/0.5ml) 5,000 unit Q12H SQ 10/13/17 21:00 11/10/17 05:59 Future Hold 10/19/17 08:06 5,000 UNIT Metoprolol Tartrate (Lopressor Tab) 100 mg BID PO 10/17/17 20:00 11/14/17 09:29 10/20/17 08:02 100 MG Acetaminophen (Tylenol Tab) 1,000 mg Q6H PRN PO 10/17/17 10:45 11/16/17 10:44 Polyethylene (Miralax Powder Packet) 17 gm DAILY PO 10/17/17 15:30 11/09/17 15:29 10/19/17 08:07 17 GM Oxycodone HCl (Roxicodone Immediate Rel Tab) 5 mg Q6H PRN PO 10/17/17 15:15 10/31/17 15:14 10/19/17 20:07 5 MG Sodium Bicarbonate (Sodium Bicarbonate Tab) 1,300 mg BID PO 10/18/17 20:00 11/14/17 19:59 10/20/17 08:02 1,300 MG Escitalopram Oxalate (Lexapro Tab) 5 mg QAM PO 10/19/17 08:00 11/18/17 07:59 10/20/17 08:03 5 MG Lorazepam (Ativan Tab) 0.5 mg Q6H PRN PO 10/19/17 13:15 11/10/17 20:59 10/19/17 20:07 0.5 MG Impression (1) Cirrhosis (2) Lung nodules (3) Lesion of vertebra (4) Acute kidney injury (5) Hypertension CHAD most likely secondary to ATN, is continuation from recent hospitalization earlier this month. Urinalysis negative for protein or blood. Urine microscopy negative for casts. SIEP 2016 was negative for monoclonal band. Pending repeat SIEP/UIEP and serum free light chains. Renal US from last admission reviewed. No obstruction or mass Recommendations -- renal function continues to worsen, creatinine 4.5 Remain non oliguric. -- continue bicarbonate to 1300 milligram b.i.d. -- Hold Lisinopril -- Continue Amlodipine, metoprolol 100 milligram twice a day and IV Hydralazine PRN SBP > 180 mm HG -- waiting on bed to transfer to [place] Will follow while in here
--- NOTE | 2017-10-20 10:12 | Discharge Summary ---
Discharge Summary Date of Service Oct 20, 2017. Discharge Summary Admission Date: Oct 11, 2017 at 00:00 Discharge Date: Oct 19, 2017 Discharge Disposition: Acute care facility ([facility]) Principal Diagnosis: CHAD,Pancreatic ascites,metastatic adenocarcinoma Problems/Secondary Diagnoses: Elevated lipase Elevated LFTs Elevated alkaline phosphatase Bilateral pleural effusions HTN HPL anemia pulmonary nodules ETOH cirrhosis-compensated Metabolic acidosis Epigastric Abdominal pain T12 vertebral body neoplasm Constipation H/o EtOH abuse Procedures: CXR Thoracic Spine MRI Thoracic spine CT MRCP Liver US Abdomen US Paracentesis CT abd/pel KUB Consultations: Gastroenterology Nephrology Hematology/Oncology Thoracic Surgery Pulmonology Orthopedic Spine Surgery Medication Reconciliation New Medications: Escitalopram Oxalate (Escitalopram Oxalate) 10 Mg Tab 5 MG PO QAM for 30 Days, TAB Hydralazine HCl (Hydralazine HCl) 20 Mg/Ml Inj 10 MG IV. Q8H PRN for SBP>180 or DBP>110 for 30 Days Lorazepam (Lorazepam) 0.5 Mg Tab 0.5 MG PO Q6H PRN for anxiety or insomnia for 7 Days Metoprolol Tartrate (Metoprolol Tartrate) 100 Mg Tab 100 MG PO BID for 30 Days, TAB Oxycodone HCl (Oxycodone HCl) 5 Mg Tab 5 MG PO Q6H PRN for Pain for 7 Days Sennosides-Docusate Sodium (Senokot S) 1 Tab Tab 1 TAB PO QAM for 30 Days, TAB Sodium Bicarbonate (Sodium Bicarbonate) 650 Mg Tab 1300 MG PO BID for 30 Days, TAB Zolpidem Tartrate (Zolpidem Tartrate) 5 Mg Tab 5 MG PO HSZ PRN for Insomnia for 7 Days Continued Medications: Albuterol Sulfate (Proair Respiclick) 108 Mcg/Act Aer 2 PUFFS INH Q4H PRN for SOB/Wheezing Amlodipine (Norvasc) 5 Mg Tab 10 MG PO DAILY, TAB Polyethylene Glycol 3350 (Miralax) 1 Pow Pow 17 GM PO DAILY PRN for Constipation Discharge Exam Still with some epigastric discomfort, moved bowels and no blood or melena. No heartburn. Still with low appetite. No CP or SOB. Very anxious for transfer. Says he's "tired of waiting." Physical Exam General Appearance: WD/WN, no apparent distress Eyes: normal inspection, sclerae normal ENT: hearing grossly normal Neck: trachea midline Respiratory/Chest: no respiratory distress, no accessory muscle use, + decreased breath sounds (at bases bilat) Cardiovascular: regular rate, rhythm, no edema, no murmur Abdomen: normal bowel sounds, non tender, soft Extremities: normal inspection, no pedal edema, no calf tenderness Neurologic/Psychiatric: alert, oriented x 3, + pertinent finding (anxious) Skin: warm/dry, no rash, + jaundice (mild) Review of Systems: Constitutional: No fever, No chills Eyes: No problem reported ENT: No problem reported Respiratory: No problem reported Cardiovascular: No problem reported Abdomen: + pain, No nausea, No vomiting, No GI bleeding Musculoskeletal: No problem reported Genitourinary - Male: No problem reported Neurologic: No problem reported Psychiatric: + anxiety Endocrine: No problem reported Hematologic / Lymphatic: No problem reported Integumentary: No problem reported Hospital Course Patient is a 67 y/o M HTN, HPL, anemia, pulmonary nodules - 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 CHAD was thought to be due to ATN, NSAID and TAWNY use in the setting of an acute pancreatitis episode and was initially treated with IVF. Renal function only minimally improved despite hydration and he was subsequently DCd with a creatinine of approximately 3.0. He states that he had gained 15lbs during his hospital stay and in the week after. Presented to the ER 10/07 c/o exertional dyspnea and weight gain. No acute abnormalities were found on labs or imaging. He was provided a dose of IV Lasix and DCd from the ER. He returned to the ER a few days later with c/o worsening weight gain, worsening LE edema and exertional dyspnea. Initial imaging shows stable, small pleural effusions. Initial labs are notable for worsening renal function as his creatinine has increased to 3.4. Acute kidney injury with volume overload and dyspnea/bilateral pleural effusions /Metabolic acidosis-related possibly to ATN secondary to acute pancreatitis/ NSAID/ACEI use. Creatinine continues to increase at 4.46. Bicarbonate was low at 19--> now 22 on HCO3 tabs. Not hypoxic. Renal ultrasound normal on previous admission. CT abdomen/pelvis showed moderate perinephric stranding possibly consistent with chronic kidney disease. No stones or obstruction. He remains nonoliguric. Urine spot protein/creatinine ratio is normal at 0.2, repeat UA now with 1+ protein SPEP normal, Urine PAULO with A SMALL BAND OF KAPPA LIGHT CHAIN DETECTED -Appreciate nephrology consultation -No IV fluids at this time, hold off on any further diuretics -Follow PRP and electrolytes -Follow I's and O's Avoid nephrotoxins, continue to hold previous home lisinopril, NSAIDs -NO acute indication for dialysis at this time. -continue Na+HCO3 tabs bid Pleural effusions-moderate on CT- not hypoxic but intermittent dyspnea -d/w Thoracic surgery--> did have plan for diagnostic and therapeutic thoracentesis today but now set for transfer to [facility] so will hold off -check pleural fluid Bilirubin, lipase, amylase when does get tapped -Appreciate Thoracic Surgery consultation Suspected Alcoholic cirrhosis/Abdominal pain/Pancreatic ascites/Elevated lipase/ Elevated LFTs with cholestatic pattern and with rising alkaline phosphatase now in the 600s. TBili now higher at at 4.6 with direct component 3.7. Ascites with adenocarcinoma cells and high lipase, amylase present. No SBP - PMN 16. SAAG 0.6 w/ total protein 6.6 not suggestive of portal HTN. Lipase 2300 , Amylase 600. Lipase 800-1000 up from 400 on admission Alk phos isoenzymes show majority Alk phos from liver. Perhaps a liver infiltrative process? 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 Could have obstruction of ampulla, likely needs EUS and ERCP as per GI Hepatic Duplex neg for portal vein thrombosis INR and platelets are normal, no evidence of portal hypertension on imaging previously. Liver does appear cirrhotic on previous imaging. He is compensated at this point from a cirrhosis standpoint. Hepatitis C antibody was negative in March of this past year. Hep A titer ending, Hep B negative. -He has already quit all alcohol use -Follow LFTs -Appreciate GI consultation -continue oxycodone prn pain -Plan for transfer to [facility] for EUS and expedited workup as EUS not available here-accepted for transfer on evening of 10/19, awaiting bed for placement today T12 neoplasm- MRI of the thoracic spine to further evaluate T12 lesion again shows suspicious for neoplasm, as does CT of the thoracic spine ordered by spine surgery Orthopedic spine surgery could perform biopsy but would require general anesthesia-given his renal failure, he is not a candidate for that right now- could consider IR for biopsy if can't get tissue sampling for primary site of malignancy elsewhere Pulmonary nodules -numerous bilateral, seen on CT last admission. Likely metastatic disease from adenocarcinoma, unknown primary. TAWNY level normal--> granulomatous disease not likely. He is a lifetime non-smoker. He has no signs or symptoms of infection. Pulmonary and thoracic surgery decided no bronchoscopy at this time as the nodules are too small-there is nothing to biopsy -workup for primary source of adenocarcinoma ongoing as above HTN -BP is uncontrolled but slightly improved. Is no longer on his usual ACEI since CHAD -cont Norvasc, metoprolol -Add IV hydralazine as needed Anemia -normocytic, related to cirrhosis and possibly CKD or chronic disease - Hb was stable at 8.3, now slight drop today to 7.6 but hemodynamically stable and no evidence of gross bleeding. Fe studies normal in 08/2016 and partially done in 09/2017 with normal serum iron and normal TIBC normal. Hemoccult stool was negative in September 2017. B12 and folate were normal recently. -Follow CBC and transfuse as needed but caution with fluid overload-will NOT transfuse today, could be lab error and he is HD stable -He had colonoscopy 2 and half years ago that was normal as per patient- requested records from [place] but never sent HPL - not currently treated with statin due to liver issues Constipation-improved -Continue prune juice, docusate/senna, Dulcolax and Dulcolax suppositories as needed, Miralax Full code - Heparin prophylaxis-placed on hold today for possible upcoming GI procedure and/or thoracentesis Disposition-transfer to [facility] when bed available today Total Time Spent: Greater than 30 minutes This includes examination of the patient, discharge planning, medication reconciliation, and communication with other providers. Discharge Instructions Please refer to the electronic Patient Visit Report (Discharge Instructions) for additional information. Additional Copies To Segundo Feldman M.D.
--- NOTE | 2017-10-20 14:46 | Procedure Note ---
Procedure Note Procedure Date Oct 20, 2017. Procedure Description Procedure Name: Right Thoracentesis Procedure time out: side/site verified Consent obtained: written Performed by: attending, physician cost estimating manager Indications: diagnostic, therapeutic Contraindications: none Description: After informed consent, a bedside UA was used to identify a suitable fluid pocket in the right hemithorax. The area was marked and anesthetized with lidocaine. A needle was inserted and pleural fluid obtained. A guidewire was placed through the needle and then a triple lumen central line was placed in the pleural cavity via the Seldinger technique. Approximately 1400 cc of yellow fluid was obtained. The catheter was withdrawn and a sterile dressing applied. The fluid was sent for appropriate analysis. The pt. tolerated the procedure well. Post procedure CXR showed no pneumothorax and improvement of right sided pleural effusion. Complications: none Patient tolerated procedure: well Post-procedure vital signs: reviewed and stable
--- NOTE | 2017-10-20 14:58 | DIAGNOSTIC IMAGING REPORT ---
SINGLE VIEW CHEST CLINICAL HISTORY: Status post thoracentesis. FINDINGS: An AP, portable, upright chest radiograph is compared to study dated 10/15/2017. The examination is degraded by portable technique and apical lordotic positioning. The heart is enlarged. The pulmonary vasculature is noncongested. Small pleural effusions are suspected and there is bibasilar atelectasis. No pneumothorax is seen. The skeletal structures appear osteopenic. The bony thorax is grossly intact. IMPRESSION: 1. No pneumothorax is identified post procedure. 2. Cardiomegaly without radiographic evidence of congestive failure. 3. Small pleural effusions are suspected. Electronically signed by: Cruz Forde M.D. 10/20/2017 2:56 PM Dictated Date/Time: 10/20/2017 2:55 PM
--- NOTE | 2017-10-20 15:12 | Medical Consult ---
Consultation Note Date of Service Oct 20, 2017. Consultation Note Consult Dictated #[id number]
[2017-10-20 15:19] LABS: PLEURAL FLUID TOTAL PROTEIN 3.4 g/dl
[2017-10-20 16:00] VITALS: BP 145/85; PULSE 67; TEMP 36.6; O2SAT 92
[2017-10-20 16:09] VITALS: O2SAT 91
--- NOTE | 2017-10-20 18:38 | CONSULTATION REPORT ---
DATE OF CONSULTATION: 10/20/2017 HISTORY OF PRESENT ILLNESS: Bilateral pleural effusions. HISTORY OF PRESENT ILLNESS: This is a 67-year-old male who was admitted to [facility] due to fluid retention as well as shortness of breath. There is concern the patient has an underlying malignancy without identifiable cause at this time. The patient has been in the hospital and he has noted some shortness of breath that is worse with activity, although he is okay while he is at rest. The patient has had various imaging studies most recently including a CT scan of the abdomen and pelvis that showed at least moderate sized pleural effusions bilaterally. It is for this reason that we are asked to see the patient. I visited with the patient at bedside and he is resting comfortably in bed. He said he has not had any recent falls or visual changes, no tinnitus or sore throat is noted. He denies any chest pain. He does note shortness of breath as described above. He denies fever, shakes, or chills. No abdominal complaints are noted. He denies any DVT or PE. He denies anxiety or depression. PAST MEDICAL HISTORY: Significant for the followin. Acute kidney injury. 2. Chronic anemia. 3. Hypertension. 4. Hyperlipidemia. 5. History of alcohol abuse. 6. History of alcoholic cirrhosis. 7. History of pulmonary nodules. ALLERGIES: None. OUTPATIENT MEDICATION REGIMEN: Includes the followin. Albuterol as needed. 2. Norvasc 10 mg daily. 3. Lexapro 5 mg daily. 4. Hydralazine 10 mg IV every 8 hours as needed. 5. Lorazepam as needed. 6. Metoprolol 100 mg twice daily. 7. Oxycodone 5 mg every 6 hours as needed. 8. MiraLax as needed. 9. Senokot daily. 10. Sodium bicarbonate 1300 mg twice daily. 11. Ambien as needed. SOCIAL HISTORY: The patient does have a history of alcohol abuse and he says he has abstained from alcohol since August of this year. The patient is a lifetime nonsmoker. FAMILY HISTORY: Significant for hypertension and heart disease. REVIEW OF SYSTEMS: As noted above. PHYSICAL EXAMINATION: VITAL SIGNS: The patient is afebrile, temperature 36.7, pulse 70 and regular, respirations are 16 unlabored, blood pressure 169/94, pulse ox 90% on room air. SKIN: Warm with good turgor. GENERAL: He is alert and oriented x3 in no distress. HEENT: Head is atraumatic, normocephalic. EYES: Pupils equal, round and react to light and accommodation. Extraocular motions are intact. EARS: Auditory acuity is grossly intact. NOSE: Nasal patency was intact. Sinuses are nontender. Mouth is moist without exudates. NECK: Supple. There is no JVD. CARDIOVASCULAR: Regular rate and rhythm. LUNGS: The patient's lungs revealed no use of accessory muscles. Breath sounds were noted markedly decreased at the bases bilaterally. ABDOMEN: Soft and nontender. EXTREMITIES: Revealed no cyanosis, clubbing or edema. NEUROLOGIC: Revealed no focal deficits. DIAGNOSTIC DATA: See above description for patient's CT scan of his abdomen. He did have labs today which were reviewed. His hemoglobin and hematocrit are 7.6 and 21.8, white blood cell count and platelet count were noted to be within normal range. Coagulation studies were noted to be within normal range. Chemistry profile showed sodium 134, potassium is within normal range. BUN and creatinine were 59 and 4.4. IMPRESSION: A 67-year-old male with bilateral pleural effusions. PLAN: We have been informed by the medical service, the patient is tentatively scheduled for transfer to [facility] for further workup and evaluation. As he has at least moderate bilateral pleural effusions, we will perform a thoracentesis for therapeutic as well as diagnostic purposes. As it does appear that the right-sided pleural effusion is larger, we will perform a right-sided thoracentesis at the bedside with ultrasound guidance. The patient has agreed to this. For complete details of thoracentesis, please refer to orders that are placed in [facility] as well as the procedure note.
--- NOTE | 2017-10-20 19:14 | Hospitalist Progress Note ---
Hospitalist Progress Note Date of Service Oct 20, 2017. Subjective Pt evaluation today including: conversation w/ patient Still with some epigastric discomfort, moved bowels and no blood or melena. No heartburn. Still with low appetite. No CP or SOB. Very anxious for transfer. Says he's "tired of waiting." Physical Exam General Appearance: WD/WN, no apparent distress Eyes: normal inspection, sclerae normal ENT: hearing grossly normal Neck: trachea midline Respiratory/Chest: no respiratory distress, no accessory muscle use, + decreased breath sounds (at bases bilat) Cardiovascular: regular rate, rhythm, no edema, no murmur Abdomen: normal bowel sounds, non tender, soft Extremities: normal inspection, no pedal edema, no calf tenderness Neurologic/Psychiatric: alert, oriented x 3, + pertinent finding (anxious) Skin: warm/dry, no rash, + jaundice (mild) Review of Systems: Constitutional: No fever, No chills Eyes: No problem reported ENT: No problem reported Respiratory: No problem reported Cardiovascular: No problem reported Abdomen: + pain, No nausea, No vomiting, No GI bleeding Musculoskeletal: No problem reported Genitourinary - Male: No problem reported Neurologic: No problem reported Psychiatric: + anxiety Endocrine: No problem reported Hematologic / Lymphatic: No problem reported Integumentary: No problem reported Objective Vital Signs Date Time Temp Pulse Resp B/P (MAP) Pulse Ox O2 Delivery O2 Flow Rate FiO2 10/20/17 16:00 36.6 67 18 145/85 (105) 92 Room Air 10/20/17 08:00 Room Air 10/20/17 07:20 36.7 78 16 169/94 (119) 90 Room Air 10/20/17 00:00 Room Air 10/19/17 19:20 91 Room Air Laboratory Results Last 24 Hours Test 10/20/17 00:00 10/20/17 07:02 10/20/17 14:00 Pleural Fluid pH 7.45 White Blood Count 6.11 K/uL Red Blood Count 2.38 M/uL Hemoglobin 7.6 g/dL Hematocrit 21.8 % Mean Corpuscular Volume 91.6 fL Mean Corpuscular Hemoglobin 31.9 pg Mean Corpuscular Hemoglobin Concent 34.9 g/dl Platelet Count 342 K/uL Mean Platelet Volume 9.0 fL Neutrophils (%) (Auto) 67.1 % Lymphocytes (%) (Auto) 13.1 % Monocytes (%) (Auto) 14.9 % Eosinophils (%) (Auto) 4.1 % Basophils (%) (Auto) 0.5 % Neutrophils # (Auto) 4.10 K/uL Lymphocytes # (Auto) 0.80 K/uL Monocytes # (Auto) 0.91 K/uL Eosinophils # (Auto) 0.25 K/uL Basophils # (Auto) 0.03 K/uL RDW Standard Deviation 44.3 fL RDW Coefficient of Variation 13.4 % Immature Granulocyte % (Auto) 0.3 % Immature Granulocyte # (Auto) 0.02 K/uL Hypochromasia PRESENT Sodium Level 134 mmol/L Potassium Level 4.3 mmol/L Chloride Level 103 mmol/L Carbon Dioxide Level 22 mmol/L Anion Gap 9.0 mmol/L Blood Urea Nitrogen 59 mg/dl Creatinine 4.46 mg/dl Est Creatinine Clear Calc Drug Dose 18.3 ml/min Estimated GFR () 14.8 Estimated GFR (Non- 12.8 BUN/Creatinine Ratio 13.2 Random Glucose 91 mg/dl Calcium Level 8.2 mg/dl Magnesium Level 2.8 mg/dl Total Bilirubin 4.6 mg/dl Direct Bilirubin 3.7 mg/dl Aspartate Amino Transf (AST/SGOT) 125 U/L Alanine Aminotransferase (ALT/SGPT) 122 U/L Alkaline Phosphatase 679 U/L Total Protein 6.8 gm/dl Albumin 2.5 gm/dl Pleural Fluid Source RIGHT LUNG Pleural Fluid Color YELLOW Pleural Fluid Appearance HAZY Pleural Fluid WBC 371 /uL Pleural Fluid RBC < 3000 /uL Pleural Fluid Polynuclear WBCs % 5.4 % Pleural Fluid Mononuclear WBCs % 94.6 % Pleural Fluid Total Protein 3.4 g/dl Pleural Fluid LDH 119 IU Pleural Fluid Glucose 112 mg/dl Pleural Fluid Amylase 127 U/L Assessment and Plan Patient is a 67 y/o M HTN, HPL, anemia, pulmonary nodules - 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 CHAD was thought to be due to ATN, NSAID and TAWNY use in the setting of an acute pancreatitis episode and was initially treated with IVF. Renal function only minimally improved despite hydration and he was subsequently DCd with a creatinine of approximately 3.0. He states that he had gained 15lbs during his hospital stay and in the week after. Presented to the ER 10/07 c/o exertional dyspnea and weight gain. No acute abnormalities were found on labs or imaging. He was provided a dose of IV Lasix and DCd from the ER. He returned to the ER a few days later with c/o worsening weight gain, worsening LE edema and exertional dyspnea. Initial imaging shows stable, small pleural effusions. Initial labs are notable for worsening renal function as his creatinine has increased to 3.4. Acute kidney injury with volume overload and dyspnea/bilateral pleural effusions /Metabolic acidosis-related possibly to ATN secondary to acute pancreatitis/ NSAID/ACEI use. Creatinine continues to increase at 4.46. Bicarbonate was low at 19--> now 22 on HCO3 tabs. Not hypoxic. Renal ultrasound normal on previous admission. CT abdomen/pelvis showed moderate perinephric stranding possibly consistent with chronic kidney disease. No stones or obstruction. He remains nonoliguric. Urine spot protein/creatinine ratio is normal at 0.2, repeat UA now with 1+ protein SPEP normal, Urine PAULO with A SMALL BAND OF KAPPA LIGHT CHAIN DETECTED -Appreciate nephrology consultation -No IV fluids at this time, hold off on any further diuretics -Follow PRP and electrolytes -Follow I's and O's Avoid nephrotoxins, continue to hold previous home lisinopril, NSAIDs -NO acute indication for dialysis at this time. -continue Na+HCO3 tabs bid Pleural effusions-moderate on CT- not hypoxic but intermittent dyspnea -d/w Thoracic surgery--> did have plan for diagnostic and therapeutic thoracentesis today but now set for transfer to [facility] so will hold off -check pleural fluid Bilirubin, lipase, amylase when does get tapped -Appreciate Thoracic Surgery consultation Suspected Alcoholic cirrhosis/Abdominal pain/Pancreatic ascites/Elevated lipase/ Elevated LFTs with cholestatic pattern and with rising alkaline phosphatase now in the 600s. TBili now higher at at 4.6 with direct component 3.7. Ascites with adenocarcinoma cells and high lipase, amylase present. No SBP - PMN 16. SAAG 0.6 w/ total protein 6.6 not suggestive of portal HTN. Lipase 2300 , Amylase 600. Lipase 800-1000 up from 400 on admission Alk phos isoenzymes show majority Alk phos from liver. Perhaps a liver infiltrative process? 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 Could have obstruction of ampulla, likely needs EUS and ERCP as per GI Hepatic Duplex neg for portal vein thrombosis INR and platelets are normal, no evidence of portal hypertension on imaging previously. Liver does appear cirrhotic on previous imaging. He is compensated at this point from a cirrhosis standpoint. Hepatitis C antibody was negative in March of this past year. Hep A titer ending, Hep B negative. 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 Likely metastatic disease from adenocarcinoma, unknown primary. TAWNY level normal--> granulomatous disease not likely. He is a lifetime non-smoker. He has no signs or symptoms of infection. Pulmonary and thoracic surgery decided no bronchoscopy at this time as the nodules are too small-there is nothing to biopsy -workup for primary source of adenocarcinoma ongoing as above HTN -BP is uncontrolled but slightly improved. Is no longer on his usual ACEI since CHAD -cont Norvasc, metoprolol -Add IV hydralazine as needed Anemia -normocytic, related to cirrhosis and possibly CKD or chronic disease - Hb was stable at 8.3, now slight drop today to 7.6 but hemodynamically stable and no evidence of gross bleeding. Fe studies normal in 08/2016 and partially done in 09/2017 with normal serum iron and normal TIBC normal. Hemoccult stool was negative in September 2017. B12 and folate were normal recently. -Follow CBC and transfuse as needed but caution with fluid overload-will NOT transfuse today, could be lab error and he is HD stable -He had colonoscopy 2 and half years ago that was normal as per patient- requested records from [facility] but never sent HPL - not currently treated with statin due to liver issues Constipation-improved -Continue prune juice, docusate/senna, Dulcolax and Dulcolax suppositories as needed, Miralax Full code - Heparin prophylaxis-placed on hold today for possible upcoming GI procedure and/or thoracentesis Disposition-transfer to [facility] when bed available
[2017-10-20] MEDS: LORAZEPAM 0.5 MG TAB PO PRN (21:44)
[2017-10-20 22:39] VITALS: BP 145/85; PULSE 67; TEMP 36.6; O2SAT 91
[2017-10-20] MEDS: OXYCODONE HCL IR 5 MG TAB (IMMEDIATE RELEASE) PO PRN (23:30)
[2017-10-20] MEDS ORDERED: CALCIUM CARBONATE 500 MG CHEWABLE PO PRN (23:45)
[2017-10-21 14:33] LABS: ANA SCREEN TC 249X POSITIVE (NEGATIVE); HEPATITIS A IGM TC 51813E NON-REACTIVE (NON-REACTIVE); HEPATITIS B CORE IGM TC51854R NON-REACTIVE (NON-REACTIVE)
== END 2017-10-21 00:54 | disposition short-term general hospital (02) | DRG 438 ==
LOC: C.EDB 18:56 → C.MS4W 10-11 → ENRESERV 10-11 01:09 → C.MS4W 10-11 17:52
PROVIDERS: ADMIT Internal Medicine; ATTEND Family Medicine
PROC: 0W9G3ZX Drainage of Peritoneal Cavity, Percutaneous Approach, Diagnostic (ICD-10-PCS; 2017-10-17)
PROC: 0W993ZX Drainage of Right Pleural Cavity, Percutaneous Approach, Diagnostic (ICD-10-PCS; principal; 2017-10-20)
DX: K85.90 Acute pancreatitis without necrosis or infection, unspecified (principal); N17.0 Acute kidney failure with tubular necrosis; R18.0 Malignant ascites; E87.2 Acidosis; C78.00 Secondary malignant neoplasm of unspecified lung; J90 Pleural effusion, not elsewhere classified; N18.4 Chronic kidney disease, stage 4 (severe); C80.1 Malignant (primary) neoplasm, unspecified; E87.70 Fluid overload, unspecified; F10.21 Alcohol dependence, in remission; Z82.49 Family history of ischemic heart disease and other diseases of the circulatory system; K70.31 Alcoholic cirrhosis of liver with ascites; I12.9 Hypertensive chronic kidney disease with stage 1 through stage 4 chronic kidney disease, or unspecified chronic kidney disease; R91.1 Solitary pulmonary nodule; M89.9 Disorder of bone, unspecified; Z87.891 Personal history of nicotine dependence; K59.00 Constipation, unspecified; E78.5 Hyperlipidemia, unspecified; T39.395A Adverse effect of other nonsteroidal anti-inflammatory drugs [NSAID], initial encounter; Y92.009 Unspecified place in unspecified non-institutional (private) residence as the place of occurrence of the external cause; D64.9 Anemia, unspecified

== ENCOUNTER → 2017-10-10 | Outpatient (CLI) | payer OTHER ==
[~2017-10-10] MED LIST changes: +ALBU18002 INH; +AMLO-110 PO; -ATOR-22 PO; -LISI-725 PO; +POLY335019 PO
[2017-10-10 17:32] LABS: BASO % 0.3 %; BASO ABS # 0.02 K/uL (0-0.2); EOS % 6.3 %; EOS ABS # 0.39 K/uL (0-0.5); HEMATOCRIT 28.4 % (42-52); HEMOGLOBIN 9.9 g/dL (14.0-18.0); IG# 0.01 K/uL (0.00-0.02); LYMPH % 10.7 %; LYMPH ABS # 0.66 K/uL (1.2-3.4); MEAN CORPUSCULAR HEMOGLOBIN 33.1 pg (25-34); MEAN PLATELET VOLUME 9.4 fL (7.4-10.4); MONO % 14.5 %; MONO ABS # 0.89 K/uL (0.11-0.59); NEUT ABS # 4.18 K/uL (1.4-6.5); PLATELET COUNT 264 K/uL (130-400); RED CELL DISTRIBUTION WIDTH CV 12.8 % (11.5-14.5); RED CELL DISTRIBUTION WIDTH SD 43.9 fL (36.4-46.3); WHITE BLOOD COUNT 6.15 K/uL (4.8-10.8)
[2017-10-10 17:34] LABS: MEAN CORPUSCULAR HGB CONC 34.9 g/dl (32-36)
[2017-10-10 17:40] LABS: INR 0.9 (0.9-1.1); PTT PATIENT 25.9 SECONDS (21.0-31.0)
[2017-10-10 17:50] LABS: ALBUMIN 3.4 gm/dl (3.4-5.0); ALKALINE PHOSPHATASE 532 U/L (45-117); ALT/SGPT 131 U/L (12-78); AST/SGOT 116 U/L (15-37); BLOOD UREA NITROGEN 40 mg/dl (7-18); CALCIUM 8.6 mg/dl (8.5-10.1); CARBON DIOXIDE 19 mmol/L (21-32); CREATININE 3.48 mg/dl (0.60-1.40); GLUCOSE 108 mg/dl (70-99); POTASSIUM 4.6 mmol/L (3.5-5.1); SODIUM 136 mmol/L (136-145); TOTAL PROTEIN 7.9 gm/dl (6.4-8.2)
== END | disposition home or self-care (01) ==
LOC: C.LABPBG 11:54
PROVIDERS: ATTEND Internal Medicine
DX: I10 Essential (primary) hypertension (principal); K70.31 Alcoholic cirrhosis of liver with ascites; N17.9 Acute kidney failure, unspecified